=== PATIENT | male | born 1975 | race Caucasian/White ===

== ENCOUNTER 2017-02-14 19:35 | Inpatient (IN) | payer BC, MEDICAID, OTHER ==
[~2017-02-14] VITALS: Ht 188 cm; Wt 130.2 kg
[2017-02-14 19:50] VITALS: BP 110/67; PULSE 57; RESP 18; O2SAT 99
--- NOTE | 2017-02-14 19:53 | PD ---
HPI Chief Complaint: psychiatric evaluation Time Seen by Provider: 19:42 Travel History International Travel<30 days: No Contact w/Intl Traveler<30days: No History of Present Illness HPI 41-year-old male presents to the emergency department under Melendrez act for psychiatric evaluation. Patient is a resident at a local nursing facility. According to the Melendrez act, the patient has mental disabilities and has been getting rough with staff and other residences. According to the Melendrez act, ever since he has been admitted to the facility he has had some started disturbance. The windows vm[employer] administrator wanted him Melendrez acted for psychiatric evaluation. The patient has a history of schizoaffective disorder, anxiety, AMS. He is on multiple psychiatric medications. On my exam, he is alert and cooperative. He denies being aggressive with staff. He has no medical complaints at this time. Moderate severity. [facility] Social History Alcohol Use: No Tobacco Use: No Substance Use: No Allergies-Medications (Allergen,Severity, Reaction): Coded Allergies: No Known Allergies (Verified Allergy, Unknown, 02/14/17) Reported Meds & Prescriptions Reported Meds & Active Scripts Active Reported Ativan (Lorazepam) 1 Mg Tab 1 Mg PO Q6H PRN Seroquel (Quetiapine Fumarate) 25 Mg Tab 75 Mg PO TID Klonopin (Clonazepam) 1 Mg Tab 1 Mg PO TID Trazodone (Trazodone HCl) 100 Mg Tablet 100 Mg PO TID Olanzapine 20 Mg Tab 20 Mg PO HS Escitalopram (Escitalopram Oxalate) 20 Mg Tab 20 Mg PO DAILY Depakote ER (Divalproex Sodium) 500 Mg Ernst 500 Mg PO BID Review of Systems Except as stated in HPI: all other systems reviewed are Neg Physical Exam Narrative GENERAL: Well-nourished, well-developed male patient, afebrile. SKIN: Focused skin assessment warm/dry. HEAD: Normocephalic. Atraumatic. EYES: No scleral icterus. No injection or drainage. NECK: Supple, trachea midline. No JVD or lymphadenopathy. CARDIOVASCULAR: Regular rate and rhythm without murmurs, gallops, or rubs. RESPIRATORY: Breath sounds equal bilaterally. No accessory muscle use. Lungs sounds are clear to auscultation. GASTROINTESTINAL: Abdomen soft, non-tender, nondistended. MUSCULOSKELETAL: No cyanosis, or edema. PSYCHIATRIC: No delusional thought processes. No hallucinations. Data Data Last Documented VS Vital Signs Date Time Temp Pulse Resp B/P (MAP) Pulse Ox O2 Delivery O2 Flow Rate FiO2 02/14/17 19:50 57 18 110/67 (81) 99 Room Air Orders Orders Complete Blood Count With Diff (02/14/17 19:52) Comprehensive Metabolic Panel (02/14/17 19:52) Valproic Acid (Depakene) (02/14/17 19:52) Psych Screen (02/14/17 19:52) Drug Screen, Random Urine (02/14/17 19:52) Alcohol (Ethanol) (02/14/17 19:52) Olanzapine Inj (Zyprexa Inj) (02/14/17 20:45) Labs Laboratory Tests Test 02/14/17 20:13 White Blood Count 7.2 TH/MM3 Red Blood Count 4.68 MIL/MM3 Hemoglobin 14.8 GM/DL Hematocrit 42.4 % Mean Corpuscular Volume 90.7 FL Mean Corpuscular Hemoglobin 31.7 PG Mean Corpuscular Hemoglobin Concent 34.9 % Red Cell Distribution Width 12.4 % Platelet Count 257 TH/MM3 Mean Platelet Volume 6.9 FL Neutrophils (%) (Auto) 52.5 % Lymphocytes (%) (Auto) 38.7 % Monocytes (%) (Auto) 7.1 % Eosinophils (%) (Auto) 0.9 % Basophils (%) (Auto) 0.8 % Neutrophils # (Auto) 3.8 TH/MM3 Lymphocytes # (Auto) 2.8 TH/MM3 Monocytes # (Auto) 0.5 TH/MM3 Eosinophils # (Auto) 0.1 TH/MM3 Basophils # (Auto) 0.1 TH/MM3 CBC Comment DIFF FINAL Differential Comment Blood Urea Nitrogen 10 MG/DL Creatinine 0.90 MG/DL Random Glucose 89 MG/DL Total Protein 7.1 GM/DL Albumin 3.7 GM/DL Calcium Level 8.8 MG/DL Alkaline Phosphatase 76 U/L Aspartate Amino Transf (AST/SGOT) 10 U/L Alanine Aminotransferase (ALT/SGPT) 17 U/L Total Bilirubin 0.3 MG/DL Sodium Level 139 MEQ/L Potassium Level 3.9 MEQ/L Chloride Level 105 MEQ/L Carbon Dioxide Level 26.7 MEQ/L Anion Gap 7 MEQ/L Estimat Glomerular Filtration Rate 93 ML/MIN Valproic Acid (Depakene) Level 61 MCG/ML Ethyl Alcohol Level LESS THAN 3 MG/DL [facility] Medical Decision Making Medical Screen Exam Complete: Yes Emergency Medical Condition: Yes Medical Record Reviewed: Yes Differential Diagnosis Schizoaffective disorder versus depression versus anxiety Narrative Course 41-year-old male presents to the emergency department under Melendrez act from nursing facility. CBC, CMP, Depakote level, UDS, alcohol level are ordered and pending. Patient was noted to the psychiatric unit. Upon arrival, he began agitated and started banging his head. Patient is given Zyprexa 10 mg IM. CBC shows no acute abnormality. CMP shows no acute abnormality. Depakote level is 61. UDS is pending. Alcohol level is less than 3. Patient is medically cleared for psychiatric screening and disposition. Mental health screening discussed with the patient. Psychiatric screen ordered. Diagnosis Primary Impression: Schizoaffective disorder Qualified Codes: F25.9 - Schizoaffective disorder, unspecified Condition: Stable Sam,Lennie EDWARDS Feb 14, 2017 19:53
[2017-02-14 20:35] LABS: AUTOMATED NEUTROPHIL # 3.8 TH/MM3 (1.8-7.7); BASOPHIL # 0.1 TH/MM3 (0-0.2); BASOPHIL % 0.8 % (0.0-2.0); EOSINOPHIL # 0.1 TH/MM3 (0-0.4); EOSINOPHIL % 0.9 % (0.0-4.0); HEMATOCRIT 42.4 % (39.0-51.0); HEMO FLAGS DIFF FINAL; LYMPH % 38.7 % (9.0-44.0); LYMPHOCYTE # 2.8 TH/MM3 (1.0-4.8); MEAN CELL VOLUME 90.7 FL (80.0-100.0); MEAN CORPUSCULAR HEMOGLOBIN 31.7 PG (27.0-34.0); MEAN CORPUSCULAR HGB CONC 34.9 % (32.0-36.0); MONO % 7.1 % (0.0-8.0); NEUT % 52.5 % (16.0-70.0); PLATELET COUNT 257 TH/MM3 (150-450); RED BLOOD COUNT 4.68 MIL/MM3 (4.50-5.90); RED CELL DISTRIBUTION WIDTH 12.4 % (11.6-17.2); WHITE BLOOD COUNT 7.2 TH/MM3 (4.0-11.0)
[2017-02-14] MEDS ORDERED: DIVA250ER PO (20:43)
[2017-02-14] MEDS ORDERED: DEPA500T3 PO (20:43)
[2017-02-14] MEDS ORDERED: OLANZapine IM 10 MG VIAL IM ONE (20:45)
[2017-02-14] MEDS ORDERED: TRAZ100T10 PO (20:46)
[2017-02-14] MEDS ORDERED: LORA-474 PO (20:46)
[2017-02-14] MEDS ORDERED: CLON1 PO (20:46)
[2017-02-14] MEDS ORDERED: SERO25TA PO (20:46)
[2017-02-14] MEDS ORDERED: ESCI20TA PO (20:46)
[2017-02-14] MEDS ORDERED: OLAN20TA PO (20:46)
[2017-02-14 20:51] LABS: ALT (GPT) 17 U/L (12-78); ANION GAP 7 MEQ/L (5-15); AST (GOT) 10 U/L (15-37); BICARBONATE 26.7 MEQ/L (21.0-32.0); BLOOD UREA NITROGEN 10 MG/DL (7-18); CHLORIDE 105 MEQ/L (98-107); GLOMERULAR FILTRATION RATE 93 ML/MIN (>89); POTASSIUM 3.9 MEQ/L (3.5-5.1); SODIUM (NA) 139 MEQ/L (136-145)
[2017-02-14 20:54] LABS: ALKALINE PHOSPHATASE 76 U/L (45-117); TOTAL BILIRUBIN ADULT 0.3 MG/DL (0.2-1.0)
[2017-02-14 20:59] LABS: ALCOHOL LESS THAN 3 MG/DL (0-5)
[2017-02-14 21:10] VITALS: TEMP 96.5
[2017-02-14] MEDS ORDERED: traZODone HCL 100 MG TAB PO SCH (21:53)
[2017-02-14] MEDS ORDERED: LORazepam 2 MG/ML VIAL IM PRN (22:00)
[2017-02-14] MEDS ORDERED: diphenhydrAMINE HCL 50 MG/ML VIAL IM PRN (22:00)
[2017-02-14] MEDS ORDERED: ALUMINUM/MAGNESIUM/SIMETH 30 ML CUP PO PRN (22:00)
[2017-02-14] MEDS ORDERED: ACETAMINOPHEN 325 MG TAB PO PRN (22:00)
[2017-02-14] MEDS ORDERED: MAGNESIUM HYDROXIDE SUSP 30 ML CUP PO PRN (22:00)
[2017-02-14] MEDS ORDERED: LORazepam 1 MG TAB PO PRN (22:00)
[2017-02-14] MEDS ORDERED: diphenhydrAMINE HCL 50 MG CAP PO PRN (22:00)
[2017-02-14 22:20] VITALS: BP 130/81; PULSE 79; RESP 17; O2SAT 100
[2017-02-14] MEDS: OLANZapine 10 MG TAB PO SCH (22:44)
[2017-02-14] MEDS: clonazePAM 1 MG TAB PO SCH (22:44)
[2017-02-15 06:47] VITALS: BP 121/83; PULSE 89; RESP 18; TEMP 97.6; O2SAT 99
[2017-02-15] MEDS: clonazePAM 1 MG TAB PO SCH ×2 (08:29→20:53)
[2017-02-15 08:35] LABS: ANION GAP 10 MEQ/L (5-15); BICARBONATE 24.2 MEQ/L (21.0-32.0); BLOOD UREA NITROGEN 10 MG/DL (7-18); CHLORIDE 104 MEQ/L (98-107); GLOMERULAR FILTRATION RATE 86 ML/MIN (>89); POTASSIUM 3.5 MEQ/L (3.5-5.1); SODIUM (NA) 138 MEQ/L (136-145)
[2017-02-15 08:39] LABS: HDL CHOLESTEROL 28.9 MG/DL (40.0-60.0); LDL CHOLESTEROL 141 MG/DL (0-99)
[2017-02-15 09:24] LABS: HEMOGLOBIN A1a 1.2 %; HEMOGLOBIN A1b 1.2 %; HEMOGLOBIN F 0.9 %; HEMOGLOBIN LA1C 1.8 %; HEMOGLOBIN P3 3.2 %
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
[2017-02-15] MEDS ORDERED: FLUMAZENIL 0.5 MG/5 ML VIAL IV PUSH PRN (14:15)
[2017-02-15] MEDS ORDERED: LORazepam 2 MG TAB PO PRN (14:15)
[2017-02-15] MEDS ORDERED: OLANZapine IM 10 MG VIAL IM PRN (14:15)
[2017-02-15] MEDS ORDERED: LORazepam 2 MG/ML VIAL IV PUSH PRN ×4 (14:15)
[2017-02-15] MEDS ORDERED: LORazepam 1 MG TAB PO PRN (14:15)
[2017-02-15 17:32] VITALS: BP 106/67; PULSE 64; RESP 20; TEMP 97.8; O2SAT 96
[2017-02-15] MEDS: traZODone HCL 100 MG TAB PO SCH (18:00)
[2017-02-15] MEDS: OLANZapine 10 MG TAB PO SCH (20:53)
[2017-02-15] MEDS: DIVALPROEX SODIUM E.R. 250 MG TAB PO SCH (20:53)
[2017-02-16 05:36] VITALS: BP 105/69; PULSE 79; RESP 18; TEMP 98.5; O2SAT 95
[2017-02-16] MEDS: traZODone HCL 100 MG TAB PO SCH ×3 (09:00→17:32)
[2017-02-16] MEDS: clonazePAM 1 MG TAB PO SCH ×2 (09:00→20:54)
[2017-02-16] MEDS: ESCITALOPRAM OXALATE 20 MG TAB PO SCH (09:00)
[2017-02-16] MEDS: DIVALPROEX SODIUM E.R. 250 MG TAB PO SCH ×2 (09:00→20:54)
[2017-02-16] MEDS: OLANZapine 10 MG TAB PO SCH ×2 (09:00→20:54)
--- NOTE | 2017-02-16 11:25 | HHI.PYPN ---
Subjective Chief Complaint: Behavioral disturbance Remarks Patient seen and examined with nurse and counselor. Chart reviewed. CIWA max overnight was 13, but I suspect this was picking up on non-withdrawal symptomatology. Case discussed in treatment team. Per nursing staff, patient has not been aggressive or assaultive overnight. He has been noted to wander the unit and enter other patient's rooms to take small items like blankets. On my exam today, patient is calm and childlike. He is a little more communicative today. He denies SI or HI. No evident side effects from medications. No physical distress noted. Review of Systems ROS Limitations: Poor Historian Other Limited ROS as noted before. Mental Status Examination Appearance: Disheveled Consciousness: Alert Orientation: Person (seems to recognize name) Motor Activity: Other (no signs of withdrawal noted. No other motor abnormalities noted.) Speech: Other (able to say yes/no) Language: Other (Inadequate) Fund of Knowledge: Inadequate Attention and Concentration: Inadequate Memory: Impaired (Continue to suspect some degree of impairment) Mood: Other (Calm) Affect: Blunt, Other (remains childlike) Thought Process & Associations: Other (slowed) Thought Content: Other (limited sample) Hallucination Type: Other (No AVH reported. Patient does not appear internally stimulated.) Delusion Type: Other (no elham delusional material elicited) Suicidal Ideation: No Homicidal Ideation: No Insight: Poor Judgment: Poor Results Labs Test 02/15/17 15:40 Ammonia 45 MCMOL/L Labs reviewed. Mild hyperammonemia noted. 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 Behaviors that have been noted, such as wandering, are likely chronic and are unlikely to benefit from psychiatric hospitalization. Add Carnitor for hyperammonemia with plans to recheck ammonia level on outpatient basis. I will continue other psychotropics as ordered. N.B. Correcting yesterday's notes, patient is receiving Klonopin 2mg BID, which represents a slight dose decrease relative to patient's outpatient Ativan/Klonopin regimen. Further tapering of benzos could be considered on outpatient basis. Continue to monitor on an inpatient unit. Continue other medications and care as ordered. Justification for Cont. Inpt. Monitoring for impairments in safety, none noted. Discharge Planning Anticipate return to facility tomorrow, Wednesday with outpatient psychiatric follow-up. Case discussed with counselor. Josue Ibrahim MD Feb 16, 2017 11:25
--- NOTE | 2017-02-16 14:26 | EKG ---
Date Performed: 02/15/2017 Time Performed: 17:08:28 PTAGE: 41 years EKG: Sinus rhythm NONSPECIFIC T-WAVE ABNORMALITY BORDERLINE ECG NO PREVIOUS TRACING DOCTOR: Carmen Waller Interpretating Date/Time 02/16/2017 14:24:07
--- NOTE | 2017-02-16 15:16 | PD.TTN ---
Patient Problems 1. Discharge planning 2. Medication compliance 3. Knowledge deficit 4. Lack of coping skills Progress Toward Goals Provider Present: Dr. Alfonso Ibrahim Provider Input: 02-16-17 Dr. Ibrahim reports the patient has a history of TBI and has been moving between placements. Dr. Ibrahim reports he would like the patient discharged back to [facility] when stable and linked with appropriate psychiatric follow-up care. Psychiatric Counselors Present: LION Garvin Group Spec/RT/OT/US Present: JENNY Mc Group Spec/RT/OT/US Input: Patient is visible in the [place], but does not participate in the group activities. Documentation Scribe: LION Garvin Date Resolved: Feb 16, 2017 Deepti Umanzor Feb 16, 2017 15:16
[2017-02-16] MEDS: levOCARNitine 10% ORAL SOLN 118 ML BTL PO SCH (17:32)
[2017-02-16 17:44] VITALS: BP 131/75; PULSE 89; RESP 18; TEMP 97.5; O2SAT 98
[2017-02-17 05:57] VITALS: BP 169/84; PULSE 74; RESP 17; TEMP 98.5
[2017-02-17] MEDS ORDERED: CLON1 PO (10:52)
[2017-02-17] MEDS: clonazePAM 1 MG TAB PO SCH (11:00)
[2017-02-17] MEDS: DIVALPROEX SODIUM E.R. 250 MG TAB PO SCH (11:00)
[2017-02-17] MEDS: ESCITALOPRAM OXALATE 20 MG TAB PO SCH (11:00)
[2017-02-17] MEDS: traZODone HCL 100 MG TAB PO SCH ×2 (11:00→13:25)
[2017-02-17] MEDS: levOCARNitine 10% ORAL SOLN 118 ML BTL PO SCH ×2 (11:00→13:25)
[2017-02-17] MEDS: OLANZapine 10 MG TAB PO SCH (11:00)
[2017-02-17] MEDS ORDERED: LEVO10%S PO (11:13)
[2017-02-17] MEDS ORDERED: OLAN10TA PO ×2 (11:13)
[2017-02-17] MEDS ORDERED: DIVA250ER PO (11:13)
--- NOTE | 2017-02-17 11:13 | HHI.DS ---
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 Harmon is a 41-year-old male with a history of TBI and subsequent psychiatric symptomatology who presents under Melendrez Act from facility. [place] Act reviewed, and this alleges that patient has been "getting rough" with staff and other residents at facility. Reviewing the electronic medical record, I note this is patient's first visit to [facility]. Documentation , including MAR, accompanies patient from facility, and I have reviewed this. Patient seen and examined with nurse. Chart reviewed. Case discussed with RN who reports that patient is childlike and intrusive. When I try to examine the patient he is largely non-verbal, although he does grunt at times. He is indeed intrusive, and he walks up very close to this physician and tries to grab my arm. This action does not seem aggressive in context. He is able to follow simple commands. He is not able, however, to reliably answer questions in the psychiatric ROS, even when utilizing alternative means of communication. For example, patient was able to show 2 fingers on command, but he is unable to answer questions when it is established that 1 finger indicates 'yes' and 2 fingers 'no.' He is presently calm. Psychiatric interview is quite limited presently because of inability to communicate mental status. I am unable to obtain any past psychiatric, family, chemical dependency or social history from this patient for the same reason. He does not appear to be in any acute physical distress and verbalizes no physical complaints at this time. Tobacco Use In Past 30 Days: No Tobacco Past 30 Days Alcohol Use: Never Hospital Course Patient was admitted to a locked, inpatient psychiatric unit. Appropriate precautions were in place throughout patient's hospital stay. Patient was seen and examined on the unit by psychiatry and also visited by counselor. Psychotropic medications were adjusted, and his psychotropic medication generally was simplified and polypharmacy reduced. Patient tolerated medication changes well without side effects. There was no evidence of any suicidality or homicidality on the inpatient unit. The patient exhibited some behaviors as a consequence of his psychiatric condition including wandering, utilization behavior, and fecal smearing, but there was no evidence of agitation or aggression. These behaviors that patient did exhibit are felt to be chronic and unlikely to improve with further inpatient psychiatric hospitalization. Counselor has arranged for patient's return to his facility today. On the day of discharge: Patient seen and examined with nurse. Chart reviewed. Case discussed with nursing staff. Per nurse, patient was no behavioral problem overnight besides an episode of fecal smearing. In particular nurse reports that there was no aggression or agitation. Nursing note from 02/16 at 21:51 was felt to be entered in error. There is no evidence that patient received Zyprexa IM, nor did day nurse receive any of this in report. On my examination today, patient is calm and cooperative with interview. He seems more lucid and interactive today with the benefit of medication adjustments. He denies any suicidal or homicidal ideation, intent or plan. He denies any AVH. No mood or psychotic symptoms noted. He reports that he feels ready to return to his facility and is agreeable to doing so. No side effects from medications. No physical complaints. Suicide and violence risk assessment both suggest lower imminent risk on day of discharge. There is likely a component of chronic risk related to impulsivity associated with his psychiatric condition, but this risk would not be ameliorated by a longer inpatient psychiatric hospital stay. His level of function appears to be adequate for planned level of outpatient care. He does not meet criteria for involuntary psychiatric hospitalization at this time, and his Melendrez act will this evening. Patient will be discharged back to facility today with psychiatric followup as arranged by counselor. Patient is also to follow-up with primary care. Patient to return to psychiatric emergency room for any concerning psychiatric symptoms. Results Blood Pressure 169 / 84 Vital Signs Date Time Temp Pulse Resp B/P (MAP) Pulse Ox O2 Delivery O2 Flow Rate FiO2 02/17/17 05:57 98.5 74 17 169/84 (112) 02/16/17 17:44 98 02/14/17 19:50 Room Air Laboratory Tests Test 02/14/17 20:13 02/15/17 07:41 02/15/17 15:40 Mean Platelet Volume 6.9 FL (7.0-11.0) Aspartate Amino Transf (AST/SGOT) 10 U/L (15-37) Random Glucose 130 MG/DL (74-106) Estimat Glomerular Filtration Rate 86 ML/MIN (>89) Hemoglobin A1c 6.2 % (4.3-6.0) Triglycerides Level 277 MG/DL (42-150) Cholesterol Level 225 MG/DL (120-200) LDL Cholesterol 141 MG/DL (0-99) HDL Cholesterol 28.9 MG/DL (40.0-60.0) Ammonia 45 MCMOL/L (11-32) Laboratory Results Test 02/14/17 20:13 02/15/17 07:41 Valproic Acid (Depakene) Level 61 MCG/ML (50-100) Cholesterol Level 225 MG/DL (120-200) HDL Cholesterol 28.9 MG/DL (40.0-60.0) Hemoglobin A1c 6.2 % (4.3-6.0) LDL Cholesterol 141 MG/DL (0-99) Triglycerides Level 277 MG/DL (42-150) Summary of Procedures None done Imaging None done Pending results at discharge: No Medications # of Antipsychotic meds at D/C: 1 Approp Antipsych med options 1 - Minimum of three failed multiple trials of monotherapy. 2 - Documented plan to taper to monotherapy due to previous use of multiple meds OR cross-taper in progress at D/C. 3 - Documentation of augmentation of Clozapine. 4 - Justification other than those listed in allowable values 1-3, document here : Discharge Discharge Date: Feb 17, 2017 Discharge Diagnosis: (1) Dementia following traumatic brain injury Diagnosis: Principal ICD Code: F03.90 - Unspecified dementia without behavioral disturbance Pt Condition on Discharge: Stable Discharge Disposition: ACLF/TEVIN Discharge Instructions Diet Instructions: As Tolerated, No Restrictions Activities you can perform: Weight Bearing as Oma Scheduled Appointment: as per counselor's notes New Orders: AMMONIA - 3-5 Days BASIC METABOLIC PROF - 3-5 Days DEPAKENE - 3-5 Days New Medications: Clonazepam (Klonopin) 1 Mg Tab 2 MG PO Q12HR for Mental Health for 15 Days, TAB 1 Refill Divalproex ER (Depakote ER) 250 Mg Ernst 750 MG PO BID for Mental Health for 15 Days, #90 TAB 1 Refill Levocarnitine Liq (Carnitor Liq) 1 Gm/10 Ml Soln 2 ML PO TID for Hyperammonemia for 15 Days, ML 1 Refill Olanzapine (Olanzapine) 10 Mg Tab 5 MG PO DAILY for Mental Health for 15 Days, #8 TAB 1 Refill Olanzapine (Olanzapine) 10 Mg Tab 20 MG PO HS for Mental Health for 15 Days, TAB 1 Refill Continued Medications: Escitalopram (Escitalopram) 20 Mg Tab 20 MG PO DAILY, #30 TAB 0 Refills Trazodone (Trazodone) 100 Mg Tablet 100 MG PO TID for Control Depression, #90 TAB 0 Refills Discontinued Medications: Clonazepam (Klonopin) 1 Mg Tab 1 MG PO TID, #90 TAB 0 Refills Divalproex ER (Depakote ER) 500 Mg Ernst 500 MG PO BID for Control Seizures, #30 TAB 0 Refills Lorazepam (Ativan) 1 Mg Tab 1 MG PO Q6H PRN for ANXIETY AND/OR AGITATION, TAB 0 Refills Olanzapine (Olanzapine) 20 Mg Tab 20 MG PO HS, #30 TAB 0 Refills Quetiapine (Seroquel) 25 Mg Tab 75 MG PO TID, #30 TAB 0 Refills Discharge Time <= 30 minutes Mental Status Examination Appearance: Disheveled Consciousness: Alert Orientation: Person Motor Activity: Other (again no signs of withdrawal noted. No motoric abnormalities noted otherwise.) Speech: Other (able to say yes/no) Language: Other (Inadequate) Fund of Knowledge: Inadequate Attention and Concentration: Inadequate Memory: Impaired (continue to suspect impaired) Mood: Other (Calm) Affect: Blunt, Other (childlike) Thought Process & Associations: Other (slowed) Thought Content: Other (paucity of thought) Hallucination Type: None Delusion Type: None Suicidal Ideation: No Suicidal Plan: No Suicidal Intention: No Homicidal Ideation: No Homicidal Plan: No Homicidal Intention: No Insight: Poor (chronic condition) Judgment: Poor (chronic condition) Discharge/Advance Care Plan Health Problems: (1) 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 Josue Ibrahim at Smoking is Dangerous to Your Health. Avoid second hand smoking Josue Ibrahim MD Feb 17, 2017 11:13
== END 2017-02-17 16:06 | DRG 92 ==
LOC: NEPJ 19:35 → NEDA 21:32 → H270 22:20
PROVIDERS: ADMIT Psychiatry & Neurology Psychiatry; ATTEND Psychiatry & Neurology Psychiatry
DX: S06.9X0S Unspecified intracranial injury without loss of consciousness, sequela (principal); F02.81 Dementia in other diseases classified elsewhere, unspecified severity, with behavioral disturbance; E72.20 Disorder of urea cycle metabolism, unspecified; Z91.83 Wandering in diseases classified elsewhere
CPT/HCPCS: 80048; 80053; 80061; 80164; 80307; 82140; 83036; 85025; 86592; 93005; 96372; J2060

== ENCOUNTER 2017-02-19 09:09 | Inpatient (IN) | payer BC, MEDICAID, OTHER ==
[~2017-02-19] VITALS: Ht 193 cm; Wt 133.0 kg
[~2017-02-19 09:09] MED LIST: CLON1 PO; DIVA250ER PO; ESCI20TA PO; LEVO10%S PO; OLAN10TA PO; TRAZ100T10 PO
[2017-02-19 10:23] VITALS: BP 120/77; PULSE 88; RESP 18; O2SAT 95
--- NOTE | 2017-02-19 11:18 | PD ---
HPI Chief Complaint: Psychiatric Symptoms Time Seen by Provider: 09:57 Travel History International Travel<30 days: No Contact w/Intl Traveler<30days: No Traveled to known affect area: No History of Present Illness HPI 21-year-old male presents under Melendrez act. According to law enforcement report states "he is delusional and destroying property. He has urinated in a planter. He is eating plan bulbs and crispness decorations. He is bizarre and unpredictable. Recently in [facility]." History of present illness is limited. The patient has only answering questions with a mumbled "no." He is alert and active. He is walking around and appears to be delusional. History of schizophrenia. I reviewed his last visit here on February 14, 2017 and according to the note the patient was alert and cooperative. According to his medical records patient takes Depakote. No known relieving or aggravating factors. No known allergies. No other modifying factors or associated signs and symptoms. PFSH Past Medical History Anxiety: Yes Depression: Yes Diminished Hearing: No (UTO) Psychiatric: Yes (Hx of diagnosis of Bipolar Disorder) Immunizations Current: Yes Social History Alcohol Use: No Tobacco Use: No Substance Use: No Allergies-Medications (Allergen,Severity, Reaction): Coded Allergies: No Known Allergies (Verified Allergy, Unknown, 02/14/17) Reported Meds & Prescriptions Reported Meds & Active Scripts Active Carnitor Liq (Levocarnitine) 1 Gm/10 Ml Soln 2 Ml PO TID 15 Days Olanzapine 10 Mg Tab 20 Mg PO HS 15 Days Olanzapine 10 Mg Tab 5 Mg PO DAILY 15 Days Depakote ER (Divalproex Sodium) 250 Mg Ernst 750 Mg PO BID 15 Days Klonopin (Clonazepam) 1 Mg Tab 2 Mg PO Q12HR 15 Days Reported Trazodone (Trazodone HCl) 100 Mg Tablet 100 Mg PO TID Escitalopram (Escitalopram Oxalate) 20 Mg Tab 20 Mg PO DAILY Review of Systems Except as stated in HPI: all other systems reviewed are Neg Physical Exam Narrative GENERAL: Well-nourished, well-developed male patient, in no acute distress SKIN: Warm and dry. HEAD: Atraumatic. Normocephalic. EYES: Pupils equal and round. ENT: Mucosa pink and moist. NECK: Supple. Trachea midline. CARDIOVASCULAR: Regular rate and rhythm. No murmur appreciated. RESPIRATORY: No accessory muscle use. Clear to auscultation. Breath sounds equal bilaterally. GASTROINTESTINAL: Abdomen soft, non-tender, nondistended. Hepatic and splenic margins not palpable. Bowel sounds are active 4 quadrants. MUSCULOSKELETAL: No obvious deformities. No clubbing. No cyanosis. No edema. NEUROLOGICAL: Awake and alert. No obvious cranial nerve deficits. Motor grossly within normal limits. Limited speech. Moves all extremities. 5/5 strength to all extremities. PSYCHIATRIC: Delusional.. Appears to be hallucinating. Data Data Last Documented VS Vital Signs Date Time Temp Pulse Resp B/P (MAP) Pulse Ox O2 Delivery O2 Flow Rate FiO2 02/19/17 10:23 88 18 120/77 (91) 95 Orders Orders Complete Blood Count With Diff (02/19/17 09:57) Comprehensive Metabolic Panel (02/19/17 09:57) Psych Screen (02/19/17 09:57) Drug Screen, Random Urine (02/19/17 09:57) Alcohol (Ethanol) (02/19/17 09:57) Salicylates (Aspirin) (02/19/17 09:57) Tylenol (Acetaminophen) (02/19/17 09:57) Diet Regular Basic (02/19/17 Lunch) Ziprasidone Inj (Geodon Inj) (02/19/17 11:45) Diphenhydramine Inj (Benadryl Inj) (02/19/17 12:00) Urinalysis - C+S If Indicated (02/19/17 10:58) Ct Brain W/O Iv Contrast(Rout) (02/19/17 ) Valproic Acid (Depakene) (02/19/17 11:06) Admit Order (Ed Use Only) (02/19/17 11:46) Labs Laboratory Tests Test 02/19/17 11:33 02/19/17 11:35 Urine Color YELLOW Urine Turbidity CLEAR Urine pH 6.5 Urine Specific Satin 1.016 Urine Protein NEG mg/dL Urine Glucose (UA) NEG mg/dL Urine Ketones 10 mg/dL Urine Occult Blood NEG Urine Nitrite NEG Urine Bilirubin NEG Urine Urobilinogen LESS THAN 2.0 MG/DL Urine Leukocyte Esterase NEG Urine RBC LESS THAN 1 /hpf Urine WBC 1 /hpf Urine Mucus FEW /lpf Microscopic Urinalysis Comment CULT NOT INDICATED Urine Opiates Screen NEG Urine Barbiturates Screen NEG Urine Amphetamines Screen NEG Urine Benzodiazepines Screen NEG Urine Cocaine Screen NEG Urine Cannabinoids Screen NEG White Blood Count 11.2 TH/MM3 Red Blood Count 4.80 MIL/MM3 Hemoglobin 15.4 GM/DL Hematocrit 44.5 % Mean Corpuscular Volume 92.6 FL Mean Corpuscular Hemoglobin 32.1 PG Mean Corpuscular Hemoglobin Concent 34.7 % Red Cell Distribution Width 12.4 % Platelet Count 236 TH/MM3 Mean Platelet Volume 7.5 FL Neutrophils (%) (Auto) 76.4 % Lymphocytes (%) (Auto) 16.9 % Monocytes (%) (Auto) 5.7 % Eosinophils (%) (Auto) 0.4 % Basophils (%) (Auto) 0.6 % Neutrophils # (Auto) 8.5 TH/MM3 Lymphocytes # (Auto) 1.9 TH/MM3 Monocytes # (Auto) 0.6 TH/MM3 Eosinophils # (Auto) 0.0 TH/MM3 Basophils # (Auto) 0.1 TH/MM3 CBC Comment DIFF FINAL Differential Comment Blood Urea Nitrogen 10 MG/DL Creatinine 0.96 MG/DL Random Glucose 99 MG/DL Total Protein 7.4 GM/DL Albumin 4.0 GM/DL Calcium Level 8.8 MG/DL Alkaline Phosphatase 82 U/L Aspartate Amino Transf (AST/SGOT) 9 U/L Alanine Aminotransferase (ALT/SGPT) 23 U/L Total Bilirubin 0.3 MG/DL Sodium Level 142 MEQ/L Potassium Level 4.0 MEQ/L Chloride Level 106 MEQ/L Carbon Dioxide Level 27.3 MEQ/L Anion Gap 9 MEQ/L Estimat Glomerular Filtration Rate 86 ML/MIN Salicylates Level LESS THAN 1.7 MG/DL Acetaminophen Level LESS THAN 2.0 MCG/ML Valproic Acid (Depakene) Level 100 MCG/ML Ethyl Alcohol Level LESS THAN 3 MG/DL [facility] Medical Decision Making Medical Screen Exam Complete: Yes Emergency Medical Condition: Yes Medical Record Reviewed: Yes Differential Diagnosis Schizophrenia, delusional, medical clearance for psychiatric evaluation Narrative Course 41-year-old male present under Melendrez act. He was seen here on February 14 and according to the note the patient was alert and cooperative. The patient is alert at this time. He is only answering questions "no." He appears to be delusional and hallucinating. Patient has history of schizophrenia, AMS, anxiety per the last no. He takes Depakote. CBC, CMP, drug screen, EtOH, Tylenol, salicylate, Depakote level, CT head, urinalysis ordered. Diagnosis Primary Impression: Medical clearance for psychiatric admission Condition: Stable Henna Castellanos Feb 19, 2017 11:18
[2017-02-19] MEDS ORDERED: ZIPRASIDONE MESYLATE 20 MG VIAL IM ONE (11:45)
[2017-02-19 11:53] LABS: AUTOMATED NEUTROPHIL # 8.5 TH/MM3 (1.8-7.7); BASOPHIL # 0.1 TH/MM3 (0-0.2); BASOPHIL % 0.6 % (0.0-2.0); EOSINOPHIL % 0.4 % (0.0-4.0); HEMATOCRIT 44.5 % (39.0-51.0); HEMOGLOBIN 15.4 GM/DL (13.0-17.0); LYMPH % 16.9 % (9.0-44.0); LYMPHOCYTE # 1.9 TH/MM3 (1.0-4.8); MEAN CELL VOLUME 92.6 FL (80.0-100.0); MEAN CORPUSCULAR HEMOGLOBIN 32.1 PG (27.0-34.0); MEAN CORPUSCULAR HGB CONC 34.7 % (32.0-36.0); MEAN PLATELET VOLUME 7.5 FL (7.0-11.0); MONO % 5.7 % (0.0-8.0); MONOCYTE # 0.6 TH/MM3 (0-0.9); NEUT % 76.4 % (16.0-70.0); PLATELET COUNT 236 TH/MM3 (150-450); RED CELL DISTRIBUTION WIDTH 12.4 % (11.6-17.2); WHITE BLOOD COUNT 11.2 TH/MM3 (4.0-11.0)
[2017-02-19 11:58] LABS: BILIRUBIN, URINE NEG (NEG); BLOOD, URINE NEG (NEG); GLUCOSE,URINE NEG (NEG); KETONE, URINE 10 mg/dL (NEG); MUCUS URINE FEW /lpf (OCC); NITRITE,URINE NEG (NEG); PH, URINE 6.5 (5.0-8.5); URINE COLOR YELLOW (YELLW/STRAW); URINE LEUKOCYTE ESTERASE NEG (NEG)
[2017-02-19] MEDS ORDERED: MAGNESIUM HYDROXIDE SUSP 30 ML CUP PO PRN (12:00)
[2017-02-19] MEDS ORDERED: hydrOXYzine HCL 50 MG TAB PO PRN (12:00)
[2017-02-19] MEDS ORDERED: diphenhydrAMINE HCL 50 MG/ML VIAL IM PRN (12:00)
[2017-02-19] MEDS ORDERED: diphenhydrAMINE HCL 50 MG/ML VIAL IM ONE (12:00)
[2017-02-19] MEDS ORDERED: ALUMINUM/MAGNESIUM/SIMETH 30 ML CUP PO PRN (12:00)
[2017-02-19] MEDS ORDERED: LORazepam 2 MG/ML VIAL IM PRN (12:00)
[2017-02-19 12:26] LABS: ALT (GPT) 23 U/L (12-78); AST (GOT) 9 U/L (15-37); BICARBONATE 27.3 MEQ/L (21.0-32.0); BLOOD UREA NITROGEN 10 MG/DL (7-18); CALCIUM 8.8 MG/DL (8.5-10.1); CHLORIDE 106 MEQ/L (98-107); CREATININE 0.96 MG/DL (0.60-1.30); GLOMERULAR FILTRATION RATE 86 ML/MIN (>89); GLUCOSE,RANDOM 99 MG/DL (74-106); SODIUM (NA) 142 MEQ/L (136-145)
[2017-02-19 12:28] LABS: ALKALINE PHOSPHATASE 82 U/L (45-117); TOTAL BILIRUBIN ADULT 0.3 MG/DL (0.2-1.0); TOTAL PROTEIN 7.4 GM/DL (6.4-8.2)
[2017-02-19 12:44] LABS: ACETAMINOPHEN LESS THAN 2.0 MCG/ML (10.0-30.0)
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
[2017-02-19] MEDS ORDERED: OLANZapine IM 10 MG VIAL IM ONE (15:39)
--- NOTE | 2017-02-19 16:11 | RADRPT ---
EXAM DATE/TIME: 02/19/2017 15:54 [place] COMPARISON: No previous studies available for comparison. INDICATIONS : Altered mental status. RADIATION DOSE: 39.11 CTDIvol (mGy) MEDICAL HISTORY : traumatic brain injury SURGICAL HISTORY : None. ENCOUNTER: Initial ACUITY: 1 day PAIN SCALE: 0/10 LOCATION: cranial TECHNIQUE: Multiple contiguous axial images were obtained of the head. Using automated exposure control and adj ustment of the mA and/or kV according to patient size, radiation dose was kept as low as reasonably a chievable to obtain optimal diagnostic quality images. DICOM format image data is available electro nically for review and comparison. FINDINGS: CEREBRUM: There is generalized atrophy, most pronounced in the frontal lobes bilaterally. This is greater than typically seen in a patient of this age. Given the atrophy, ventricles are normal. There is coarse os sification of the anterior falx cerebri. No evidence of midline shift, mass lesion, hemorrhage or ac luis felipe infarction. No extra-axial fluid collections are seen. POSTERIOR FOSSA: The cerebellum and brainstem demonstrate no acute finding. The 4th ventricle is midline. The cerebe llopontine angle is unremarkable. EXTRACRANIAL: The visualized sinuses are clear. SKULL: The calvaria is intact. No evidence of skull fracture. CONCLUSION: 1. No acute intracranial abnormality is identified. 2. There is generalized atrophy, most prominent in the frontal lobes. This is greater than typically seen in a patient of this age. Brayden Bates MD on February 19, 2017 at 16:02 Board Certified Radiologist. This report was verified electronically.
[2017-02-19 16:22] VITALS: BP 136/64; PULSE 107; RESP 18; O2SAT 100
[2017-02-19] MEDS: levOCARNitine 10% ORAL SOLN 118 ML BTL PO SCH (17:29)
[2017-02-19] MEDS: traZODone HCL 100 MG TAB PO SCH (17:31)
[2017-02-19] MEDS: DIVALPROEX SODIUM E.R. 250 MG TAB PO SCH (20:06)
[2017-02-19] MEDS: clonazePAM 1 MG TAB PO SCH (20:07)
[2017-02-19] MEDS: OLANZapine 10 MG TAB PO SCH (20:07)
[2017-02-20] MEDS: levOCARNitine 10% ORAL SOLN 118 ML BTL PO SCH ×3 (09:01→16:32)
[2017-02-20] MEDS: DIVALPROEX SODIUM E.R. 250 MG TAB PO SCH ×2 (09:01→20:09)
[2017-02-20] MEDS: traZODone HCL 100 MG TAB PO SCH ×3 (09:01→16:33)
[2017-02-20] MEDS: clonazePAM 1 MG TAB PO SCH ×2 (09:02→20:09)
[2017-02-20] MEDS: OLANZapine 10 MG TAB PO SCH ×2 (09:02→20:09)
[2017-02-20] MEDS: ESCITALOPRAM OXALATE 20 MG TAB PO SCH (09:02)
[2017-02-20 10:03] LABS: AUTOMATED NEUTROPHIL # 3.7 TH/MM3 (1.8-7.7); BASOPHIL # 0.1 TH/MM3 (0-0.2); BASOPHIL % 1.1 % (0.0-2.0); EOSINOPHIL # 0.1 TH/MM3 (0-0.4); HEMATOCRIT 44.8 % (39.0-51.0); HEMOGLOBIN 15.6 GM/DL (13.0-17.0); LYMPH % 35.4 % (9.0-44.0); LYMPHOCYTE # 2.3 TH/MM3 (1.0-4.8); MEAN CELL VOLUME 92.5 FL (80.0-100.0); MEAN CORPUSCULAR HEMOGLOBIN 32.1 PG (27.0-34.0); MEAN CORPUSCULAR HGB CONC 34.8 % (32.0-36.0); MEAN PLATELET VOLUME 7.4 FL (7.0-11.0); MONO % 6.6 % (0.0-8.0); MONOCYTE # 0.4 TH/MM3 (0-0.9); NEUT % 55.9 % (16.0-70.0); PLATELET COUNT 239 TH/MM3 (150-450); RED BLOOD COUNT 4.84 MIL/MM3 (4.50-5.90); RED CELL DISTRIBUTION WIDTH 12.9 % (11.6-17.2); WHITE BLOOD COUNT 6.6 TH/MM3 (4.0-11.0)
[2017-02-20 10:53] LABS: ALBUMIN 3.8 GM/DL (3.4-5.0); ALT (GPT) 19 U/L (12-78); AST (GOT) 14 U/L (15-37); BICARBONATE 29.4 MEQ/L (21.0-32.0); BLOOD UREA NITROGEN 8 MG/DL (7-18); CALCIUM 8.8 MG/DL (8.5-10.1); CHLORIDE 105 MEQ/L (98-107); CHOLESTEROL 198 MG/DL (120-200); CREATININE 1.01 MG/DL (0.60-1.30); GLOMERULAR FILTRATION RATE 81 ML/MIN (>89); GLUCOSE,RANDOM 132 MG/DL (74-106); SODIUM (NA) 142 MEQ/L (136-145)
[2017-02-20 11:19] LABS: ALKALINE PHOSPHATASE 78 U/L (45-117); HDL CHOLESTEROL 31.9 MG/DL (40.0-60.0); LDL CHOLESTEROL 111 MG/DL (0-99); TOTAL BILIRUBIN ADULT 0.3 MG/DL (0.2-1.0); TOTAL PROTEIN 7.2 GM/DL (6.4-8.2); TRIGLYCERIDES 278 MG/DL (42-150)
[2017-02-20 13:03] LABS: HEMOGLOBIN A1C 6.3 % (4.3-6.0)
--- NOTE | 2017-02-20 16:07 | HHI.PYPN ---
Subjective Remarks Patient was seen and case discussed with nursing. Patient has had no behavioral outbursts today. Cognitive deficits due to TBI self-evident. Per nursing he is putting everything in his mouth. Has not needed any ETO's. Tolerating medications well Mental Status Examination Appearance: Disheveled Consciousness: Alert Orientation: Person Motor Activity: Abnormal gait Speech: Unremarkable Language: Adequate Fund of Knowledge: Adequate Attention and Concentration: Easily Distracted Memory: Impaired Mood: Other Affect: Blunt Thought Process & Associations: Disorganized Thought Content: Thought blocking, Other (internally preoccupied) Hallucination Type: None Delusion Type: None Suicidal Ideation: No Suicidal Plan: No Suicidal Intention: No Homicidal Ideation: No Homicidal Plan: No Homicidal Intention: No Insight: Poor Judgment: Poor Results Labs Test 02/20/17 09:25 White Blood Count 6.6 TH/MM3 Red Blood Count 4.84 MIL/MM3 Hemoglobin 15.6 GM/DL Hematocrit 44.8 % Mean Corpuscular Volume 92.5 FL Mean Corpuscular Hemoglobin 32.1 PG Mean Corpuscular Hemoglobin Concent 34.8 % Red Cell Distribution Width 12.9 % Platelet Count 239 TH/MM3 Mean Platelet Volume 7.4 FL Neutrophils (%) (Auto) 55.9 % Lymphocytes (%) (Auto) 35.4 % Monocytes (%) (Auto) 6.6 % Eosinophils (%) (Auto) 1.0 % Basophils (%) (Auto) 1.1 % Neutrophils # (Auto) 3.7 TH/MM3 Lymphocytes # (Auto) 2.3 TH/MM3 Monocytes # (Auto) 0.4 TH/MM3 Eosinophils # (Auto) 0.1 TH/MM3 Basophils # (Auto) 0.1 TH/MM3 CBC Comment DIFF FINAL Differential Comment Blood Urea Nitrogen 8 MG/DL Creatinine 1.01 MG/DL Random Glucose 132 MG/DL Total Protein 7.2 GM/DL Albumin 3.8 GM/DL Calcium Level 8.8 MG/DL Alkaline Phosphatase 78 U/L Aspartate Amino Transf (AST/SGOT) 14 U/L Alanine Aminotransferase (ALT/SGPT) 19 U/L Total Bilirubin 0.3 MG/DL Sodium Level 142 MEQ/L Potassium Level 3.7 MEQ/L Chloride Level 105 MEQ/L Carbon Dioxide Level 29.4 MEQ/L Anion Gap 8 MEQ/L Estimat Glomerular Filtration Rate 81 ML/MIN Hemoglobin A1c 6.3 % Triglycerides Level 278 MG/DL Cholesterol Level 198 MG/DL LDL Cholesterol 111 MG/DL HDL Cholesterol 31.9 MG/DL Cholesterol/HDL Ratio 6.20 RATIO Vitamin B12 Level 634 PG/ML 25-Hydroxy Vitamin D Total 15.8 ng/ML Thyroid Stimulating Hormone 3rd Gen 0.796 uIU/ML Vitals/IOs Vital Signs Date Time Temp Pulse Resp B/P (MAP) Pulse Ox O2 Delivery O2 Flow Rate FiO2 02/19/17 16:22 107 18 136/64 (88) 100 Assessment & Plan Problem List: (1) 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 Inpt. Patient would decompensate in a less restrictive setting Logan Yanez DO Feb 20, 2017 16:07
[2017-02-20 18:18] VITALS: BP 135/83; PULSE 96; RESP 24; TEMP 98.1; O2SAT 98
[2017-02-20] MEDS: diphenhydrAMINE HCL 50 MG CAP PO PRN (20:09)
[2017-02-20] MEDS: LORazepam 1 MG TAB PO PRN (22:00)
[2017-02-21 06:14] VITALS: BP 132/72; PULSE 100; RESP 16; TEMP 97.8; O2SAT 97
[2017-02-21] MEDS: clonazePAM 1 MG TAB PO SCH ×2 (08:44→20:05)
[2017-02-21] MEDS: traZODone HCL 100 MG TAB PO SCH ×3 (08:44→17:25)
[2017-02-21] MEDS: levOCARNitine 10% ORAL SOLN 118 ML BTL PO SCH ×3 (08:45→17:25)
[2017-02-21] MEDS: OLANZapine 10 MG TAB PO SCH ×2 (08:45→20:05)
[2017-02-21] MEDS: ESCITALOPRAM OXALATE 20 MG TAB PO SCH (08:45)
[2017-02-21] MEDS: DIVALPROEX SODIUM E.R. 250 MG TAB PO SCH ×2 (08:45→20:04)
--- NOTE | 2017-02-21 12:43 | EKG ---
Date Performed: 02/20/2017 Time Performed: 12:47:29 PTAGE: 41 years EKG: Sinus rhythm NONSPECIFIC T-WAVE ABNORMALITY BORDERLINE ECG PREVIOUS TRACING : 02/15/2017 17.08 Compared to prior tracing no significant change DOCTOR: Orville Samuels Interpretating Date/Time 02/21/2017 12:43:32
--- NOTE | 2017-02-21 16:42 | HHI.PYPN ---
Subjective Remarks Patient was seen and case discussed with nursing. Patient continues to want to eat. Is objects around him. Be spending the day in the short-haul given his intrusive behavior. Secondary to cognitive deficits, he has poor boundaries and poor limits but he has had no aggressive behavior. Mental Status Examination Appearance: Disheveled Consciousness: Alert Orientation: Person Motor Activity: Abnormal gait Speech: Unremarkable Language: Adequate Fund of Knowledge: Adequate Attention and Concentration: Easily Distracted Memory: Impaired Mood: Oppositional, Other Affect: Blunt Thought Process & Associations: Word salad Thought Content: Thought blocking, Other (internally preoccupied) Hallucination Type: None Delusion Type: None Suicidal Ideation: No Suicidal Plan: No Suicidal Intention: No Homicidal Ideation: No Homicidal Plan: No Homicidal Intention: No Insight: Poor Judgment: Poor Results Vitals/IOs Vital Signs Date Time Temp Pulse Resp B/P (MAP) Pulse Ox O2 Delivery O2 Flow Rate FiO2 02/21/17 06:14 97.8 100 16 132/72 (92) 97 Assessment & Plan Problem List: (1) 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 Inpt. Patient would decompensate in a less restrictive setting Logan Yanez DO Feb 21, 2017 16:42
[2017-02-21] MEDS: diphenhydrAMINE HCL 50 MG CAP PO PRN (20:05)
[2017-02-21] MEDS: LORazepam 2 MG/ML VIAL IM PRN (21:23)
[2017-02-21] MEDS: OLANZapine IM 10 MG VIAL IM PRN (21:23)
[2017-02-22 05:40] VITALS: BP 141/77; PULSE 109; RESP 18; TEMP 98.1; O2SAT 98
--- NOTE | 2017-02-22 08:39 | HHI.PYPN ---
Subjective Remarks Patient seen and examined with nurse. Chart reviewed. Case discussed with nursing staff. Patient reportedly remains behaviorally disturbed, smearing feces and exhibiting utilization behavior. On my exam, patient is sleeping and awakens only briefly, grunts, and lapses back into sleep. A call to the nursing station in the afternoon reveals patient has awakened and is intrusive with poor boundaries on the unit. He is trying to eat anything he can get his hands on and is grabbing at other patients, although the purpose of this behavior is unclear. He has been placed in the short macias for closer monitoring. No evidence side effects from medications, besides possibly some morning sedation. No physical complaints. Review of Systems ROS Limitations: Poor Historian Other Limited ROS as patient is poor historian at this point. Mental Status Examination Appearance: Disheveled Consciousness: Asleep (arouses briefly) Orientation: Person Motor Activity: Other (no abnormal motor movements noted) Speech: Other (unable to assess) Mood: Other (unable to assess as patient is unable to communicate mental status ) Affect: Flat Thought Process & Associations: Other (unable to assess as patient is unable to communicate mental status) Thought Content: Other (unable to assess as patient is unable to communicate mental status) Hallucination Type: Other (unable to assess as patient is unable to communicate mental status) Delusion Type: Other (unable to assess as patient is unable to communicate mental status) Suicidal Ideation: No (unable to assess as patient is unable to communicate mental status) Homicidal Ideation: No (unable to assess as patient is unable to communicate mental status) Insight: Poor Judgment: Poor Results Labs Admission labs reviewed. Depakote level within the therapeutic range. Vitamin D level low. 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 Continue Depakote as ordered. Check ammonia level. Taper Klonopin to 1.5mg BID out of concern that this is disinhibiting patient. Continue Lexapro for now, although it is unclear whether this has much role to play in patient's psychiatric issues. Initiate one-to-one for behavioral redirection. I have also placed an order for patient to be retained in the short macias and take his meals there and to be kept away from other patients because of his intrusiveness and tendency to grab other patients. Continue to monitor on the high acuity unit. Continue other medications and care as ordered. Justification for Cont. Inpt. Med changes. High risk for decompensation in less restrictive environment. Discharge Planning Likely requires new placement. Case discussed with counselor. Request HC Surrog/Guard Advoc?: Yes Josue Ibrahim MD Feb 22, 2017 08:39
[2017-02-22] MEDS: levOCARNitine 10% ORAL SOLN 118 ML BTL PO SCH ×3 (09:00→17:26)
[2017-02-22] MEDS: clonazePAM 1 MG TAB PO SCH ×2 (09:31→20:01)
[2017-02-22] MEDS: DIVALPROEX SODIUM E.R. 250 MG TAB PO SCH ×2 (09:32→20:00)
[2017-02-22] MEDS: OLANZapine 10 MG TAB PO SCH ×2 (09:32→20:00)
[2017-02-22] MEDS: ESCITALOPRAM OXALATE 20 MG TAB PO SCH (09:33)
[2017-02-22] MEDS: traZODone HCL 100 MG TAB PO SCH ×3 (09:33→17:26)
[2017-02-22] MEDS ORDERED: OLANZapine ODT 5 MG TAB PO ONE (14:30)
[2017-02-22] MEDS ORDERED: PILL SPLITTER OTHER PRN (14:45)
[2017-02-22] MEDS: LORazepam 2 MG/ML VIAL IM PRN (20:59)
[2017-02-22] MEDS: OLANZapine IM 10 MG VIAL IM PRN (20:59)
[2017-02-23 05:47] VITALS: BP 136/91; PULSE 121; RESP 20; TEMP 97.9; O2SAT 98
[2017-02-23] MEDS: traZODone HCL 100 MG TAB PO SCH ×3 (09:00→17:11)
[2017-02-23] MEDS: DIVALPROEX SODIUM E.R. 250 MG TAB PO SCH ×2 (09:00→20:25)
[2017-02-23] MEDS: ESCITALOPRAM OXALATE 20 MG TAB PO SCH (09:00)
[2017-02-23] MEDS: CHOLECALCIFEROL (VIT D3) 1000 UNIT TAB PO SCH (09:00)
[2017-02-23] MEDS: clonazePAM 1 MG TAB PO SCH ×2 (09:00→20:26)
[2017-02-23] MEDS: levOCARNitine 10% ORAL SOLN 118 ML BTL PO SCH ×3 (09:00→17:11)
[2017-02-23] MEDS: OLANZapine 10 MG TAB PO SCH ×2 (09:00→20:26)
--- NOTE | 2017-02-23 09:37 | HHI.PYPN ---
Subjective Remarks Patient seen and examined with nurse. Chart reviewed. Case discussed in treatment team and with nursing staff. Patient remains on one-to-one for behavioral redirection. On my examination today, the patient is somewhat more alert and conversant. He is oriented to person and gives the year as 2011 and is unsure of the location. He is presently calm. He is able to answer several questions with yes or no. No side effects from medications. No physical complaints. Review of Systems ROS Limitations: Poor Historian Except as stated in HPI: all other systems reviewed are Neg Mental Status Examination Appearance: Disheveled Consciousness: Other (sleeping but easily arousable) Orientation: Person Motor Activity: Other (no abnormal motor movements noted; no signs of withdrawal noted) Speech: Slow Language: Other (gives yes/no answers only) Fund of Knowledge: Inadequate Attention and Concentration: Inadequate Memory: Impaired (suspect impaired) Mood: Other (calm) Affect: Blunt Thought Process & Associations: Other (slowed) Thought Content: Other (paucity of thought) Hallucination Type: None Delusion Type: None (limited sample but none elicited) Suicidal Ideation: No Homicidal Ideation: No Insight: Poor Judgment: Poor Results Labs Test 02/22/17 15:15 Ammonia 62 MCMOL/L Labs reviewed. Hyperammonemia noted. 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 Continue Depakote as ordered. Titrate Carnitor to manage hyperammonemia. Continue Zyprexa and Lexapro as ordered. Continue to monitor on high acuity unit with one-to-one for behavioral redirection. Continue other medications and care as ordered. Justification for Cont. Inpt. Med changes. Risk for decompensation in less restrictive environment. Discharge Planning New placement versus possible state psychiatric hospital referral. Case discussed with counselor. Request HC Surrog/Guard Advoc?: Yes Josue Ibrahim MD Feb 23, 2017 09:37
--- NOTE | 2017-02-23 14:04 | PD.TTN ---
Patient Problems 1. Discharge planning 2. Medication compliance 3. Knowledge deficit 4. Lack of coping skills Progress Toward Goals Provider Present: Dr. Alfonso Ibrahim Provider Input: Pt medication regiment has been adjusted including titration of Zyprexa and decrease of Klonopin. Pt will be referred for placement as well. Nurse(s) Present: Raymundo Lombardi, RN Nurse(s) Input: Pt had an ETO last night due to behavioral outburst with poor boundaries, has been smearing his feces and has been medication compliant. Psychiatric Counselors Present: SARAH Lopes Psych Therapist Input: Pt continues to appear with poor boundaries, childlike, impulsive, cooperative and compliant with medication. Pt has no insight into condition and need for care. He has shown limited coping and emotional regulation skills as evidenced by outbursts. He will be referred for a new TEVIN as it is not likely he can return to previous facility. Group Spec/RT/OT/US Present: JENNY Mc Group Spec/RT/OT/US Input: Pt has not been attending groups. Discharge Plan SMA Pt will be referred to a new TEVIN as it is believed he can no longer return to his facility. Kingsley Marquez [facility] Feb 23, 2017 14:04
[2017-02-23 17:20] VITALS: BP 122/74; PULSE 71; RESP 18; TEMP 98.4; O2SAT 97
[2017-02-24 05:53] VITALS: BP 130/76; PULSE 81; RESP 18; TEMP 97.9; O2SAT 96
[2017-02-24] MEDS: levOCARNitine 10% ORAL SOLN 118 ML BTL PO SCH ×3 (07:40→16:57)
[2017-02-24] MEDS: traZODone HCL 100 MG TAB PO SCH ×3 (07:41→16:58)
[2017-02-24] MEDS: DIVALPROEX SODIUM E.R. 250 MG TAB PO SCH ×2 (07:41→20:06)
[2017-02-24] MEDS: OLANZapine 10 MG TAB PO SCH ×2 (07:42→20:06)
[2017-02-24] MEDS: clonazePAM 1 MG TAB PO SCH (07:42)
[2017-02-24] MEDS: CHOLECALCIFEROL (VIT D3) 1000 UNIT TAB PO SCH (07:42)
[2017-02-24] MEDS: ESCITALOPRAM OXALATE 20 MG TAB PO SCH (07:42)
--- NOTE | 2017-02-24 11:02 | HHI.PYPN ---
Subjective Remarks Patient seen and examined with nurse. Chart reviewed. Case discussed with nursing staff and with counselor. Patient remains on one-to-one. Nurse reports no behavioral disturbance overnight. On my examination today, the patient is sleeping in his room. He does awaken at nurse's request to take some of his breakfast. He seems fairly intently focused on the food and does not answer my questions today. No evident physical distress. No evident side effects from medications. Review of Systems ROS Limitations: Poor Historian Other Limited ROS today Mental Status Examination Appearance: Disheveled Consciousness: Other (sleeping but easily arousable) Orientation: Person (arouses to name being called) Motor Activity: Other (no motor abnormalities noted. No withdrawal noted.) Speech: Other (mute today) Mood: Other (unable to assess today as patient does not verbalize) Affect: Flat Thought Process & Associations: Other (unable to assess today) Thought Content: Other (unable to assess today) Hallucination Type: Other (unable to assess today) Delusion Type: Other (unable to assess today) Suicidal Ideation: No Homicidal Ideation: No Insight: Poor Judgment: Poor Results Labs Labs reviewed. No new labs. 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 Continue Klonopin taper and monitor for any withdrawal. Continue one to one for behavioral redirection, although we might consider discontinuing this after several days of no behavioral problem. Continue other medications and care as ordered. Justification for Cont. Inpt. Medication changes. Risk for decompensation in less restrictive environment. Discharge Planning New placement. Case discussed with counselor. Request HC Surrog/Guard Advoc?: Yes Josue Ibrahim MD Feb 24, 2017 11:02
--- NOTE | 2017-02-24 15:32 | EKG ---
Date Performed: 02/23/2017 Time Performed: 21:00:15 PTAGE: 41 years EKG: Sinus rhythm NORMAL ECG PREVIOUS TRACING : 02/20/2017 12.47 DOCTOR: Demarco Cohen Interpretating Date/Time 02/24/2017 15:31:20
[2017-02-24 17:04] VITALS: BP 120/77; PULSE 98; RESP 18; TEMP 98; O2SAT 98
[2017-02-24] MEDS: clonazePAM 0.5 MG TAB PO SCH (20:06)
[2017-02-24] MEDS: LORazepam 2 MG/ML VIAL IM PRN (22:00)
[2017-02-25] MEDS: OLANZapine IM 10 MG VIAL IM PRN ×2 (00:59→21:51)
[2017-02-25] MEDS: levOCARNitine 10% ORAL SOLN 118 ML BTL PO SCH ×3 (08:42→18:00)
[2017-02-25] MEDS: CHOLECALCIFEROL (VIT D3) 1000 UNIT TAB PO SCH (08:43)
[2017-02-25] MEDS: ESCITALOPRAM OXALATE 20 MG TAB PO SCH (08:43)
[2017-02-25] MEDS: DIVALPROEX SODIUM E.R. 250 MG TAB PO SCH ×2 (08:43→20:20)
[2017-02-25] MEDS: traZODone HCL 100 MG TAB PO SCH ×3 (08:43→18:03)
[2017-02-25] MEDS: OLANZapine 10 MG TAB PO SCH ×2 (08:43→21:00)
[2017-02-25] MEDS: clonazePAM 0.5 MG TAB PO SCH ×2 (08:43→20:20)
--- NOTE | 2017-02-25 12:17 | HHI.PYPN ---
Subjective Remarks Patient seen and examined. Chart reviewed. Case discussed with nursing staff. Patient apparently had an episode yesterday evening where he was pushing staff trying to get out into the day area. He did not respond to redirection and was medicated with Zyprexa IM. Consequently this morning, patient is sedated and not really able to participate in interview. He is breathing easily and is in no acute physical distress. He remains on 1:1 for behavioral redirection. Received a message from a Dr. Guerrero requesting a call back about patient's case. Not knowing who Dr. Guerrero is, I placed a call to patient's mother and [facility], Dor[place], to find out. This leads to a telephone consultation with mother on patient's progress on the unit and discharge planning. She notes that Dr. Guerrero is a former physician of [facility] who has some personal knowledge of his case that might be of benefit, and mother had asked Dr. Guerrero to give me a call. I did ask counselor Mr. Marquez to call mother to discuss progress in placements for patient. She thanks me for the call. Placed call to Dr. Guerrero at [phone]. Left generic and will try to call back tomorrow morning. Review of Systems ROS Limitations: Poor Historian, Other (Sedated) Other Unable to obtain ROS. Mental Status Examination Appearance: Disheveled Consciousness: Asleep Motor Activity: Other (no abnormal motor movements noted. No stiffness or cogwheeling in arm.) Affect: Flat Mental Status Exam Remarks MSE limited as patient is sedated. Results Labs Labs reviewed. No new labs. 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 I will continue current psychotropics as ordered and monitor. Continue one to one for behavioral redirection. Follow-up ammonia level ordered for tomorrow morning. Continue other medications and care as ordered. Patient's case was presented to the [place] [facility] and placed in continuance for 4 weeks with mother to serve as healthcare surrogate. Justification for Cont. Inpt. Risk for decompensation in less restrictive environment. Discharge Planning New placement. Case discussed with counselor. Request HC Surrog/Guard Advoc?: Yes Josue Ibrahim MD Feb 25, 2017 12:17
[2017-02-25 18:21] VITALS: BP 103/73; PULSE 108; RESP 20; TEMP 97.9; O2SAT 95
[2017-02-25] MEDS: LORazepam 2 MG/ML VIAL IM PRN (22:51)
[2017-02-26 06:07] VITALS: BP 93/57; PULSE 64; RESP 16; TEMP 97.5; O2SAT 97
[2017-02-26] MEDS: levOCARNitine 10% ORAL SOLN 118 ML BTL PO SCH ×3 (09:00→17:48)
[2017-02-26] MEDS: DIVALPROEX SODIUM E.R. 250 MG TAB PO SCH ×2 (09:00→21:00)
--- NOTE | 2017-02-26 10:42 | HHI.PYPN ---
Subjective Chief Complaint: TBI/behavioral disturbance Remarks Patient seen and examined with counselor and nurse. Chart reviewed. Case discussed in treatment team. Patient continues to struggle with behavioral disturbance most prominent at night. He remains on a one-to-one for behavioral redirection. On my examination this morning, the patient is calm. He is able to give simple but appropriate one-word answers to questions. No evident side effects from medications. No physical complaints. I did try to reach out to Dr. Guerrero this morning and left a generic voicemail requesting a call back. Review of Systems ROS Limitations: Poor Historian Except as stated in HPI: all other systems reviewed are Neg Mental Status Examination Appearance: Disheveled Consciousness: Alert Orientation: Person (recognizes name) Motor Activity: Other (no motoric abnormalities noted) Speech: Other (1 word answers) Language: Other (limited) Fund of Knowledge: Inadequate Attention and Concentration: Inadequate Memory: Impaired Mood: Other (calm) Affect: Blunt Thought Process & Associations: Other (slowed) Thought Content: Other (poverty of thought) Hallucination Type: None Delusion Type: None Suicidal Ideation: No (no SI voiced) Homicidal Ideation: No (no HI voiced) Insight: Poor Judgment: Poor Results Labs Item Value Date Time Ammonia 55 MCMOL/L H 02/26/17 1130 Labs reviewed. Ammonia level decreased but remains elevated. 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 Zyprexa 30mg qHS and Klonopin 1mg qHS. Continue Depakote as ordered, and I will titrate Carnitor to 6mL TID to manage hyperammonemia with plans to recheck an ammonia level after the weekend. Continue Lexapro and trazodone as ordered, although I think these agents represent a logical next step for adjustment to optimize patient's medication regimen. In particular, I think the TID trazodone could be tapered, consolidated at HS, or discontinued entirely. Continue to monitor on the high acuity unit with one-to-one for behavioral redirection. Continue other medications and care as ordered. Justification for Cont. Inpt. Impairment in self-care. Med changes. High risk for decompensation in less restrictive environment. Discharge Planning New placement. Case discussed with counselor. Request HC Surrog/Guard Advoc?: Yes Josue Ibrahim MD Feb 26, 2017 10:42
[2017-02-26] MEDS: CHOLECALCIFEROL (VIT D3) 1000 UNIT TAB PO SCH (10:45)
[2017-02-26] MEDS: traZODone HCL 100 MG TAB PO SCH ×3 (10:45→17:48)
[2017-02-26] MEDS: ESCITALOPRAM OXALATE 20 MG TAB PO SCH (10:45)
--- NOTE | 2017-02-26 12:48 | PD.TTN ---
Patient Problems 1. Discharge planning 2. Medication compliance 3. Knowledge deficit 4. Lack of coping skills Progress Toward Goals Provider Present: Dr. Alfonso Ibrahim Provider Input: Pt medication regiment has been adjusted including titration of Zyprexa and decrease of Klonopin. Pt will be referred for placement as well. 02/26- Pt remains on a 1:1 due to behavior and has been referred for placement. Medication regiment will continue to be evaluated and Klonopin will be added to bedtime. Nurse(s) Present: Raymundo Lombardi RN Nurse(s) Input: Pt had an ETO last night due to behavioral outburst with poor boundaries, has been smearing his feces and has been medication compliant. 02/26- Nevaeh Bertrand RN Pt appears intrusive, childlike and requiring frequent redirection/attention. He struggled last night and with his sleep on the unit. Psychiatric Counselors Present: SARAH Lopes Psych Therapist Input: Pt continues to appear with poor boundaries, childlike, impulsive, cooperative and compliant with medication. Pt has no insight into condition and need for care. He has shown limited coping and emotional regulation skills as evidenced by outbursts. He will be referred for a new TEVIN as it is not likely he can return to previous facility. 02/26- Pt presents as intrusive, childlike, nonverbal, requiring assistance and lacking orientation. Pt struggles with boundaries and appears intrusive. He requires redirection and constant supervision as well as assistance with care. He has limited insight into condition and need for care. He appears to be utilizing some form of coping and emotional regulation skills as outbursts on unit have been minimal. Placement options with an JAIL are being evaluated. Group Spec/RT/OT/US Present: JENNY Mc, ABEBA Acharya Group Spec/RT/OT/US Input: Pt has not been attending groups. 02/26- ABEBA Acharya Pt unable to tolerate groups at this time. Discharge Plan SMA Pt will be referred to a new TEVIN as it is believed he can no longer return to his facility. Documentation Scribe: SARAH Lopes Jonathan LMHC Feb 26, 2017 12:48
[2017-02-26 18:02] VITALS: BP 142/86; PULSE 102; RESP 18; TEMP 97; O2SAT 97
[2017-02-26] MEDS: clonazePAM 1 MG TAB PO SCH (20:59)
[2017-02-26] MEDS: diphenhydrAMINE HCL 50 MG CAP PO PRN (20:59)
[2017-02-26] MEDS: LORazepam 1 MG TAB PO PRN (20:59)
[2017-02-27 06:59] VITALS: BP 126/83; PULSE 86; RESP 16; TEMP 97.1; O2SAT 100
[2017-02-27] MEDS: traZODone HCL 100 MG TAB PO SCH ×3 (08:17→17:38)
[2017-02-27] MEDS: CHOLECALCIFEROL (VIT D3) 1000 UNIT TAB PO SCH (08:17)
[2017-02-27] MEDS: ESCITALOPRAM OXALATE 20 MG TAB PO SCH (08:17)
[2017-02-27] MEDS: DIVALPROEX SODIUM E.R. 250 MG TAB PO SCH ×2 (08:18→20:18)
[2017-02-27] MEDS: levOCARNitine 10% ORAL SOLN 118 ML BTL PO SCH ×3 (08:18→17:31)
[2017-02-27] MEDS: ACETAMINOPHEN 325 MG TAB PO PRN (15:38)
[2017-02-27] MEDS: LORazepam 1 MG TAB PO PRN (15:38)
[2017-02-27 17:15] VITALS: BP 122/79; PULSE 100; RESP 18; TEMP 98.9
--- NOTE | 2017-02-27 17:26 | HHI.PYPN ---
Subjective Chief Complaint: TBI/behavioral disturbance Remarks Patient was seen and case discussed with nursing. Patient remains with cognitive deficits subsequent behaviors. No outbursts, no ETO's needed. Able to have a limited conversation. Tolerating medications well Mental Status Examination Appearance: Disheveled Consciousness: Alert Orientation: Person (recognizes name) Motor Activity: Other (no motoric abnormalities noted) Speech: Other (1 word answers) Language: Other (limited) Fund of Knowledge: Inadequate Attention and Concentration: Inadequate Memory: Impaired Mood: Other (calm) Affect: Blunt Thought Process & Associations: Other (slowed) Thought Content: Other (poverty of thought) Hallucination Type: None Delusion Type: None Suicidal Ideation: No (no SI voiced) Homicidal Ideation: No (no HI voiced) Insight: Poor Judgment: Poor Results Vitals/IOs Vital Signs Date Time Temp Pulse Resp B/P (MAP) Pulse Ox O2 Delivery O2 Flow Rate FiO2 02/27/17 17:15 98.9 100 18 122/79 (93) 02/27/17 06:59 100 Assessment & Plan Problem List: (1) 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 Inpt. Patient would decompensate in a less restrictive setting Request HC Surrog/Guard Advoc?: Yes Logan Yanez DO Feb 27, 2017 17:26
[2017-02-27] MEDS: diphenhydrAMINE HCL 50 MG CAP PO PRN (17:38)
[2017-02-27] MEDS: clonazePAM 1 MG TAB PO SCH (20:18)
[2017-02-27] MEDS: LORazepam 2 MG/ML VIAL IM PRN (21:23)
[2017-02-28 05:48] VITALS: BP 128/85; PULSE 99; RESP 16; TEMP 98; O2SAT 96
[2017-02-28] MEDS: ESCITALOPRAM OXALATE 20 MG TAB PO SCH (09:25)
[2017-02-28] MEDS: CHOLECALCIFEROL (VIT D3) 1000 UNIT TAB PO SCH (09:26)
[2017-02-28] MEDS: traZODone HCL 100 MG TAB PO SCH ×3 (09:26→18:21)
[2017-02-28] MEDS: levOCARNitine 10% ORAL SOLN 118 ML BTL PO SCH ×3 (09:26→18:21)
[2017-02-28] MEDS: DIVALPROEX SODIUM E.R. 250 MG TAB PO SCH ×2 (09:26→21:11)
--- NOTE | 2017-02-28 12:33 | HHI.PYPN ---
Subjective Chief Complaint: TBI/behavioral disturbance Remarks Patient was seen and case discussed with nursing. Patient remains at his baseline. He has not needed an ETO's. Nursing was concerned about diarrhea and came back with a negative C. difficile. Behaving well today, no ETO's Mental Status Examination Appearance: Disheveled Consciousness: Alert Orientation: Person (recognizes name) Motor Activity: Other (no motoric abnormalities noted) Speech: Other (1 word answers) Language: Other (limited) Fund of Knowledge: Inadequate Attention and Concentration: Inadequate Memory: Impaired Mood: Other (calm) Affect: Blunt Thought Process & Associations: Other (slowed) Thought Content: Other (poverty of thought) Hallucination Type: None Delusion Type: None Suicidal Ideation: No (no SI voiced) Homicidal Ideation: No (no HI voiced) Insight: Poor Judgment: Poor Results Labs Test 02/28/17 09:57 Stool C. difficile Toxin (PCR) NEGATIVE Stl C. 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 Inpt. Patient will decompensate in a less restrictive setting Request HC Surrog/Guard Advoc?: Yes Logan Yanez DO Feb 28, 2017 12:33
[2017-02-28] MEDS: DIPHENOXYLATE/ATROPINE 2.5 MG/0.025 MG TAB PO SCH ×2 (15:27→18:21)
[2017-02-28 20:55] VITALS: BP 105/61; PULSE 78; RESP 16; TEMP 98; O2SAT 97
[2017-02-28] MEDS: clonazePAM 1 MG TAB PO SCH (21:11)
[2017-03-01] MEDS: DIPHENOXYLATE/ATROPINE 2.5 MG/0.025 MG TAB PO SCH ×5 (01:47→23:26)
[2017-03-01 06:04] VITALS: BP 90/54; PULSE 73; RESP 19; TEMP 97.4; O2SAT 100
[2017-03-01] MEDS: traZODone HCL 100 MG TAB PO SCH ×3 (08:56→17:22)
[2017-03-01] MEDS: CHOLECALCIFEROL (VIT D3) 1000 UNIT TAB PO SCH (08:56)
[2017-03-01] MEDS: ESCITALOPRAM OXALATE 20 MG TAB PO SCH (08:56)
[2017-03-01] MEDS: DIVALPROEX SODIUM E.R. 250 MG TAB PO SCH ×2 (08:56→20:16)
[2017-03-01] MEDS: levOCARNitine 10% ORAL SOLN 118 ML BTL PO SCH ×3 (08:57→17:21)
--- NOTE | 2017-03-01 10:53 | HHI.PYPN ---
Subjective Chief Complaint: TBI/behavioral disturbance Remarks Patient seen and examined with tech. Chart reviewed. Patient remains on 1:1 for behavioral redirection. Case discussed with nursing staff. Ongoing issues with nocturnal wandering and hyperphagia. Nurse tells me patient awakens and begins wandering ~4pm. On my exam, patient is sleeping. He is in no acute distress and is breathing easily but cannot be awakened for interview. No evidence side effects from medications. No physical complaints. Review of Systems ROS Limitations: Poor Historian Other Unable to perform ROS today. Mental Status Examination Appearance: Disheveled Consciousness: Asleep Motor Activity: Other (No abnormal motor movements noted.) Affect: Flat Thought Content: Other Insight: Poor Judgment: Poor Mental Status Exam Remarks MSE limited today as patient is asleep. Results Labs Labs reviewed. Hyperammonemia continues to improve. CDiff negative. 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 Zyprexa 5mg q4pm. This will bring total dose of Zyprexa to 35mg, but given the patient's habitus and lack of side effects from this agent so far I think it is reasonable to titrate this agent rather than introducing further polypharmacy into patient's regimen. Continue one-to-one for behavioral redirection. Continue other medications and care as ordered. Justification for Cont. Inpt. Med changes. Impairment in self-care. High-Risk for decompensation in less restrictive environment. Discharge Planning Placement. Case discussed with counselor. Request HC Surrog/Guard Advoc?: Yes Josue Ibrahim MD Mar 01, 2017 10:53
[2017-03-01] MEDS: OLANZapine 5 MG TAB PO SCH (16:00)
[2017-03-01 18:00] VITALS: BP 128/83; PULSE 91; RESP 19; TEMP 98.4; O2SAT 100
[2017-03-01] MEDS: clonazePAM 1 MG TAB PO SCH (20:16)
[2017-03-02] MEDS: DIPHENOXYLATE/ATROPINE 2.5 MG/0.025 MG TAB PO SCH ×3 (05:31→18:00)
[2017-03-02 05:56] VITALS: BP 134/87; PULSE 85; RESP 17; TEMP 97.5; O2SAT 95
[2017-03-02] MEDS: DIVALPROEX SODIUM E.R. 250 MG TAB PO SCH ×2 (09:00→20:19)
[2017-03-02] MEDS: traZODone HCL 100 MG TAB PO SCH ×3 (09:00→18:00)
[2017-03-02] MEDS: CHOLECALCIFEROL (VIT D3) 1000 UNIT TAB PO SCH (09:00)
[2017-03-02] MEDS: ESCITALOPRAM OXALATE 20 MG TAB PO SCH (09:00)
[2017-03-02] MEDS: levOCARNitine 10% ORAL SOLN 118 ML BTL PO SCH ×3 (09:00→18:00)
--- NOTE | 2017-03-02 10:31 | HHI.PYPN ---
Subjective Chief Complaint: TBI/behavioral disturbance Remarks Patient seen and examined with nurse. Chart reviewed. Case discussed in treatment team. Patient remains on a one-to-one for behavioral redirection. Per nursing staff, patient continues with poor boundaries and tries to touch people. He does hug the nurse following our interview and the sitter has to help extricate the nurse. Addition of Zyprexa in the afternoon seems to be helpful as the patient did not have any severe behavioral disturbance yesterday evening or overnight per nursing report. Patient awake and alert at the time of my evaluation. He remains cognitively impaired. He is able to answer simple yes/no questions. He denies SI or HI but is unreliable contract for safety. He denies AVH. Denies complaints of pain. No side effects from medications. No physical complaints. Review of Systems ROS Limitations: Poor Historian Except as stated in HPI: all other systems reviewed are Neg Mental Status Examination Appearance: Disheveled Consciousness: Asleep Orientation: Person Motor Activity: Other (no motoric abnormalities noted) Speech: Other (yes/no answers) Language: Other (inadequate) Fund of Knowledge: Inadequate Attention and Concentration: Inadequate Memory: Impaired Mood: Other (calm) Affect: Blunt Thought Process & Associations: Other (limited sample) Thought Content: Other (limited sample) Hallucination Type: None Delusion Type: None Suicidal Ideation: No (unreliable to contract for safety) Homicidal Ideation: No (unreliable to contract for safety) Insight: Poor Judgment: Poor Results Labs Labs reviewed. Ammonia level continues to trend downward. Test 03/01/17 13:31 Ammonia 49 MCMOL/L Charting indicates patient refused EKG. 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 Continue other medications as ordered. Continue one to one for behavioral redirection. Continue other care as ordered. Justification for Cont. Inpt. Impairment in self-care. Impairment in social function. High risk for decompensation in less restrictive environment. Discharge Planning Placement. Case discussed with counselor. Request HC Surrog/Guard Advoc?: Yes Josue Ibrahim MD Mar 02, 2017 10:31
--- NOTE | 2017-03-02 11:48 | PD.TTN ---
Patient Problems 1. Discharge planning 2. Medication compliance 3. Knowledge deficit 4. Lack of coping skills Progress Toward Goals Provider Present: Dr. Alfonso Ibrahim Provider Input: Pt medication regiment has been adjusted including titration of Zyprexa and decrease of Klonopin. Pt will be referred for placement as well. 02/26- Pt remains on a 1:1 due to behavior and has been referred for placement. Medication regiment will continue to be evaluated and Klonopin will be added to bedtime. 03/02- Pt remains a placement issue but medication regiment is being evaluated including addition of Zyprexa. Nurse(s) Present: Raymundo Lombardi RN Nurse(s) Input: Pt had an ETO last night due to behavioral outburst with poor boundaries, has been smearing his feces and has been medication compliant. 02/26- Nevaeh Bertrand RN Pt appears intrusive, childlike and requiring frequent redirection/attention. He struggled last night and with his sleep on the unit. 03/02- Jose Oconnor RN Pt is medication compliant, intrusive, confused, disoriented and trying to touch other patients. Psychiatric Counselors Present: Kingsley Marquez [facility] Psych Therapist Input: Pt continues to appear with poor boundaries, childlike, impulsive, cooperative and compliant with medication. Pt has no insight into condition and need for care. He has shown limited coping and emotional regulation skills as evidenced by outbursts. He will be referred for a new [facility] as it is not likely he can return to previous facility. 02/26- Pt presents as intrusive, childlike, nonverbal, requiring assistance and lacking orientation. Pt struggles with boundaries and appears intrusive. He requires redirection and constant supervision as well as assistance with care. He has limited insight into condition and need for care. He appears to be utilizing some form of coping and emotional regulation skills as outbursts on unit have been minimal. Placement options with an [facility] are being evaluated. 03/02- Pt remains largely nonverbal, disoriented, paces the unit, intrusive and childlike. Pt presents with no insight into condition and need for care. He appears to be utilizing some level of coping skills as he has had no outbursts recently on unit. Pt is compliant with medication regiment. Group Spec/RT/OT/US Present: Laila Contreras, [employer], ABEBA Acharya Group Spec/RT/OT/US Input: Pt has not been attending groups. 02/26- ABEBA Acharya Pt unable to tolerate groups at this time. 03/02- ABEBA Acharya Pt is unable to tolerate groups at this time and is intrusive Discharge Plan SMA Pt will be referred to a new [facility] as it is believed he can no longer return to his facility. Documentation Scribe: Kingsley Marquez, [facility] Mar 02, 2017 11:47
[2017-03-02] MEDS: OLANZapine 5 MG TAB PO SCH (16:00)
[2017-03-02 18:40] VITALS: BP 136/82; PULSE 92; RESP 18; TEMP 97.7; O2SAT 97
[2017-03-02] MEDS: clonazePAM 1 MG TAB PO SCH (20:19)
[2017-03-03] MEDS: DIPHENOXYLATE/ATROPINE 2.5 MG/0.025 MG TAB PO SCH ×2 (05:44)
--- NOTE | 2017-03-03 08:22 | HHI.PYPN ---
Subjective Chief Complaint: TBI/behavioral disturbance Remarks Patient seen and examined with nurse. Chart reviewed. Case discussed with nursing staff reports patient was no behavioral problem overnight. Case discussed with counselor; placement remains difficult. On my exam today, patient is sleeping soundly. He resists my efforts to awaken him for interview. He appears to be in no physical distress. I do see some tiny shards of mattress foam on the floor and note that the mattress has been torn in the upper left corner slightly. 1:1 has not observed patient to eat any mattress foam. No evident side effects from medications. Review of Systems ROS Limitations: Poor Historian Except as stated in HPI: all other systems reviewed are Neg Mental Status Examination Appearance: Disheveled Consciousness: Asleep Motor Activity: Other (no abnormal motor movements noted) Speech: Other (sleeping and does not speak today) Affect: Flat Insight: Poor Judgment: Poor Mental Status Exam Remarks Limited MSE as patient is asleep. Results Labs Labs reviewed. No new labs. 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 D/c Lomotil to avoid excessively constipating patient. Continue 1:1 for behavioral redirection. Check ammonia level after the weekend. Continue other medications and care as ordered. Justification for Cont. Inpt. Risk for decompensation in less restrictive environment. Impairment in self- care. Discharge Planning Placement. Request HC Surrog/Guard Advoc?: Yes Josue Ibrahim MD Mar 03, 2017 08:22
[2017-03-03] MEDS: CHOLECALCIFEROL (VIT D3) 1000 UNIT TAB PO SCH (09:00)
[2017-03-03] MEDS: levOCARNitine 10% ORAL SOLN 118 ML BTL PO SCH ×3 (09:00→18:00)
[2017-03-03] MEDS: OLANZapine 5 MG TAB PO SCH ×2 (09:00→16:00)
[2017-03-03] MEDS: traZODone HCL 100 MG TAB PO SCH ×3 (09:00→18:00)
[2017-03-03] MEDS: ESCITALOPRAM OXALATE 20 MG TAB PO SCH (09:00)
[2017-03-03] MEDS: DIVALPROEX SODIUM E.R. 250 MG TAB PO SCH ×2 (09:00→21:00)
[2017-03-03 16:05] VITALS: BP 142/69; PULSE 113; RESP 18; TEMP 97.9; O2SAT 96
[2017-03-03] MEDS: clonazePAM 1 MG TAB PO SCH (21:00)
[2017-03-04] MEDS: DIVALPROEX SODIUM E.R. 250 MG TAB PO SCH ×2 (07:33→20:32)
[2017-03-04] MEDS: levOCARNitine 10% ORAL SOLN 118 ML BTL PO SCH ×4 (07:33→20:32)
[2017-03-04] MEDS: traZODone HCL 100 MG TAB PO SCH ×2 (07:34→20:31)
[2017-03-04] MEDS: OLANZapine 5 MG TAB PO SCH ×2 (07:34→16:04)
[2017-03-04] MEDS: ESCITALOPRAM OXALATE 20 MG TAB PO SCH (07:34)
[2017-03-04] MEDS: CHOLECALCIFEROL (VIT D3) 1000 UNIT TAB PO SCH (07:34)
--- NOTE | 2017-03-04 11:33 | HHI.PYPN ---
Subjective Chief Complaint: TBI/behavioral disturbance Remarks Patient seen and examined with nurse. Chart reviewed. Case discussed with nursing staff. No significant behaviors overnight. On my exam, patient is more conversant. He is calm. He is disheveled and malodorous. He says that he would like something to eat. He reports that he is doing well with medications. He denies any SI/HI/AVH. No side effects from medications. No physical complaints. Review of Systems ROS Limitations: Poor Historian Except as stated in HPI: all other systems reviewed are Neg Mental Status Examination Appearance: Disheveled Consciousness: Alert Orientation: Person Motor Activity: Other (No motoric abnormalities appreciated.) Speech: Other (More conversant) Language: Other (Inadequate) Fund of Knowledge: Inadequate Attention and Concentration: Inadequate Memory: Impaired Mood: Other (calm) Affect: Blunt Thought Process & Associations: Disorganized Thought Content: Other (poverty of thought) Hallucination Type: None Delusion Type: None Suicidal Ideation: No Homicidal Ideation: No Insight: Poor Judgment: Poor Results Labs Labs reviewed; no new labs. 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 I will take this opportunity to taper trazodone to 100mg BID as I do not suspect this is adding much except sedating effect to patient's regimen. We could consider further tapering of this agent. Continue other medications and care as ordered. Justification for Cont. Inpt. Impairment in self-care. Risk for decompensation in less restrictive environment. Medication changes. Discharge Planning New placement Request HC Surrog/Guard Advoc?: Yes Josue Ibrahim MD Mar 04, 2017 11:33
[2017-03-04 17:15] VITALS: BP 128/71; PULSE 97; RESP 18; TEMP 97.9; O2SAT 98
[2017-03-04] MEDS: clonazePAM 1 MG TAB PO SCH (20:32)
[2017-03-05] MEDS: CHOLECALCIFEROL (VIT D3) 1000 UNIT TAB PO SCH (07:46)
[2017-03-05] MEDS: ESCITALOPRAM OXALATE 20 MG TAB PO SCH (07:46)
[2017-03-05] MEDS: traZODone HCL 100 MG TAB PO SCH ×2 (07:46→20:04)
[2017-03-05] MEDS: DIVALPROEX SODIUM E.R. 250 MG TAB PO SCH ×2 (07:46→20:04)
[2017-03-05] MEDS: OLANZapine 5 MG TAB PO SCH ×2 (07:47→15:32)
[2017-03-05] MEDS: levOCARNitine 10% ORAL SOLN 118 ML BTL PO SCH ×2 (07:47→15:32)
--- NOTE | 2017-03-05 12:21 | HHI.PYPN ---
Subjective Chief Complaint: TBI/behavioral disturbance Remarks Patient seen and examined with nurse. Chart reviewed. Case discussed with nursing staff and in treatment team. On my exam, patient is alert. He remains on 1:1. He answers simple yes/no questions. He remains childlike with poor boundaries and tries to hug me and other staff. He is easily redirected. No evident side effects from medications. No physical complaints. Review of Systems ROS Limitations: Poor Historian Except as stated in HPI: all other systems reviewed are Neg Mental Status Examination Appearance: Disheveled Consciousness: Alert Orientation: Person Motor Activity: Other (no abnormal motor movements noted) Speech: Other (again somewhat more conversant versus previous days) Language: Other (Inadequate) Fund of Knowledge: Inadequate Attention and Concentration: Inadequate Memory: Impaired Mood: Other (calm) Affect: Blunt (childlike) Thought Process & Associations: Disorganized Thought Content: Other (poverty of thought) Hallucination Type: None Delusion Type: None Suicidal Ideation: No Homicidal Ideation: No Insight: Poor Judgment: Poor Results Labs Labs reviewed. No new labs. 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 Continue to monitor on the inpatient unit. Continue one-to-one for behavioral redirection. Ammonia level ordered for after the weekend. Continue other medications and care as ordered. Justification for Cont. Inpt. Risk for decompensation in less restrictive environment. Discharge Planning Placement. Case discussed with counselor. Request HC Surrog/Guard Advoc?: Yes Josue Ibrahim MD Mar 05, 2017 12:21
[2017-03-05] MEDS: ACETAMINOPHEN 325 MG TAB PO PRN (14:18)
--- NOTE | 2017-03-05 14:40 | PD.TTN ---
Patient Problems 1. Discharge planning 2. Medication compliance 3. Knowledge deficit 4. Lack of coping skills Progress Toward Goals Provider Present: Dr. Alfonso Ibrahim Provider Input: Pt medication regiment has been adjusted including titration of Zyprexa and decrease of Klonopin. Pt will be referred for placement as well. 02/26- Pt remains on a 1:1 due to behavior and has been referred for placement. Medication regiment will continue to be evaluated and Klonopin will be added to bedtime. 03/02- Pt remains a placement issue but medication regiment is being evaluated including addition of Zyprexa. 03/05- Pt remains a placement issue at this time and medication regiment will be evaluated. Nurse(s) Present: Raymundo Lombardi RN Nurse(s) Input: Pt had an ETO last night due to behavioral outburst with poor boundaries, has been smearing his feces and has been medication compliant. 02/26- Nevaeh Bertrand RN Pt appears intrusive, childlike and requiring frequent redirection/attention. He struggled last night and with his sleep on the unit. 03/02- Jose Oconnor RN Pt is medication compliant, intrusive, confused, disoriented and trying to touch other patients. 03/05- Sydnie Villasenor RN Pt is improving and has been more involved in his self care activities. He appears more sedated and less active on unit. Psychiatric Counselors Present: Kingsley Marquez [facility] Psych Therapist Input: Pt continues to appear with poor boundaries, childlike, impulsive, cooperative and compliant with medication. Pt has no insight into condition and need for care. He has shown limited coping and emotional regulation skills as evidenced by outbursts. He will be referred for a new [facility] as it is not likely he can return to previous facility. 02/26- Pt presents as intrusive, childlike, nonverbal, requiring assistance and lacking orientation. Pt struggles with boundaries and appears intrusive. He requires redirection and constant supervision as well as assistance with care. He has limited insight into condition and need for care. He appears to be utilizing some form of coping and emotional regulation skills as outbursts on unit have been minimal. Placement options with an [facility] are being evaluated. 03/02- Pt remains largely nonverbal, disoriented, paces the unit, intrusive and childlike. Pt presents with no insight into condition and need for care. He appears to be utilizing some level of coping skills as he has had no outbursts recently on unit. Pt is compliant with medication regiment. 03/05- Pt continues to appear mainly nonverbal and low functioning. He requires assistance with self care and observation. Pt shows no agitation or aggression suggesting some level of coping and emotional regulation skills. Insight into condition and need for care remains poor. He is still being referred for placement at an SNF or SNF but has not been accepted by any referrals yet. Group Spec/RT/OT/US Present: Laila Contreras, JENNY, ABEBA Acharya Group Spec/RT/OT/US Input: Pt has not been attending groups. 02/26- ABEBA Acharya Pt unable to tolerate groups at this time. 03/02- ABEBA Acharya Pt is unable to tolerate groups at this time and is intrusive 03/05- ABEBA Acharya Pt is unable to attend groups at this time as he remains on a 1:1. Discharge Plan SMA Pt will be referred to a new SNF as it is believed he can no longer return to his facility. Documentation Scribe: SARAH Lopes Jonathan [facility] Mar 05, 2017 14:40
[2017-03-05 17:30] VITALS: BP 124/77; PULSE 98; RESP 20; TEMP 97.9; O2SAT 94
[2017-03-05] MEDS: clonazePAM 1 MG TAB PO SCH (20:05)
[2017-03-06] MEDS: levOCARNitine 10% ORAL SOLN 118 ML BTL PO SCH ×3 (07:43→16:37)
[2017-03-06] MEDS: traZODone HCL 100 MG TAB PO SCH ×2 (07:43→21:28)
[2017-03-06] MEDS: DIVALPROEX SODIUM E.R. 250 MG TAB PO SCH ×2 (07:43→21:29)
[2017-03-06] MEDS: ESCITALOPRAM OXALATE 20 MG TAB PO SCH (07:43)
[2017-03-06] MEDS: OLANZapine 5 MG TAB PO SCH ×2 (07:44→15:51)
[2017-03-06] MEDS: CHOLECALCIFEROL (VIT D3) 1000 UNIT TAB PO SCH (07:44)
--- NOTE | 2017-03-06 14:22 | HHI.PYPN ---
Subjective Chief Complaint: TBI/behavioral disturbance Remarks Patient was seen and case discussed with nursing. Patient remains on good behavior, he is at baseline, at times intrusive but has not had any outbursts and is tolerating his medications well Mental Status Examination Appearance: Disheveled Consciousness: Alert Orientation: Person Motor Activity: Other (no abnormal motor movements noted) Speech: Other (again somewhat more conversant versus previous days) Language: Other (Inadequate) Fund of Knowledge: Inadequate Attention and Concentration: Inadequate Memory: Impaired Mood: Other (calm) Affect: Blunt (childlike) Thought Process & Associations: Disorganized Thought Content: Other (poverty of thought) Hallucination Type: None Delusion Type: None Suicidal Ideation: No Homicidal Ideation: No Insight: Poor Judgment: Poor Results Vitals/IOs Vital Signs Date Time Temp Pulse Resp B/P (MAP) Pulse Ox O2 Delivery O2 Flow Rate FiO2 03/05/17 17:30 97.9 98 20 124/77 (93) 94 Assessment & Plan Problem List: (1) 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 Inpt. Patient would decompensate in a less restrictive setting Request HC Surrog/Guard Advoc?: Yes Logan Yanez DO Mar 06, 2017 14:22
[2017-03-06] MEDS: clonazePAM 1 MG TAB PO SCH (21:29)
[2017-03-07 06:27] VITALS: BP 124/83; PULSE 82; RESP 16; TEMP 98; O2SAT 95
[2017-03-07] MEDS: OLANZapine 5 MG TAB PO SCH ×2 (08:49→16:50)
[2017-03-07] MEDS: DIVALPROEX SODIUM E.R. 250 MG TAB PO SCH ×2 (08:49→21:28)
[2017-03-07] MEDS: levOCARNitine 10% ORAL SOLN 118 ML BTL PO SCH ×3 (08:49→16:50)
[2017-03-07] MEDS: ESCITALOPRAM OXALATE 20 MG TAB PO SCH (08:49)
[2017-03-07] MEDS: CHOLECALCIFEROL (VIT D3) 1000 UNIT TAB PO SCH (08:49)
[2017-03-07] MEDS: traZODone HCL 100 MG TAB PO SCH ×2 (08:49→21:28)
--- NOTE | 2017-03-07 12:35 | HHI.PYPN ---
Subjective Chief Complaint: TBI/behavioral disturbance Remarks Patient was seen and case discussed with nursing. Patient remains cognitively challenged. Behaving well on the unit. Per nursing is slightly more talkative. For my interview she is volitionally mute. No outbursts or ETO's needed Mental Status Examination Appearance: Disheveled Consciousness: Alert Orientation: Person Motor Activity: Other (no abnormal motor movements noted) Speech: Other (again somewhat more conversant versus previous days) Language: Other (Inadequate) Fund of Knowledge: Inadequate Attention and Concentration: Inadequate Memory: Impaired Mood: Other (calm) Affect: Blunt (childlike) Thought Process & Associations: Disorganized Thought Content: Other (poverty of thought) Hallucination Type: None Delusion Type: None Suicidal Ideation: No Homicidal Ideation: No Insight: Poor Judgment: Poor Results Vitals/IOs Vital Signs Date Time Temp Pulse Resp B/P (MAP) Pulse Ox O2 Delivery O2 Flow Rate FiO2 03/07/17 06:27 98.0 82 16 124/83 (97) 95 Assessment & Plan Problem List: (1) 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 Inpt. Patient would decompensate in a less restrictive setting Request HC Surrog/Guard Advoc?: Yes Logan Yanez DO Mar 07, 2017 12:35
[2017-03-07 18:00] VITALS: BP 104/55; PULSE 86; RESP 18; TEMP 98.6; O2SAT 97
[2017-03-07] MEDS: clonazePAM 1 MG TAB PO SCH (21:28)
[2017-03-08 06:30] VITALS: BP 129/87; PULSE 78; RESP 18; TEMP 97.3; O2SAT 98
[2017-03-08] MEDS: DIVALPROEX SODIUM E.R. 250 MG TAB PO SCH ×2 (07:53→21:00)
[2017-03-08] MEDS: ESCITALOPRAM OXALATE 20 MG TAB PO SCH (07:53)
[2017-03-08] MEDS: traZODone HCL 100 MG TAB PO SCH ×2 (07:53→21:00)
[2017-03-08] MEDS: OLANZapine 5 MG TAB PO SCH ×2 (07:54→15:57)
[2017-03-08] MEDS: CHOLECALCIFEROL (VIT D3) 1000 UNIT TAB PO SCH (07:54)
[2017-03-08] MEDS: levOCARNitine 10% ORAL SOLN 118 ML BTL PO SCH ×3 (09:00→17:18)
--- NOTE | 2017-03-08 09:09 | HHI.PYPN ---
Subjective Chief Complaint: TBI/behavioral disturbance Remarks Patient seen and examined with nurse. Chart reviewed. Case discussed with nursing staff who reports the patient continues to verbalize more at intervals. A one-to-one remains ordered for behavioral redirection, although no one-to- one is available this morning per nursing staff. I have made the charge nurse aware of this deficiency with the expectation that it will be corrected. On my examination today, the patient is calm. He is volitionally mute today. He does deny pain or physical discomfort by shaking his head 'no'. No evidence side effects from medications. No physical complaints. Review of Systems ROS Limitations: Poor Historian Other Limited ROS today as patient is volitionally mute. Mental Status Examination Appearance: Disheveled Consciousness: Alert Orientation: Person (seems to recognize name) Motor Activity: Other (no motor abnormalities) Speech: Other (volitionally mute today) Language: Other (Inadequate) Attention and Concentration: Other (does seem to attend to my conversation with him, although he does not respond) Mood: Other (remains calm) Affect: Blunt (remains blunted and childlike) Thought Process & Associations: Other (volitionally mute, unable to assess) Thought Content: Other (volitionally mute, unable to assess but suspect ongoing poverty of thought) Hallucination Type: None (volitionally mute, unable to assess) Delusion Type: None (volitionally mute, unable to assess) Insight: Poor Judgment: Poor Mental Status Exam Remarks Unable to assess other aspects of the MSE today as patient is mute Results Labs Test 03/08/17 07:50 Ammonia 36 MCMOL/L Labs reviewed. Ammonia level is once again downtrending. 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 Continue to monitor on the high acuity unit. Continue other medications and care as ordered. Justification for Cont. Inpt. Risk for decompensation in less restrictive environment. Discharge Planning Placement Request HC Surrog/Guard Advoc?: Yes Josue Ibrahim MD Mar 08, 2017 09:09
[2017-03-08 18:09] VITALS: BP 119/74; PULSE 101; RESP 18; TEMP 98.3; O2SAT 98
[2017-03-08] MEDS: clonazePAM 1 MG TAB PO SCH (21:00)
[2017-03-09 06:10] VITALS: BP 124/85; PULSE 85; RESP 18; TEMP 97.4; O2SAT 95
[2017-03-09] MEDS: levOCARNitine 10% ORAL SOLN 118 ML BTL PO SCH ×3 (09:00→17:49)
[2017-03-09] MEDS: traZODone HCL 100 MG TAB PO SCH ×2 (09:05→21:00)
[2017-03-09] MEDS: CHOLECALCIFEROL (VIT D3) 1000 UNIT TAB PO SCH (09:05)
[2017-03-09] MEDS: OLANZapine 5 MG TAB PO SCH ×2 (09:05→16:00)
[2017-03-09] MEDS: ESCITALOPRAM OXALATE 20 MG TAB PO SCH (09:05)
[2017-03-09] MEDS: DIVALPROEX SODIUM E.R. 250 MG TAB PO SCH ×2 (09:05→21:00)
--- NOTE | 2017-03-09 09:43 | HHI.PYPN ---
Subjective Chief Complaint: TBI/behavioral disturbance Remarks Patient seen and examined. Chart reviewed. Case discussed in treatment team with counselor and occupational therapist. Case discussed with nursing staff who reports that the patient slept well overnight. The patient remains on a one -to-one for behavioral redirection. On my examination today, patient is lying calmly in his room. He verbalizes little but appears to be in no acute distress. No evidence of internal stimulation. No evident side effects from medications. No sedation. No physical complaints. Review of Systems ROS Limitations: Poor Historian Except as stated in HPI: all other systems reviewed are Neg Mental Status Examination Appearance: Disheveled Consciousness: Alert Orientation: Person Motor Activity: Other (no abnormal motor movements noted) Speech: Other (minimal verbalization today) Language: Other (Inadequate) Attention and Concentration: Other (able to follow simple commands) Mood: Other (calm) Affect: Blunt, Other (childlike) Thought Process & Associations: Other (limited sample) Thought Content: Other (limited sample) Hallucination Type: None (does not appear internally stimulated) Delusion Type: None (limited sample) Suicidal Ideation: No (no SI voiced) Homicidal Ideation: No (no HI voiced) Insight: Poor Judgment: Poor Results Labs Labs reviewed. No new labs. 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 Continue to monitor on inpatient unit and continue one-to-one for behavioral redirection. Continue other medications and care as ordered. Justification for Cont. Inpt. Risk for decompensation in less restrictive environment. Discharge Planning Case discussed with counselor. Placement has apparently proven quite difficult and it may be necessary to return the patient to his existing placement in the hopes that he will be more readily placed from an outpatient setting. Request HC Surrog/Guard Advoc?: Yes Josue Ibrahim MD Mar 09, 2017 09:43
[2017-03-09] MEDS: diphenhydrAMINE HCL 50 MG CAP PO PRN (10:56)
--- NOTE | 2017-03-09 11:21 | PD.TTN ---
Patient Problems 1. Discharge planning 2. Medication compliance 3. Knowledge deficit 4. Lack of coping skills Progress Toward Goals Provider Present: Dr. Alfonso Ibrahim Provider Input: Pt medication regiment has been adjusted including titration of Zyprexa and decrease of Klonopin. Pt will be referred for placement as well. 02/26- Pt remains on a 1:1 due to behavior and has been referred for placement. Medication regiment will continue to be evaluated and Klonopin will be added to bedtime. 03/02- Pt remains a placement issue but medication regiment is being evaluated including addition of Zyprexa. 03/05- Pt remains a placement issue at this time and medication regiment will be evaluated. 03/09- Pt remains a placement issue at this time but medication regiment will continue to be monitored. Nurse(s) Present: Raymundo Lombardi RN Nurse(s) Input: Pt had an ETO last night due to behavioral outburst with poor boundaries, has been smearing his feces and has been medication compliant. 02/26- Nevaeh Bertrand RN Pt appears intrusive, childlike and requiring frequent redirection/attention. He struggled last night and with his sleep on the unit. 03/02- Jose Oconnor RN Pt is medication compliant, intrusive, confused, disoriented and trying to touch other patients. 03/05- Sydnie Villasenor RN Pt is improving and has been more involved in his self care activities. He appears more sedated and less active on unit. 03/09- Katrin Coronado RN Pt presents with limited change in his presentation on unit the unit. Psychiatric Counselors Present: Kingsley Marquez [facility] Psych Therapist Input: Pt continues to appear with poor boundaries, childlike, impulsive, cooperative and compliant with medication. Pt has no insight into condition and need for care. He has shown limited coping and emotional regulation skills as evidenced by outbursts. He will be referred for a new LONG-TERM as it is not likely he can return to previous facility. 02/26- Pt presents as intrusive, childlike, nonverbal, requiring assistance and lacking orientation. Pt struggles with boundaries and appears intrusive. He requires redirection and constant supervision as well as assistance with care. He has limited insight into condition and need for care. He appears to be utilizing some form of coping and emotional regulation skills as outbursts on unit have been minimal. Placement options with an LONG-TERM are being evaluated. 03/02- Pt remains largely nonverbal, disoriented, paces the unit, intrusive and childlike. Pt presents with no insight into condition and need for care. He appears to be utilizing some level of coping skills as he has had no outbursts recently on unit. Pt is compliant with medication regiment. 03/05- Pt continues to appear mainly nonverbal and low functioning. He requires assistance with self care and observation. Pt shows no agitation or aggression suggesting some level of coping and emotional regulation skills. Insight into condition and need for care remains poor. He is still being referred for placement at an LONG-TERM or SNF but has not been accepted by any referrals yet. 03/09- Pt remains withdrawn, childlike, limited in his communication and requiring significant assistance. Pt is no behavioral issue on the unit and has been compliant with his medication regiment. He remains with limited coping and emotional regulation skills. Pt appears with limited coping and emotional regulation skills. He is being evaluated for placement at a facility. Group Spec/RT/OT/US Present: Laila Contreras, JENNY, ABEBA Acharya Group Spec/RT/OT/US Input: Pt has not been attending groups. 02/26- ABEBA Acharya Pt unable to tolerate groups at this time. 03/02- ABEAB Acharya Pt is unable to tolerate groups at this time and is intrusive 03/05- ABEBA Acharya Pt is unable to attend groups at this time as he remains on a 1:1. 03/09- ABEBA Bender Pt attends food groups with 1:1 and requires frequent verbal/physical redirection. Discharge Plan SMA Pt will be referred to a new [facility] as it is believed he can no longer return to his facility. Documentation Scribe: Kingsley Marquez Kingsley Palencia LM Mar 09, 2017 11:21
[2017-03-09] MEDS: clonazePAM 1 MG TAB PO SCH (21:00)
[2017-03-10 05:47] VITALS: BP 122/79; PULSE 83; RESP 18; TEMP 97.3; O2SAT 95
[2017-03-10] MEDS: levOCARNitine 10% ORAL SOLN 118 ML BTL PO SCH ×3 (08:57→16:18)
[2017-03-10] MEDS: ESCITALOPRAM OXALATE 20 MG TAB PO SCH (08:57)
[2017-03-10] MEDS: CHOLECALCIFEROL (VIT D3) 1000 UNIT TAB PO SCH (08:57)
[2017-03-10] MEDS: traZODone HCL 100 MG TAB PO SCH ×2 (08:57→20:28)
[2017-03-10] MEDS: OLANZapine 5 MG TAB PO SCH ×2 (08:58→16:00)
[2017-03-10] MEDS: DIVALPROEX SODIUM E.R. 250 MG TAB PO SCH ×2 (09:00→20:28)
--- NOTE | 2017-03-10 12:30 | HHI.PYPN ---
Subjective Chief Complaint: TBI/behavioral disturbance Remarks Patient seen and examined with nurse. Chart reviewed. Case discussed with nursing staff who reports that the patient was playing with feces yesterday but otherwise was no real behavioral problem. He has not exhibited any sort of behavioral disturbance of far today. The patient remains on a one-to-one for behavioral redirection. On my examination today, patient is calm and lying in bed. Communication is somewhat limited, as it has been throughout patient's hospital stay, although he is able to deny any SI, HI or AVH. He is able to follow simple commands. No evident side effects from medications. No physical complaints. Review of Systems ROS Limitations: Poor Historian Except as stated in HPI: all other systems reviewed are Neg Mental Status Examination Appearance: Disheveled Consciousness: Alert Orientation: Person (at least) Motor Activity: Other (no motor abnormalities noted) Speech: Other (limited speech) Language: Other (Inadequate) Fund of Knowledge: Inadequate Attention and Concentration: Other (able to follow simple commands) Memory: Impaired Mood: Other (calm) Affect: Flat Thought Process & Associations: Other (slowed) Thought Content: Other (poverty of thought) Hallucination Type: None Delusion Type: None Suicidal Ideation: No Homicidal Ideation: No Insight: Poor Judgment: Poor Results Labs Labs reviewed. No new labs. 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 Check a screening chest x- ray as requested by accepting facility. Continue one-to-one only for behavioral redirection. Continue other medications and care as ordered. Justification for Cont. Inpt. Risk for decompensation in less restrictive environment. Discharge Planning Per counselor, Kristina will be able to accept the patient on Wednesday Request HC Surrog/Guard Advoc?: Yes Josue Ibrahim MD Mar 10, 2017 12:30
[2017-03-10] MEDS: diphenhydrAMINE HCL 50 MG CAP PO PRN (13:04)
--- NOTE | 2017-03-10 15:39 | RADRPT ---
EXAM DATE/TIME: 03/10/2017 15:07 [place] COMPARISON: No previous studies available for comparison. INDICATIONS : [place]ute for respiratory disease. MEDICAL HISTORY : None. SURGICAL HISTORY : None. ENCOUNTER: Initial ACUITY: 1 day PAIN SCORE: Non-responsive. LOCATION: chest FINDINGS: A single view of the chest demonstrates the lungs to be hypoaerated without evidence of mass, infiltr ate or effusion. The cardiomediastinal contours are unremarkable. Osseous structures are intact. CONCLUSION: Hypoaerated lungs. No acute process. Angel Benoit MD on March 10, 2017 at 15:37 Board Certified Radiologist. This report was verified electronically.
[2017-03-10 16:35] VITALS: BP 114/69; PULSE 98; RESP 18; TEMP 97.4; O2SAT 98
[2017-03-10] MEDS: clonazePAM 1 MG TAB PO SCH (20:28)
[2017-03-11] MEDS: levOCARNitine 10% ORAL SOLN 118 ML BTL PO SCH ×3 (09:00→18:00)
--- NOTE | 2017-03-11 09:18 | HHI.PYPN ---
Subjective Chief Complaint: TBI/behavioral disturbance Remarks Patient seen and examined. Chart reviewed. Case discussed with nursing staff. No significant behavioral issues noted. Patient remains on one-to-one for behavioral redirection. On my exam the patient is calm. He does not appear internally stimulated. He verbalizes no physical complaints. No evident side effects from medications. Review of Systems ROS Limitations: Poor Historian Except as stated in HPI: all other systems reviewed are Neg Mental Status Examination Appearance: Disheveled Consciousness: Alert Orientation: Person Motor Activity: Other (no abnormal motor movements noted) Speech: Other (again limited speech) Language: Other (Inadequate) Fund of Knowledge: Inadequate Attention and Concentration: Inadequate Memory: Impaired Mood: Other (calm) Affect: Blunt Thought Process & Associations: Other (slowed) Thought Content: Other (poverty of thought) Hallucination Type: None Delusion Type: None Suicidal Ideation: No Homicidal Ideation: No Insight: Poor Judgment: Poor Results Labs Labs reviewed. No new labs. Last Impressions Chest X-Ray 03/10/17 0000 Signed Impressions: Service Date/Time: Friday, March 10, 2017 15:07 - CONCLUSION: Hypoaerated lungs. No acute process. Angel Benoit MD Head CT 02/19/17 0000 Signed Impressions: Service Date/Time: Sunday, February 19, 2017 15:54 - CONCLUSION: 1. No acute intracranial abnormality is identified. 2. There is generalized atrophy, most prominent in the frontal lobes. This is greater than typically seen in a patient of this age. 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 Chest x-ray negative. Continue other medications and care as ordered. Justification for Cont. Inpt. Final discharge planning Discharge Planning Discharge tomorrow to [facility] Request HC Surrog/Guard Advoc?: Yes Josue Ibrahim MD Mar 11, 2017 09:18
[2017-03-11] MEDS: traZODone HCL 100 MG TAB PO SCH ×2 (09:23→20:13)
[2017-03-11] MEDS: CHOLECALCIFEROL (VIT D3) 1000 UNIT TAB PO SCH (09:23)
[2017-03-11] MEDS: DIVALPROEX SODIUM E.R. 250 MG TAB PO SCH ×2 (09:24→20:12)
[2017-03-11] MEDS: ESCITALOPRAM OXALATE 20 MG TAB PO SCH (09:24)
[2017-03-11] MEDS: OLANZapine 5 MG TAB PO SCH ×2 (09:24→16:35)
[2017-03-11 17:22] VITALS: BP 135/77; PULSE 102; RESP 17; TEMP 98; O2SAT 97
[2017-03-11] MEDS: clonazePAM 1 MG TAB PO SCH (20:13)
[2017-03-12] MEDS: ESCITALOPRAM OXALATE 20 MG TAB PO SCH (08:12)
[2017-03-12] MEDS: OLANZapine 5 MG TAB PO SCH (08:13)
[2017-03-12] MEDS: traZODone HCL 100 MG TAB PO SCH (08:13)
[2017-03-12] MEDS: CHOLECALCIFEROL (VIT D3) 1000 UNIT TAB PO SCH (08:13)
[2017-03-12] MEDS: DIVALPROEX SODIUM E.R. 250 MG TAB PO SCH (08:13)
[2017-03-12] MEDS: levOCARNitine 10% ORAL SOLN 118 ML BTL PO SCH ×2 (08:13→12:31)
[2017-03-12] MEDS ORDERED: OLAN5TAB PO ×2 (11:13)
[2017-03-12] MEDS ORDERED: DIVA250ER PO (11:13)
[2017-03-12] MEDS ORDERED: CLON1 PO (11:13)
[2017-03-12] MEDS ORDERED: LEVO10%S PO (11:13)
[2017-03-12] MEDS ORDERED: CHOL1000 PO (11:13)
[2017-03-12] MEDS ORDERED: TRAZ50TA12 PO (11:13)
[2017-03-12] MEDS ORDERED: ESCI20TA PO (11:13)
[2017-03-12] MEDS ORDERED: OLAN15TA PO (11:13)
--- NOTE | 2017-03-12 11:13 | HHI.DS ---
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 He has been physically agitated, intimidating and even threatening towards staff and residents at the residence where he currently lives. He has a very poor historian secondary to a traumatic brain injury he experienced in the . He has also been treated here at [facility] on at least 2 previous occasions recently and the Department of psychiatry. However, he is a very large man and the medications he is currently taking do not appear to be working satisfactorily. In the emergency department, while he is mostly nonverbal, he is unable or unwilling to follow directions, requiring some form of physical and chemical restraint. He continues to wish to grab this physician and his intentions are unknown. Tobacco Use In Past 30 Days: No Tobacco Past 30 Days Alcohol Use: Never Hospital Course Patient was admitted to a locked, inpatient psychiatric unit. Appropriate precautions were in place throughout patient's hospital stay. Patient was seen and examined on the unit by psychiatry and also visited by counselor. Psychotropic medications were adjusted, and unnecessary polypharmacy was significantly reduced. As noted in my previous discharge summary, the patient has chronic behavioral issues related to his neurocognitive disorder associated with traumatic brain injury that are not amenable to medication treatment ( short of sedating the patient), nor are these behaviors expected to improve with further inpatient hospitalization. The patient did require a one-to-one more or less continuously for behavioral redirection. There was no evidence of any suicidality or homicidality on the inpatient unit. The counselor has arranged for placement in [facility], and he assures me that nutrition representative from facility has met with patient, and the facility is well aware of the behaviors that they will be expected to manage and feel up to the task. On the day of discharge: Patient seen and examined with nurse and counselor. Chart reviewed. Case discussed with nurse who reports no behavioral issues overnight. Case discussed with counselor and occupational therapist in treatment team. On my examination today, the patient is able to deny suicidal or homicidal ideation. He denies audiovisual hallucinations. There is no evidence of psychosis. He denies side effects from medications. He has no physical complaints. Suicide and violence risk assessment both suggest lower imminent risk, although there likely is a component of chronic risk related to impulsivity from his neurocognitive disorder. The patient has maximized benefit from this inpatient psychiatric hospital stay. He will be discharged to [facility] today with psychiatric follow-up as arranged by counselor. Patient is also to follow-up with primary care. Patient to return to psychiatric emergency room for any concerning psychiatric symptoms. Results Blood Pressure 135 / 77 Vital Signs Date Time Temp Pulse Resp B/P (MAP) Pulse Ox O2 Delivery O2 Flow Rate FiO2 03/11/17 17:22 98.0 102 17 135/77 (96) 97 Laboratory Results Test 02/19/17 11:35 02/20/17 09:25 Valproic Acid (Depakene) Level 100 MCG/ML (50-100) Cholesterol Level 198 MG/DL (120-200) HDL Cholesterol 31.9 MG/DL (40.0-60.0) Hemoglobin A1c 6.3 % (4.3-6.0) LDL Cholesterol 111 MG/DL (0-99) Triglycerides Level 278 MG/DL (42-150) Summary of Procedures None done Imaging Last Impressions Chest X-Ray 03/10/17 0000 Signed Impressions: Service Date/Time: Friday, March 10, 2017 15:07 - CONCLUSION: Hypoaerated lungs. No acute process. Angel Benoit MD Head CT 02/19/17 0000 Signed Impressions: Service Date/Time: Sunday, February 19, 2017 15:54 - CONCLUSION: 1. No acute intracranial abnormality is identified. 2. There is generalized atrophy, most prominent in the frontal lobes. This is greater than typically seen in a patient of this age. Brayden Bates MD Pending results at discharge: No Medications # of Antipsychotic meds at D/C: 1 Approp Antipsych med options 1 - Minimum of three failed multiple trials of monotherapy. 2 - Documented plan to taper to monotherapy due to previous use of multiple meds OR cross-taper in progress at D/C. 3 - Documentation of augmentation of Clozapine. 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 Diagnosis: Principal ICD Code: F03.91 - Unspecified dementia with behavioral disturbance; S06.9X0S - Unspecified intracranial injury without loss of consciousness, sequela Pt Condition on Discharge: Stable Discharge Disposition: ACLF/FCI Discharge Instructions Diet Instructions: As Tolerated, No Restrictions Activities you can perform: Weight Bearing as Oma Scheduled Appointment: Kristina Arevalo Appointment Date: Mar 16, 2017 Appointment Time: 10:00 am New Orders: AMMONIA - 1 Week BASIC METABOLIC PROF - 1 Week DEPAKENE - 1 Week VITAMIN D,25-HYDROXY - 2 Months New Medications: Cholecalciferol (Gnp Vitamin D3 Extra Stre) 1,000 Unit Tab 1000 UNITS PO DAILY for Low vitamin D for 15 Days, TAB 1 Refill Clonazepam (Klonopin) 1 Mg Tab 1 MG PO HS for Mental Health for 15 Days, TAB 1 Refill Levocarnitine Liq (Carnitor Liq) 1 Gm/10 Ml Soln 6 ML PO TID for Hyperammonemia for 15 Days, ML 1 Refill Olanzapine (Olanzapine) 5 Mg Tab 5 MG PO DAILY for Mental Health for 15 Days, #15 TAB 1 Refill Olanzapine (Olanzapine) 5 Mg Tab 5 MG PO DAILY@1600 for Mental Health for 15 Days, TAB 1 Refill Olanzapine (Olanzapine) 15 Mg Tab 30 MG PO HS for Mental Health for 15 Days, TAB 1 Refill Trazodone (Trazodone) 50 Mg Tab 100 MG PO BID for Mental Health for 15 Days, #60 TAB 1 Refill Continued Medications: Divalproex ER (Depakote ER) 250 Mg Ernst 750 MG PO BID for Mental Health for 15 Days, #90 TAB 1 Refill (This prescription has been renewed) Escitalopram (Escitalopram) 20 Mg Tab 20 MG PO DAILY for Mental Health for 15 Days, #15 TAB 1 Refill (This prescription has been renewed) Discontinued Medications: Clonazepam (Klonopin) 1 Mg Tab 2 MG PO Q12HR for Mental Health for 15 Days, TAB 1 Refill Levocarnitine Liq (Carnitor Liq) 1 Gm/10 Ml Soln 2 ML PO TID for Hyperammonemia for 15 Days, ML 1 Refill Olanzapine (Olanzapine) 10 Mg Tab 5 MG PO DAILY for Mental Health for 15 Days, #8 TAB 1 Refill Olanzapine (Olanzapine) 10 Mg Tab 20 MG PO HS for Mental Health for 15 Days, TAB 1 Refill Trazodone (Trazodone) 100 Mg Tablet 100 MG PO TID for Control Depression, #90 TAB 0 Refills Discharge Time <= 30 minutes Mental Status Examination Appearance: Disheveled Consciousness: Alert Orientation: Person (at least) Motor Activity: Other (no motor abnormalities noted) Speech: Other (yes/no answers) Language: Other (Inadequate) Fund of Knowledge: Inadequate Attention and Concentration: Inadequate Memory: Impaired Mood: Other (remains calm) Affect: Blunt (tending towards flat) Thought Process & Associations: Other (slowed) Thought Content: Other (ongoing poverty of thought) Hallucination Type: None Delusion Type: None Suicidal Ideation: No Suicidal Plan: No Suicidal Intention: No Homicidal Ideation: No Homicidal Plan: No Homicidal Intention: No Insight: Poor (chronic condition) Judgment: Poor (chronic condition) Discharge/Advance Care Plan Health Problems: (1) 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 Josue Ibrahim at Smoking is Dangerous to Your Health. Avoid second hand smoking Josue Ibrahim MD Mar 12, 2017 11:13
== END 2017-03-12 15:39 | disposition short-term general hospital (02) | DRG 92 ==
LOC: NEPJ 09:09 → NEDA 11:48 → H270 14:15
PROVIDERS: ADMIT Psychiatry & Neurology Psychiatry; ATTEND Psychiatry & Neurology Psychiatry
DX: S06.9X0S Unspecified intracranial injury without loss of consciousness, sequela (principal); E72.20 Disorder of urea cycle metabolism, unspecified; F02.81 Dementia in other diseases classified elsewhere, unspecified severity, with behavioral disturbance; R00.0 Tachycardia, unspecified; R41.89 Other symptoms and signs involving cognitive functions and awareness; R19.7 Diarrhea, unspecified; R63.2 Polyphagia; F94.0 Selective mutism; Z87.820 Personal history of traumatic brain injury; Z91.83 Wandering in diseases classified elsewhere
CPT/HCPCS: 70450; 71010; 80053; 80061; 80164; 80307; 81001; 82140; 82306; 82607; 83036; 84443; 85025; 87493; 93005; 96372; J1200; J2060; J3486; Q0163

== ENCOUNTER 2017-03-12 18:56 | Inpatient (IN) | payer BC, MEDICAID, OTHER ==
[~2017-03-12] VITALS: Ht 193 cm; Wt 130.0 kg
[~2017-03-12 18:56] MED LIST changes: +CHOL1000 PO; +OLAN15TA PO; +OLAN5TAB PO; +TRAZ50TA12 PO
[2017-03-12 19:13] VITALS: BP 142/91; PULSE 91; RESP 18; TEMP 98.7; O2SAT 99
--- NOTE | 2017-03-12 19:36 | PD ---
HPI Chief Complaint: Psychiatric Symptoms Time Seen by Provider: 19:17 Travel History International Travel<30 days: No Contact w/Intl Traveler<30days: No Traveled to known affect area: No History of Present Illness HPI This patient has history of traumatic brain injury and dementia with behavioral disturbance. He was admitted to the [facility] for the last 3 weeks and discharged earlier today. According to the report given, he was at the facility for all of 30 minutes when police were called and he was placed under Melendrez act and brought back here. Patient can provide no history or review of systems. He ignores questions. He does not voice any complaints. PFSH Past Medical History Anxiety: Yes Depression: Yes Dementia: Yes Diminished Hearing: No Neurologic: Yes (TBI A FEW YEARS AGO) Psychiatric: Yes (Bipolar ) Immunizations Current: Yes Migraines: No Past Surgical History Surgical History: Unable to Obtain Neurologic Surgery: Yes Social History Alcohol Use: No Tobacco Use: No Substance Use: No Allergies-Medications (Allergen,Severity, Reaction): Coded Allergies: No Known Allergies (Verified Allergy, Unknown, 02/14/17) Reported Meds & Prescriptions Reported Meds & Active Scripts Active Carnitor Liq (Levocarnitine) 1 Gm/10 Ml Soln 6 Ml PO TID 15 Days Gnp Vitamin D3 Extra Stre (Cholecalciferol) 1,000 Unit Tab 1,000 Units PO DAILY 15 Days Olanzapine 15 Mg Tab 30 Mg PO HS 15 Days Olanzapine 5 Mg Tab 5 Mg PO DAILY@1600 15 Days Olanzapine 5 Mg Tab 5 Mg PO DAILY 15 Days Trazodone (Trazodone HCl) 50 Mg Tab 100 Mg PO BID 15 Days Klonopin (Clonazepam) 1 Mg Tab 1 Mg PO HS 15 Days Depakote ER (Divalproex Sodium) 250 Mg Ernst 750 Mg PO BID 15 Days Escitalopram (Escitalopram Oxalate) 20 Mg Tab 20 Mg PO DAILY 15 Days Review of Systems ROS Limitations: Clinical Condition, Uncooperative, Poor Historian Physical Exam Narrative GENERAL: Disheveled well-developed patient in no apparent distress. SKIN: Focused skin assessment reveals no rash and nodules. Skin is Warm and dry. HEAD: Atraumatic. Normocephalic. EYES: Pupils equal and round. No scleral icterus. No injection or drainage. ENT: No nasal bleeding or discharge. Mucous membranes pink and moist. NECK: Trachea midline. No JVD. CARDIOVASCULAR: Regular rate and rhythm. No murmur appreciated. RESPIRATORY: No accessory muscle use. Clear to auscultation. Breath sounds equal bilaterally. GASTROINTESTINAL: Abdomen soft, non-tender, obese with large pannus roll, nondistended. Hepatic and splenic margins not palpable. MUSCULOSKELETAL: No obvious deformities. No clubbing. No cyanosis. No edema. NEUROLOGICAL: Awake and alert. No obvious cranial nerve deficits. Motor grossly within normal limits. Normal speech. PSYCHIATRIC: Appropriate for medical condition mood and affect; insight and judgment poor . Data Data Last Documented VS Vital Signs Date Time Temp Pulse Resp B/P (MAP) Pulse Ox O2 Delivery O2 Flow Rate FiO2 03/12/17 19:13 98.7 91 18 142/91 (108) 99 Orders Orders Psych Screen (03/12/17 19:23) [facility] Medical Decision Making Medical Screen Exam Complete: Yes Emergency Medical Condition: Yes Medical Record Reviewed: Yes Differential Diagnosis Dementia, behavioral disturbance, psychosis Narrative Course I have reviewed the patient's electronic medical record. Reviewed his admission history and physical from February 19, 2017 Is a patient of traumatic brain injury and dementia with behavioral disturbance. He is wandering around the emergency room. I think this is his baseline. He is under Melendrez act I've ordered psychiatric screening. He just left the hospital today and I don't feel he needs any medical clearance workup. He has good vital signs and looks comfortable with no complaints. He will be challenging placement indeed. I believe he is at baseline. Psychiatry has asked me to sedate him but I don't feel that is appropriate or indicated. It's not going to solve his problem. He is not agitated. 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 Med/Other Pt SpecificInfo: Other Disposition: 03 DISCHARGE TO SNF Condition: Stable Nima Flores MD Mar 12, 2017 19:36
[2017-03-12] MEDS ORDERED: clonazePAM 1 MG TAB PO ONE (20:45)
[2017-03-12] MEDS: DIVALPROEX SODIUM E.R. 250 MG TAB PO SCH (21:00)
[2017-03-12] MEDS: traZODone HCL 50 MG TAB PO SCH (21:00)
[2017-03-12 22:23] VITALS: BP 151/82; PULSE 104; RESP 18; TEMP 99.4
[2017-03-13 05:32] VITALS: BP 111/74; PULSE 77; RESP 18; TEMP 98.3; O2SAT 97
--- NOTE | 2017-03-13 08:49 | PD ---
Physical Exam Date Seen by Provider: Mar 13, 2017 Time Seen by Provider: 08:47 Narrative 41-year-old with history of TBI and dementia previously Parvin acted and medically cleared for psychiatric evaluation has been seen by psychiatric staff and felt psychiatrically stable for discharge. Patient remains medically stable for discharge at this time. Patient is to follow up as per psychiatric note. Data Data Last Documented VS Vital Signs Date Time Temp Pulse Resp B/P (MAP) Pulse Ox O2 Delivery O2 Flow Rate FiO2 03/13/17 05:32 98.3 77 18 111/74 (86) 97 Room Air Orders Orders Psych Screen (03/12/17 19:23) Restraints Violent (03/12/17 20:25) Divalproex Er (Depakote Er) (03/12/17 21:00) Olanzapine (Zyprexa) (03/12/17 21:00) Trazodone (Desyrel) (03/12/17 21:00) Clonazepam (Klonopin) (03/12/17 20:45) Diet Regular Basic (03/13/17 Breakfast) Case Management Consult (03/13/17 ) [facility] Medical Record Reviewed: Yes Supervised Visit with JOAO: Yes Narrative Course 41-year-old with history of TBI and dementia previously Melendrez acted and medically cleared for psychiatric evaluation has been seen by psychiatric staff and felt psychiatrically stable for discharge. Patient remains medically stable for discharge at this time. Patient is to follow up as per psychiatric note. 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 Disposition: 03 DISCHARGE TO SNF Condition: Stable Adrian Agrawal Mar 13, 2017 08:49
[2017-03-13] MEDS ORDERED: traZODone HCL 100 MG TAB PO ONE (09:15)
[2017-03-13] MEDS ORDERED: clonazePAM 1 MG TAB PO ONE (09:15)
[2017-03-13] MEDS ORDERED: DIVALPROEX SODIUM E.R. 250 MG TAB PO ONE (09:15)
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
[2017-03-13] MEDS: DIVALPROEX SODIUM E.R. 250 MG TAB PO SCH ×2 (11:20→21:00)
[2017-03-13] MEDS: traZODone HCL 50 MG TAB PO SCH (11:21)
[2017-03-13] MEDS ORDERED: HALOPERIDOL LACTATE 5 MG/ML AMP IM ONE (14:30)
[2017-03-13] MEDS: traZODone HCL 100 MG TAB PO SCH (21:00)
[2017-03-13 23:49] VITALS: BP 128/90; PULSE 101; RESP 17; TEMP 97.6; O2SAT 98
[2017-03-14 06:47] VITALS: RESP 16
[2017-03-14 09:34] VITALS: BP 123/71; PULSE 93; RESP 18; O2SAT 95
[2017-03-14] MEDS: DIVALPROEX SODIUM E.R. 250 MG TAB PO SCH ×2 (12:54→21:00)
[2017-03-14] MEDS: traZODone HCL 100 MG TAB PO SCH ×2 (12:54→21:00)
[2017-03-14 23:40] VITALS: BP 125/66; PULSE 94; RESP 17; TEMP 97.6; O2SAT 99
[2017-03-15 03:41] VITALS: BP 102/61; PULSE 75; RESP 17; TEMP 97.3; O2SAT 98
[2017-03-15] MEDS: traZODone HCL 100 MG TAB PO SCH ×2 (13:23→21:00)
[2017-03-15] MEDS: DIVALPROEX SODIUM E.R. 250 MG TAB PO SCH ×2 (13:23→21:00)
[2017-03-16 00:58] VITALS: BP 141/88; PULSE 92; RESP 16
[2017-03-16 06:47] VITALS: BP 110/57; PULSE 82; RESP 18
[2017-03-16 10:00] VITALS: BP 114/75; PULSE 94; RESP 18; O2SAT 99
--- NOTE | 2017-03-16 11:12 | HHI.HP ---
Provisional Diagnosis Admission Date Mar 16, 2017 at 11:05 Certification of Person's Competence To Provide Express and Informed Consent I have personally examined Mayito Harmon , a person being served at [facility] on, Mar 16, 2017 11:12. Express and informed consent means consent voluntarily given in writing, by a competent person, after sufficient explanation and disclosure of the subject matter involved to enable the person to make a knowing and willful decision without any element of force, fraud, deceit, duress, or other form of constraint or coercion. This person is 18 years of age or older, is not now known to be incompetent to consent to treatment with a guardian advocate, and does not have a health care surrogate or proxy currently making medical treatment decisions. I have found this person to be one of the following: [] Competent to provide express and informed consent, as defined above, for voluntary admission to this facility and is competent to provide express and informed consent for treatment. He/she has the consistent capacity to make well reasoned, willful, and knowing decisions concerning his or her medical or mental health treatment. The person fully and consistently understands the purpose of the admission for examination/placement and is fully capable of personally exercising all rights [place] [] Incompetent to provide express and informed consent to voluntary admission, and this is incompetent to provide express and informed consent to treatment. The person must be transferred to involuntary status and a petition for a guardian advocate filed with the Circuit Court. [] Refusing to provide express and informed consent to voluntary admission but is competent to provide express and informed consent for treatment. The person must be discharged or transferred to involuntary status. Form shall be completed within 24 hours of a person's arrival at the receiving facility and filed in the clinical record of each person: 1. Admitted on a voluntary basis 2. Permitted to provide express and informed consent to his/her own treatment 3. Allowed to transfer from involuntary to voluntary status 4. Prior to permitting a person to consent to his or her own treatment after having been previously found incompetent to consent to treatment. Past Family Social History Coded Allergies: No Known Allergies (Verified Allergy, Unknown, 02/14/17) Active Scripts Levocarnitine Liq (Carnitor Liq) 1 Gm/10 Ml Soln, 6 ML PO TID for Hyperammonemia for 15 Days, ML 1 Refill Prov:Josue Ibrahim MD 03/12/17 Cholecalciferol (Gnp Vitamin D3 Extra Stre) 1,000 Unit Tab, 1000 UNITS PO DAILY for Low vitamin D for 15 Days, TAB 1 Refill Prov:Josue Ibrahim MD 03/12/17 Olanzapine (Olanzapine) 5 Mg Tab, 5 MG PO DAILY@1600 for Mental Health for 15 Days, TAB 1 Refill Prov:Josue Ibrahim MD 03/12/17 Olanzapine (Olanzapine) 5 Mg Tab, 5 MG PO DAILY for Mental Health for 15 Days, # 15 TAB 1 Refill Prov:Josue Ibrahim MD 03/12/17 Clonazepam (Klonopin) 1 Mg Tab, 1 MG PO HS for Mental Health for 15 Days, TAB 1 Refill Prov:Josue Ibrahim MD 03/12/17 Escitalopram (Escitalopram) 20 Mg Tab, 20 MG PO DAILY for Mental Health for 15 Days, #15 TAB 1 Refill Prov:Josue Ibrahim MD 03/12/17 Discontinued Reported Medications Trazodone (Trazodone) 100 Mg Tablet, 100 MG PO TID for Control Depression, #90 TAB 0 Refills 02/14/17 Discontinued Scripts Olanzapine (Olanzapine) 15 Mg Tab, 30 MG PO HS for Mental Health for 15 Days, TAB 1 Refill Prov:Josue Ibrahim MD 03/12/17 Trazodone (Trazodone) 50 Mg Tab, 100 MG PO BID for Mental Health for 15 Days, # 60 TAB 1 Refill Prov:Josue Ibrahim MD 03/12/17 Divalproex ER (Depakote ER) 250 Mg Ernst, 750 MG PO BID for Mental Health for 15 Days, #90 TAB 1 Refill Prov:Josue Ibrahim MD 03/12/17 Levocarnitine Liq (Carnitor Liq) 1 Gm/10 Ml Soln, 2 ML PO TID for Hyperammonemia for 15 Days, ML 1 Refill Prov:Josue Ibrahim MD 02/17/17 Olanzapine (Olanzapine) 10 Mg Tab, 20 MG PO HS for Mental Health for 15 Days, TAB 1 Refill Prov:Josue Ibrahim MD 12/6/17 Olanzapine (Olanzapine) 10 Mg Tab, 5 MG PO DAILY for Mental Health for 15 Days, #8 TAB 1 Refill Prov:Josue Ibrahim MD 02/17/17 Clonazepam (Klonopin) 1 Mg Tab, 2 MG PO Q12HR for Mental Health for 15 Days, TAB 1 Refill Prov:Josue Ibrahim MD 02/17/17 Current Medications Medications (Trade) Dose Ordered Sig/Daniel Route Start Time Stop Time Status Last Admin (Depakote Er) 750 mg BID PO 03/12/17 21:00 03/15/17 21:00 (ZyPREXA) 30 mg HS PO 03/12/17 21:00 03/15/17 21:00 (Desyrel) 100 mg BID PO 03/13/17 21:00 03/15/17 21:00 (Ativan) 1 mg Q6H PRN PO 03/16/17 11:15 UNV (Ativan Inj) 1 mg Q6H PRN IM 03/16/17 11:15 UNV (Tylenol) 650 mg Q4H PRN PO 03/16/17 11:15 UNV (Milk Of Magnesia Liq) 30 ml DAILY PRN PO 03/16/17 11:15 UNV (Mag-Al Plus Susp Liq) 30 ml Q6H PRN PO 03/16/17 11:15 UNV (KlonoPIN) 1 mg HS PO 03/16/17 21:00 UNV (Lexapro) 20 mg DAILY PO 03/17/17 09:00 UNV (Carnitor 10% Liq) 6 ml TID PO 03/16/17 13:00 UNV Physical Exam Vital Signs Vital Signs Date Time Temp Pulse Resp B/P (MAP) Pulse Ox O2 Delivery O2 Flow Rate FiO2 03/16/17 10:00 94 18 114/75 (88) 99 Room Air 03/15/17 03:41 97.3 Assessment & Plan Assessment & Plan Estimated LOS: Orville Dick MD Mar 16, 2017 11:12
[2017-03-16] MEDS ORDERED: MAGNESIUM HYDROXIDE SUSP 30 ML CUP PO PRN (11:15)
[2017-03-16] MEDS ORDERED: ALUMINUM/MAGNESIUM/SIMETH 30 ML CUP PO PRN (11:15)
[2017-03-16] MEDS: DIVALPROEX SODIUM E.R. 250 MG TAB PO SCH ×2 (11:25→20:15)
[2017-03-16] MEDS: traZODone HCL 100 MG TAB PO SCH ×2 (11:26→20:14)
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
[2017-03-16] MEDS ORDERED: GLUCAGON 1 MG/ML VIAL OTHER PRN (12:15)
[2017-03-16] MEDS ORDERED: DEXTROSE 50% IN WATER 50 ML VIAL(D50) IV PUSH PRN (12:15)
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
[2017-03-16] MEDS: levOCARNitine 10% ORAL SOLN 118 ML BTL PO SCH ×2 (13:00→16:40)
[2017-03-16] MEDS: ARIPiprazole 5 MG TAB PO SCH ×2 (15:52→20:14)
[2017-03-16] MEDS: INSULIN ASPART SUPPLEMENTAL SCALE SQ SCH ×2 (17:00→20:56)
[2017-03-16] MEDS: clonazePAM 1 MG TAB PO SCH (20:14)
[2017-03-17] MEDS: LORazepam 1 MG TAB PO PRN (02:48)
[2017-03-17 05:42] VITALS: BP 129/66; PULSE 89; RESP 18; TEMP 97.6; O2SAT 96
[2017-03-17] MEDS: INSULIN ASPART SUPPLEMENTAL SCALE SQ SCH ×2 (08:00→12:00)
[2017-03-17 08:19] LABS: AUTOMATED NEUTROPHIL # 4.7 TH/MM3 (1.8-7.7); BASOPHIL % 0.5 % (0.0-2.0); EOSINOPHIL # 0.1 TH/MM3 (0-0.4); EOSINOPHIL % 0.9 % (0.0-4.0); HEMATOCRIT 44.8 % (39.0-51.0); HEMOGLOBIN 15.5 GM/DL (13.0-17.0); LYMPH % 31.4 % (9.0-44.0); LYMPHOCYTE # 2.5 TH/MM3 (1.0-4.8); MEAN CELL VOLUME 92.1 FL (80.0-100.0); MEAN CORPUSCULAR HEMOGLOBIN 31.8 PG (27.0-34.0); MEAN CORPUSCULAR HGB CONC 34.5 % (32.0-36.0); MEAN PLATELET VOLUME 6.8 FL (7.0-11.0); MONOCYTE # 0.6 TH/MM3 (0-0.9); NEUT % 59.2 % (16.0-70.0); PLATELET COUNT 221 TH/MM3 (150-450); RED BLOOD COUNT 4.86 MIL/MM3 (4.50-5.90); RED CELL DISTRIBUTION WIDTH 13.7 % (11.6-17.2); WHITE BLOOD COUNT 7.9 TH/MM3 (4.0-11.0)
[2017-03-17 08:43] LABS: ALBUMIN 3.5 GM/DL (3.4-5.0); ALT (GPT) 19 U/L (12-78); AST (GOT) 9 U/L (15-37); BICARBONATE 27.6 MEQ/L (21.0-32.0); BLOOD UREA NITROGEN 14 MG/DL (7-18); CALCIUM 8.6 MG/DL (8.5-10.1); CHLORIDE 105 MEQ/L (98-107); CHOLESTEROL 212 MG/DL (120-200); CREATININE 0.88 MG/DL (0.60-1.30); GLOMERULAR FILTRATION RATE 95 ML/MIN (>89); GLUCOSE,RANDOM 104 MG/DL (74-106); SODIUM (NA) 141 MEQ/L (136-145)
[2017-03-17] MEDS: ESCITALOPRAM OXALATE 20 MG TAB PO SCH (09:00)
[2017-03-17] MEDS: ARIPiprazole 5 MG TAB PO SCH ×2 (09:00→19:41)
[2017-03-17] MEDS: DIVALPROEX SODIUM E.R. 250 MG TAB PO SCH ×2 (09:00→19:41)
[2017-03-17] MEDS: traZODone HCL 100 MG TAB PO SCH ×2 (09:00→19:41)
[2017-03-17 09:08] LABS: ALKALINE PHOSPHATASE 71 U/L (45-117); CHOLESTEROL/ HDL RATIO 5.38 RATIO; HDL CHOLESTEROL 39.4 MG/DL (40.0-60.0); TOTAL BILIRUBIN ADULT 0.3 MG/DL (0.2-1.0); TOTAL PROTEIN 6.9 GM/DL (6.4-8.2); TRIGLYCERIDES 401 MG/DL (42-150)
--- NOTE | 2017-03-17 09:26 | EKG ---
Date Performed: 03/17/2017 Time Performed: 07:33:51 PTAGE: 41 years EKG: Sinus rhythm NORMAL ECG PREVIOUS TRACING : 02/23/2017 21.00 DOCTOR: Demarco Cohen Interpretating Date/Time 03/17/2017 09:24:41
--- NOTE | 2017-03-17 09:35 | HHI.PYPN ---
Subjective Remarks Patient continues to be intrusive, impulsive, inappropriate with staff and requiring significant redirection. We obtained consent from the patient's mother to start Abilify yesterday. Patient appears to be tolerating this medicine adequately. In between episodes of inappropriate behavior, the patient is calm and seclusive to himself. Laboratory results were reviewed from yesterday. Abilify will be titrated up again tomorrow. Review of Systems ROS Limitations: Clinical Condition Psychiatric: COMPLAINS OF: Anxiety, Confusion Except as stated in HPI: all other systems reviewed are Neg Mental Status Examination Appearance: Disheveled Consciousness: Alert Orientation: Person Motor Activity: Normal gait Speech: Hesitant, Other Language: Perseveration Fund of Knowledge: Inadequate Attention and Concentration: Inadequate Memory: Impaired Mood: Anxious Affect: Anxious Thought Process & Associations: Other Thought Content: Other Hallucination Type: None Delusion Type: None Suicidal Ideation: No Suicidal Plan: No Suicidal Intention: No Homicidal Ideation: No Homicidal Plan: No Homicidal Intention: No Insight: Poor Judgment: Poor Results Labs Test 03/17/17 07:06 White Blood Count 7.9 TH/MM3 Red Blood Count 4.86 MIL/MM3 Hemoglobin 15.5 GM/DL Hematocrit 44.8 % Mean Corpuscular Volume 92.1 FL Mean Corpuscular Hemoglobin 31.8 PG Mean Corpuscular Hemoglobin Concent 34.5 % Red Cell Distribution Width 13.7 % Platelet Count 221 TH/MM3 Mean Platelet Volume 6.8 FL Neutrophils (%) (Auto) 59.2 % Lymphocytes (%) (Auto) 31.4 % Monocytes (%) (Auto) 8.0 % Eosinophils (%) (Auto) 0.9 % Basophils (%) (Auto) 0.5 % Neutrophils # (Auto) 4.7 TH/MM3 Lymphocytes # (Auto) 2.5 TH/MM3 Monocytes # (Auto) 0.6 TH/MM3 Eosinophils # (Auto) 0.1 TH/MM3 Basophils # (Auto) 0.0 TH/MM3 CBC Comment DIFF FINAL Differential Comment Blood Urea Nitrogen 14 MG/DL Creatinine 0.88 MG/DL Random Glucose 104 MG/DL Total Protein 6.9 GM/DL Albumin 3.5 GM/DL Calcium Level 8.6 MG/DL Alkaline Phosphatase 71 U/L Aspartate Amino Transf (AST/SGOT) 9 U/L Alanine Aminotransferase (ALT/SGPT) 19 U/L Total Bilirubin 0.3 MG/DL Sodium Level 141 MEQ/L Potassium Level 3.6 MEQ/L Chloride Level 105 MEQ/L Carbon Dioxide Level 27.6 MEQ/L Anion Gap 8 MEQ/L Estimat Glomerular Filtration Rate 95 ML/MIN Triglycerides Level 401 MG/DL Cholesterol Level 212 MG/DL LDL Cholesterol MG/DL HDL Cholesterol 39.4 MG/DL Cholesterol/HDL Ratio 5.38 RATIO Vitamin B12 Level 407 PG/ML 25-Hydroxy Vitamin D Total 16.9 ng/ML Thyroid Stimulating Hormone 3rd Gen 2.910 uIU/ML Valproic Acid (Depakene) Level 54 MCG/ML Vitals/IOs Vital Signs Date Time Temp Pulse Resp B/P (MAP) Pulse Ox O2 Delivery O2 Flow Rate FiO2 03/17/17 05:42 97.6 89 18 129/66 (87) 96 03/16/17 10:00 Room Air Assessment & Plan Problem List: (1) 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 Will continue to make transition from Zyprexa to Abilify and possibly Abilify Maintena. Zyprexa did not work but exacerbated the patient 's appetite and weight problem. As a result, patient became frustrated when he could not eat. Hopefully, Abilify will work better for anxiety and mood stability and not give the patient a voracious appetite. We will continue to monitor for side effects, cardiac conduction problems, blood dyscrasias, etc. Justification for Cont. Inpt. Inability to care for self and dangerous behavior towards self and others. Orville Silva MD Mar 17, 2017 09:35
[2017-03-17] MEDS: levOCARNitine 10% ORAL SOLN 118 ML BTL PO SCH ×3 (11:19→18:00)
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
--- NOTE | 2017-03-17 14:11 | HHI.PR ---
Subjective Remarks in no acute distress. seems comfortable. d/w the RN and no acute issues over night. Objective Vitals Vital Signs Date Time Temp Pulse Resp B/P (MAP) Pulse Ox O2 Delivery O2 Flow Rate FiO2 03/17/17 05:42 97.6 89 18 129/66 (87) 96 03/16/17 16:00 I/O 03/16/17 03/16/17 03/16/17 03/17/17 03/17/17 03/17/17 07:00 15:00 23:00 07:00 15:00 23:00 Intake Total 1065 ml Balance 1065 ml Intake Oral 1065 ml Result Diagram: 03/17/1770503/17/17705 Objective Remarks GENERAL: This is a well-nourished, well-developed patient, in no apparent distress. CARDIOVASCULAR: Regular rate and regular rhythm without murmurs, gallops, or rubs. RESPIRATORY: Clear to auscultation. Breath sounds equal bilaterally. No wheezes , rales, or rhonchi. GASTROINTESTINAL: Abdomen soft, non-tender, nondistended. Normal, active bowel sounds MUSCULOSKELETAL: Extremities without clubbing, cyanosis, or edema. NEURO: Alert & Oriented x4 to person, place, time, situation. Moves all ext x4 Medications and IVs Inpatient Medications Acetaminophen (Tylenol) 650 mg Q4H PRN PO Pain 1-5 or Temp >101F; Start at 11:15 Al Hydrox/Mg Hydrox/Simethicone (Mag-Al Plus Susp Liq) 30 ml Q6H PRN PO DYSPEPSIA; Start 03/16/17 at 11:15 Aripiprazole (Abilify) 10 mg BID PO ; Start 03/17/17 at 21:00 Clonazepam (KlonoPIN) 1 mg HS PO Last administered on 03/16/17at 20:14; Start 03/16/17 at 21:00 Dextrose (D50w (Vial) Inj) 50 ml UNSCH PRN IV PUSH HYPOGLYCEMIA-SEE COMMENTS; Start 03/16/17 at 12:15 Divalproex Sodium (Depakote Er) 750 mg ONCE ONCE PO ; Start 03/13/17 at 09:15 ; Stop 03/13/17 at 09:16; Status DC Escitalopram Oxalate (Lexapro) 20 mg DAILY PO Last administered on 03/17/17at 09: 00; Start 03/17/17 at 09:00 Glucagon (Glucagon Inj) 1 mg UNSCH PRN OTHER HYPOGLYCEMIA-SEE COMMENTS; Start 03/16/17 at 12:15 Haloperidol Lactate (Haldol Inj) 5 mg ONCE ONCE IM Last administered on 14:30; Start 03/13/17 at 14:30; Stop 03/13/17 at 14:31; Status DC Insulin Aspart (NovoLOG SUPPLEMENTAL SCALE) 1 ACHS SLIDING SCALE SQ ; Start 03/16/17 at 17:00 Levocarnitine (Carnitor 10% Liq) 6 ml TID PO Last administered on 03/16/17at 13: 00; Start 03/16/17 at 13:00 Lorazepam (Ativan Inj) 1 mg Q6H PRN IM MODERATE TO SEVERE ANXIETY; Start at 11:15 Lorazepam (Ativan) 1 mg Q6H PRN PO MODERATE TO SEVERE ANXIETY Last administered on 03/17/17at 02:48; Start 03/16/17 at 11:15 Magnesium Hydroxide (Milk Of Magnesia Liq) 30 ml DAILY PRN PO CONSTIPATION; Start 03/16/17 at 11:15 Olanzapine (ZyPREXA) 30 mg ONCE ONCE PO Last administered on 03/13/17 11:23 ; Start 03/13/17 at 09:15; Stop 03/13/17 at 09:16; Status DC Trazodone HCl (Desyrel) 100 mg BID PO Last administered on 03/17/17at 09:00; Start 03/13/17 at 21:00 A/P Assessment and Plan History of traumatic brain injury with neurocognitive deficit Behavioral disturbance - Management per psychiatric team Prediabetes - Hemoglobin A1c 6.3 02/20/17 - Suspect secondary to Zyprexa use. Agree with discontinuation of Zyprexa. - will discontinue insulin sliding scale. Vitamin D deficiency - Vitamin D level 15.8 02/20/17 - Resume vitamin D supplementation - Patient will need to follow-up with PCP as outpatient in 3 months to recheck vitamin D level DVT prophylaxis - Patient is ambulatory [facility] will sign off and see him as needed. Lena Fonseca MD Mar 17, 2017 14:11
[2017-03-17 16:30] LABS: HEMOGLOBIN A1C 6.2 % (4.3-6.0)
[2017-03-17 18:00] VITALS: BP 104/74; PULSE 100; RESP 17; TEMP 97.4; O2SAT 95
[2017-03-17] MEDS: clonazePAM 1 MG TAB PO SCH (19:42)
[2017-03-18 06:57] VITALS: BP 139/87; PULSE 94; RESP 18; TEMP 98.2; O2SAT 97
[2017-03-18] MEDS: levOCARNitine 10% ORAL SOLN 118 ML BTL PO SCH ×3 (09:00→18:26)
[2017-03-18] MEDS: DIVALPROEX SODIUM E.R. 250 MG TAB PO SCH ×2 (10:10→20:21)
[2017-03-18] MEDS: ARIPiprazole 5 MG TAB PO SCH (10:11)
[2017-03-18] MEDS: traZODone HCL 100 MG TAB PO SCH ×2 (10:11→20:21)
[2017-03-18] MEDS: CHOLECALCIFEROL (VIT D3) 1000 UNIT TAB PO SCH (10:11)
[2017-03-18] MEDS: ESCITALOPRAM OXALATE 20 MG TAB PO SCH (10:11)
--- NOTE | 2017-03-18 15:42 | HHI.PYPN ---
Subjective Remarks Patient continues to be intrusive and inappropriate. Requires significant redirection. This physician will increase dose of Abilify. Depakote level to be obtained as well. Review of Systems ROS Limitations: Clinical Condition Psychiatric: COMPLAINS OF: Anxiety Except as stated in HPI: all other systems reviewed are Neg Mental Status Examination Appearance: Disheveled Consciousness: Alert Orientation: Person Motor Activity: Normal gait Speech: Hesitant, Other Language: Perseveration Fund of Knowledge: Inadequate Attention and Concentration: Inadequate Memory: Impaired Mood: Anxious Affect: Anxious Thought Process & Associations: Other Thought Content: Other Hallucination Type: None Delusion Type: None Suicidal Ideation: No Suicidal Plan: No Suicidal Intention: No Homicidal Ideation: No Homicidal Plan: No Homicidal Intention: No Insight: Poor Judgment: Poor Results Vitals/IOs Vital Signs Date Time Temp Pulse Resp B/P (MAP) Pulse Ox O2 Delivery O2 Flow Rate FiO2 03/18/17 06:57 98.2 94 18 139/87 (104) 97 03/16/17 10:00 Room Air Intake and Output 03/18/17 03/18/17 03/19/17 08:00 16:00 00:00 Intake Total 0 ml 240 ml Balance 0 ml 240 ml Assessment & Plan Problem List: (1) 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 Patient is a large man and likely requires higher doses. Monitor Depakote level-lab ordered. Justification for Cont. Inpt. Unable to care for self and "to physical" with others. Orville Silva MD Mar 18, 2017 15:42
[2017-03-18 18:00] VITALS: BP 127/80; PULSE 100; RESP 17; TEMP 97.4; O2SAT 98
[2017-03-18] MEDS: clonazePAM 1 MG TAB PO SCH (20:21)
[2017-03-18] MEDS: ARIPiprazole 15 MG TAB PO SCH (20:49)
[2017-03-19 06:18] VITALS: BP 138/72; PULSE 82; RESP 24; TEMP 97.3; O2SAT 95
[2017-03-19] MEDS: ARIPiprazole 15 MG TAB PO SCH ×2 (09:00→21:36)
[2017-03-19] MEDS: ESCITALOPRAM OXALATE 20 MG TAB PO SCH (12:33)
[2017-03-19] MEDS: traZODone HCL 100 MG TAB PO SCH ×2 (12:34→21:36)
[2017-03-19] MEDS: CHOLECALCIFEROL (VIT D3) 1000 UNIT TAB PO SCH (12:34)
[2017-03-19] MEDS: levOCARNitine 10% ORAL SOLN 118 ML BTL PO SCH ×3 (12:35→17:11)
[2017-03-19] MEDS: DIVALPROEX SODIUM E.R. 250 MG TAB PO SCH ×2 (12:35→21:36)
[2017-03-19 18:27] VITALS: BP 109/70; PULSE 90; RESP 18; TEMP 98; O2SAT 96
[2017-03-19] MEDS: clonazePAM 1 MG TAB PO SCH (21:36)
[2017-03-20] MEDS: levOCARNitine 10% ORAL SOLN 118 ML BTL PO SCH ×3 (09:00→17:14)
[2017-03-20] MEDS: CHOLECALCIFEROL (VIT D3) 1000 UNIT TAB PO SCH (09:00)
[2017-03-20] MEDS: DIVALPROEX SODIUM E.R. 250 MG TAB PO SCH ×2 (09:00→20:34)
[2017-03-20] MEDS: ESCITALOPRAM OXALATE 20 MG TAB PO SCH (09:00)
[2017-03-20] MEDS: traZODone HCL 100 MG TAB PO SCH ×2 (09:00→20:34)
[2017-03-20] MEDS: ARIPiprazole 15 MG TAB PO SCH ×2 (09:00→20:34)
--- NOTE | 2017-03-20 16:06 | HHI.PYPN ---
Subjective Remarks Patient was seen and case discussed with nursing. Patient remains internally preoccupied and intrusive throughout the day. Otherwise no behavioral outbursts. No pica Mental Status Examination Appearance: Disheveled Consciousness: Alert Orientation: Person Motor Activity: Normal gait Speech: Hesitant, Other Language: Perseveration Fund of Knowledge: Inadequate Attention and Concentration: Inadequate Memory: Impaired Mood: Anxious Affect: Anxious Thought Process & Associations: Other Thought Content: Other Hallucination Type: None Delusion Type: None Suicidal Ideation: No Suicidal Plan: No Suicidal Intention: No Homicidal Ideation: No Homicidal Plan: No Homicidal Intention: No Insight: Poor Judgment: Poor Results Vitals/IOs Vital Signs Date Time Temp Pulse Resp B/P (MAP) Pulse Ox O2 Delivery O2 Flow Rate FiO2 03/19/17 18:27 98.0 90 18 109/70 (83) 96 03/16/17 10:00 Room Air Assessment & Plan Problem List: (1) 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 Inpt. Patient will decompensate in a less restrictive setting Logan Yanez DO Mar 20, 2017 16:06
[2017-03-20 18:09] VITALS: BP 115/57; PULSE 105; RESP 18; TEMP 97.8; O2SAT 96
[2017-03-20] MEDS: clonazePAM 1 MG TAB PO SCH (20:34)
[2017-03-21 06:06] VITALS: BP 158/85; PULSE 73; RESP 17; TEMP 97.5; O2SAT 97
[2017-03-21] MEDS: levOCARNitine 10% ORAL SOLN 118 ML BTL PO SCH ×3 (08:06→17:12)
[2017-03-21] MEDS: ESCITALOPRAM OXALATE 20 MG TAB PO SCH (08:06)
[2017-03-21] MEDS: CHOLECALCIFEROL (VIT D3) 1000 UNIT TAB PO SCH (08:06)
[2017-03-21] MEDS: traZODone HCL 100 MG TAB PO SCH ×2 (08:06→20:34)
[2017-03-21] MEDS: DIVALPROEX SODIUM E.R. 250 MG TAB PO SCH ×2 (08:06→20:34)
[2017-03-21] MEDS: ARIPiprazole 15 MG TAB PO SCH ×2 (08:06→20:34)
[2017-03-21 11:24] VITALS: BP 132/65; PULSE 104
--- NOTE | 2017-03-21 16:36 | HHI.PYPN ---
Subjective Remarks Patient was seen and case discussed with nursing. Patient remains and cognitive deficits. Remains with intrusive behavior. No outbursts. Tolerating medications well Mental Status Examination Appearance: Disheveled Consciousness: Alert Orientation: Person Motor Activity: Normal gait Speech: Hesitant, Other Language: Perseveration Fund of Knowledge: Inadequate Attention and Concentration: Inadequate Memory: Impaired Mood: Anxious Affect: Anxious Thought Process & Associations: Other Thought Content: Other Hallucination Type: None Delusion Type: None Suicidal Ideation: No Suicidal Plan: No Suicidal Intention: No Homicidal Ideation: No Homicidal Plan: No Homicidal Intention: No Insight: Poor Judgment: Poor Results Vitals/IOs Vital Signs Date Time Temp Pulse Resp B/P (MAP) Pulse Ox O2 Delivery O2 Flow Rate FiO2 03/21/17 11:24 104 132/65 (87) 03/21/17 06:06 97.5 17 97 Intake and Output 03/21/17 03/21/17 03/22/17 08:00 16:00 00:00 Intake Total 0 ml 360 ml Balance 0 ml 360 ml Assessment & Plan Problem List: (1) 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 Inpt. Patient will decompensate in a less restrictive setting. Logan Yanez DO Mar 21, 2017 16:36
[2017-03-21 17:59] VITALS: BP 108/59; PULSE 86; RESP 17; TEMP 97.8; O2SAT 97
[2017-03-21] MEDS: clonazePAM 1 MG TAB PO SCH (20:34)
[2017-03-22 06:47] VITALS: BP 117/61; PULSE 89; RESP 16; TEMP 98; O2SAT 99
[2017-03-22] MEDS: CHOLECALCIFEROL (VIT D3) 1000 UNIT TAB PO SCH (09:00)
[2017-03-22] MEDS: levOCARNitine 10% ORAL SOLN 118 ML BTL PO SCH ×3 (09:00→18:00)
[2017-03-22] MEDS: traZODone HCL 100 MG TAB PO SCH ×2 (09:39→20:45)
[2017-03-22] MEDS: DIVALPROEX SODIUM E.R. 250 MG TAB PO SCH ×2 (09:39→20:46)
[2017-03-22] MEDS: ESCITALOPRAM OXALATE 20 MG TAB PO SCH (09:39)
[2017-03-22] MEDS: ARIPiprazole 15 MG TAB PO SCH ×2 (09:39→20:46)
[2017-03-22] MEDS: LORazepam 1 MG TAB PO PRN (13:38)
--- NOTE | 2017-03-22 14:20 | HHI.PYPN ---
Subjective Remarks Patient interviewed at bedside. Electronic medical record reviewed. Case discussed with nurse and with tech. Patient still intrusive and impulsive. We will increase the dose of Depakote as last level was 70. Review of Systems ROS Limitations: Clinical Condition Except as stated in HPI: all other systems reviewed are Neg Mental Status Examination Appearance: Disheveled Consciousness: Alert Orientation: Person Motor Activity: Normal gait Speech: Hesitant, Other Language: Perseveration Fund of Knowledge: Inadequate Attention and Concentration: Inadequate Memory: Impaired Mood: Anxious Affect: Anxious Thought Process & Associations: Other Thought Content: Other Hallucination Type: None Delusion Type: None Suicidal Ideation: No Suicidal Plan: No Suicidal Intention: No Homicidal Ideation: No Homicidal Plan: No Homicidal Intention: No Insight: Poor Judgment: Poor Results Vitals/IOs Vital Signs Date Time Temp Pulse Resp B/P (MAP) Pulse Ox O2 Delivery O2 Flow Rate FiO2 03/22/17 06:47 98.0 89 16 117/61 (79) 99 Intake and Output 03/22/17 03/22/17 03/23/17 08:00 16:00 00:00 Intake Total 360 ml Balance 360 ml Assessment & Plan Problem List: (1) 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 Continue Abilify. Zyprexa discontinued. Depakote being increased. We'll obtain blood level and liver enzymes later this week. Justification for Cont. Inpt. Likely to decompensate at lower level of care. Orville Silva MD Mar 22, 2017 14:20
[2017-03-22] MEDS: ACETAMINOPHEN 325 MG TAB PO PRN (15:42)
[2017-03-22 17:00] VITALS: BP 135/73; PULSE 90; RESP 16; TEMP 97.7; O2SAT 95
[2017-03-22] MEDS: clonazePAM 1 MG TAB PO SCH (20:46)
[2017-03-23 05:56] VITALS: BP 135/69; PULSE 99; RESP 19; TEMP 98.2; O2SAT 99
[2017-03-23] MEDS: DIVALPROEX SODIUM E.R. 500 MG TAB PO SCH ×2 (08:16→20:17)
[2017-03-23] MEDS: traZODone HCL 100 MG TAB PO SCH ×2 (08:16→20:17)
[2017-03-23] MEDS: ESCITALOPRAM OXALATE 20 MG TAB PO SCH (08:17)
[2017-03-23] MEDS: ARIPiprazole 15 MG TAB PO SCH ×2 (08:17→20:17)
[2017-03-23] MEDS: levOCARNitine 10% ORAL SOLN 118 ML BTL PO SCH ×3 (08:17→20:16)
[2017-03-23] MEDS: CHOLECALCIFEROL (VIT D3) 1000 UNIT TAB PO SCH (10:03)
[2017-03-23] MEDS: LORazepam 1 MG TAB PO PRN (10:32)
[2017-03-23] MEDS: clonazePAM 1 MG TAB PO SCH (20:17)
[2017-03-24 05:59] VITALS: BP 117/62; PULSE 97; RESP 17; TEMP 98.3; O2SAT 94
[2017-03-24] MEDS: ESCITALOPRAM OXALATE 20 MG TAB PO SCH (08:58)
[2017-03-24] MEDS: traZODone HCL 100 MG TAB PO SCH ×2 (08:59→21:37)
[2017-03-24] MEDS: ARIPiprazole 15 MG TAB PO SCH ×2 (08:59→21:37)
[2017-03-24] MEDS: DIVALPROEX SODIUM E.R. 500 MG TAB PO SCH ×2 (08:59→21:37)
[2017-03-24] MEDS: CHOLECALCIFEROL (VIT D3) 1000 UNIT TAB PO SCH (08:59)
[2017-03-24] MEDS: levOCARNitine 10% ORAL SOLN 118 ML BTL PO SCH ×3 (09:00→17:31)
--- NOTE | 2017-03-24 12:57 | HHI.PYPN ---
Subjective Remarks Progress note for March 23, 2017. Increase Depakote to 1000 mg twice a day. Will order blood level tomorrow. Did hear review. Patient's behavior basically unchanged. Review of Systems ROS Limitations: Clinical Condition Except as stated in HPI: all other systems reviewed are Neg Mental Status Examination Appearance: Disheveled Consciousness: Alert Orientation: Person Motor Activity: Normal gait Speech: Hesitant, Other Language: Perseveration Fund of Knowledge: Inadequate Attention and Concentration: Inadequate Memory: Impaired Mood: Anxious Affect: Anxious Thought Process & Associations: Other Thought Content: Other Hallucination Type: None Delusion Type: None Suicidal Ideation: No Suicidal Plan: No Suicidal Intention: No Homicidal Ideation: No Homicidal Plan: No Homicidal Intention: No Insight: Poor Judgment: Poor Results Vitals/IOs Vital Signs Date Time Temp Pulse Resp B/P (MAP) Pulse Ox O2 Delivery O2 Flow Rate FiO2 03/24/17 05:59 98.3 97 17 117/62 (80) 94 Assessment & Plan Problem List: (1) 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 Continue to titrate medications for efficacy and tolerability. Justification for Cont. Inpt. Likely to decompensate at lower level of care. Orville Silva MD Mar 24, 2017 12:57
--- NOTE | 2017-03-24 12:58 | HHI.PYPN ---
Subjective Remarks Spending more time in his room. Socially reclusive. Still impulsive. Tolerating increased medication doses adequately well. Review of Systems ROS Limitations: Clinical Condition Except as stated in HPI: all other systems reviewed are Neg Mental Status Examination Appearance: Disheveled Consciousness: Alert Orientation: Person Motor Activity: Normal gait Speech: Hesitant, Other Language: Perseveration Fund of Knowledge: Inadequate Attention and Concentration: Inadequate Memory: Impaired Mood: Anxious Affect: Anxious Thought Process & Associations: Other Thought Content: Other Hallucination Type: None Delusion Type: None Suicidal Ideation: No Suicidal Plan: No Suicidal Intention: No Homicidal Ideation: No Homicidal Plan: No Homicidal Intention: No Insight: Poor Judgment: Poor Results Vitals/IOs Vital Signs Date Time Temp Pulse Resp B/P (MAP) Pulse Ox O2 Delivery O2 Flow Rate FiO2 03/24/17 05:59 98.3 97 17 117/62 (80) 94 Assessment & Plan Problem List: (1) 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 Ordered Depakote level for tomorrow morning. Justification for Cont. Inpt. Likely to decompensate at lower level of care. Orville Silva MD Mar 24, 2017 12:58
[2017-03-24] MEDS: LORazepam 1 MG TAB PO PRN (15:09)
[2017-03-24 18:00] VITALS: BP 122/70; PULSE 81; RESP 16; TEMP 98; O2SAT 98
[2017-03-24] MEDS: clonazePAM 1 MG TAB PO SCH (21:37)
[2017-03-25 05:44] VITALS: BP 105/56; PULSE 100; RESP 19; TEMP 97.9; O2SAT 99
[2017-03-25] MEDS: levOCARNitine 10% ORAL SOLN 118 ML BTL PO SCH ×3 (09:00→17:05)
[2017-03-25] MEDS: DIVALPROEX SODIUM E.R. 500 MG TAB PO SCH ×2 (09:06→20:04)
[2017-03-25] MEDS: traZODone HCL 100 MG TAB PO SCH ×2 (09:06→20:04)
[2017-03-25] MEDS: CHOLECALCIFEROL (VIT D3) 1000 UNIT TAB PO SCH (09:06)
[2017-03-25] MEDS: ESCITALOPRAM OXALATE 20 MG TAB PO SCH (09:06)
[2017-03-25] MEDS: ARIPiprazole 15 MG TAB PO SCH ×2 (09:06→20:04)
[2017-03-25] MEDS: LORazepam 1 MG TAB PO PRN ×3 (09:06→22:02)
[2017-03-25 10:42] VITALS: BP 124/71; PULSE 82
--- NOTE | 2017-03-25 15:00 | HHI.PYPN ---
Subjective Remarks Patient evaluated at [place] act hearing. Calm and appropriate with a paucity of verbal output. Review of Systems Except as stated in HPI: all other systems reviewed are Neg Mental Status Examination Appearance: Disheveled Consciousness: Alert Orientation: Person Motor Activity: Normal gait Speech: Hesitant, Other Language: Perseveration Fund of Knowledge: Inadequate Attention and Concentration: Inadequate Memory: Impaired Mood: Anxious Affect: Anxious Thought Process & Associations: Other Thought Content: Other Hallucination Type: None Delusion Type: None Suicidal Ideation: No Suicidal Plan: No Suicidal Intention: No Homicidal Ideation: No Homicidal Plan: No Homicidal Intention: No Insight: Poor Judgment: Poor Results Labs Test 03/24/17 16:28 Valproic Acid (Depakene) Level 72 MCG/ML Vitals/IOs Vital Signs Date Time Temp Pulse Resp B/P (MAP) Pulse Ox O2 Delivery O2 Flow Rate FiO2 03/25/17 10:42 82 124/71 (88) 03/25/17 05:44 97.9 19 99 Intake and Output 03/25/17 03/25/17 03/26/17 08:00 16:00 00:00 Intake Total 720 ml Balance 720 ml Assessment & Plan Problem List: (1) Intermittent explosive disorder ICD Codes: F63.81 - Intermittent explosive disorder Assessment & Plan Estimated LOS: days. Patient calm and appropriate today. Justification for Cont. Inpt. Titrating medications to therapeutic blood levels. Orville Silva MD Mar 25, 2017 15:00
[2017-03-25 16:46] VITALS: BP 135/76; PULSE 88; RESP 19; TEMP 97.9; O2SAT 96
[2017-03-25] MEDS: clonazePAM 1 MG TAB PO SCH (20:04)
[2017-03-26 06:19] VITALS: BP 108/66; PULSE 73; RESP 18; TEMP 97.3; O2SAT 96
[2017-03-26] MEDS: ACETAMINOPHEN 325 MG TAB PO PRN ×3 (07:48→20:37)
[2017-03-26] MEDS: traZODone HCL 100 MG TAB PO SCH ×2 (08:26→20:36)
[2017-03-26] MEDS: CHOLECALCIFEROL (VIT D3) 1000 UNIT TAB PO SCH (08:26)
[2017-03-26] MEDS: ESCITALOPRAM OXALATE 20 MG TAB PO SCH (08:26)
[2017-03-26] MEDS: DIVALPROEX SODIUM E.R. 500 MG TAB PO SCH ×2 (08:26→20:36)
[2017-03-26] MEDS: ARIPiprazole 15 MG TAB PO SCH ×2 (08:26→20:35)
[2017-03-26] MEDS: levOCARNitine 10% ORAL SOLN 118 ML BTL PO SCH ×3 (08:27→17:00)
--- NOTE | 2017-03-26 14:58 | HHI.PYPN ---
Subjective Remarks No clinical changes. Still intermittently agitated. Review of Systems ROS Limitations: Clinical Condition Except as stated in HPI: all other systems reviewed are Neg Mental Status Examination Appearance: Disheveled Consciousness: Alert Orientation: Person Motor Activity: Normal gait Speech: Hesitant, Other Language: Perseveration Fund of Knowledge: Inadequate Attention and Concentration: Inadequate Memory: Impaired Mood: Anxious Affect: Anxious Thought Process & Associations: Other Thought Content: Other Hallucination Type: None Delusion Type: None Suicidal Ideation: No Suicidal Plan: No Suicidal Intention: No Homicidal Ideation: No Homicidal Plan: No Homicidal Intention: No Insight: Poor Judgment: Poor Results Vitals/IOs Vital Signs Date Time Temp Pulse Resp B/P (MAP) Pulse Ox O2 Delivery O2 Flow Rate FiO2 03/26/17 06:19 97.3 73 18 108/66 (80) 96 Intake and Output 03/26/17 03/26/17 03/27/17 08:00 16:00 00:00 Intake Total 360 ml 460 ml Balance 360 ml 460 ml Assessment & Plan Problem List: (1) Intermittent explosive disorder ICD Codes: F63.81 - Intermittent explosive disorder Assessment & Plan Estimated LOS: days still intermittently agitated and physical with others. Justification for Cont. Inpt. Unable to care for self. Orville Silva MD Mar 26, 2017 14:58
[2017-03-26] MEDS: LORazepam 1 MG TAB PO PRN (20:36)
[2017-03-26] MEDS: clonazePAM 1 MG TAB PO SCH (20:36)
[2017-03-27 06:45] VITALS: BP 152/94; PULSE 78; RESP 16; TEMP 98.5; O2SAT 94
[2017-03-27] MEDS: ARIPiprazole 15 MG TAB PO SCH ×2 (09:26→20:46)
[2017-03-27] MEDS: CHOLECALCIFEROL (VIT D3) 1000 UNIT TAB PO SCH (09:26)
[2017-03-27] MEDS: ESCITALOPRAM OXALATE 20 MG TAB PO SCH (09:27)
[2017-03-27] MEDS: DIVALPROEX SODIUM E.R. 500 MG TAB PO SCH ×2 (09:27→20:46)
[2017-03-27] MEDS: traZODone HCL 100 MG TAB PO SCH ×2 (09:27→20:46)
[2017-03-27] MEDS: levOCARNitine 10% ORAL SOLN 118 ML BTL PO SCH ×3 (09:28→17:14)
--- NOTE | 2017-03-27 11:08 | HHI.PYPN ---
Subjective Remarks Pt seen and discussed with staff. He is on 1:1 due to attempting to eat non- food substances. He has been compliant with medication and care. No aggression today. No SI/HI. Mental Status Examination Appearance: Disheveled Consciousness: Alert Orientation: Person Motor Activity: Normal gait Speech: Hesitant, Other Language: Perseveration Fund of Knowledge: Inadequate Attention and Concentration: Inadequate Memory: Impaired Mood: Anxious Affect: Anxious Thought Process & Associations: Other Thought Content: Other Hallucination Type: None Delusion Type: None Suicidal Ideation: No Suicidal Plan: No Suicidal Intention: No Homicidal Ideation: No Homicidal Plan: No Homicidal Intention: No Insight: Poor Judgment: Poor Results Vitals/IOs Vital Signs Date Time Temp Pulse Resp B/P (MAP) Pulse Ox O2 Delivery O2 Flow Rate FiO2 03/27/17 06:45 98.5 78 16 152/94 (113) 94 Intake and Output 03/27/17 03/27/17 03/28/17 08:00 16:00 00:00 Intake Total 840 ml Balance 840 ml Assessment & Plan Problem List: (1) Intermittent explosive disorder ICD Codes: F63.81 - Intermittent explosive disorder Assessment & Plan Continue current tx plan. Estimated LOS: days Justification for Cont. Inpt. i, risk of decompensation Yeny Rendon MD Mar 27, 2017 11:08
[2017-03-27] MEDS: LORazepam 1 MG TAB PO PRN ×2 (13:18→20:45)
[2017-03-27 18:00] VITALS: BP 126/68; PULSE 95; RESP 18; O2SAT 99
[2017-03-27] MEDS: clonazePAM 1 MG TAB PO SCH (20:46)
[2017-03-28 07:41] VITALS: BP 130/96; PULSE 92; RESP 18; TEMP 98.1; O2SAT 99
[2017-03-28] MEDS: levOCARNitine 10% ORAL SOLN 118 ML BTL PO SCH ×3 (08:19→17:22)
[2017-03-28] MEDS: CHOLECALCIFEROL (VIT D3) 1000 UNIT TAB PO SCH (08:20)
[2017-03-28] MEDS: ARIPiprazole 15 MG TAB PO SCH ×2 (08:20→21:18)
[2017-03-28] MEDS: traZODone HCL 100 MG TAB PO SCH ×2 (08:21→21:18)
[2017-03-28] MEDS: DIVALPROEX SODIUM E.R. 500 MG TAB PO SCH ×2 (08:21→21:18)
[2017-03-28] MEDS: ESCITALOPRAM OXALATE 20 MG TAB PO SCH (08:21)
[2017-03-28] MEDS: LORazepam 1 MG TAB PO PRN (14:16)
--- NOTE | 2017-03-28 16:37 | HHI.PYPN ---
Subjective Remarks Pt seen and discussed with staff. He remains intrusive and has been trying to take others food. He remains on 1:1 due to compulsive pica. He was agitated earlier and received ativan x1 which calmed him. Compliant with medications and care. During rounds, staff point out area of chaffing on inner thighs which may be causing discomfort. Pt denies pain or discomfort but is a poor historian. Mental Status Examination Appearance: Disheveled Consciousness: Alert Orientation: Person Motor Activity: Normal gait Speech: Hesitant, Other Language: Perseveration Fund of Knowledge: Inadequate Attention and Concentration: Inadequate Memory: Impaired Mood: Other (calm) Affect: Flat Thought Process & Associations: Other (concrete) Thought Content: Other (paucity) Hallucination Type: None Delusion Type: None Suicidal Ideation: No Suicidal Plan: No Suicidal Intention: No Homicidal Ideation: No Homicidal Plan: No Homicidal Intention: No Insight: Poor Judgment: Poor Results Vitals/IOs Vital Signs Date Time Temp Pulse Resp B/P (MAP) Pulse Ox O2 Delivery O2 Flow Rate FiO2 03/28/17 07:41 98.1 92 18 130/96 (107) 99 Intake and Output 03/28/17 03/28/17 03/29/17 08:00 16:00 00:00 Intake Total 0 ml 360 ml Balance 0 ml 360 ml Assessment & Plan Problem List: (1) Intermittent explosive disorder ICD Codes: F63.81 - Intermittent explosive disorder Assessment & Plan Continue current tx plan. Will utilize aquaphor or other available emollient cream for skin as discomfort from chaffing could be exacerbating agitation. .Estimated LOS: days Justification for Cont. Inpt. risk of decompensation Yeny Rendon MD Mar 28, 2017 16:37
[2017-03-28 17:00] VITALS: BP 126/68; PULSE 95; RESP 18; O2SAT 99
[2017-03-28] MEDS: AQUAPHOR OINT 50 GM TUBE TOPICAL SCH (21:00)
[2017-03-28] MEDS: clonazePAM 1 MG TAB PO SCH (21:17)
[2017-03-29] MEDS: LORazepam 1 MG TAB PO PRN ×3 (04:17→20:30)
[2017-03-29] MEDS: levOCARNitine 10% ORAL SOLN 118 ML BTL PO SCH ×3 (09:00→17:12)
[2017-03-29] MEDS: traZODone HCL 100 MG TAB PO SCH ×2 (11:08→20:30)
[2017-03-29] MEDS: ESCITALOPRAM OXALATE 20 MG TAB PO SCH (11:08)
[2017-03-29] MEDS: CHOLECALCIFEROL (VIT D3) 1000 UNIT TAB PO SCH (11:08)
[2017-03-29] MEDS: ARIPiprazole 15 MG TAB PO SCH ×2 (11:08→20:30)
[2017-03-29] MEDS: DIVALPROEX SODIUM E.R. 500 MG TAB PO SCH ×2 (11:08→20:30)
[2017-03-29] MEDS: AQUAPHOR OINT 50 GM TUBE TOPICAL SCH ×2 (11:09→21:00)
[2017-03-29] MEDS: clonazePAM 1 MG TAB PO SCH (20:29)
[2017-03-30] MEDS: LORazepam 1 MG TAB PO PRN ×2 (05:31→20:19)
[2017-03-30 06:00] VITALS: BP 104/50; PULSE 94; RESP 18; TEMP 97.2; O2SAT 98
[2017-03-30] MEDS: traZODone HCL 100 MG TAB PO SCH ×2 (08:33→20:18)
[2017-03-30] MEDS: ESCITALOPRAM OXALATE 20 MG TAB PO SCH (08:33)
[2017-03-30] MEDS: DIVALPROEX SODIUM E.R. 500 MG TAB PO SCH ×2 (08:34→20:19)
[2017-03-30] MEDS: CHOLECALCIFEROL (VIT D3) 1000 UNIT TAB PO SCH (08:34)
[2017-03-30] MEDS: ARIPiprazole 15 MG TAB PO SCH ×2 (08:34→20:19)
[2017-03-30] MEDS: levOCARNitine 10% ORAL SOLN 118 ML BTL PO SCH ×3 (08:35→18:00)
[2017-03-30] MEDS: AQUAPHOR OINT 50 GM TUBE TOPICAL SCH ×2 (08:38→21:00)
--- NOTE | 2017-03-30 11:20 | HHI.PYPN ---
Subjective Remarks Progress note for March 29, 2017. Patient less intrusive and less pushy. Still disorganized in thinking. Review of Systems ROS Limitations: Clinical Condition Except as stated in HPI: all other systems reviewed are Neg Mental Status Examination Appearance: Disheveled Consciousness: Alert Orientation: Person Motor Activity: Normal gait Speech: Hesitant, Other Language: Perseveration Fund of Knowledge: Inadequate Attention and Concentration: Inadequate Memory: Impaired Mood: Other (calm) Affect: Flat Thought Process & Associations: Other (concrete) Thought Content: Other (paucity) Hallucination Type: None Delusion Type: None Suicidal Ideation: No Suicidal Plan: No Suicidal Intention: No Homicidal Ideation: No Homicidal Plan: No Homicidal Intention: No Insight: Poor Judgment: Poor Results Vitals/IOs Vital Signs Date Time Temp Pulse Resp B/P (MAP) Pulse Ox O2 Delivery O2 Flow Rate FiO2 03/30/17 06:00 97.2 94 18 104/50 (68) 98 Assessment & Plan Problem List: (1) Intermittent explosive disorder ICD Codes: F63.81 - Intermittent explosive disorder Assessment & Plan Estimated LOS: days continue current treatment plan. Justification for Cont. Inpt. Likely to decompensate at lower level of care. Orville Silva MD Mar 30, 2017 11:20
[2017-03-30 18:30] VITALS: BP 111/67; PULSE 93; RESP 18; TEMP 97.3; O2SAT 98
[2017-03-30] MEDS: clonazePAM 1 MG TAB PO SCH (20:19)
[2017-03-31] MEDS: ARIPiprazole 15 MG TAB PO SCH ×2 (07:57→20:21)
[2017-03-31] MEDS: traZODone HCL 100 MG TAB PO SCH ×2 (07:58→20:18)
[2017-03-31] MEDS: AQUAPHOR OINT 50 GM TUBE TOPICAL SCH ×2 (07:58→20:19)
[2017-03-31] MEDS: CHOLECALCIFEROL (VIT D3) 1000 UNIT TAB PO SCH (07:58)
[2017-03-31] MEDS: levOCARNitine 10% ORAL SOLN 118 ML BTL PO SCH ×3 (07:58→16:48)
[2017-03-31] MEDS: DIVALPROEX SODIUM E.R. 500 MG TAB PO SCH ×2 (07:58→20:18)
[2017-03-31] MEDS: ESCITALOPRAM OXALATE 20 MG TAB PO SCH (07:58)
[2017-03-31] MEDS: LORazepam 1 MG TAB PO PRN ×2 (14:01→18:07)
[2017-03-31 18:00] VITALS: BP 132/79; PULSE 98; RESP 18; TEMP 98; O2SAT 97
[2017-03-31] MEDS: clonazePAM 1 MG TAB PO SCH (20:19)
[2017-04-01] MEDS: AQUAPHOR OINT 50 GM TUBE TOPICAL SCH ×2 (09:00→20:15)
[2017-04-01] MEDS: DIVALPROEX SODIUM E.R. 500 MG TAB PO SCH ×2 (09:19→20:14)
[2017-04-01] MEDS: traZODone HCL 100 MG TAB PO SCH ×2 (09:19→20:14)
[2017-04-01] MEDS: CHOLECALCIFEROL (VIT D3) 1000 UNIT TAB PO SCH (09:19)
[2017-04-01] MEDS: ESCITALOPRAM OXALATE 20 MG TAB PO SCH (09:19)
[2017-04-01] MEDS: levOCARNitine 10% ORAL SOLN 118 ML BTL PO SCH ×3 (09:20→16:58)
[2017-04-01] MEDS: ARIPiprazole 15 MG TAB PO SCH ×2 (09:23→20:14)
[2017-04-01 17:52] VITALS: BP 102/72; PULSE 84; RESP 18; TEMP 97.8; O2SAT 96
[2017-04-01] MEDS: clonazePAM 1 MG TAB PO SCH (20:14)
[2017-04-02 05:29] VITALS: BP 166/65; PULSE 85; RESP 18; TEMP 98.1; O2SAT 97
[2017-04-02] MEDS: LORazepam 1 MG TAB PO PRN ×3 (06:32→23:53)
[2017-04-02] MEDS: levOCARNitine 10% ORAL SOLN 118 ML BTL PO SCH ×4 (09:00→17:43)
[2017-04-02] MEDS: ARIPiprazole 15 MG TAB PO SCH ×2 (11:57→20:33)
[2017-04-02] MEDS: AQUAPHOR OINT 50 GM TUBE TOPICAL SCH ×2 (11:57→20:33)
[2017-04-02] MEDS: traZODone HCL 100 MG TAB PO SCH ×2 (11:58→20:32)
[2017-04-02] MEDS: DIVALPROEX SODIUM E.R. 500 MG TAB PO SCH ×2 (11:58→20:33)
[2017-04-02] MEDS: CHOLECALCIFEROL (VIT D3) 1000 UNIT TAB PO SCH (11:58)
[2017-04-02] MEDS: ESCITALOPRAM OXALATE 20 MG TAB PO SCH (11:58)
[2017-04-02] MEDS: ACETAMINOPHEN 325 MG TAB PO PRN (13:52)
[2017-04-02 17:30] VITALS: BP 150/76; PULSE 97; RESP 18; TEMP 97.8; O2SAT 98
[2017-04-02] MEDS: clonazePAM 1 MG TAB PO SCH (20:32)
[2017-04-03 06:00] VITALS: BP 121/71; PULSE 84; RESP 16; TEMP 97.4; O2SAT 97
[2017-04-03] MEDS: ESCITALOPRAM OXALATE 20 MG TAB PO SCH (08:31)
[2017-04-03] MEDS: traZODone HCL 100 MG TAB PO SCH ×2 (08:31→21:20)
[2017-04-03] MEDS: DIVALPROEX SODIUM E.R. 500 MG TAB PO SCH ×2 (08:32→21:20)
[2017-04-03] MEDS: AQUAPHOR OINT 50 GM TUBE TOPICAL SCH ×2 (08:32→21:00)
[2017-04-03] MEDS: levOCARNitine 10% ORAL SOLN 118 ML BTL PO SCH ×3 (08:32→16:28)
[2017-04-03] MEDS: CHOLECALCIFEROL (VIT D3) 1000 UNIT TAB PO SCH (08:32)
[2017-04-03] MEDS: ARIPiprazole 15 MG TAB PO SCH ×2 (08:32→21:20)
[2017-04-03] MEDS ORDERED: INFLUENZA VIRUS VACCINE (QUADRIVALENT) 0.5 ML SYR IM ONE (10:00)
[2017-04-03] MEDS ORDERED: PNEUMOCOCCAL POLYVALENT INJ 25 MCG/0.5 ML SYR IM ONE (10:00)
[2017-04-03] MEDS: LORazepam 2 MG/ML VIAL IM PRN (10:45)
--- NOTE | 2017-04-03 15:54 | HHI.PYPN ---
Subjective Remarks Patient was seen and case discussed with nursing. Per nursing, patient is more internally activated today. He is more intrusive and restless. He received Ativan this morning. Mental Status Examination Appearance: Disheveled Consciousness: Alert Orientation: Person Motor Activity: Normal gait Speech: Hesitant, Other Language: Perseveration Fund of Knowledge: Inadequate Attention and Concentration: Inadequate Memory: Impaired Mood: Other (calm) Affect: Flat Thought Process & Associations: Other (concrete) Thought Content: Other (paucity) Hallucination Type: None Delusion Type: None Suicidal Ideation: No Suicidal Plan: No Suicidal Intention: No Homicidal Ideation: No Homicidal Plan: No Homicidal Intention: No Insight: Poor Judgment: Poor Results Vitals/IOs Vital Signs Date Time Temp Pulse Resp B/P (MAP) Pulse Ox O2 Delivery O2 Flow Rate FiO2 04/03/17 06:00 97.4 84 16 121/71 (88) 97 Intake and Output 04/03/17 04/03/17 04/04/17 08:00 16:00 00:00 Intake Total 600 ml Balance 600 ml Assessment & Plan Problem List: (1) Intermittent explosive disorder ICD Codes: F63.81 - Intermittent explosive disorder Assessment & Plan Continue current treatment plan Justification for Cont. Inpt. Patient would decompensate in a less restrictive setting Logan Yanez DO Apr 03, 2017 15:54
[2017-04-03] MEDS ORDERED: HALOPERIDOL LACTATE 5 MG/ML AMP ONE (16:21)
[2017-04-03] MEDS ORDERED: HALOPERIDOL DECANOATE 50 MG/ML VIAL IM SCH (16:30)
[2017-04-03] MEDS: LORazepam 2 MG/ML VIAL IM SCH ×3 (17:08→17:12)
[2017-04-03] MEDS ORDERED: HALOPERIDOL LACTATE 5 MG/ML AMP IM SCH (17:15)
[2017-04-03] MEDS: clonazePAM 1 MG TAB PO SCH (21:20)
[2017-04-04] MEDS: LORazepam 2 MG/ML VIAL IM PRN (00:40)
[2017-04-04 06:11] VITALS: BP 136/92; PULSE 79; RESP 17; TEMP 97.5; O2SAT 98
[2017-04-04] MEDS: ARIPiprazole 15 MG TAB PO SCH ×2 (08:21→20:34)
[2017-04-04] MEDS: traZODone HCL 100 MG TAB PO SCH ×2 (08:21→20:34)
[2017-04-04] MEDS: DIVALPROEX SODIUM E.R. 500 MG TAB PO SCH ×2 (08:21→20:34)
[2017-04-04] MEDS: ESCITALOPRAM OXALATE 20 MG TAB PO SCH (08:22)
[2017-04-04] MEDS: levOCARNitine 10% ORAL SOLN 118 ML BTL PO SCH ×3 (08:22→18:00)
[2017-04-04] MEDS: CHOLECALCIFEROL (VIT D3) 1000 UNIT TAB PO SCH (08:22)
[2017-04-04] MEDS: AQUAPHOR OINT 50 GM TUBE TOPICAL SCH ×2 (08:22→21:00)
[2017-04-04] MEDS: LORazepam 1 MG TAB PO PRN ×3 (09:00→17:16)
--- NOTE | 2017-04-04 16:27 | HHI.PYPN ---
Subjective Remarks Patient was seen and case discussed with nursing. Patient is pleasant and cooperative with exam. Compliant with medications. Behavior has improved today. He only required Ativan at 2 AM and then again at 10 AM. Mental Status Examination Appearance: Disheveled Consciousness: Alert Orientation: Person Motor Activity: Normal gait Speech: Hesitant, Other Language: Perseveration Fund of Knowledge: Inadequate Attention and Concentration: Inadequate Memory: Impaired Mood: Other (calm) Affect: Flat Thought Process & Associations: Other (concrete) Thought Content: Other (paucity) Hallucination Type: None Delusion Type: None Suicidal Ideation: No Suicidal Plan: No Suicidal Intention: No Homicidal Ideation: No Homicidal Plan: No Homicidal Intention: No Insight: Poor Judgment: Poor Results Vitals/IOs Vital Signs Date Time Temp Pulse Resp B/P (MAP) Pulse Ox O2 Delivery O2 Flow Rate FiO2 04/04/17 06:11 97.5 79 17 136/92 (107) 98 Intake and Output 04/04/17 04/04/17 04/05/17 08:00 16:00 00:00 Intake Total 480 ml Balance 480 ml Assessment & Plan Problem List: (1) Intermittent explosive disorder ICD Codes: F63.81 - Intermittent explosive disorder Assessment & Plan Continue current treatment plan Justification for Cont. Inpt. Patient would decompensate in a less restrictive setting Logan Yanez DO Apr 04, 2017 16:27
[2017-04-04 18:52] VITALS: BP 116/73; PULSE 95; RESP 17; TEMP 97.9; O2SAT 94
[2017-04-04] MEDS: clonazePAM 1 MG TAB PO SCH (20:34)
[2017-04-05 05:50] VITALS: BP 116/71; PULSE 95; RESP 18; TEMP 98.4; O2SAT 99
[2017-04-05] MEDS: ESCITALOPRAM OXALATE 20 MG TAB PO SCH (09:00)
[2017-04-05] MEDS: ARIPiprazole 15 MG TAB PO SCH (09:00)
[2017-04-05] MEDS: levOCARNitine 10% ORAL SOLN 118 ML BTL PO SCH ×3 (09:00→17:08)
[2017-04-05] MEDS: CHOLECALCIFEROL (VIT D3) 1000 UNIT TAB PO SCH (09:00)
[2017-04-05] MEDS: traZODone HCL 100 MG TAB PO SCH ×2 (09:00→20:23)
[2017-04-05] MEDS: AQUAPHOR OINT 50 GM TUBE TOPICAL SCH ×2 (09:00→20:24)
[2017-04-05] MEDS: DIVALPROEX SODIUM E.R. 500 MG TAB PO SCH ×2 (09:00→20:23)
--- NOTE | 2017-04-05 14:05 | HHI.PYPN ---
Subjective Remarks Continues to be intrusive, impatient, impulsive and without boundaries. Needs constant supervision and direction. We will increase mood stabilizing antipsychotic medicines. Review of Systems ROS Limitations: Clinical Condition Except as stated in HPI: all other systems reviewed are Neg Mental Status Examination Appearance: Disheveled Consciousness: Alert Orientation: Person Motor Activity: Normal gait Speech: Hesitant, Other Language: Perseveration Fund of Knowledge: Inadequate Attention and Concentration: Inadequate Memory: Impaired Mood: Other (calm) Affect: Flat Thought Process & Associations: Other (concrete) Thought Content: Other (paucity) Hallucination Type: None Delusion Type: None Suicidal Ideation: No Suicidal Plan: No Suicidal Intention: No Homicidal Ideation: No Homicidal Plan: No Homicidal Intention: No Insight: Poor Judgment: Poor Results Vitals/IOs Vital Signs Date Time Temp Pulse Resp B/P (MAP) Pulse Ox O2 Delivery O2 Flow Rate FiO2 04/05/17 05:50 98.4 95 18 116/71 (86) 99 Intake and Output 04/05/17 04/05/17 04/06/17 08:00 16:00 00:00 Intake Total 0 ml Balance 0 ml Assessment & Plan Problem List: (1) Intermittent explosive disorder ICD Codes: F63.81 - Intermittent explosive disorder Assessment & Plan Estimated LOS: days increase antipsychotic and mood stabilizing medications. Justification for Cont. Inpt. Will decompensate at lower level of care. Orville Silva MD Apr 05, 2017 14:05
[2017-04-05] MEDS: ACETAMINOPHEN 325 MG TAB PO PRN (17:16)
[2017-04-05 17:26] VITALS: BP 135/80; PULSE 87; RESP 18; TEMP 98.1; O2SAT 98
[2017-04-05] MEDS: DIVALPROEX SODIUM E.R. 250 MG TAB PO SCH (20:22)
[2017-04-05] MEDS: clonazePAM 1 MG TAB PO SCH (20:22)
[2017-04-06] MEDS: DIVALPROEX SODIUM E.R. 500 MG TAB PO SCH ×2 (09:12→20:25)
[2017-04-06] MEDS: DIVALPROEX SODIUM E.R. 250 MG TAB PO SCH ×2 (09:12→20:25)
[2017-04-06] MEDS: ESCITALOPRAM OXALATE 20 MG TAB PO SCH (09:13)
[2017-04-06] MEDS: CHOLECALCIFEROL (VIT D3) 1000 UNIT TAB PO SCH (09:13)
[2017-04-06] MEDS: AQUAPHOR OINT 50 GM TUBE TOPICAL SCH ×2 (09:14→20:27)
[2017-04-06] MEDS: traZODone HCL 100 MG TAB PO SCH ×2 (09:17→20:25)
[2017-04-06] MEDS: levOCARNitine 10% ORAL SOLN 118 ML BTL PO SCH ×3 (09:21→17:44)
[2017-04-06] MEDS ORDERED: diphenhydrAMINE HCL 50 MG/ML VIAL ONE (09:58)
[2017-04-06] MEDS ORDERED: ZIPRASIDONE MESYLATE 20 MG VIAL IM ONE ×2 (09:58→10:45)
[2017-04-06] MEDS ORDERED: diphenhydrAMINE HCL 50 MG/ML VIAL IM ONE (10:45)
[2017-04-06] MEDS: LORazepam 2 MG/ML VIAL IM PRN (16:19)
[2017-04-06 18:13] VITALS: BP 127/50; PULSE 98; RESP 20; TEMP 97.3; O2SAT 94
[2017-04-06] MEDS: clonazePAM 1 MG TAB PO SCH (20:25)
[2017-04-07] MEDS: LORazepam 1 MG TAB PO PRN ×2 (04:54→20:01)
[2017-04-07 05:45] VITALS: BP 111/71; PULSE 86; RESP 18; TEMP 97.5; O2SAT 97
[2017-04-07] MEDS: CHOLECALCIFEROL (VIT D3) 1000 UNIT TAB PO SCH (08:27)
[2017-04-07] MEDS: DIVALPROEX SODIUM E.R. 500 MG TAB PO SCH ×2 (08:27→20:01)
[2017-04-07] MEDS: ESCITALOPRAM OXALATE 20 MG TAB PO SCH (08:27)
[2017-04-07] MEDS: traZODone HCL 100 MG TAB PO SCH ×2 (08:27→20:01)
[2017-04-07] MEDS: AQUAPHOR OINT 50 GM TUBE TOPICAL SCH ×2 (08:28→20:00)
[2017-04-07] MEDS: levOCARNitine 10% ORAL SOLN 118 ML BTL PO SCH ×3 (08:28→17:47)
[2017-04-07] MEDS: DIVALPROEX SODIUM E.R. 250 MG TAB PO SCH ×2 (08:28→20:01)
[2017-04-07] MEDS: ACETAMINOPHEN 325 MG TAB PO PRN (12:22)
--- NOTE | 2017-04-07 14:57 | HHI.PYPN ---
Subjective Remarks Patient seen today in coverage for Dr. Silva, patient continues to pace the halls escorted by the one-to-one staff. Appears she's had some leaky soft stool also. Patient showing no change in his behaviors are his cognitive ability. Depakote level drawn this a.m. came back at 104. We'll continue that dose no change recheck value in a few days Review of Systems Except as stated in HPI: all other systems reviewed are Neg Mental Status Examination Appearance: Disheveled Consciousness: Alert Orientation: Person Motor Activity: Normal gait Speech: Hesitant, Other Language: Perseveration Fund of Knowledge: Inadequate Attention and Concentration: Inadequate Memory: Impaired Mood: Other (calm) Affect: Flat Thought Process & Associations: Other (concrete) Thought Content: Other (paucity) Hallucination Type: None Delusion Type: None Suicidal Ideation: No Suicidal Plan: No Suicidal Intention: No Homicidal Ideation: No Homicidal Plan: No Homicidal Intention: No Insight: Poor Judgment: Poor Results Labs Test 04/07/17 10:18 Valproic Acid (Depakene) Level 104 MCG/ML Vitals/IOs Vital Signs Date Time Temp Pulse Resp B/P (MAP) Pulse Ox O2 Delivery O2 Flow Rate FiO2 04/07/17 05:45 97.5 86 18 111/71 (84) 97 Intake and Output 04/07/17 04/07/17 04/08/17 08:00 16:00 00:00 Intake Total 480 ml 360 ml Balance 480 ml 360 ml Assessment & Plan Problem List: (1) Intermittent explosive disorder ICD Codes: F63.81 - Intermittent explosive disorder Assessment & Plan Estimated LOS: days patient continues to wander the halls showing significant cognitive impairment along with an episode of stool incontinence. Depakote level reviewed will monitor Justification for Cont. Inpt. At this time patient decompensated placed in a lower level of care Discharge Planning Patient is quite problematic Brayden Stafford MD Apr 07, 2017 14:57
[2017-04-07 18:00] VITALS: BP 109/62; PULSE 84; RESP 24; TEMP 97.5; O2SAT 99
[2017-04-07] MEDS: clonazePAM 1 MG TAB PO SCH (20:01)
[2017-04-08 06:30] VITALS: BP 135/76; PULSE 77; RESP 16; TEMP 98
[2017-04-08] MEDS: DIVALPROEX SODIUM E.R. 250 MG TAB PO SCH ×2 (08:03→20:41)
[2017-04-08] MEDS: CHOLECALCIFEROL (VIT D3) 1000 UNIT TAB PO SCH (08:03)
[2017-04-08] MEDS: traZODone HCL 100 MG TAB PO SCH ×2 (08:03→20:41)
[2017-04-08] MEDS: DIVALPROEX SODIUM E.R. 500 MG TAB PO SCH ×2 (08:03→20:40)
[2017-04-08] MEDS: ESCITALOPRAM OXALATE 20 MG TAB PO SCH (08:03)
[2017-04-08] MEDS: levOCARNitine 10% ORAL SOLN 118 ML BTL PO SCH ×3 (08:04→17:22)
[2017-04-08] MEDS: AQUAPHOR OINT 50 GM TUBE TOPICAL SCH ×2 (08:06→20:44)
[2017-04-08] MEDS: LORazepam 1 MG TAB PO PRN (13:43)
[2017-04-08] MEDS ORDERED: OLANZapine IM 10 MG VIAL IM ONE ×2 (18:03→18:15)
[2017-04-08 19:30] VITALS: BP 101/54; PULSE 87; RESP 16; TEMP 98; O2SAT 98
[2017-04-08] MEDS: clonazePAM 1 MG TAB PO SCH (20:40)
--- NOTE | 2017-04-09 09:57 | HHI.PYPN ---
Subjective Remarks Psychiatric progress note for March 30, 2017. No change in condition. Patient still impulsive and intrusive. Review of Systems ROS Limitations: Clinical Condition Except as stated in HPI: all other systems reviewed are Neg Mental Status Examination Appearance: Disheveled Consciousness: Alert Orientation: Person Motor Activity: Normal gait Speech: Hesitant, Other Language: Perseveration Fund of Knowledge: Inadequate Attention and Concentration: Inadequate Memory: Impaired Mood: Other (calm) Affect: Flat Thought Process & Associations: Other (concrete) Thought Content: Other (paucity) Hallucination Type: None Delusion Type: None Suicidal Ideation: No Suicidal Plan: No Suicidal Intention: No Homicidal Ideation: No Homicidal Plan: No Homicidal Intention: No Insight: Poor Judgment: Poor Results Vitals/IOs Vital Signs Date Time Temp Pulse Resp B/P (MAP) Pulse Ox O2 Delivery O2 Flow Rate FiO2 04/08/17 19:30 98.0 87 16 101/54 (70) 98 Assessment & Plan Problem List: (1) Intermittent explosive disorder ICD Codes: F63.81 - Intermittent explosive disorder Assessment & Plan Estimated LOS: days continue current medications. Justification for Cont. Inpt. Likely to decompensate at lower level of care. Orville Silva MD Apr 09, 2017 09:57
--- NOTE | 2017-04-09 09:59 | HHI.PYPN ---
Subjective Remarks Psychiatric progress note for March 31, 2017. Patient continues to be impulsive and intrusive. Becomes agitated intermittently and unpredictably. Review of Systems ROS Limitations: Clinical Condition Except as stated in HPI: all other systems reviewed are Neg Mental Status Examination Appearance: Disheveled Consciousness: Alert Orientation: Person Motor Activity: Normal gait Speech: Hesitant, Other Language: Perseveration Fund of Knowledge: Inadequate Attention and Concentration: Inadequate Memory: Impaired Mood: Other (calm) Affect: Flat Thought Process & Associations: Other (concrete) Thought Content: Other (paucity) Hallucination Type: None Delusion Type: None Suicidal Ideation: No Suicidal Plan: No Suicidal Intention: No Homicidal Ideation: No Homicidal Plan: No Homicidal Intention: No Insight: Poor Judgment: Poor Results Vitals/IOs Vital Signs Date Time Temp Pulse Resp B/P (MAP) Pulse Ox O2 Delivery O2 Flow Rate FiO2 04/08/17 19:30 98.0 87 16 101/54 (70) 98 Assessment & Plan Problem List: (1) Intermittent explosive disorder ICD Codes: F63.81 - Intermittent explosive disorder Assessment & Plan Estimated LOS: days. Reviewed lab work. Continue treatment plan. Justification for Cont. Inpt. Likely to decompensate a lower level of care. Orville Silva MD Apr 09, 2017 09:59
--- NOTE | 2017-04-09 10:01 | HHI.PYPN ---
Subjective Remarks Psychiatric progress note for April 01, 2017. No change in clinical condition. Patient remains impulsive and unpredictably agitated. Review of Systems ROS Limitations: Clinical Condition Except as stated in HPI: all other systems reviewed are Neg Mental Status Examination Appearance: Disheveled Consciousness: Alert Orientation: Person Motor Activity: Normal gait Speech: Hesitant, Other Language: Perseveration Fund of Knowledge: Inadequate Attention and Concentration: Inadequate Memory: Impaired Mood: Other (calm) Affect: Flat Thought Process & Associations: Other (concrete) Thought Content: Other (paucity) Hallucination Type: None Delusion Type: None Suicidal Ideation: No Suicidal Plan: No Suicidal Intention: No Homicidal Ideation: No Homicidal Plan: No Homicidal Intention: No Insight: Poor Judgment: Poor Results Vitals/IOs Vital Signs Date Time Temp Pulse Resp B/P (MAP) Pulse Ox O2 Delivery O2 Flow Rate FiO2 04/08/17 19:30 98.0 87 16 101/54 (70) 98 Assessment & Plan Problem List: (1) Intermittent explosive disorder ICD Codes: F63.81 - Intermittent explosive disorder Assessment & Plan Estimated LOS: days continue to monitor for medication efficacy. Justification for Cont. Inpt. Likely to decompensate a lower level of care. Orville Silva MD Apr 09, 2017 10:01
--- NOTE | 2017-04-09 10:02 | HHI.PYPN ---
Subjective Remarks Psychiatric progress note for April 02. Patient remains unpredictably agitated. Review of Systems ROS Limitations: Clinical Condition Except as stated in HPI: all other systems reviewed are Neg Mental Status Examination Appearance: Disheveled Consciousness: Alert Orientation: Person Motor Activity: Normal gait Speech: Hesitant, Other Language: Perseveration Fund of Knowledge: Inadequate Attention and Concentration: Inadequate Memory: Impaired Mood: Other (calm) Affect: Flat Thought Process & Associations: Other (concrete) Thought Content: Other (paucity) Hallucination Type: None Delusion Type: None Suicidal Ideation: No Suicidal Plan: No Suicidal Intention: No Homicidal Ideation: No Homicidal Plan: No Homicidal Intention: No Insight: Poor Judgment: Poor Results Vitals/IOs Vital Signs Date Time Temp Pulse Resp B/P (MAP) Pulse Ox O2 Delivery O2 Flow Rate FiO2 04/08/17 19:30 98.0 87 16 101/54 (70) 98 Assessment & Plan Problem List: (1) Intermittent explosive disorder ICD Codes: F63.81 - Intermittent explosive disorder Assessment & Plan Estimated LOS: days continue medication management. Justification for Cont. Inpt. Placement issue. Orville Silva MD Apr 09, 2017 10:02
--- NOTE | 2017-04-09 10:05 | HHI.PYPN ---
Subjective Remarks Psychiatric progress note for April 06, 2017. No change in clinical condition. Intrusive, impulsive and unpredictably agitated. Review of Systems ROS Limitations: Clinical Condition Except as stated in HPI: all other systems reviewed are Neg Mental Status Examination Appearance: Disheveled Consciousness: Alert Orientation: Person Motor Activity: Normal gait Speech: Hesitant, Other Language: Perseveration Fund of Knowledge: Inadequate Attention and Concentration: Inadequate Memory: Impaired Mood: Other (calm) Affect: Flat Thought Process & Associations: Other (concrete) Thought Content: Other (paucity) Hallucination Type: None Delusion Type: None Suicidal Ideation: No Suicidal Plan: No Suicidal Intention: No Homicidal Ideation: No Homicidal Plan: No Homicidal Intention: No Insight: Poor Judgment: Poor Results Vitals/IOs Vital Signs Date Time Temp Pulse Resp B/P (MAP) Pulse Ox O2 Delivery O2 Flow Rate FiO2 04/08/17 19:30 98.0 87 16 101/54 (70) 98 Assessment & Plan Problem List: (1) Intermittent explosive disorder ICD Codes: F63.81 - Intermittent explosive disorder Assessment & Plan Estimated LOS: days continues to require medication management. Justification for Cont. Inpt. Likely to decompensate a lower level of care. Orville Silva MD Apr 09, 2017 10:05
--- NOTE | 2017-04-09 10:07 | HHI.PYPN ---
Subjective Remarks Psychiatric progress note for April 08, 2017. Patient sleeping at the moment. Continues to be impulsive and unpredictably agitated. Review of Systems ROS Limitations: Clinical Condition Except as stated in HPI: all other systems reviewed are Neg Mental Status Examination Appearance: Disheveled Consciousness: Alert Orientation: Person Motor Activity: Normal gait Speech: Hesitant, Other Language: Perseveration Fund of Knowledge: Inadequate Attention and Concentration: Inadequate Memory: Impaired Mood: Other (calm) Affect: Flat Thought Process & Associations: Other (concrete) Thought Content: Other (paucity) Hallucination Type: None Delusion Type: None Suicidal Ideation: No Suicidal Plan: No Suicidal Intention: No Homicidal Ideation: No Homicidal Plan: No Homicidal Intention: No Insight: Poor Judgment: Poor Results Vitals/IOs Vital Signs Date Time Temp Pulse Resp B/P (MAP) Pulse Ox O2 Delivery O2 Flow Rate FiO2 04/08/17 19:30 98.0 87 16 101/54 (70) 98 Assessment & Plan Problem List: (1) Intermittent explosive disorder ICD Codes: F63.81 - Intermittent explosive disorder Assessment & Plan Estimated LOS: days. Continue current medication treatment plan. Justification for Cont. Inpt. Likely to decompensate at lower level of care. Orville Silva MD Apr 09, 2017 10:07
--- NOTE | 2017-04-09 10:09 | HHI.PYPN ---
Subjective Remarks Psychiatric progress note for today, April 09, 2017. Patient's condition has not changed. Medications have been of minimal efficacy. Patient remains intrusive, impulsive and unpredictably agitated. Review of Systems ROS Limitations: Clinical Condition Except as stated in HPI: all other systems reviewed are Neg Mental Status Examination Appearance: Disheveled Consciousness: Alert Orientation: Person Motor Activity: Normal gait Speech: Hesitant, Other Language: Perseveration Fund of Knowledge: Inadequate Attention and Concentration: Inadequate Memory: Impaired Mood: Other (calm) Affect: Flat Thought Process & Associations: Other (concrete) Thought Content: Other (paucity) Hallucination Type: None Delusion Type: None Suicidal Ideation: No Suicidal Plan: No Suicidal Intention: No Homicidal Ideation: No Homicidal Plan: No Homicidal Intention: No Insight: Poor Judgment: Poor Results Vitals/IOs Vital Signs Date Time Temp Pulse Resp B/P (MAP) Pulse Ox O2 Delivery O2 Flow Rate FiO2 04/08/17 19:30 98.0 87 16 101/54 (70) 98 Assessment & Plan Problem List: (1) Intermittent explosive disorder ICD Codes: F63.81 - Intermittent explosive disorder Assessment & Plan Estimated LOS: days continue medication management. Justification for Cont. Inpt. Likely to decompensate at lower level of care. Orville Silva MD Apr 09, 2017 10:09
[2017-04-09] MEDS: DIVALPROEX SODIUM E.R. 250 MG TAB PO SCH ×3 (10:34→21:00)
[2017-04-09] MEDS: DIVALPROEX SODIUM E.R. 500 MG TAB PO SCH ×3 (10:34→21:00)
[2017-04-09] MEDS: levOCARNitine 10% ORAL SOLN 118 ML BTL PO SCH ×3 (10:34→17:24)
[2017-04-09] MEDS: traZODone HCL 100 MG TAB PO SCH ×2 (10:35→21:46)
[2017-04-09] MEDS: ESCITALOPRAM OXALATE 20 MG TAB PO SCH (10:35)
[2017-04-09] MEDS: AQUAPHOR OINT 50 GM TUBE TOPICAL SCH ×2 (10:35→21:45)
[2017-04-09] MEDS: CHOLECALCIFEROL (VIT D3) 1000 UNIT TAB PO SCH (10:35)
[2017-04-09] MEDS: LORazepam 1 MG TAB PO PRN ×2 (11:00→18:47)
[2017-04-09 21:02] VITALS: BP 101/54; PULSE 87; RESP 16; TEMP 98; O2SAT 98
[2017-04-09] MEDS: ACETAMINOPHEN 325 MG TAB PO PRN (21:44)
[2017-04-09] MEDS: clonazePAM 1 MG TAB PO SCH (21:46)
[2017-04-10 06:24] VITALS: BP 119/69; PULSE 87; RESP 18; TEMP 97.5; O2SAT 97
[2017-04-10] MEDS: levOCARNitine 10% ORAL SOLN 118 ML BTL PO SCH ×3 (09:00→17:42)
[2017-04-10] MEDS: AQUAPHOR OINT 50 GM TUBE TOPICAL SCH ×2 (09:00→20:33)
[2017-04-10] MEDS: DIVALPROEX SODIUM E.R. 250 MG TAB PO SCH ×2 (09:03→21:17)
[2017-04-10] MEDS: traZODone HCL 100 MG TAB PO SCH ×2 (09:04→20:33)
[2017-04-10] MEDS: DIVALPROEX SODIUM E.R. 500 MG TAB PO SCH ×2 (09:04→21:17)
[2017-04-10] MEDS: CHOLECALCIFEROL (VIT D3) 1000 UNIT TAB PO SCH (09:04)
[2017-04-10] MEDS: ESCITALOPRAM OXALATE 20 MG TAB PO SCH (09:05)
[2017-04-10] MEDS: LORazepam 1 MG TAB PO PRN (10:48)
--- NOTE | 2017-04-10 14:28 | HHI.PYPN ---
Subjective Remarks Pt seen and discussed with staff. He remains on 1:1 due to eating non food items. He received ativan 1mg x1 this morning for agitation, but has been calm for the remaining part of the day. He is compliant with medications. Mental Status Examination Appearance: Disheveled Consciousness: Alert Orientation: Person Motor Activity: Normal gait Speech: Hesitant, Other Language: Perseveration Fund of Knowledge: Inadequate Attention and Concentration: Inadequate Memory: Impaired Mood: Other (calm) Affect: Flat Thought Process & Associations: Other (concrete) Thought Content: Other (paucity) Hallucination Type: None Delusion Type: None Suicidal Ideation: No Suicidal Plan: No Suicidal Intention: No Homicidal Ideation: No Homicidal Plan: No Homicidal Intention: No Insight: Poor Judgment: Poor Results Vitals/IOs Vital Signs Date Time Temp Pulse Resp B/P (MAP) Pulse Ox O2 Delivery O2 Flow Rate FiO2 04/10/17 06:24 97.5 87 18 119/69 (86) 97 Intake and Output 04/10/17 04/10/17 04/11/17 08:00 16:00 00:00 Intake Total 360 ml 240 ml Balance 360 ml 240 ml Assessment & Plan Problem List: (1) Intermittent explosive disorder ICD Codes: F63.81 - Intermittent explosive disorder Assessment & Plan Continue current tx plan. Estimated LOS: days Justification for Cont. Inpt. impairments in self care and safety Yeny Rendon MD Apr 10, 2017 14:28
[2017-04-10 18:00] VITALS: BP 116/74; PULSE 101; RESP 20; TEMP 98; O2SAT 97
[2017-04-10] MEDS: clonazePAM 1 MG TAB PO SCH (20:33)
[2017-04-11] MEDS: ESCITALOPRAM OXALATE 20 MG TAB PO SCH (08:08)
[2017-04-11] MEDS: traZODone HCL 100 MG TAB PO SCH ×2 (08:08→20:05)
[2017-04-11] MEDS: DIVALPROEX SODIUM E.R. 250 MG TAB PO SCH ×2 (08:08→20:05)
[2017-04-11] MEDS: CHOLECALCIFEROL (VIT D3) 1000 UNIT TAB PO SCH (08:09)
[2017-04-11] MEDS: DIVALPROEX SODIUM E.R. 500 MG TAB PO SCH ×2 (08:09→20:05)
[2017-04-11] MEDS: AQUAPHOR OINT 50 GM TUBE TOPICAL SCH ×2 (08:09→20:07)
[2017-04-11] MEDS: levOCARNitine 10% ORAL SOLN 118 ML BTL PO SCH ×3 (08:10→18:00)
[2017-04-11] MEDS: LORazepam 2 MG/ML VIAL IM PRN ×2 (11:24→20:59)
--- NOTE | 2017-04-11 11:34 | HHI.PYPN ---
Subjective Remarks Pt seen and discussed with staff. Pt remains on 1:1 due to consumption of non- food substances. Staff state that he was agitated this morning and was given ativan 1mg IM x1 which calmed pt. He is now eating lunch and interacts minimally. Mental Status Examination Appearance: Other (wearing hospital clothes) Consciousness: Alert Orientation: Person Motor Activity: Normal gait Speech: Hesitant Language: Perseveration Fund of Knowledge: Inadequate Attention and Concentration: Inadequate Memory: Impaired Mood: Other (calm) Affect: Flat Thought Process & Associations: Other (concrete) Thought Content: Other (paucity) Hallucination Type: None Delusion Type: None Suicidal Ideation: No Suicidal Plan: No Suicidal Intention: No Homicidal Ideation: No Homicidal Plan: No Homicidal Intention: No Insight: Poor Judgment: Poor Results Vitals/IOs Vital Signs Date Time Temp Pulse Resp B/P (MAP) Pulse Ox O2 Delivery O2 Flow Rate FiO2 04/10/17 18:00 98.0 101 20 116/74 (88) 97 Intake and Output 04/11/17 04/11/17 04/12/17 08:00 16:00 00:00 Intake Total 0 ml Balance 0 ml Assessment & Plan Problem List: (1) Intermittent explosive disorder ICD Codes: F63.81 - Intermittent explosive disorder Assessment & Plan Continue current tx plan. Estimated LOS: days Justification for Cont. Inpt. impairments in safety Yeny Rendon MD Apr 11, 2017 11:34
[2017-04-11 18:00] VITALS: BP 100/64; PULSE 86; RESP 18; TEMP 97.8; O2SAT 96
[2017-04-11] MEDS: clonazePAM 1 MG TAB PO SCH (20:05)
[2017-04-12] MEDS: levOCARNitine 10% ORAL SOLN 118 ML BTL PO SCH ×3 (09:00→18:00)
[2017-04-12] MEDS: CHOLECALCIFEROL (VIT D3) 1000 UNIT TAB PO SCH (09:00)
--- NOTE | 2017-04-12 09:18 | HHI.PYPN ---
Subjective Chief Complaint: behavioral disturbance following traumatic brain injury Remarks I am assuming care of this patient. Patient seen and examined with nurse. Chart reviewed. Case discussed with nursing staff he reports that the patient has had isolated episodes of yelling out and striking at the wall with his fists. He also has been eating his feces, and nurse wonders if Carnitor is contributing to loose stools and if this agent can be discontinued as it may be exacerbating the feces eating behavior. Case discussed with 1:1 ameena, who largely recapitulates data from nurse, except he also notes that patient occasionally strikes jaw. On my exam, patient is disheveled and malodorous. He is fairly sedated presently and unable to participate in interview. Review of Systems ROS Limitations: Poor Historian Except as stated in HPI: all other systems reviewed are Neg Mental Status Examination Appearance: Disheveled, Malodorous Consciousness: Asleep Motor Activity: Other (no motor abnormalities noted) Affect: Flat Mental Status Exam Remarks Limited MSE as patient is presently somewhat sedated. Results Labs Item Value Date Time White Blood Count 7.9 TH/MM3 03/17/17 0706 Hemoglobin 15.5 GM/DL 03/17/17 0706 Platelet Count 221 TH/MM3 03/17/17 0706 Sodium Level 141 MEQ/L 03/17/17 0706 Potassium Level 3.6 MEQ/L 03/17/17 0706 Chloride Level 105 MEQ/L 03/17/17 0706 Carbon Dioxide Level 27.6 MEQ/L 03/17/17 0706 Blood Urea Nitrogen 14 MG/DL 03/17/17 0706 Creatinine 0.88 MG/DL 03/17/17 0706 Estimat Glomerular Filtration Rate 95 ML/MIN 03/17/17 0706 Random Glucose 104 MG/DL 03/17/17 0706 Aspartate Amino Transf (AST/SGOT) 9 U/L L 03/17/17 0706 Alanine Aminotransferase (ALT/SGPT) 19 U/L 03/17/17 0706 Alkaline Phosphatase 71 U/L 03/17/17 0706 Vitamin B12 Level 407 PG/ML 03/17/17 0706 25-Hydroxy Vitamin D Total 16.9 ng/ML L 03/17/17 0706 Thyroid Stimulating Hormone 3rd Gen 2.910 uIU/ML 03/17/17 0706 Valproic Acid (Depakene) Level 104 MCG/ML *H 04/07/17 1018 Depakote level was post-dose and so is likely artificially elevated. EKG sinus rhythm QTc 392ms. Vitals/IOs Vital Signs Date Time Temp Pulse Resp B/P (MAP) Pulse Ox O2 Delivery O2 Flow Rate FiO2 04/11/17 18:00 97.8 86 18 100/64 (76) 96 Assessment & Plan Problem List: (1) Intermittent explosive disorder ICD Codes: F63.81 - Intermittent explosive disorder (2) History of traumatic brain injury ICD Codes: Z87.820 - Personal history of traumatic brain injury Assessment & Plan Patient with ongoing episodic behavioral disturbance per RN and sitter. Presently, patient is sleeping and cannot be awoken for interview. These behaviors reportedly happen primarily in the afternoon/evening. We might consider adding p.r.n. agent for management of these behaviors and then schedule a dose if efficacious. I have left for GA to discuss and will await a call back. Check updated set of basic labs. I will ask hospitalist to eval patient as he has reportedly been striking at jaw and may have some pain there driving this behavior. Continue to monitor on inpatient unit with one-to- one. Continue other medications and care as ordered. Justification for Cont. Inpt. High risk for decompensation in less restrictive environment. Discharge Planning I will discuss discharge planning with counselor. Request HC Surrog/Guard Advoc?: Yes Josue Ibrahim MD Apr 12, 2017 09:18
[2017-04-12] MEDS: traZODone HCL 100 MG TAB PO SCH ×2 (09:20→20:33)
[2017-04-12] MEDS: DIVALPROEX SODIUM E.R. 250 MG TAB PO SCH ×2 (09:20→20:33)
[2017-04-12] MEDS: ESCITALOPRAM OXALATE 20 MG TAB PO SCH (09:20)
[2017-04-12] MEDS: DIVALPROEX SODIUM E.R. 500 MG TAB PO SCH ×2 (09:20→20:33)
[2017-04-12] MEDS: AQUAPHOR OINT 50 GM TUBE TOPICAL SCH ×2 (09:21→20:33)
[2017-04-12 14:36] LABS: AUTOMATED NEUTROPHIL # 5.9 TH/MM3 (1.8-7.7); BASOPHIL # 0.1 TH/MM3 (0-0.2); BASOPHIL % 0.7 % (0.0-2.0); EOSINOPHIL # 0.1 TH/MM3 (0-0.4); EOSINOPHIL % 0.6 % (0.0-4.0); HEMATOCRIT 39.8 % (39.0-51.0); HEMOGLOBIN 14.1 GM/DL (13.0-17.0); LYMPH % 24.2 % (9.0-44.0); LYMPHOCYTE # 2.2 TH/MM3 (1.0-4.8); MEAN CELL VOLUME 93.7 FL (80.0-100.0); MEAN CORPUSCULAR HEMOGLOBIN 33.1 PG (27.0-34.0); MEAN CORPUSCULAR HGB CONC 35.4 % (32.0-36.0); MEAN PLATELET VOLUME 6.6 FL (7.0-11.0); MONO % 8.1 % (0.0-8.0); MONOCYTE # 0.7 TH/MM3 (0-0.9); NEUT % 66.4 % (16.0-70.0); PLATELET COUNT 172 TH/MM3 (150-450); RED BLOOD COUNT 4.25 MIL/MM3 (4.50-5.90); WHITE BLOOD COUNT 8.9 TH/MM3 (4.0-11.0)
[2017-04-12 14:54] LABS: ALBUMIN 3.5 GM/DL (3.4-5.0); AST (GOT) 15 U/L (15-37); BICARBONATE 28.4 MEQ/L (21.0-32.0); BLOOD UREA NITROGEN 12 MG/DL (7-18); CALCIUM 8.7 MG/DL (8.5-10.1); CHLORIDE 105 MEQ/L (98-107); CREATININE 1.04 MG/DL (0.60-1.30); GLOMERULAR FILTRATION RATE 78 ML/MIN (>89); GLUCOSE,RANDOM 138 MG/DL (74-106); SODIUM (NA) 141 MEQ/L (136-145)
[2017-04-12 14:55] LABS: ALT (GPT) 24 U/L (12-78)
[2017-04-12 14:57] LABS: ALKALINE PHOSPHATASE 65 U/L (45-117); TOTAL BILIRUBIN ADULT 0.3 MG/DL (0.2-1.0); TOTAL PROTEIN 6.6 GM/DL (6.4-8.2)
--- NOTE | 2017-04-12 14:59 | HHI.PR ---
Subjective Remarks f/u for possible jaw injury patient is a difficult historian pt apparently had jaw pain but today is denying any jaw pain or difficulty swallowing or with mastication. No note of injury or trauma per RN Objective Vitals Vital Signs Date Time Temp Pulse Resp B/P (MAP) Pulse Ox O2 Delivery O2 Flow Rate FiO2 04/11/17 18:00 97.8 86 18 100/64 (76) 96 I/O 04/11/17 04/11/17 04/11/17 04/12/17 04/12/17 04/12/17 07:00 15:00 23:00 07:00 15:00 23:00 Intake Total 240 ml 600 ml 860 ml 240 ml Balance 240 ml 600 ml 860 ml 240 ml Intake Oral 240 ml 600 ml 860 ml 240 ml # Voids 2 4 Result Diagram: 04/12/17 1423 04/12/17 1423 Objective Remarks GENERAL: This is a well-nourished, not in distress, flat affect. CARDIOVASCULAR: Regular rate and regular rhythm without murmurs, gallops, or rubs. RESPIRATORY: No tachypnea. GASTROINTESTINAL: Obese. Ambulating. Facial exam revealed full range of motion bilateral mandibular joint, no clicking, nontender, no swelling, no erythema, no open wound. A/P Assessment and Plan History of traumatic brain injury with neurocognitive deficit Behavioral disturbance - Management per psychiatric team Prediabetes - Hemoglobin A1c 6.2 03/17/17 - Suspect secondary to Zyprexa use. Off Zyprexa. Fasting glucose 138. Vitamin D deficiency - Vitamin D level 15.8 02/20/17 -Continue vitamin D supplementation - Patient will need to follow-up with PCP as outpatient in 3 months to recheck vitamin D level Jaw pain-presently, patient denies any jaw pain, full range of motion, no note of trauma. Tylenol for pain. DVT prophylaxis - Patient is ambulatory We will sign off. Please call with questions. Shelley Pro MD Apr 12, 2017 14:59
[2017-04-12] MEDS: clonazePAM 1 MG TAB PO SCH (20:33)
[2017-04-13] MEDS: DIVALPROEX SODIUM E.R. 250 MG TAB PO SCH ×2 (08:56→19:55)
[2017-04-13] MEDS: DIVALPROEX SODIUM E.R. 500 MG TAB PO SCH ×2 (08:56→19:55)
[2017-04-13] MEDS: CHOLECALCIFEROL (VIT D3) 1000 UNIT TAB PO SCH (08:57)
[2017-04-13] MEDS: traZODone HCL 100 MG TAB PO SCH ×2 (08:57→19:55)
[2017-04-13] MEDS: ESCITALOPRAM OXALATE 20 MG TAB PO SCH (08:58)
[2017-04-13] MEDS: levOCARNitine 10% ORAL SOLN 118 ML BTL PO SCH ×2 (09:00→18:00)
[2017-04-13 09:01] VITALS: BP 122/72; PULSE 80; RESP 20; TEMP 97.6; O2SAT 96
--- NOTE | 2017-04-13 11:03 | PD.TTN ---
Patient Problems 1. Discharge planning 2. Medication compliance 3. Knowledge deficit 4. Lack of coping skills Progress Toward Goals Provider Present: Dr. Alfonso Ibrahim Provider Input: Dr. Ibrahim's treatment team met to discuss patient's medication, discharge plan and treatment plan. Patient's medication is being adjusted. Patient remains unpredictable. Patient will remain until placement has been found Nurse(s) Input: Patient is labile, medication compliant, redirectable. Patient 's sleep and eating are ok. Patient is very intrusive and impulsive. Psychiatric Counselors Present: JIMENA LugoRolanda Psych Therapist Input: Patient continues to be childlike, and impulsive. Patient remains on a 1 to 1. Patient is medication compliant. Slept ok last night. Patient will remain on unit until appropriate placement can be found. Group Spec/RT/OT/US Present: JENNY Mc Group Spec/RT/OT/US Input: Patient is unable to tolerate a group setting. Patient will attend exercise with the sitter on a 1:1 basis. Mavis Chaparro [facility] Apr 13, 2017 11:03
--- NOTE | 2017-04-13 13:07 | HHI.PYPN ---
Subjective Chief Complaint: behavioral disturbance following traumatic brain injury Remarks Patient seen and examined with nurse. Chart reviewed. Case discussed with nursing staff who reports patient was briefly crying this morning. He also reportedly ate a small amount of feces. Case discussed in treatment team. Counselor is working on possible placement options, including most promisingly a TBI facility in [place] I am told. A State packet has been sent, but patient has not yet been accepted to be placed on counts include 234 beds at the [facility] hospital wait list. On my examination this morning, the patient is initially sleeping soundly. He does awaken briefly for a short interview. He denies complaints of pain. He verbalizes no other complaints. No evident side effects from medications. I did endeavor again to reach out to patient's mother and GA. I left a generic VM requesting a call back. Review of Systems ROS Limitations: Poor Historian Except as stated in HPI: all other systems reviewed are Neg Mental Status Examination Appearance: Disheveled Consciousness: Other (easily awakened) Motor Activity: Other (no abnormal motor movements noted) Speech: Other (monosyllabic speech) Language: Other ( inadequate) Fund of Knowledge: Inadequate Attention and Concentration: Inadequate Memory: Impaired Mood: Other (calm) Affect: Blunt Thought Process & Associations: Other (limited sample) Thought Content: Other (poverty of thought) Hallucination Type: None (none elicited) Delusion Type: None (none elicited) Suicidal Ideation: No (no SI voiced) Homicidal Ideation: No (no HI voiced) Insight: Poor Judgment: Poor Results Labs Test 04/12/17 14:23 White Blood Count 8.9 TH/MM3 Red Blood Count 4.25 MIL/MM3 Hemoglobin 14.1 GM/DL Hematocrit 39.8 % Mean Corpuscular Volume 93.7 FL Mean Corpuscular Hemoglobin 33.1 PG Mean Corpuscular Hemoglobin Concent 35.4 % Red Cell Distribution Width 14.0 % Platelet Count 172 TH/MM3 Mean Platelet Volume 6.6 FL Neutrophils (%) (Auto) 66.4 % Lymphocytes (%) (Auto) 24.2 % Monocytes (%) (Auto) 8.1 % Eosinophils (%) (Auto) 0.6 % Basophils (%) (Auto) 0.7 % Neutrophils # (Auto) 5.9 TH/MM3 Lymphocytes # (Auto) 2.2 TH/MM3 Monocytes # (Auto) 0.7 TH/MM3 Eosinophils # (Auto) 0.1 TH/MM3 Basophils # (Auto) 0.1 TH/MM3 CBC Comment DIFF FINAL Differential Comment Blood Urea Nitrogen 12 MG/DL Creatinine 1.04 MG/DL Random Glucose 138 MG/DL Total Protein 6.6 GM/DL Albumin 3.5 GM/DL Calcium Level 8.7 MG/DL Alkaline Phosphatase 65 U/L Aspartate Amino Transf (AST/SGOT) 15 U/L Alanine Aminotransferase (ALT/SGPT) 24 U/L Total Bilirubin 0.3 MG/DL Sodium Level 141 MEQ/L Potassium Level 4.0 MEQ/L Chloride Level 105 MEQ/L Carbon Dioxide Level 28.4 MEQ/L Anion Gap 8 MEQ/L Estimat Glomerular Filtration Rate 78 ML/MIN Ammonia 61 MCMOL/L Labs reviewed. CBC unremarkable. CMP reveals mildly decreased GFR. Ammonia level remains elevated. Vitals/IOs Vital Signs Date Time Temp Pulse Resp B/P (MAP) Pulse Ox O2 Delivery O2 Flow Rate FiO2 04/13/17 09:01 97.6 80 20 122/72 (89) 96 Assessment & Plan Problem List: (1) Intermittent explosive disorder ICD Codes: F63.81 - Intermittent explosive disorder (2) History of traumatic brain injury ICD Codes: Z87.820 - Personal history of traumatic brain injury Assessment & Plan Titrate Carnitor to 9mL TID to target hyperammonemia with plans to recheck ammonia level at end of week. Might be worth considering whether Depakote, with which hyperammonemia may to some degree be associated, is worth continuing , but I will need to speak with GA to discuss this. Continue other medications as ordered. Encourage fluids and recheck BMP at end of week. Continue to monitor on the inpatient unit. Continue other medications and care as ordered. Justification for Cont. Inpt. High risk for decompensation in less restrictive environment. Discharge Planning As above. Request HC Surrog/Guard Advoc?: Yes Josue Ibrahim MD Apr 13, 2017 13:07
[2017-04-13] MEDS: LORazepam 1 MG TAB PO PRN (15:47)
[2017-04-13] MEDS: clonazePAM 1 MG TAB PO SCH (19:55)
[2017-04-13] MEDS: AQUAPHOR OINT 50 GM TUBE TOPICAL SCH (19:56)
[2017-04-14] MEDS: DIVALPROEX SODIUM E.R. 500 MG TAB PO SCH ×3 (09:00→20:06)
[2017-04-14] MEDS: traZODone HCL 100 MG TAB PO SCH ×3 (09:00→20:06)
[2017-04-14] MEDS: CHOLECALCIFEROL (VIT D3) 1000 UNIT TAB PO SCH ×2 (09:00→09:56)
[2017-04-14] MEDS: DIVALPROEX SODIUM E.R. 250 MG TAB PO SCH ×3 (09:00→20:05)
[2017-04-14] MEDS: ESCITALOPRAM OXALATE 20 MG TAB PO SCH ×2 (09:00→09:56)
[2017-04-14] MEDS: levOCARNitine 10% ORAL SOLN 118 ML BTL PO SCH ×3 (09:00→18:00)
--- NOTE | 2017-04-14 14:30 | HHI.PYPN ---
Subjective Chief Complaint: behavioral disturbance following traumatic brain injury Remarks Patient seen and examined with nurse. Chart reviewed. Case discussed with nursing staff. Patient agitated overnight, and I was contacted as the physician continuous wave operator for ETO, ordered Thorazine IM. On my exam this morning, patient is calm. He is sleeping but awakens readily to voice. He offers no particular complaints. When I discussed agitation overnight, he offers no explanation for this behavior. No side effects from medications. Nurse was worried that the patient might be having some leg pain, but one to one sitter notes that the patient has been ambulating fine without any evidence of distress , and I cannot get the patient to localize any pain. There is no tenderness to palpation in the legs. Negative Homans bilaterally. No palpable cord. Review of Systems ROS Limitations: Poor Historian Except as stated in HPI: all other systems reviewed are Neg Mental Status Examination Appearance: Disheveled Consciousness: Other (sleeping but easily awakened) Motor Activity: Other (no abnormal motor movements noted) Speech: Other (monosyllabic speech) Language: Other ( inadequate) Fund of Knowledge: Inadequate Attention and Concentration: Inadequate Memory: Impaired Mood: Other (remains calm) Affect: Blunt Thought Process & Associations: Other (limited sample) Thought Content: Other (ongoing poverty of thought) Hallucination Type: None (none elicited) Delusion Type: None (none elicited) Suicidal Ideation: No (no SI voiced) Homicidal Ideation: No (no HI voiced) Insight: Poor Judgment: Poor Results Labs Labs reviewed. No new labs. Vitals/IOs Vital Signs Date Time Temp Pulse Resp B/P (MAP) Pulse Ox O2 Delivery O2 Flow Rate FiO2 04/13/17 09:01 97.6 80 20 122/72 (89) 96 Assessment & Plan Problem List: (1) Intermittent explosive disorder ICD Codes: F63.81 - Intermittent explosive disorder (2) History of traumatic brain injury ICD Codes: Z87.820 - Personal history of traumatic brain injury Assessment & Plan I have checked with corporate legal secretary, and patient's mother as guardian advocate is the only one who can provide consent for psychotropics. She is presently out of the [place] and unable to be contacted although she will return on Wednesday I am told. alumnae secretary does note that we could request a different guardian advocate or ancillary guardian advocate, but since the filing date for this week's [place] has passed and the patient's mother is expected to return over the weekend, it does not seem that taking this step would be beneficial in the present case. I will continue current psychotropics as ordered. We might consider medication adjustments once I am able to speak with a guardian advocate. Continue sitter for behavioral redirection. Continue other medications and care as ordered. Justification for Cont. Inpt. Risk for decompensation in less restrictive environment. Discharge Planning Placement versus state hospital referral. Request HC Surrog/Guard Advoc?: Yes Josue Ibrahim MD Apr 14, 2017 14:30
[2017-04-14 18:13] VITALS: BP 104/53; PULSE 84; RESP 18; TEMP 97.8
[2017-04-14] MEDS: clonazePAM 1 MG TAB PO SCH (20:05)
[2017-04-14] MEDS: AQUAPHOR OINT 50 GM TUBE TOPICAL SCH (20:06)
[2017-04-14] MEDS: LORazepam 1 MG TAB PO PRN (23:20)
[2017-04-15] MEDS ORDERED: LORazepam 2 MG/ML VIAL IM ONE (01:15)
[2017-04-15] MEDS ORDERED: HALOPERIDOL LACTATE 5 MG/ML AMP IM ONE (01:15)
[2017-04-15] MEDS: levOCARNitine 10% ORAL SOLN 118 ML BTL PO SCH ×3 (09:00→17:14)
[2017-04-15] MEDS: AQUAPHOR OINT 50 GM TUBE TOPICAL SCH ×2 (09:00→20:00)
[2017-04-15] MEDS: DIVALPROEX SODIUM E.R. 500 MG TAB PO SCH ×2 (09:18→20:00)
[2017-04-15] MEDS: traZODone HCL 100 MG TAB PO SCH ×2 (09:18→20:00)
[2017-04-15] MEDS: DIVALPROEX SODIUM E.R. 250 MG TAB PO SCH ×2 (09:18→20:00)
[2017-04-15] MEDS: CHOLECALCIFEROL (VIT D3) 1000 UNIT TAB PO SCH (09:18)
[2017-04-15] MEDS: ESCITALOPRAM OXALATE 20 MG TAB PO SCH (09:18)
--- NOTE | 2017-04-15 14:29 | HHI.PYPN ---
Subjective Chief Complaint: behavioral disturbance following traumatic brain injury Remarks Patient seen and examined with raymundo Wynn. Chart reviewed. Case discussed with nursing staff. Patient required Haldol/Ativan overnight for agitation. On my examination today, the patient is awake and alert. He remains a poor historian. He denies any auditory hallucinations. He does complain of generalized myalgias, and I do note a resting tremor and some increased tone in the UE. He is presently calm. No other side effects from medications. No other physical complaints. Review of Systems ROS Limitations: Poor Historian Except as stated in HPI: all other systems reviewed are Neg Mental Status Examination Appearance: Disheveled Consciousness: Alert Orientation: Person Motor Activity: Other (motor exam as above. No other motor abnormalities noted.) Speech: Other (monosyllabic speech) Language: Other (remains inadequate) Fund of Knowledge: Inadequate Attention and Concentration: Inadequate Memory: Impaired Mood: Other (remains calm) Affect: Blunt Thought Process & Associations: Other (limited sample) Thought Content: Other (ongoing poverty of thought) Hallucination Type: None Delusion Type: None Suicidal Ideation: No (no SI voiced) Homicidal Ideation: No (no HI voiced) Insight: Poor Judgment: Poor Results Labs Labs reviewed. No new labs. Vitals/IOs Vital Signs Date Time Temp Pulse Resp B/P (MAP) Pulse Ox O2 Delivery O2 Flow Rate FiO2 04/14/17 18:13 97.8 84 18 104/53 (70) 04/13/17 09:01 96 Intake and Output 04/15/17 04/15/17 04/16/17 08:00 16:00 00:00 Intake Total 480 ml Balance 480 ml Assessment & Plan Problem List: (1) Intermittent explosive disorder ICD Codes: F63.81 - Intermittent explosive disorder (2) History of traumatic brain injury ICD Codes: Z87.820 - Personal history of traumatic brain injury Assessment & Plan Add Cogentin 1 mg twice daily for possible EPS and monitor. Continue other medications and care as ordered. Continue to monitor on the inpatient unit. Justification for Cont. Inpt. High risk for decompensation in less restrictive environment. Discharge Planning Pending psychiatric stabilization. Placement versus state psychiatric hospital referral. Request HC Surrog/Guard Advoc?: Yes Josue Ibrahim MD Apr 15, 2017 14:29
[2017-04-15] MEDS: LORazepam 1 MG TAB PO PRN (15:13)
[2017-04-15] MEDS: ACETAMINOPHEN 325 MG TAB PO PRN (18:25)
[2017-04-15 18:39] VITALS: BP 118/75; PULSE 95; RESP 17; TEMP 97.5; O2SAT 95
[2017-04-15] MEDS: clonazePAM 1 MG TAB PO SCH (20:00)
[2017-04-15] MEDS: BENZTROPINE MESYLATE 1 MG TAB PO SCH (20:00)
[2017-04-15] MEDS: LORazepam 2 MG/ML VIAL IM PRN (23:07)
[2017-04-16 06:45] VITALS: BP 113/61; PULSE 80; RESP 18; TEMP 98.5
[2017-04-16] MEDS: CHOLECALCIFEROL (VIT D3) 1000 UNIT TAB PO SCH (09:00)
[2017-04-16] MEDS: BENZTROPINE MESYLATE 1 MG TAB PO SCH ×2 (09:00→20:29)
[2017-04-16] MEDS: levOCARNitine 10% ORAL SOLN 118 ML BTL PO SCH ×3 (09:00→16:20)
[2017-04-16] MEDS: DIVALPROEX SODIUM E.R. 500 MG TAB PO SCH ×2 (09:00→20:29)
[2017-04-16] MEDS: AQUAPHOR OINT 50 GM TUBE TOPICAL SCH ×2 (09:00→20:36)
[2017-04-16] MEDS: DIVALPROEX SODIUM E.R. 250 MG TAB PO SCH ×2 (09:00→20:29)
[2017-04-16] MEDS: traZODone HCL 100 MG TAB PO SCH ×2 (09:00→20:29)
[2017-04-16] MEDS: ESCITALOPRAM OXALATE 20 MG TAB PO SCH (09:00)
[2017-04-16] MEDS: LORazepam 2 MG/ML VIAL IM PRN ×2 (10:30→22:18)
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
[2017-04-16 17:47] LABS: BICARBONATE 30.8 MEQ/L (21.0-32.0); CALCIUM 8.6 MG/DL (8.5-10.1); CREATININE 0.96 MG/DL (0.60-1.30)
[2017-04-16 18:00] VITALS: BP 120/58; PULSE 78; RESP 19; TEMP 98.6; O2SAT 97
[2017-04-16] MEDS: clonazePAM 1 MG TAB PO SCH (20:29)
[2017-04-17] MEDS: ESCITALOPRAM OXALATE 20 MG TAB PO SCH (10:17)
[2017-04-17] MEDS: traZODone HCL 100 MG TAB PO SCH ×2 (10:18→21:00)
[2017-04-17] MEDS: DIVALPROEX SODIUM E.R. 500 MG TAB PO SCH ×2 (10:18→21:00)
[2017-04-17] MEDS: BENZTROPINE MESYLATE 1 MG TAB PO SCH ×2 (10:18→21:00)
[2017-04-17] MEDS: CHOLECALCIFEROL (VIT D3) 1000 UNIT TAB PO SCH (10:18)
[2017-04-17] MEDS: DIVALPROEX SODIUM E.R. 250 MG TAB PO SCH ×2 (10:18→21:00)
[2017-04-17] MEDS: AQUAPHOR OINT 50 GM TUBE TOPICAL SCH ×2 (10:19→21:00)
[2017-04-17] MEDS: levOCARNitine 10% ORAL SOLN 118 ML BTL PO SCH ×3 (10:27→18:52)
[2017-04-17] MEDS: ACETAMINOPHEN 325 MG TAB PO PRN (12:41)
[2017-04-17] MEDS: LORazepam 1 MG TAB PO PRN (13:40)
[2017-04-17 17:00] VITALS: BP 118/60; PULSE 114; RESP 17; TEMP 98.7; O2SAT 96
--- NOTE | 2017-04-17 18:54 | HHI.PYPN ---
Subjective Chief Complaint: behavioral disturbance following traumatic brain injury Remarks Patient was seen and case discussed with nursing. Patient remains intrusive but is compliant with his medications and has not had any outbursts or agitated behavior. Mental Status Examination Appearance: Disheveled Consciousness: Alert Orientation: Person Motor Activity: Other (no motor abnormalities noted. No signs of EPS today.) Speech: Other (limited speech) Language: Other (remains inadequate) Fund of Knowledge: Inadequate Attention and Concentration: Inadequate Memory: Impaired Mood: Other (remains calm) Affect: Blunt Thought Process & Associations: Other (limited sample) Thought Content: Other (ongoing poverty of thought) Hallucination Type: None Delusion Type: None Suicidal Ideation: No (none) Homicidal Ideation: No (none) Insight: Poor Judgment: Poor Results Vitals/IOs Vital Signs Date Time Temp Pulse Resp B/P (MAP) Pulse Ox O2 Delivery O2 Flow Rate FiO2 04/17/17 17:00 98.7 114 17 118/60 (79) 96 Intake and Output 04/17/17 04/17/17 04/18/17 08:00 16:00 00:00 Intake Total 0 ml 360 ml 1680 ml Balance 0 ml 360 ml 1680 ml Assessment & Plan Problem List: (1) Intermittent explosive disorder ICD Codes: F63.81 - Intermittent explosive disorder (2) History of traumatic brain injury ICD Codes: Z87.820 - Personal history of traumatic brain injury Assessment & Plan Continue current treatment plan Justification for Cont. Inpt. Patient would decompensate in a less restrictive setting Request HC Surrog/Guard Advoc?: Yes Logan Yanez DO Apr 17, 2017 18:54
[2017-04-17] MEDS: clonazePAM 1 MG TAB PO SCH (21:00)
[2017-04-18] MEDS: BENZTROPINE MESYLATE 1 MG TAB PO SCH ×2 (08:29→19:43)
[2017-04-18] MEDS: DIVALPROEX SODIUM E.R. 250 MG TAB PO SCH ×2 (08:29→19:43)
[2017-04-18] MEDS: DIVALPROEX SODIUM E.R. 500 MG TAB PO SCH ×2 (08:29→19:42)
[2017-04-18] MEDS: traZODone HCL 100 MG TAB PO SCH ×2 (08:29→19:42)
[2017-04-18] MEDS: ESCITALOPRAM OXALATE 20 MG TAB PO SCH (08:29)
[2017-04-18] MEDS: CHOLECALCIFEROL (VIT D3) 1000 UNIT TAB PO SCH (08:29)
[2017-04-18] MEDS: levOCARNitine 10% ORAL SOLN 118 ML BTL PO SCH ×3 (08:30→17:49)
[2017-04-18] MEDS: AQUAPHOR OINT 50 GM TUBE TOPICAL SCH ×2 (08:30→20:53)
[2017-04-18] MEDS: LORazepam 2 MG/ML VIAL IM PRN (14:37)
--- NOTE | 2017-04-18 16:36 | HHI.PYPN ---
Subjective Chief Complaint: behavioral disturbance following traumatic brain injury Remarks Patient was seen and case discussed with nursing. Patient has not had any outbursts or aggressive behaviors today. He did require one dose of Ativan for a behavioral control. Mental Status Examination Appearance: Disheveled Consciousness: Alert Orientation: Person Motor Activity: Other (no motor abnormalities noted. No signs of EPS today.) Speech: Other (limited speech) Language: Other (remains inadequate) Fund of Knowledge: Inadequate Attention and Concentration: Inadequate Memory: Impaired Mood: Other (remains calm) Affect: Blunt Thought Process & Associations: Other (limited sample) Thought Content: Other (ongoing poverty of thought) Hallucination Type: None Delusion Type: None Suicidal Ideation: No (none) Homicidal Ideation: No (none) Insight: Poor Judgment: Poor Results Vitals/IOs Vital Signs Date Time Temp Pulse Resp B/P (MAP) Pulse Ox O2 Delivery O2 Flow Rate FiO2 04/17/17 17:00 98.7 114 17 118/60 (79) 96 Assessment & Plan Problem List: (1) Intermittent explosive disorder ICD Codes: F63.81 - Intermittent explosive disorder (2) History of traumatic brain injury ICD Codes: Z87.820 - Personal history of traumatic brain injury Assessment & Plan Continue current treatment plan Justification for Cont. Inpt. Patient will decompensate in a less restrictive setting Request HC Surrog/Guard Advoc?: Yes Logan Yanez DO Apr 18, 2017 16:36
[2017-04-18 18:45] VITALS: BP 138/69; PULSE 76; RESP 18; TEMP 98.6; O2SAT 99
[2017-04-18] MEDS: clonazePAM 1 MG TAB PO SCH (19:42)
[2017-04-19] MEDS: DIVALPROEX SODIUM E.R. 250 MG TAB PO SCH ×2 (08:58→19:41)
[2017-04-19] MEDS: BENZTROPINE MESYLATE 1 MG TAB PO SCH ×2 (08:59→19:40)
[2017-04-19] MEDS: AQUAPHOR OINT 50 GM TUBE TOPICAL SCH ×2 (08:59→19:41)
[2017-04-19] MEDS: DIVALPROEX SODIUM E.R. 500 MG TAB PO SCH ×2 (08:59→19:40)
[2017-04-19] MEDS: CHOLECALCIFEROL (VIT D3) 1000 UNIT TAB PO SCH (08:59)
[2017-04-19] MEDS: ESCITALOPRAM OXALATE 20 MG TAB PO SCH (08:59)
[2017-04-19] MEDS: traZODone HCL 100 MG TAB PO SCH ×2 (08:59→19:41)
[2017-04-19] MEDS: levOCARNitine 10% ORAL SOLN 118 ML BTL PO SCH ×3 (09:00→17:58)
--- NOTE | 2017-04-19 12:34 | HHI.PYPN ---
Subjective Chief Complaint: behavioral disturbance following traumatic brain injury Remarks Patient seen and examined with nurse. Chart reviewed. Case discussed with nursing staff. Patient remains on one-to-one. On my exam the patient is calm but once again required to Thorazine ETO overnight. Nurse reports that the patient becomes more difficult to redirect in the late afternoon. For me today , the patient verbalizes no complaints. No mood or psychotic symptoms reported , although our interchange remains fairly limited. No side effects from medications. No physical complaints. Review of Systems ROS Limitations: Poor Historian Except as stated in HPI: all other systems reviewed are Neg Mental Status Examination Appearance: Disheveled Consciousness: Alert Orientation: Person Motor Activity: Other (no abnormal motor movements noted.) Speech: Other (limited speech) Language: Other (inadequate) Fund of Knowledge: Inadequate Attention and Concentration: Inadequate Memory: Impaired Mood: Other (remains calm) Affect: Blunt Thought Process & Associations: Other (limited sample) Thought Content: Other (poverty of thought) Hallucination Type: None Delusion Type: None Suicidal Ideation: No (none) Homicidal Ideation: No (none) Insight: Poor Judgment: Poor Results Labs Labs reviewed. BMP over the weekend reveals improving GFR. Ammonia level decreasing with titration of Carnitor. Vitals/IOs Vital Signs Date Time Temp Pulse Resp B/P (MAP) Pulse Ox O2 Delivery O2 Flow Rate FiO2 04/18/17 18:45 98.6 76 18 138/69 (92) 99 Intake and Output 04/19/17 04/19/17 04/20/17 08:00 16:00 00:00 Intake Total 550 ml 360 ml Balance 550 ml 360 ml Assessment & Plan Problem List: (1) Intermittent explosive disorder ICD Codes: F63.81 - Intermittent explosive disorder (2) History of traumatic brain injury ICD Codes: Z87.820 - Personal history of traumatic brain injury Assessment & Plan Add scheduled late afternoon dose of Thorazine to target ongoing behavioral disturbance around this time. If effective, we might consider titrating this agent while tapering other agents to reduce polypharmacy. Check updated EKG for QTc. Continue one-to-one and continue to monitor on the inpatient unit. Continue other medications and care as ordered. Justification for Cont. Inpt. Med changes. Risk for decompensation in less restrictive environment. Discharge Planning State hospital referral versus placement. Request HC Surrog/Guard Advoc?: Yes Josue Ibrahim MD Apr 19, 2017 12:34
[2017-04-19] MEDS: LORazepam 2 MG/ML VIAL IM PRN (17:59)
[2017-04-19 18:13] VITALS: BP 104/62; PULSE 99; RESP 18; TEMP 98; O2SAT 94
[2017-04-19] MEDS: ACETAMINOPHEN 325 MG TAB PO PRN (19:39)
[2017-04-19] MEDS: clonazePAM 1 MG TAB PO SCH (19:41)
[2017-04-20] MEDS: ESCITALOPRAM OXALATE 20 MG TAB PO SCH (08:53)
[2017-04-20] MEDS: DIVALPROEX SODIUM E.R. 500 MG TAB PO SCH ×2 (08:53→20:17)
[2017-04-20] MEDS: DIVALPROEX SODIUM E.R. 250 MG TAB PO SCH ×2 (08:53→20:17)
[2017-04-20] MEDS: BENZTROPINE MESYLATE 1 MG TAB PO SCH ×2 (08:54→20:18)
[2017-04-20] MEDS: CHOLECALCIFEROL (VIT D3) 1000 UNIT TAB PO SCH (08:54)
[2017-04-20] MEDS: traZODone HCL 100 MG TAB PO SCH ×2 (08:54→20:18)
[2017-04-20] MEDS: levOCARNitine 10% ORAL SOLN 118 ML BTL PO SCH ×3 (08:59→18:00)
[2017-04-20] MEDS: AQUAPHOR OINT 50 GM TUBE TOPICAL SCH ×2 (08:59→20:18)
--- NOTE | 2017-04-20 11:56 | HHI.PYPN ---
Subjective Chief Complaint: behavioral disturbance following traumatic brain injury Remarks Patient seen and examined. Chart reviewed. Patient did not require any ETO's last night after receiving scheduled dose of Thorazine. Case discussed with nurse. Nurse Amanda reports that patient's mother called in and said that her visit with patient last night was one of the best she has had in some time. She reportedly found him quite a bit more interactive than in the past. Case discussed in treatment team. On my examination today, the patient is calm. He is sleeping fairly soundly. No evident side effects from medications. Review of Systems ROS Limitations: Poor Historian Other Limited ROS. Mental Status Examination Appearance: Disheveled Consciousness: Asleep Motor Activity: Other (no motor abnormalities appreciated) Insight: Poor Judgment: Poor Mental Status Exam Remarks Limited MSE today. Patient is sleeping soundly. Results Labs Labs reviewed. Vitals/IOs Vital Signs Date Time Temp Pulse Resp B/P (MAP) Pulse Ox O2 Delivery O2 Flow Rate FiO2 04/19/17 18:13 98.0 99 18 104/62 (76) 94 Intake and Output 04/20/17 04/20/17 04/21/17 08:00 16:00 00:00 Intake Total 480 ml Balance 480 ml Assessment & Plan Problem List: (1) Intermittent explosive disorder ICD Codes: F63.81 - Intermittent explosive disorder (2) History of traumatic brain injury ICD Codes: Z87.820 - Personal history of traumatic brain injury Assessment & Plan Continue Thorazine and other psychotropics as ordered. Continue to monitor on the inpatient unit. Continue other medications and care as ordered. Justification for Cont. Inpt. Risk for decompensation in less restrictive environment. Discharge Planning State hospital referral versus placement. Counselor relates that placement is looking less likely however. Request HC Surrog/Guard Advoc?: Yes Josue Ibrahim MD Apr 20, 2017 11:55
[2017-04-20 14:35] VITALS: BP 106/65; PULSE 87; RESP 18; TEMP 98.1; O2SAT 98
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
--- NOTE | 2017-04-20 16:07 | EKG ---
Date Performed: 04/19/2017 Time Performed: 16:38:11 PTAGE: 42 years EKG: Sinus rhythm NONSPECIFIC T-WAVE ABNORMALITY BORDERLINE ECG Since the prior tracing, there has been no significant change PREVIOUS TRACING : 03/17/2017 07.33 DOCTOR: Compa Mckeon Interpretating Date/Time 04/20/2017 16:06:11
[2017-04-20 18:50] VITALS: BP 141/60; PULSE 87; RESP 18; TEMP 97.8; O2SAT 98
[2017-04-20] MEDS: clonazePAM 1 MG TAB PO SCH (20:18)
[2017-04-21] MEDS: LORazepam 2 MG/ML VIAL IM PRN (01:32)
[2017-04-21 06:20] VITALS: BP 147/60; PULSE 96; RESP 20; TEMP 99.2; O2SAT 97
[2017-04-21] MEDS: traZODone HCL 100 MG TAB PO SCH ×2 (08:58→20:10)
[2017-04-21] MEDS: CHOLECALCIFEROL (VIT D3) 1000 UNIT TAB PO SCH (08:58)
[2017-04-21] MEDS: DIVALPROEX SODIUM E.R. 250 MG TAB PO SCH ×2 (08:58→20:09)
[2017-04-21] MEDS: DIVALPROEX SODIUM E.R. 500 MG TAB PO SCH ×2 (08:59→20:10)
[2017-04-21] MEDS: ESCITALOPRAM OXALATE 20 MG TAB PO SCH (08:59)
[2017-04-21] MEDS: AQUAPHOR OINT 50 GM TUBE TOPICAL SCH ×2 (09:00→21:00)
[2017-04-21] MEDS: levOCARNitine 10% ORAL SOLN 118 ML BTL PO SCH ×3 (09:00→17:30)
[2017-04-21] MEDS: BENZTROPINE MESYLATE 1 MG TAB PO SCH ×2 (09:01→20:09)
--- NOTE | 2017-04-21 10:39 | HHI.PYPN ---
Subjective Chief Complaint: behavioral disturbance following traumatic brain injury Remarks Patient seen and examined. Chart reviewed. Case discussed with nursing staff. Patient remains with one to one sitter for behavioral redirection. He was up playing basketball this morning. On my examination, he is sitting calmly in his room. He has no particular complaints. He is a little more communicative than in previous days. No side effects from medications. No physical complaints. Review of Systems ROS Limitations: Poor Historian Except as stated in HPI: all other systems reviewed are Neg Mental Status Examination Appearance: Disheveled Consciousness: Asleep Orientation: Person Motor Activity: Other (no abnormal motor movements noted) Speech: Other (limited speech) Language: Other (inadequate) Fund of Knowledge: Inadequate Attention and Concentration: Inadequate Memory: Impaired Mood: Good Affect: Blunt (childlike) Thought Process & Associations: Other (slowed) Thought Content: Other (poverty of thought) Hallucination Type: None Delusion Type: None Suicidal Ideation: No Homicidal Ideation: No Insight: Poor Judgment: Poor Results Labs Labs reviewed Vitals/IOs Vital Signs Date Time Temp Pulse Resp B/P (MAP) Pulse Ox O2 Delivery O2 Flow Rate FiO2 04/21/17 06:20 99.2 96 20 147/60 (89) 97 Assessment & Plan Problem List: (1) Intermittent explosive disorder ICD Codes: F63.81 - Intermittent explosive disorder (2) History of traumatic brain injury ICD Codes: Z87.820 - Personal history of traumatic brain injury Assessment & Plan Patient seems to be doing well overall. He did not require extra medication ETO overnight. Given report from patient's mother through the nurse that he is doing better than she has seen in some time, I am loath to make any medication changes unless behavior warrants. Continue current psychotropics as ordered. Continue to monitor on the inpatient unit. Continue other medications and care as ordered. Justification for Cont. Inpt. Risk for decompensation in less restrictive environment Discharge Planning State hospitalization versus placement Request HC Surrog/Guard Advoc?: Yes Josue Ibrahim MD Apr 21, 2017 10:39
[2017-04-21 17:15] VITALS: BP 156/69; PULSE 75; RESP 18; TEMP 98.4; O2SAT 97
[2017-04-21] MEDS: LORazepam 1 MG TAB PO PRN (20:10)
[2017-04-21] MEDS: clonazePAM 1 MG TAB PO SCH (20:11)
[2017-04-22 05:49] VITALS: BP 105/59; PULSE 96; RESP 18; TEMP 98.1; O2SAT 93
[2017-04-22 07:52] VITALS: BP 105/53; PULSE 95; RESP 26; TEMP 100.4; O2SAT 95
[2017-04-22] MEDS: levOCARNitine 10% ORAL SOLN 118 ML BTL PO SCH ×3 (10:09→17:58)
[2017-04-22] MEDS: traZODone HCL 100 MG TAB PO SCH ×2 (10:09→20:12)
[2017-04-22] MEDS: DIVALPROEX SODIUM E.R. 250 MG TAB PO SCH ×2 (10:09→20:11)
[2017-04-22] MEDS: BENZTROPINE MESYLATE 1 MG TAB PO SCH ×2 (10:09→20:12)
[2017-04-22] MEDS: DIVALPROEX SODIUM E.R. 500 MG TAB PO SCH ×2 (10:09→20:12)
[2017-04-22] MEDS: ESCITALOPRAM OXALATE 20 MG TAB PO SCH (10:10)
[2017-04-22] MEDS: AQUAPHOR OINT 50 GM TUBE TOPICAL SCH ×2 (10:10→21:00)
[2017-04-22] MEDS: CHOLECALCIFEROL (VIT D3) 1000 UNIT TAB PO SCH (10:10)
--- NOTE | 2017-04-22 13:47 | HHI.PYPN ---
Subjective Chief Complaint: behavioral disturbance following traumatic brain injury Remarks Patient seen and examined with nurse. Chart reviewed. Case discussed with nursing staff. Patient slept well overnight and showered this morning. He did not require any ETO medications overnight. For me this morning, patient is once again sleeping soundly. He has been up and active earlier today. No evident medication side effects. No evident physical distress Review of Systems ROS Limitations: Poor Historian Other Limited ROS Mental Status Examination Appearance: Disheveled Consciousness: Asleep Motor Activity: Other (no motor abnormalities noted) Insight: Poor Judgment: Poor Mental Status Exam Remarks Limited MSE. Patient sleeping. Results Labs Labs reviewed. Vitals/IOs Vital Signs Date Time Temp Pulse Resp B/P (MAP) Pulse Ox O2 Delivery O2 Flow Rate FiO2 04/22/17 07:52 100.4 95 26 105/53 (70) 95 Intake and Output 04/22/17 04/22/17 04/23/17 08:00 16:00 00:00 Intake Total 240 ml 480 ml Balance 240 ml 480 ml Assessment & Plan Problem List: (1) Intermittent explosive disorder ICD Codes: F63.81 - Intermittent explosive disorder (2) History of traumatic brain injury ICD Codes: Z87.820 - Personal history of traumatic brain injury Assessment & Plan Continue current meds as ordered. Continue to monitor on inpatient unit. Continue other care as ordered. Justification for Cont. Inpt. Risk for decompensation in less restrictive environment. Discharge Planning State hospitalization versus placement Request HC Surrog/Guard Advoc?: Yes Josue Ibrahim MD Apr 22, 2017 13:47
[2017-04-22 17:55] VITALS: BP 154/62; PULSE 87; RESP 18; TEMP 98.4; O2SAT 95
[2017-04-22] MEDS: clonazePAM 1 MG TAB PO SCH (20:12)
[2017-04-22] MEDS: LORazepam 1 MG TAB PO PRN (20:12)
[2017-04-23] MEDS: levOCARNitine 10% ORAL SOLN 118 ML BTL PO SCH ×3 (09:00→17:35)
[2017-04-23] MEDS: AQUAPHOR OINT 50 GM TUBE TOPICAL SCH ×2 (09:00→23:10)
--- NOTE | 2017-04-23 10:11 | HHI.PYPN ---
Subjective Chief Complaint: behavioral disturbance following traumatic brain injury Remarks Patient seen and examined. Chart reviewed. Case discussed with nursing staff. Case discussed with leninter who suggests that patient might benefit from increased stimulation during the day as he seems bored on the unit. Case discussed in treatment team. On my exam today, patient is once again sleeping soundly. He was up for breakfast and again for lunch following my examination. No ETOs required overnight. No evident physical distress. No EPS. Review of Systems Other Limited ROS Mental Status Examination Appearance: Disheveled Consciousness: Asleep Motor Activity: Other (no hand tremor, no cogwheeling, no other motor abnormalities noted) Insight: Poor Judgment: Poor Mental Status Exam Remarks Limited MSE as patient is asleep. Results Labs Labs reviewed. Vitals/IOs Vital Signs Date Time Temp Pulse Resp B/P (MAP) Pulse Ox O2 Delivery O2 Flow Rate FiO2 04/22/17 17:55 98.4 87 18 154/62 (92) 95 Intake and Output 04/23/17 04/23/17 04/24/17 08:00 16:00 00:00 Intake Total 240 ml Balance 240 ml Assessment & Plan Problem List: (1) Intermittent explosive disorder ICD Codes: F63.81 - Intermittent explosive disorder (2) History of traumatic brain injury ICD Codes: Z87.820 - Personal history of traumatic brain injury Assessment & Plan Continue current psychiatric medications as ordered. Continue to monitor on the inpatient unit. We will try to explore ways to provide patient with more activities on the unit. Since family has noted some increased responsiveness with treatment on the unit, I wonder if he still has some rehab potential; I will ask PM&R to evaluate the patient. Continue other medications and care as ordered. Justification for Cont. Inpt. Risk for decompensation in less restrictive environment Discharge Planning State hospitalization versus placement Request HC Surrog/Guard Advoc?: Yes Josue Ibrahim MD Apr 23, 2017 10:11
[2017-04-23] MEDS: traZODone HCL 100 MG TAB PO SCH ×2 (12:13→23:11)
[2017-04-23] MEDS: DIVALPROEX SODIUM E.R. 500 MG TAB PO SCH ×2 (12:15→23:11)
[2017-04-23] MEDS: DIVALPROEX SODIUM E.R. 250 MG TAB PO SCH ×2 (12:16→23:11)
[2017-04-23] MEDS: CHOLECALCIFEROL (VIT D3) 1000 UNIT TAB PO SCH (12:16)
[2017-04-23] MEDS: BENZTROPINE MESYLATE 1 MG TAB PO SCH ×2 (12:16→23:12)
[2017-04-23] MEDS: ESCITALOPRAM OXALATE 20 MG TAB PO SCH (12:16)
[2017-04-23 17:27] VITALS: BP 94/52
[2017-04-23] MEDS: clonazePAM 1 MG TAB PO SCH (23:11)
[2017-04-23 23:15] VITALS: BP 99/61; PULSE 88
[2017-04-24 06:17] VITALS: BP 95/53; PULSE 80; RESP 17; TEMP 98.6; O2SAT 98
[2017-04-24] MEDS: DIVALPROEX SODIUM E.R. 500 MG TAB PO SCH ×2 (08:47→20:23)
[2017-04-24] MEDS: DIVALPROEX SODIUM E.R. 250 MG TAB PO SCH ×2 (08:47→20:23)
[2017-04-24] MEDS: BENZTROPINE MESYLATE 1 MG TAB PO SCH ×2 (08:47→20:22)
[2017-04-24] MEDS: ESCITALOPRAM OXALATE 20 MG TAB PO SCH (08:48)
[2017-04-24] MEDS: AQUAPHOR OINT 50 GM TUBE TOPICAL SCH ×2 (08:48→20:24)
[2017-04-24] MEDS: CHOLECALCIFEROL (VIT D3) 1000 UNIT TAB PO SCH (08:48)
[2017-04-24] MEDS: levOCARNitine 10% ORAL SOLN 118 ML BTL PO SCH ×3 (08:48→18:00)
[2017-04-24] MEDS: traZODone HCL 100 MG TAB PO SCH ×2 (08:48→20:22)
--- NOTE | 2017-04-24 14:54 | HHI.PYPN ---
Subjective Chief Complaint: behavioral disturbance following traumatic brain injury Remarks Pt seen and discussed with staff. He has been out in milieu today and has not been aggressive. He remains on 1:1 for consumption of non food materials and intrusive grabbing behaviors. He tried to stuff tissues in mouth but staff intervened. Mental Status Examination Appearance: Disheveled Consciousness: Asleep Motor Activity: Other (no hand tremor, no cogwheeling, no other motor abnormalities noted) Insight: Poor Judgment: Poor Results Vitals/IOs Vital Signs Date Time Temp Pulse Resp B/P (MAP) Pulse Ox O2 Delivery O2 Flow Rate FiO2 04/24/17 06:17 98.6 80 17 95/53 (67) 98 Intake and Output 04/24/17 04/24/17 04/25/17 08:00 16:00 00:00 Intake Total 120 ml 360 ml Balance 120 ml 360 ml Assessment & Plan Problem List: (1) Intermittent explosive disorder ICD Codes: F63.81 - Intermittent explosive disorder (2) History of traumatic brain injury ICD Codes: Z87.820 - Personal history of traumatic brain injury Assessment & Plan Continue current tx plan. Estimated LOS: days Justification for Cont. Inpt. impairments in self-care, social functioning and risk of decompensation Request HC Surrog/Guard Advoc?: Yes Yeny Rendon MD Apr 24, 2017 14:54
[2017-04-24] MEDS: LORazepam 1 MG TAB PO PRN (15:55)
[2017-04-24 18:24] VITALS: BP 120/71; PULSE 91; RESP 17; TEMP 98.1; O2SAT 97
[2017-04-24] MEDS: clonazePAM 1 MG TAB PO SCH (20:23)
[2017-04-25] MEDS: clonazePAM 1 MG TAB PO SCH
[2017-04-25 06:17] VITALS: BP 134/69; PULSE 78; RESP 18; TEMP 98.3; O2SAT 97
[2017-04-25] MEDS: DIVALPROEX SODIUM E.R. 500 MG TAB PO SCH ×2 (08:57)
[2017-04-25] MEDS: CHOLECALCIFEROL (VIT D3) 1000 UNIT TAB PO SCH (08:57)
[2017-04-25] MEDS: traZODone HCL 100 MG TAB PO SCH ×2 (08:57)
[2017-04-25] MEDS: BENZTROPINE MESYLATE 1 MG TAB PO SCH ×2 (08:57)
[2017-04-25] MEDS: ESCITALOPRAM OXALATE 20 MG TAB PO SCH (08:57)
[2017-04-25] MEDS: DIVALPROEX SODIUM E.R. 250 MG TAB PO SCH ×2 (08:57)
[2017-04-25] MEDS: levOCARNitine 10% ORAL SOLN 118 ML BTL PO SCH ×3 (08:58→17:08)
[2017-04-25] MEDS: AQUAPHOR OINT 50 GM TUBE TOPICAL SCH ×2 (08:58)
[2017-04-25] MEDS: LORazepam 1 MG TAB PO PRN (15:50)
[2017-04-25] MEDS: ACETAMINOPHEN 325 MG TAB PO PRN (15:50)
--- NOTE | 2017-04-25 16:03 | HHI.PYPN ---
Subjective Chief Complaint: behavioral disturbance following traumatic brain injury Remarks Pt seen and discussed with staff. He was agitated this afternoon and given ativan X1 to maintain safety. He calmed and was able to go out to rec area and engaged in activities. Stool studies sent second to recurrence of diarrhea. Mental Status Examination Appearance: Disheveled Consciousness: Alert Orientation: Person Motor Activity: Normal gait, Other (no hand tremor, no cogwheeling, no other motor abnormalities noted) Speech: Other (poverty of speech) Attention and Concentration: Easily Distracted Memory: Impaired Mood: Appropriate Affect: Flat Thought Process & Associations: Disorganized Thought Content: Bizarre thinking Suicidal Ideation: No Homicidal Ideation: No Insight: Poor Judgment: Poor Results Vitals/IOs Vital Signs Date Time Temp Pulse Resp B/P (MAP) Pulse Ox O2 Delivery O2 Flow Rate FiO2 04/25/17 06:17 98.3 78 18 134/69 (90) 97 Intake and Output 04/25/17 04/25/17 04/26/17 08:00 16:00 00:00 Intake Total 0 ml Balance 0 ml Assessment & Plan Problem List: (1) Intermittent explosive disorder ICD Codes: F63.81 - Intermittent explosive disorder (2) History of traumatic brain injury ICD Codes: Z87.820 - Personal history of traumatic brain injury Assessment & Plan Continue current txplan. Estimated LOS: days Justification for Cont. Inpt. impairments in functioning Request HC Surrog/Guard Advoc?: Yes Yeny Rendon MD Apr 25, 2017 16:03
[2017-04-26] MEDS: levOCARNitine 10% ORAL SOLN 118 ML BTL PO SCH ×3 (09:00→17:08)
[2017-04-26] MEDS: traZODone HCL 100 MG TAB PO SCH ×2 (09:00→20:02)
[2017-04-26] MEDS: AQUAPHOR OINT 50 GM TUBE TOPICAL SCH ×2 (09:00→20:09)
[2017-04-26] MEDS: DIVALPROEX SODIUM E.R. 250 MG TAB PO SCH ×2 (09:00→20:03)
[2017-04-26] MEDS: DIVALPROEX SODIUM E.R. 500 MG TAB PO SCH ×2 (09:00→20:04)
[2017-04-26] MEDS: CHOLECALCIFEROL (VIT D3) 1000 UNIT TAB PO SCH (09:00)
[2017-04-26] MEDS: BENZTROPINE MESYLATE 1 MG TAB PO SCH ×2 (09:00→20:02)
[2017-04-26] MEDS: ESCITALOPRAM OXALATE 20 MG TAB PO SCH (09:00)
[2017-04-26] MEDS: LORazepam 1 MG TAB PO PRN ×2 (09:15→17:11)
--- NOTE | 2017-04-26 11:55 | HHI.PYPN ---
Subjective Chief Complaint: behavioral disturbance following traumatic brain injury Remarks Patient seen and examined. Chart reviewed. Case discussed with nurse and with ameena. Nurse notes that patient has ongoing diarrhea and C. difficile PCR was negative; requesting Imodium for patient. Sitter notes that the patient has calmed significantly since Thorazine has been added. On my exam, patient is awake and alert. Remains fairly hypoverbal and calm. Answers questions fairly appropriately with single word answers. No side effects from medications. No physical complaints. Review of Systems ROS Limitations: Poor Historian Except as stated in HPI: all other systems reviewed are Neg Mental Status Examination Appearance: Disheveled Consciousness: Alert Orientation: Person Motor Activity: Other (no motor abnormalities noted) Speech: Other (poverty of speech) Language: Other (single word answers) Fund of Knowledge: Inadequate Attention and Concentration: Easily Distracted Memory: Impaired Mood: Appropriate Affect: Blunt Thought Process & Associations: Disorganized Thought Content: Other (poverty of thought) Hallucination Type: None Delusion Type: None Suicidal Ideation: No Homicidal Ideation: No Insight: Poor Judgment: Poor Results Labs Test 04/25/17 14:50 Stool C. difficile Toxin (PCR) NEGATIVE Stl C. difficile Toxin Epiderm 027 PRESUMPTIVE NEGATIVE Labs reviewed. Vitals/IOs Vital Signs Date Time Temp Pulse Resp B/P (MAP) Pulse Ox O2 Delivery O2 Flow Rate FiO2 04/25/17 06:17 98.3 78 18 134/69 (90) 97 Intake and Output 04/26/17 04/26/17 04/26/17 07:59 15:59 23:59 Intake Total 720 ml 360 ml Balance 720 ml 360 ml Assessment & Plan Problem List: (1) Intermittent explosive disorder ICD Codes: F63.81 - Intermittent explosive disorder (2) History of traumatic brain injury ICD Codes: Z87.820 - Personal history of traumatic brain injury Assessment & Plan Add Imodium as needed for diarrhea. Continue to monitor on the inpatient unit. Continue other medications and care as ordered. Justification for Cont. Inpt. Risk for decompensation in less restrictive environment. Discharge Planning State hospitalization versus placement. Case d/w counselor. Request HC Surrog/Guard Advoc?: Yes Josue Ibrahim MD Apr 26, 2017 11:55
[2017-04-26] MEDS: LOPERAMIDE HCL 2 MG CAP PO PRN (14:52)
[2017-04-26] MEDS: ACETAMINOPHEN 325 MG TAB PO PRN (17:38)
[2017-04-26 18:25] VITALS: BP 107/65; PULSE 83; RESP 20; TEMP 98.5; O2SAT 97
[2017-04-26] MEDS: clonazePAM 1 MG TAB PO SCH (20:04)
[2017-04-27] MEDS: AQUAPHOR OINT 50 GM TUBE TOPICAL SCH ×2 (09:00→21:00)
[2017-04-27] MEDS: LOPERAMIDE HCL 2 MG CAP PO PRN (09:00)
[2017-04-27] MEDS: CHOLECALCIFEROL (VIT D3) 1000 UNIT TAB PO SCH (09:00)
[2017-04-27] MEDS: LORazepam 1 MG TAB PO PRN (09:00)
[2017-04-27] MEDS: BENZTROPINE MESYLATE 1 MG TAB PO SCH ×2 (09:00→20:00)
[2017-04-27] MEDS: DIVALPROEX SODIUM E.R. 250 MG TAB PO SCH ×2 (09:00→20:00)
[2017-04-27] MEDS: DIVALPROEX SODIUM E.R. 500 MG TAB PO SCH ×2 (09:00→20:01)
[2017-04-27] MEDS: levOCARNitine 10% ORAL SOLN 118 ML BTL PO SCH ×3 (09:00→17:12)
[2017-04-27] MEDS: traZODone HCL 100 MG TAB PO SCH ×2 (09:01→20:01)
[2017-04-27] MEDS: ESCITALOPRAM OXALATE 20 MG TAB PO SCH (09:01)
--- NOTE | 2017-04-27 09:02 | HHI.PYPN ---
Subjective Chief Complaint: behavioral disturbance following traumatic brain injury Remarks Patient seen and examined with nurse practitioner. Chart reviewed. Speech therapy input noted. Case discussed with nursing staff reports that Imodium helped with diarrhea. Patient reportedly slept through the night. Case discussed in treatment team. Counselor informs me that the patient's case is # 11 in line to be reviewed for a state psychiatric hospitalization. On my exam today, the patient is calm. He remains with one to one sitter. He continues to answer in monosyllables chiefly. No pain complaints. No side effects from medications. Review of Systems ROS Limitations: Poor Historian Except as stated in HPI: all other systems reviewed are Neg Mental Status Examination Appearance: Disheveled Consciousness: Alert Orientation: Person Motor Activity: Other (no abnormal movements noted) Speech: Other (poverty of speech) Language: Other (monosyllabic) Fund of Knowledge: Inadequate Attention and Concentration: Easily Distracted Memory: Impaired Mood: Appropriate Affect: Blunt Thought Process & Associations: Disorganized Thought Content: Other (poverty of thought) Hallucination Type: None Delusion Type: None Suicidal Ideation: No Homicidal Ideation: No Insight: Poor Judgment: Poor Results Labs Labs reviewed. Vitals/IOs Vital Signs Date Time Temp Pulse Resp B/P (MAP) Pulse Ox O2 Delivery O2 Flow Rate FiO2 04/26/17 18:25 98.5 83 20 107/65 (79) 97 Assessment & Plan Problem List: (1) Intermittent explosive disorder ICD Codes: F63.81 - Intermittent explosive disorder (2) History of traumatic brain injury ICD Codes: Z87.820 - Personal history of traumatic brain injury Assessment & Plan Continue current psychotropics as ordered. I will check an updated set of basic laboratories in the morning including a Depakote and ammonia level. Occupational therapy consultation. Continue other medications and care as ordered. Justification for Cont. Inpt. Risk for decompensation in less restrictive environment Discharge Planning State hospitalization versus placement. Request HC Surrog/Guard Advoc?: Yes Josue Ibrahim MD Apr 27, 2017 09:02
[2017-04-27 10:10] VITALS: BP 106/54; PULSE 81; RESP 14; TEMP 98.6; O2SAT 95
[2017-04-27 17:38] VITALS: BP 116/78; PULSE 20; RESP 20; TEMP 98.8; O2SAT 99
[2017-04-27] MEDS: clonazePAM 1 MG TAB PO SCH (20:01)
[2017-04-28 08:04] LABS: AUTOMATED NEUTROPHIL # 3.9 TH/MM3 (1.8-7.7); BASOPHIL # 0.1 TH/MM3 (0-0.2); BASOPHIL % 0.8 % (0.0-2.0); EOSINOPHIL # 0.1 TH/MM3 (0-0.4); EOSINOPHIL % 1.3 % (0.0-4.0); HEMATOCRIT 40.9 % (39.0-51.0); HEMOGLOBIN 13.8 GM/DL (13.0-17.0); LYMPH % 31.1 % (9.0-44.0); LYMPHOCYTE # 2.1 TH/MM3 (1.0-4.8); MEAN CELL VOLUME 95.3 FL (80.0-100.0); MEAN CORPUSCULAR HEMOGLOBIN 32.2 PG (27.0-34.0); MEAN CORPUSCULAR HGB CONC 33.8 % (32.0-36.0); MEAN PLATELET VOLUME 6.5 FL (7.0-11.0); MONO % 9.8 % (0.0-8.0); MONOCYTE # 0.7 TH/MM3 (0-0.9); PLATELET COUNT 190 TH/MM3 (150-450); RED BLOOD COUNT 4.29 MIL/MM3 (4.50-5.90); RED CELL DISTRIBUTION WIDTH 14.2 % (11.6-17.2); WHITE BLOOD COUNT 6.8 TH/MM3 (4.0-11.0)
[2017-04-28 08:21] LABS: ALBUMIN 3.1 GM/DL (3.4-5.0); ALT (GPT) 36 U/L (12-78); AST (GOT) 15 U/L (15-37); BICARBONATE 26.8 MEQ/L (21.0-32.0); BLOOD UREA NITROGEN 13 MG/DL (7-18); CALCIUM 8.6 MG/DL (8.5-10.1); CHLORIDE 106 MEQ/L (98-107); CREATININE 0.89 MG/DL (0.60-1.30); GLOMERULAR FILTRATION RATE 94 ML/MIN (>89); GLUCOSE,RANDOM 128 MG/DL (74-106); SODIUM (NA) 141 MEQ/L (136-145)
[2017-04-28 08:24] LABS: ALKALINE PHOSPHATASE 56 U/L (45-117); TOTAL BILIRUBIN ADULT 0.2 MG/DL (0.2-1.0); TOTAL PROTEIN 6.7 GM/DL (6.4-8.2)
[2017-04-28] MEDS: DIVALPROEX SODIUM E.R. 500 MG TAB PO SCH ×2 (08:49→20:18)
[2017-04-28] MEDS: DIVALPROEX SODIUM E.R. 250 MG TAB PO SCH ×2 (08:49→20:17)
[2017-04-28] MEDS: BENZTROPINE MESYLATE 1 MG TAB PO SCH ×2 (08:50→20:18)
[2017-04-28] MEDS: CHOLECALCIFEROL (VIT D3) 1000 UNIT TAB PO SCH (08:50)
[2017-04-28] MEDS: ESCITALOPRAM OXALATE 20 MG TAB PO SCH (08:50)
[2017-04-28] MEDS: traZODone HCL 100 MG TAB PO SCH ×2 (08:50→20:17)
[2017-04-28] MEDS: levOCARNitine 10% ORAL SOLN 118 ML BTL PO SCH ×3 (08:51→17:25)
[2017-04-28] MEDS: AQUAPHOR OINT 50 GM TUBE TOPICAL SCH ×2 (08:51→20:18)
--- NOTE | 2017-04-28 11:23 | HHI.PYPN ---
Subjective Chief Complaint: behavioral disturbance following traumatic brain injury Remarks Patient seen and examined with nurse practitioner. Chart reviewed. Case discussed with nursing staff. On my exam, I find the patient up in the day area playing cards with his sitter. He is calm. He continues to answer in monosyllables. Sitter notes patient has seemed a little more anxious today. No side effects from medications. No physical complaints. Review of Systems ROS Limitations: Poor Historian Except as stated in HPI: all other systems reviewed are Neg Mental Status Examination Appearance: Disheveled Consciousness: Alert Orientation: Person Motor Activity: Other (No motor abnormalities noted) Speech: Other (poverty of speech) Language: Other (monosyllables) Fund of Knowledge: Inadequate Attention and Concentration: Easily Distracted Memory: Impaired Mood: Appropriate Affect: Blunt Thought Process & Associations: Disorganized Thought Content: Other (poverty of thought, ongoing) Hallucination Type: None Delusion Type: None Suicidal Ideation: No (No SI voiced) Homicidal Ideation: No (No HI voiced) Insight: Poor Judgment: Poor Results Labs Test 04/28/17 07:24 White Blood Count 6.8 TH/MM3 Red Blood Count 4.29 MIL/MM3 Hemoglobin 13.8 GM/DL Hematocrit 40.9 % Mean Corpuscular Volume 95.3 FL Mean Corpuscular Hemoglobin 32.2 PG Mean Corpuscular Hemoglobin Concent 33.8 % Red Cell Distribution Width 14.2 % Platelet Count 190 TH/MM3 Mean Platelet Volume 6.5 FL Neutrophils (%) (Auto) 57.0 % Lymphocytes (%) (Auto) 31.1 % Monocytes (%) (Auto) 9.8 % Eosinophils (%) (Auto) 1.3 % Basophils (%) (Auto) 0.8 % Neutrophils # (Auto) 3.9 TH/MM3 Lymphocytes # (Auto) 2.1 TH/MM3 Monocytes # (Auto) 0.7 TH/MM3 Eosinophils # (Auto) 0.1 TH/MM3 Basophils # (Auto) 0.1 TH/MM3 CBC Comment DIFF FINAL Differential Comment Blood Urea Nitrogen 13 MG/DL Creatinine 0.89 MG/DL Random Glucose 128 MG/DL Total Protein 6.7 GM/DL Albumin 3.1 GM/DL Calcium Level 8.6 MG/DL Alkaline Phosphatase 56 U/L Aspartate Amino Transf (AST/SGOT) 15 U/L Alanine Aminotransferase (ALT/SGPT) 36 U/L Total Bilirubin 0.2 MG/DL Sodium Level 141 MEQ/L Potassium Level 4.0 MEQ/L Chloride Level 106 MEQ/L Carbon Dioxide Level 26.8 MEQ/L Anion Gap 8 MEQ/L Estimat Glomerular Filtration Rate 94 ML/MIN Ammonia 51 MCMOL/L Valproic Acid (Depakene) Level 101 MCG/ML Labs reviewed. Depakote level is within therapeutic range for psych. Ammonia level remains somewhat elevated, but there is no evidence of encephalopathy, if anything patient's mental status is improved versus earlier in the hospital stay. Vitals/IOs Vital Signs Date Time Temp Pulse Resp B/P (MAP) Pulse Ox O2 Delivery O2 Flow Rate FiO2 04/27/17 17:38 98.8 -2-0-in error real value was 80/min 20 116/78 (91) 99 Intake and Output 04/28/17 04/28/17 04/29/17 08:00 16:00 00:00 Intake Total 360 ml Balance 360 ml Assessment & Plan Problem List: (1) Intermittent explosive disorder ICD Codes: F63.81 - Intermittent explosive disorder (2) History of traumatic brain injury ICD Codes: Z87.820 - Personal history of traumatic brain injury Assessment & Plan Continue current psychiatric medications as ordered. Might consider adding some additional Thorazine if anxiety reported by sitter persists. Continue to monitor on the inpatient unit. Continue other meds and care as ordered. Justification for Cont. Inpt. Risk for decompensation in less restrictive setting. Discharge Planning State hospital versus placement. Request HC Surrog/Guard Advoc?: Yes Josue Ibrahim MD Apr 28, 2017 11:23
[2017-04-28] MEDS: LORazepam 1 MG TAB PO PRN ×2 (12:44→20:20)
[2017-04-28] MEDS: LOPERAMIDE HCL 2 MG CAP PO PRN ×2 (13:25→17:26)
[2017-04-28 18:25] VITALS: BP 122/68; PULSE 77; RESP 16; TEMP 98.1; O2SAT 99
[2017-04-28] MEDS: clonazePAM 1 MG TAB PO SCH (20:18)
[2017-04-29 06:39] VITALS: BP 109/72; PULSE 69; RESP 16; TEMP 98; O2SAT 98
[2017-04-29] MEDS: BENZTROPINE MESYLATE 1 MG TAB PO SCH ×2 (09:00→21:18)
[2017-04-29] MEDS: AQUAPHOR OINT 50 GM TUBE TOPICAL SCH ×2 (09:00→21:00)
[2017-04-29] MEDS: CHOLECALCIFEROL (VIT D3) 1000 UNIT TAB PO SCH (09:00)
[2017-04-29] MEDS: DIVALPROEX SODIUM E.R. 500 MG TAB PO SCH ×2 (09:00→21:18)
[2017-04-29] MEDS: traZODone HCL 100 MG TAB PO SCH ×2 (09:00→21:18)
[2017-04-29] MEDS: ESCITALOPRAM OXALATE 20 MG TAB PO SCH (10:05)
[2017-04-29] MEDS: DIVALPROEX SODIUM E.R. 250 MG TAB PO SCH ×2 (10:05→21:20)
[2017-04-29] MEDS: levOCARNitine 10% ORAL SOLN 118 ML BTL PO SCH ×2 (10:06→12:18)
--- NOTE | 2017-04-29 12:26 | HHI.PYPN ---
Subjective Chief Complaint: behavioral disturbance following traumatic brain injury Remarks Patient seen and examined. Chart reviewed. No further behavioral disturbance overnight. Sitter relates that patient has been calm this morning, masturbating at intervals. He continues to have loose stools. On my exam, patient remains calm and redirectable. No acute physical distress. Review of Systems ROS Limitations: Poor Historian Except as stated in HPI: all other systems reviewed are Neg Mental Status Examination Appearance: Disheveled Consciousness: Alert Orientation: Person Motor Activity: Other (no abnormal motor movements noted) Speech: Other (no speech today) Affect: Blunt Insight: Poor Judgment: Poor Mental Status Exam Remarks Limited MSE as patient does not verbalize today. Results Labs Labs reviewed. Vitals/IOs Vital Signs Date Time Temp Pulse Resp B/P (MAP) Pulse Ox O2 Delivery O2 Flow Rate FiO2 04/29/17 06:39 98.0 69 16 109/72 (84) 98 Assessment & Plan Problem List: (1) Intermittent explosive disorder ICD Codes: F63.81 - Intermittent explosive disorder (2) History of traumatic brain injury ICD Codes: Z87.820 - Personal history of traumatic brain injury Assessment & Plan Continue current psychotropics as ordered. I will ask the hospitalist to follow up for ongoing loose stools. Continue other medications and care as ordered. Justification for Cont. Inpt. Risk for decompensation in less restrictive environment. Discharge Planning State versus placement. Request HC Surrog/Guard Advoc?: Yes Josue Ibrahim MD Apr 29, 2017 12:26
[2017-04-29] MEDS: LORazepam 1 MG TAB PO PRN (12:49)
[2017-04-29] MEDS: clonazePAM 1 MG TAB PO SCH (21:18)
[2017-04-30 06:16] VITALS: BP 121/76; PULSE 71; RESP 18; TEMP 98.6
[2017-04-30] MEDS: AQUAPHOR OINT 50 GM TUBE TOPICAL SCH ×2 (09:00→20:35)
[2017-04-30] MEDS: ESCITALOPRAM OXALATE 20 MG TAB PO SCH (09:13)
[2017-04-30] MEDS: BENZTROPINE MESYLATE 1 MG TAB PO SCH ×2 (09:13→20:35)
[2017-04-30] MEDS: traZODone HCL 100 MG TAB PO SCH ×2 (09:13→20:35)
[2017-04-30] MEDS: DIVALPROEX SODIUM E.R. 500 MG TAB PO SCH ×2 (09:13→20:34)
[2017-04-30] MEDS: CHOLECALCIFEROL (VIT D3) 1000 UNIT TAB PO SCH (09:13)
[2017-04-30] MEDS: DIVALPROEX SODIUM E.R. 250 MG TAB PO SCH ×2 (09:13→20:33)
--- NOTE | 2017-04-30 09:48 | HHI.PYPN ---
Subjective Chief Complaint: behavioral disturbance following traumatic brain injury Remarks Patient seen and case discussed with nursing staff. Case discussed in treatment team. For me today, patient is once again in the day area playing cards with sitter. He is calm and re-directable. He does appear to be focusing on the game fairly well. No evident medication side-effects or signs of physical distress. Review of Systems ROS Limitations: Poor Historian Other Limited ROS Mental Status Examination Appearance: Disheveled Consciousness: Alert Orientation: Person Motor Activity: Other (no motor abnormalities noted) Speech: Other (does not verbalize today) Affect: Blunt Insight: Poor Judgment: Poor Mental Status Exam Remarks Limited MSE as patient does not verbalize today. Results Labs Labs reviewed. Vitals/IOs Vital Signs Date Time Temp Pulse Resp B/P (MAP) Pulse Ox O2 Delivery O2 Flow Rate FiO2 04/30/17 06:16 98.6 71 18 121/76 (91) 04/29/17 06:39 98 Assessment & Plan Problem List: (1) Intermittent explosive disorder ICD Codes: F63.81 - Intermittent explosive disorder (2) History of traumatic brain injury ICD Codes: Z87.820 - Personal history of traumatic brain injury Assessment & Plan Continue current psychiatric medications as ordered. Awaiting hospitalist input regarding loose stools. Continue other medications and care as ordered. Justification for Cont. Inpt. Risk for decompensation in less restrictive environment. Discharge Planning Placement. I received a message from counselor supervisor telephone clerks that the patient has been declined by the [facility]. Request HC Surrog/Guard Advoc?: Yes Josue Ibrahim MD Apr 30, 2017 09:47
[2017-04-30] MEDS: LACTOBACILLUS ACIDOPHILUS TAB PO SCH ×2 (11:15→17:08)
--- NOTE | 2017-04-30 14:15 | HHI.PR ---
Subjective Remarks Reconsult on patient with diarrhea. Patient seen and examined with assistance of RUBBISH COLLECTION SUPERVISOR due to patient being a poor historian due to previous TBI. Also discussed with patient's nurse. Patient with copious amounts of watery nonbloody loose stools for the past 3 days. Denies any nausea or vomiting. Reports an episode of abdominal pain a few days ago but none recently. Denies any fever or chills. Patient with negative C. difficile on 04/25/2017. Objective Vitals Vital Signs Date Time Temp Pulse Resp B/P (MAP) Pulse Ox O2 Delivery O2 Flow Rate FiO2 04/30/17 06:16 98.6 71 18 121/76 (91) I/O 04/29/17 04/29/17 04/29/17 04/30/17 04/30/17 04/30/17 07:00 15:00 23:00 07:00 15:00 23:00 Intake Total 1380 ml 720 ml 1200 ml Output Total 1 ml Balance -1 ml 1380 ml 720 ml 1200 ml Intake Oral 1380 ml 720 ml 1200 ml Stool Total 1 ml # Voids 3 3 Result Diagram: 04/28/1772304/28/17723 Objective Remarks GENERAL: This is a well-nourished, well-developed male patient, in no apparent distress. Awake and alert. Awake and alert. Flat affect. SKIN: Cool and dry. HEAD: Atraumatic. Normocephalic. EYES: Extraocular motions intact. No scleral icterus. No injection or drainage. ENT: Nose without bleeding or purulent drainage. Airway patent. MMM. NECK: Trachea midline. CARDIOVASCULAR: Regular rate and rhythm without murmurs, gallops, or rubs. RESPIRATORY: Clear to auscultation. Breath sounds equal bilaterally. No wheezes , rales, or rhonchi. GASTROINTESTINAL: Abdomen soft, non-tender, nondistended, obese. No hepato- splenomegaly, or palpable masses. No guarding. MUSCULOSKELETAL: Extremities without clubbing, cyanosis, or edema. NEUROLOGICAL: Awake and alert. Able to move all extremities spontaneously. No focal neurologic findings appreciated. Minimal verbalization. Medications and IVs Current Medications Medications (Trade) Dose Ordered Sig/Daniel Route Start Time Stop Time Status Last Admin (Desyrel) 100 mg BID PO 03/13/17 21:00 04/30/17 09:13 (Ativan) 1 mg Q6H PRN PO 03/16/17 11:15 04/29/17 12:49 (Ativan Inj) 1 mg Q6H PRN IM 03/16/17 11:15 04/21/17 01:32 (Tylenol) 650 mg Q4H PRN PO 03/16/17 11:15 04/26/17 17:38 (Milk Of Magnesia Liq) 30 ml DAILY PRN PO 03/16/17 11:15 (Mag-Al Plus Susp Liq) 30 ml Q6H PRN PO 03/16/17 11:15 (KlonoPIN) 1 mg HS PO 03/16/17 21:00 04/29/17 21:18 (Lexapro) 20 mg DAILY PO 03/17/17 09:00 04/30/17 09:13 (D50w (Vial) Inj) 50 ml UNSCH PRN IV PUSH 03/16/17 12:15 (Glucagon Inj) 1 mg UNSCH PRN OTHER 03/16/17 12:15 (Vitamin D3) 1,000 units DAILY PO 03/18/17 09:00 04/30/17 09:13 (Aquaphor Oint) 1 applic Q12HR TOPICAL 03/28/17 21:00 04/30/17 09:00 (Abilify) 20 mg BID PO 04/05/17 21:00 04/30/17 09:13 (Depakote Er) 1,000 mg BID PO 04/05/17 21:00 04/30/17 09:13 (Depakote Er) 250 mg BID PO 04/05/17 21:00 04/30/17 09:13 (Carnitor 10% Liq) 9 ml TID PO 04/13/17 18:00 Future Hold 04/29/17 12:18 (Cogentin) 1 mg Q12HR PO 04/15/17 21:00 04/30/17 09:13 (Thorazine) 50 mg DAILY@1800 PO 04/19/17 18:00 Future hold 04/29/17 17:31 (Imodium) 2 mg Q4H PRN PO 04/26/17 12:45 04/28/17 17:26 (Thorazine) 50 mg DAILY@1200 PO 04/29/17 12:00 04/30/17 11:15 (Lactinex) 1 tab TID PO 04/30/17 13:00 04/30/17 11:15 A/P Assessment and Plan History of traumatic brain injury with neurocognitive deficit Behavioral disturbance - Management per psychiatric team Diarrhea - Patient does not appear toxic. Hydrated. Afebrile. Hemodynamically stable. - C. difficile negative 04/25/2017. Repeat C. difficile. - Stool studies - Begin lactobacillus TID - Hold Imodium for now Prediabetes - Hemoglobin A1c 6.2 03/17/17 - Suspect secondary to Zyprexa use. Off Zyprexa. Fasting glucose 138. Vitamin D deficiency - Vitamin D level 15.8 02/20/17 - Continue vitamin D supplementation - Patient will need to follow-up with PCP as outpatient in 3 months to recheck vitamin D level DVT prophylaxis -Patient is ambulatory Cynthia Griffin Apr 30, 2017 14:15
[2017-04-30] MEDS: LORazepam 1 MG TAB PO PRN (14:19)
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
[2017-04-30 16:21] VITALS: BP 110/60; PULSE 79; RESP 16; TEMP 97.1; O2SAT 94
--- NOTE | 2017-04-30 17:36 | RADRPT ---
EXAM DATE/TIME: 04/30/2017 16:58 [place] COMPARISON: No previous studies available for comparison. INDICATIONS : Diarrhea for 3 days MEDICAL HISTORY : None. SURGICAL HISTORY : None. ENCOUNTER: Initial ACUITY: 3 days PAIN SCORE: Non-responsive. LOCATION: Bilateral abdomen FINDINGS: Supine view of the abdomen was performed. The abdominal bowel gas pattern is normal. No abnormal ma sses, calcifications, or organomegaly is seen. The osseous structures are unremarkable. CONCLUSION: Scattered solid stool negative for an acute process. Jonel Mark MD FACR on April 30, 2017 at 17:34 Board Certified Radiologist. This report was verified electronically.
[2017-04-30] MEDS: clonazePAM 1 MG TAB PO SCH (20:35)
[2017-05-01 04:00] VITALS: BP 96/52; PULSE 74; RESP 20; TEMP 97.7; O2SAT 96
[2017-05-01] MEDS: AQUAPHOR OINT 50 GM TUBE TOPICAL SCH ×2 (09:00→21:00)
[2017-05-01] MEDS: traZODone HCL 100 MG TAB PO SCH ×2 (09:27→20:19)
[2017-05-01] MEDS: DIVALPROEX SODIUM E.R. 500 MG TAB PO SCH ×2 (09:27→20:19)
[2017-05-01] MEDS: LACTOBACILLUS ACIDOPHILUS TAB PO SCH ×3 (09:27→17:28)
[2017-05-01] MEDS: CHOLECALCIFEROL (VIT D3) 1000 UNIT TAB PO SCH (09:27)
[2017-05-01] MEDS: BENZTROPINE MESYLATE 1 MG TAB PO SCH ×2 (09:27→20:17)
[2017-05-01] MEDS: ESCITALOPRAM OXALATE 20 MG TAB PO SCH (09:27)
[2017-05-01] MEDS: DIVALPROEX SODIUM E.R. 250 MG TAB PO SCH ×2 (09:27→20:18)
--- NOTE | 2017-05-01 13:33 | HHI.PR ---
Subjective Remarks Follow-up on reconsult for diarrhea. Patient seen and examined. Given patient' s cognitive impairment, unable to obtain any reliable history from patient directly. He does not appear to have any acute medical complaints. Discussed with GAURAV Morales. No diarrhea for the past 24 hours. Previously, patient had multiple loose watery stools 3 days. Nonbloody. Discussed possibility of Depakote being cause for diarrhea and she will address with psychiatrist if dose can be decreased or changed to a different medication. Patient reportedly complains of abdominal pain from time to time. No nausea or vomiting. No fever or chills. Objective Vitals Vital Signs Date Time Temp Pulse Resp B/P (MAP) Pulse Ox O2 Delivery O2 Flow Rate FiO2 05/01/17 04:00 97.7 74 20 96/52 (67) 96 04/30/17 16:21 97.1 79 16 110/60 (77) 94 I/O 04/30/17 04/30/17 04/30/17 05/01/17 05/01/17 05/01/17 06:59 14:59 22:59 06:59 14:59 22:59 Intake Total 720 ml 1200 ml 1200 ml 720 ml Balance 720 ml 1200 ml 1200 ml 720 ml Intake Oral 720 ml 1200 ml 1200 ml 720 ml # Voids 3 6 Result Diagram: 04/28/17 0724 04/28/17 0724 Imaging Last Impressions Abdomen X-Ray 04/30/17 0000 Signed Impressions: Service Date/Time: Sunday, April 30, 2017 16:58 - CONCLUSION: Scattered solid stool negative for an acute process. Jonel Mark MD FACR Objective Remarks GENERAL: This is a well-nourished, well-developed male patient, in no apparent distress. Awake and alert. Flat affect. Playing ball with the Shipp[employer] in the community room. SKIN: Cool and dry. HEAD: Atraumatic. Normocephalic. EYES: Extraocular motions intact. No scleral icterus. No injection or drainage. ENT: Nose without bleeding or purulent drainage. Airway patent. MMM. NECK: Trachea midline. CARDIOVASCULAR: Regular rate and rhythm without murmurs, gallops, or rubs. RESPIRATORY: Clear to auscultation. Breath sounds equal bilaterally. No wheezes , rales, or rhonchi. GASTROINTESTINAL: Abdomen soft, non-tender, nondistended, obese. MUSCULOSKELETAL: Extremities without clubbing, cyanosis, or edema. NEUROLOGICAL: Awake and alert. Able to move all extremities spontaneously. No focal neurologic findings appreciated. Minimal verbalization. Medications and IVs Current Medications Medications (Trade) Dose Ordered Sig/Daniel Route Start Time Stop Time Status Last Admin (Desyrel) 100 mg BID PO 03/13/17 21:00 05/01/17 09:27 (Ativan) 1 mg Q6H PRN PO 03/16/17 11:15 04/30/17 14:19 (Ativan Inj) 1 mg Q6H PRN IM 03/16/17 11:15 04/21/17 01:32 (Tylenol) 650 mg Q4H PRN PO 03/16/17 11:15 04/26/17 17:38 (Milk Of Magnesia Liq) 30 ml DAILY PRN PO 03/16/17 11:15 (Mag-Al Plus Susp Liq) 30 ml Q6H PRN PO 03/16/17 11:15 (KlonoPIN) 1 mg HS PO 03/16/17 21:00 04/30/17 20:35 (Lexapro) 20 mg DAILY PO 03/17/17 09:00 05/01/17 09:27 (D50w (Vial) Inj) 50 ml UNSCH PRN IV PUSH 03/16/17 12:15 (Glucagon Inj) 1 mg UNSCH PRN OTHER 03/16/17 12:15 (Vitamin D3) 1,000 units DAILY PO 03/18/17 09:00 05/01/17 09:27 (Aquaphor Oint) 1 applic Q12HR TOPICAL 03/28/17 21:00 05/01/17 09:00 (Abilify) 20 mg BID PO 04/05/17 21:00 05/01/17 09:27 (Depakote Er) 1,000 mg BID PO 04/05/17 21:00 Future Hold 05/01/17 09:27 (Depakote Er) 250 mg BID PO 04/05/17 21:00 Future Hold 05/01/17 09:27 (Carnitor 10% Liq) 9 ml TID PO 04/13/17 18:00 Future Hold 04/29/17 12:18 (Cogentin) 1 mg Q12HR PO 04/15/17 21:00 05/01/17 09:27 (Thorazine) 50 mg DAILY@1800 PO 04/19/17 18:00 Future hold 04/30/17 17:08 (Imodium) 2 mg Q4H PRN PO 04/26/17 12:45 Future Hold 04/28/17 17:26 (Thorazine) 50 mg DAILY@1200 PO 04/29/17 12:00 05/01/17 11:33 (Lactinex) 1 tab TID PO 04/30/17 13:00 05/01/17 13:00 A/P Assessment and Plan History of traumatic brain injury with neurocognitive deficit Behavioral disturbance - Management per psychiatric team - Depakote level 101, discussed with psych nurse Carmen NOLASCO who states that level is therapeutic. Diarrhea Hyperammonemia - Patient does not appear toxic. Hydrated. Afebrile. Hemodynamically stable. - ?medication side effect/Depakote. Carnitor held by primary team since . - C. difficile negative 04/25/2017. Repeat C. difficile not done due to resolution of diarrhea. - Continue lactobacillus TID - Hold Imodium for now - Consult GI, appreciate assistance Prediabetes - Hemoglobin A1c 6.2 03/17/17 - Suspect secondary to Zyprexa use. Off Zyprexa. Fasting glucose 138. Vitamin D deficiency - Vitamin D level 15.8 02/20/17 - Continue vitamin D supplementation - Patient will need to follow-up with PCP as outpatient in 3 months to recheck vitamin D level DVT prophylaxis -Patient is ambulatory Cynthia Griffin May 01, 2017 13:33
--- NOTE | 2017-05-01 16:20 | HHI.PYPN ---
Subjective Chief Complaint: behavioral disturbance following traumatic brain injury Remarks Patient was seen and case discussed with nursing. Patient is not cooperative during the interview today. He remains compliant with his medications. Has not had any outbursts. No bouts with diarrhea today. Continues to be followed by the medical team. Nursing notes a concentrated urine suggesting a UA Mental Status Examination Appearance: Disheveled Consciousness: Alert Orientation: Person Motor Activity: Other (no motor abnormalities noted) Speech: Other (does not verbalize today) Affect: Blunt Insight: Poor Judgment: Poor Results Vitals/IOs Vital Signs Date Time Temp Pulse Resp B/P (MAP) Pulse Ox O2 Delivery O2 Flow Rate FiO2 05/01/17 04:00 97.7 74 20 96/52 (67) 96 Intake and Output 05/01/17 05/01/17 05/02/17 08:00 16:00 00:00 Intake Total 720 ml Balance 720 ml Assessment & Plan Problem List: (1) Intermittent explosive disorder ICD Codes: F63.81 - Intermittent explosive disorder (2) History of traumatic brain injury ICD Codes: Z87.820 - Personal history of traumatic brain injury Assessment & Plan Order UA Justification for Cont. Inpt. Patient will decompensate in a less restrictive setting Request HC Surrog/Guard Advoc?: Yes Logan Yanez DO May 01, 2017 16:20
[2017-05-01 17:51] VITALS: BP 109/68; PULSE 92; RESP 20; TEMP 97.8; O2SAT 98
[2017-05-01 18:59] LABS: BACTERIA, URINE MOD /hpf; BILIRUBIN, URINE NEG (NEG); BLOOD, URINE SMALL (NEG); GLUCOSE,URINE NEG (NEG); KETONE, URINE TRACE mg/dL (NEG); MUCUS URINE FEW /lpf (OCC); NITRITE,URINE POS (NEG); URINE COLOR YELLOW (YELLW/STRAW); URINE LEUKOCYTE ESTERASE LARGE (NEG)
[2017-05-01] MEDS: clonazePAM 1 MG TAB PO SCH (20:17)
[2017-05-01] MEDS: LORazepam 1 MG TAB PO PRN (21:21)
[2017-05-01] MEDS: ACETAMINOPHEN 325 MG TAB PO PRN (21:24)
[2017-05-02 06:10] VITALS: BP 100/58; PULSE 70; RESP 16; TEMP 96.7; O2SAT 97
[2017-05-02] MEDS: DIVALPROEX SODIUM E.R. 500 MG TAB PO SCH ×2 (08:43→20:07)
[2017-05-02] MEDS: CHOLECALCIFEROL (VIT D3) 1000 UNIT TAB PO SCH (08:43)
[2017-05-02] MEDS: CIPROFLOXACIN 500 MG TAB PO SCH ×2 (08:43→20:07)
[2017-05-02] MEDS: BENZTROPINE MESYLATE 1 MG TAB PO SCH ×2 (08:43→20:06)
[2017-05-02] MEDS: DIVALPROEX SODIUM E.R. 250 MG TAB PO SCH ×2 (08:43→20:06)
[2017-05-02] MEDS: LACTOBACILLUS ACIDOPHILUS TAB PO SCH ×3 (08:43→17:24)
[2017-05-02] MEDS: traZODone HCL 100 MG TAB PO SCH ×2 (08:44→20:08)
[2017-05-02] MEDS: AQUAPHOR OINT 50 GM TUBE TOPICAL SCH ×2 (08:44→21:00)
[2017-05-02] MEDS: ESCITALOPRAM OXALATE 20 MG TAB PO SCH (08:44)
--- NOTE | 2017-05-02 10:44 | HHI.PYPN ---
Subjective Chief Complaint: behavioral disturbance following traumatic brain injury Remarks Patient was seen and case discussed with nursing. It was found patient has a UTI and is being treated per medicine. He is on good behavior today. No outbursts. Compliant with medications Mental Status Examination Appearance: Disheveled Consciousness: Alert Orientation: Person Motor Activity: Other (no motor abnormalities noted) Speech: Other (does not verbalize today) Affect: Blunt Insight: Poor Judgment: Poor Results Labs Test 05/01/17 18:39 Urine Color YELLOW Urine Turbidity HAZY Urine pH 6.0 Urine Specific [place] 1.027 Urine Protein 30 mg/dL Urine Glucose (UA) NEG mg/dL Urine Ketones TRACE mg/dL Urine Occult Blood SMALL Urine Nitrite POS Urine Bilirubin NEG Urine Urobilinogen 2.0 MG/DL Urine Leukocyte Esterase LARGE Urine RBC 7 /hpf Urine WBC /hpf Urine Bacteria MOD /hpf Urine Mucus FEW /lpf Microscopic Urinalysis Comment CULTURE INDICATED Date/Time Source Procedure Growth Status 05/01/17 18:39 Urine Clean Catch Urine Culture Pending Received Vitals/IOs Vital Signs Date Time Temp Pulse Resp B/P (MAP) Pulse Ox O2 Delivery O2 Flow Rate FiO2 05/02/17 06:10 96.7 70 16 100/58 (72) 97 Intake and Output 05/02/17 05/02/17 05/03/17 08:00 16:00 00:00 Intake Total 0 ml Balance 0 ml Assessment & Plan Problem List: (1) Intermittent explosive disorder ICD Codes: F63.81 - Intermittent explosive disorder (2) History of traumatic brain injury ICD Codes: Z87.820 - Personal history of traumatic brain injury Assessment & Plan Continue current treatment plan Justification for Cont. Inpt. Patient will decompensate in a less restrictive setting Request HC Surrog/Guard Advoc?: Yes Logan Yanez DO May 02, 2017 10:44
--- NOTE | 2017-05-02 11:57 | PD.CONS ---
HPI History of Present Illness This is a 42 year old male with hx TBI who presented from [place] for inappropriate behavior, staff unable to control him. he has been having watery loose stool, up to three times daily. Had episode loose watery stool this morning. Per nursing staff there was a complaint yesterday of abd pain. No n/v. he is eating copious amounts. he is poor historian. hx obtained from EMR and nursing staff. (Krysten Meier) PFSH Past Medical History TBI Past Surgical History unk (Krysten Meier) Coded Allergies: No Known Allergies (Verified Allergy, Unknown, 02/14/17) Family History unk Social History unk (Krysten Meier) Review of Systems noncontributory (Krysten Meier) GI Exam Vitals I&O Vital Signs Date Time Temp Pulse Resp B/P (MAP) Pulse Ox O2 Delivery O2 Flow Rate FiO2 05/02/17 06:10 96.7 70 16 100/58 (72) 97 05/01/17 17:51 97.8 92 20 109/68 (82) 98 I/O 05/01/17 05/01/17 05/01/17 05/02/17 05/02/17 05/02/17 07:00 15:00 23:00 07:00 15:00 23:00 Intake Total 720 ml 2760 ml 0 ml Balance 720 ml 2760 ml 0 ml Intake Oral 720 ml 2760 ml 0 ml # Voids 6 7 4 # Bowel Movements 3 4 Imaging Last Impressions Abdomen X-Ray 04/30/17 0000 Signed Impressions: Service Date/Time: Sunday, April 30, 2017 16:58 - CONCLUSION: Scattered solid stool negative for an acute process. Jonel Mark MD FACR Laboratory Test 05/01/17 18:39 Urine Color YELLOW Urine Turbidity HAZY Urine pH 6.0 Urine Specific [place] 1.027 Urine Protein 30 mg/dL Urine Glucose (UA) NEG mg/dL Urine Ketones TRACE mg/dL Urine Occult Blood SMALL Urine Nitrite POS Urine Bilirubin NEG Urine Urobilinogen 2.0 MG/DL Urine Leukocyte Esterase LARGE Urine RBC 7 /hpf Urine WBC /hpf Urine Bacteria MOD /hpf Urine Mucus FEW /lpf Microscopic Urinalysis Comment CULTURE INDICATED Date/Time Source Procedure Growth Status 05/01/17 18:39 Urine Clean Catch Urine Culture Pending Received Physical Examination HEENT: PERRL; normocephalic; atraumatic; no jaundice. CHEST: CTA CARDIAC: RRR ABDOMEN: Soft, round, nontender; no hepatosplenomegaly; bowel sounds are present in all four quadrants. EXTREMITIES: No clubbing, cyanosis, or edema. SKIN: Normal; no rash; no jaundice. SUPERINTENDENT TRANSPORTATION: alert, not oriented (Krysten Meier) Assessment and Plan Plan ASSESSMENT - diarrhea - multiple loose watery stools daily. unclear etiology, some reports of abd pain but difficult to assess, limited hx. c diff neg 04/25, repeat pending. Do not seen him cooperating with bowel prep but certainly colonoscopy is option. labs unremarkable other than elevated [place], he is not lethargic. will get stool studies, CT if he can cooperate. PLAN - await stool studies - ct abd - consider colonoscopy - EDILMA - further recs to follow pt seen and examined by myself and Dr Schwartz and this note is on her behalf (Krysten Meier) Physician Comments seen, examined agree with above (Huma Schwartz MD) Krysten Meier May 02, 2017 11:57 Huma Schwartz MD May 02, 2017 18:26
--- NOTE | 2017-05-02 12:26 | HHI.PR ---
Subjective Remarks Follow-up on patient reconsult for diarrhea. Patient seen and examined. Patient has a sitter at the bedside. When asked, patient denies any diarrhea however confirmed with GAURAV Morales patient did have another loose stool yesterday. Also UA was sent for foul-smelling urine and he appears to have a UTI. Patient denies any fever or chills. He denies any dysuria. Objective Vitals Vital Signs Date Time Temp Pulse Resp B/P (MAP) Pulse Ox O2 Delivery O2 Flow Rate FiO2 05/02/17 06:10 96.7 70 16 100/58 (72) 97 05/01/17 17:51 97.8 92 20 109/68 (82) 98 I/O 05/01/17 05/01/17 05/01/17 05/02/17 05/02/17 05/02/17 07:00 15:00 23:00 07:00 15:00 23:00 Intake Total 720 ml 2760 ml 0 ml Balance 720 ml 2760 ml 0 ml Intake Oral 720 ml 2760 ml 0 ml # Voids 6 7 4 # Bowel Movements 3 4 Result Diagram: 04/28/17 0724 04/28/17 0724 Imaging Last Impressions Abdomen X-Ray 04/30/17 0000 Signed Impressions: Service Date/Time: Sunday, April 30, 2017 16:58 - CONCLUSION: Scattered solid stool negative for an acute process. Jonel Mark MD FACR Objective Remarks GENERAL: This is a well-nourished, well-developed male patient, in no apparent distress. Awake and alert. Flat affect. Childlike. Lying awake in bed in his room. Sitter at the bedside. SKIN: Cool and dry. HEAD: Atraumatic. Normocephalic. EYES: Extraocular motions intact. No scleral icterus. No injection or drainage. ENT: Nose without bleeding or purulent drainage. Airway patent. MMM. NECK: Trachea midline. CARDIOVASCULAR: Regular rate and rhythm without murmurs, gallops, or rubs. RESPIRATORY: Clear to auscultation. Breath sounds equal bilaterally. No wheezes , rales, or rhonchi. GASTROINTESTINAL: Abdomen soft, non-tender, nondistended, obese. MUSCULOSKELETAL: Extremities without clubbing, cyanosis, or edema. NEUROLOGICAL: Awake and alert. Able to move all extremities spontaneously. No focal neurologic findings appreciated. Minimal verbalization. Medications and IVs Current Medications Medications (Trade) Dose Ordered Sig/Daniel Route Start Time Stop Time Status Last Admin (Desyrel) 100 mg BID PO 03/13/17 21:00 05/02/17 08:44 (Ativan) 1 mg Q6H PRN PO 03/16/17 11:15 05/01/17 21:21 (Ativan Inj) 1 mg Q6H PRN IM 03/16/17 11:15 04/21/17 01:32 (Tylenol) 650 mg Q4H PRN PO 03/16/17 11:15 05/01/17 21:24 (Milk Of Magnesia Liq) 30 ml DAILY PRN PO 03/16/17 11:15 (Mag-Al Plus Susp Liq) 30 ml Q6H PRN PO 03/16/17 11:15 (KlonoPIN) 1 mg HS PO 03/16/17 21:00 05/01/17 20:17 (Lexapro) 20 mg DAILY PO 03/17/17 09:00 05/02/17 08:44 (D50w (Vial) Inj) 50 ml UNSCH PRN IV PUSH 03/16/17 12:15 (Glucagon Inj) 1 mg UNSCH PRN OTHER 03/16/17 12:15 (Vitamin D3) 1,000 units DAILY PO 03/18/17 09:00 05/02/17 08:43 (Aquaphor Oint) 1 applic Q12HR TOPICAL 03/28/17 21:00 05/02/17 08:44 (Abilify) 20 mg BID PO 04/05/17 21:00 05/02/17 08:43 (Depakote Er) 1,000 mg BID PO 04/05/17 21:00 Future hold 05/02/17 08:43 (Depakote Er) 250 mg BID PO 04/05/17 21:00 Future hold 05/02/17 08:43 (Carnitor 10% Liq) 9 ml TID PO 04/13/17 18:00 Future Hold 04/29/17 12:18 (Cogentin) 1 mg Q12HR PO 04/15/17 21:00 05/02/17 08:43 (Thorazine) 50 mg DAILY@1800 PO 04/19/17 18:00 Future hold 05/01/17 17:28 (Imodium) 2 mg Q4H PRN PO 04/26/17 12:45 Future Hold 04/28/17 17:26 (Thorazine) 50 mg DAILY@1200 PO 04/29/17 12:00 05/02/17 11:08 (Lactinex) 1 tab TID PO 04/30/17 13:00 05/02/17 12:01 (Cipro) 500 mg Q12HR PO 05/02/17 09:00 05/02/17 08:43 A/P Assessment and Plan History of traumatic brain injury with neurocognitive deficit Behavioral disturbance - Management per psychiatric team - Depakote level 101, discussed with psych nurse Carmen NOLASCO who states that level is therapeutic. Diarrhea Hyperammonemia - Patient does not appear toxic. Hydrated. Afebrile. Hemodynamically stable. - ?medication side effect/Depakote. Carnitor held by primary team since . - C. difficile negative 04/25/2017. Repeat C. difficile pending. - Continue lactobacillus TID - Hold Imodium for now - GI following, appreciate assistance. CT the abdomen ordered. Considering colonoscopy. Agree with stool studies and repeat C. difficile. UTI -Urinalysis positive for proteinuria, trace ketones, small blood, positive nitrates, large leukocytes and moderate bacteria. -Started on p.o. Cipro -Await final urine culture results Prediabetes - Hemoglobin A1c 6.2 03/17/17 - Suspect secondary to Zyprexa use. Off Zyprexa. Random glucose 128. Vitamin D deficiency - Vitamin D level 15.8 02/20/17 - Continue vitamin D supplementation - Patient will need to follow-up with PCP as outpatient in 3 months to recheck vitamin D level DVT prophylaxis -Patient is ambulatory Cynthia Griffin May 02, 2017 12:26
[2017-05-02 18:28] VITALS: BP 126/76; PULSE 72; RESP 18; TEMP 98.6; O2SAT 98
[2017-05-02] MEDS ORDERED: DIATRIZOATE MEGLUM/DIATRIZOATE SOD 9 ML CUP PO ONE (19:15)
[2017-05-02] MEDS: clonazePAM 1 MG TAB PO SCH (20:08)
[2017-05-02] MEDS: ACETAMINOPHEN 325 MG TAB PO PRN (21:03)
[2017-05-03] MEDS: LORazepam 1 MG TAB PO PRN ×2 (02:51→14:11)
[2017-05-03 06:50] VITALS: BP 144/72; PULSE 72; RESP 18; TEMP 98; O2SAT 97
[2017-05-03] MEDS: AQUAPHOR OINT 50 GM TUBE TOPICAL SCH ×2 (08:53→21:00)
[2017-05-03] MEDS: LACTOBACILLUS ACIDOPHILUS TAB PO SCH ×3 (08:54→17:24)
[2017-05-03] MEDS: BENZTROPINE MESYLATE 1 MG TAB PO SCH ×2 (08:54→21:02)
[2017-05-03] MEDS: CHOLECALCIFEROL (VIT D3) 1000 UNIT TAB PO SCH (08:54)
[2017-05-03] MEDS: CIPROFLOXACIN 500 MG TAB PO SCH ×2 (08:55→21:02)
[2017-05-03] MEDS: DIVALPROEX SODIUM E.R. 500 MG TAB PO SCH ×2 (08:55→21:02)
[2017-05-03] MEDS: DIVALPROEX SODIUM E.R. 250 MG TAB PO SCH ×2 (08:56→21:02)
[2017-05-03] MEDS: traZODone HCL 100 MG TAB PO SCH ×2 (08:57→21:02)
[2017-05-03] MEDS: ESCITALOPRAM OXALATE 20 MG TAB PO SCH (08:57)
[2017-05-03] MEDS ORDERED: DIATRIZOATE MEGLUM/DIATRIZOATE SOD 9 ML CUP PO ONE (11:45)
--- NOTE | 2017-05-03 12:14 | HHI.PYPN ---
Subjective Chief Complaint: behavioral disturbance following traumatic brain injury Remarks Patient seen and examined. Chart reviewed. No ETOs required overnight. Case discussed with nursing staff. Patient is for CT of the abdomen today. Hospitalist and GI notes reviewed. On my examination today, the patient is alert and calm. He remains with one to one sitter. He verbalizes short, chiefly one-word answers today. He denies complaints of pain. No other complaints. Review of Systems ROS Limitations: Poor Historian Other Limited ROS as patient is poor historian Mental Status Examination Appearance: Disheveled Consciousness: Alert Orientation: Person Motor Activity: Other (no abnormal motor movements noted) Speech: Other (chiefly monosyllabic answers) Language: Other (inadequate) Fund of Knowledge: Inadequate Attention and Concentration: Inadequate Memory: Impaired Mood: Other (calm) Affect: Blunt Thought Process & Associations: Other (limited sample) Thought Content: Other (poverty of thought) Hallucination Type: None Delusion Type: None Suicidal Ideation: No (no SI voiced) Homicidal Ideation: No (no HI voiced) Insight: Poor Judgment: Poor Results Labs Labs reviewed. Vitals/IOs Vital Signs Date Time Temp Pulse Resp B/P (MAP) Pulse Ox O2 Delivery O2 Flow Rate FiO2 05/03/17 06:50 98.0 72 18 144/72 (96) 97 Intake and Output 05/03/17 05/03/17 05/04/17 08:00 16:00 00:00 Intake Total 360 ml 360 ml Balance 360 ml 360 ml Assessment & Plan Problem List: (1) Intermittent explosive disorder ICD Codes: F63.81 - Intermittent explosive disorder (2) History of traumatic brain injury ICD Codes: Z87.820 - Personal history of traumatic brain injury Assessment & Plan At ammonia level onto this morning's labs to ensure that the patient is not experiencing marked hyperammonemia now that Carnitor has been held to try to ameliorate loose stools. There is no evidence of worsened mental status to suggest hyperammonemic encephalopathy in this patient at this time. Continue to monitor on an inpatient unit. Follow-up CT of the abdomen. Continue other medications and care as ordered. Justification for Cont. Inpt. Risk for decompensation in less restrictive environment. Discharge Planning Placement. Request HC Surrog/Guard Advoc?: Yes Josue Ibrahim MD May 03, 2017 12:14
--- NOTE | 2017-05-03 13:03 | HHI.GIFU ---
Subjective Remarks Pt in day room, in no apparent distress, no complaints at this time. One BM documented since yesterday, diarrhea seems to be improving. (Linda Lynne) Objective Vitals I&O Vital Signs Date Time Temp Pulse Resp B/P (MAP) Pulse Ox O2 Delivery O2 Flow Rate FiO2 05/03/17 06:50 98.0 72 18 144/72 (96) 97 05/02/17 18:28 98.6 72 18 126/76 (93) 98 I/O 05/02/17 05/02/17 05/02/17 05/03/17 05/03/17 05/03/17 06:59 14:59 22:59 06:59 14:59 22:59 Intake Total 0 ml 360 ml 480 ml 720 ml Balance 0 ml 360 ml 480 ml 720 ml Intake Oral 0 ml 360 ml 480 ml 720 ml # Voids 4 3 3 # Bowel Movements 4 1 Laboratory Date/Time Source Procedure Growth Status 05/01/17 18:39 Urine Clean Catch Urine Culture - Preliminary Gram Negative Bebeto Resulted Imaging Last Impressions Abdomen X-Ray 04/30/17 0000 Signed Impressions: Service Date/Time: Sunday, April 30, 2017 16:58 - CONCLUSION: Scattered solid stool negative for an acute process. Jonel Mark MD FACR Physical Exam HEENT: Normocephalic; atraumatic CHEST: Even/unlabored CARDIAC: RRR ABDOMEN: Distended, soft, nontender, bowel sounds active EXTREMITIES: No clubbing, cyanosis, or edema. SKIN: Normal; no rash; no jaundice. CHEESE MAKER: Awake, minimal verbalization (Linda Lynne) Assessment and Plan Plan ASSESSMENT - diarrhea - multiple loose watery stools daily. unclear etiology, some reports of abd pain but difficult to assess, limited hx. c diff neg 04/25, repeat pending. Do not seen him cooperating with bowel prep but certainly colonoscopy is option. labs unremarkable other than elevated NH, he is not lethargic. will get stool studies, CT if he can cooperate. (05/03) --> C diff negative. Stool culture and ova and parasites pending. Diarrhea seems to be improving, one BM documented in the past 12 hours. Pt with no GI complaints at this time. CT abdomen still pending. PLAN - Stool studies pending - CT abdomen and pelvis - EDILMA - Further recommendations to follow based on clinical course Pt has been seen and examined by myself and Dr. Mane and this note is written on his behalf (Linda Lynne) Physician Comments Seen and examined with GRACE, feeling better. CT abd/pelvis normal. Stool studies -p. (Virgen Burgess MD) Linda Lynne May 03, 2017 13:03 Virgen Burgess MD May 04, 2017 14:43
[2017-05-03 15:22] LABS: BICARBONATE 27.1 MEQ/L (21.0-32.0); CALCIUM 8.3 MG/DL (8.5-10.1); CREATININE 0.93 MG/DL (0.60-1.30)
[2017-05-03] MEDS ORDERED: IOHEXOL 350 MG/ML 10 ML VIAL (for RAD DIAG) IVCONTRAST ONE (16:02)
--- NOTE | 2017-05-03 16:43 | RADRPT ---
EXAM DATE/TIME: 05/03/2017 15:39 [facility] COMPARISON: No previous studies available for comparison. INDICATIONS : Diarrhea. IV CONTRAST: 92 cc Omnipaque 350 (iohexol) IV ORAL CONTRAST: Prescribed oral contrast ingested. RADIATION DOSE: 23.24 CTDIvol (mGy) ; Patient body habitus; Patient motion MEDICAL HISTORY : Stroke. Hernia, hiatal. Congestive heart failure. SURGICAL HISTORY : None. ENCOUNTER: Initial ACUITY: 1 day PAIN SCALE: Non-responsive LOCATION: Bilateral abdomen TECHNIQUE: Volumetric scanning of the abdomen and pelvis was performed. Using automated exposure control and ad justment of the mA and/or kV according to patient size, radiation dose was kept as low as reasonably achievable to obtain optimal diagnostic quality images. DICOM format image data is available electro nically for review and comparison. FINDINGS: Out of field artifact due to patient exceeding the field of view the scan. LOWER LUNGS: The visualized lower lungs are clear. LIVER: Homogeneous density without lesion. There is no dilation of the biliary tree. No calcified gallston es. SPLEEN: Normal size without lesion. PANCREAS: Within normal limits. KIDNEYS: Normal in size and shape. There is no mass, stone or hydronephrosis. ADRENAL GLANDS: Within normal limits. VASCULAR: There is no aortic aneurysm. BOWEL/MESENTERY: No dilated loops of small or large bowel. ABDOMINAL WALL: Within normal limits. RETROPERITONEUM: There is no lymphadenopathy. BLADDER: No wall thickening or mass. REPRODUCTIVE: Within normal limits. INGUINAL: There is no lymphadenopathy or hernia. MUSCULOSKELETAL: Within normal limits for patient age. CONCLUSION: Negative CT abdomen/pelvis with contrast. Rommel Jarrett MD on May 03, 2017 at 16:39 Board Certified Radiologist. This report was verified electronically.
[2017-05-03 18:00] VITALS: BP 130/66; PULSE 65; RESP 18; TEMP 98; O2SAT 97
[2017-05-03] MEDS: clonazePAM 1 MG TAB PO SCH (21:02)
--- NOTE | 2017-05-04 07:55 | HHI.PYPN ---
Subjective Chief Complaint: behavioral disturbance following traumatic brain injury Remarks Patient seen and examined. Chart reviewed. Case discussed with nursing staff and with one to one sitter. Case discussed in treatment team. For me today, patient is calm, presently sleeping. Per sitter, the patient has been no behavioral problem during the. He has been sitting with the patient. No evident medication side effects. No signs of physical distress. Review of Systems ROS Limitations: Poor Historian Other Limited ROS today Mental Status Examination Appearance: Disheveled Consciousness: Asleep Motor Activity: Other (no motoric abnormalities noted) Affect: Blunt Insight: Poor Judgment: Poor Mental Status Exam Remarks Limited MSE as patient is presently asleep Results Labs Labs reviewed. Ammonia level decreased despite being off Carnitor. Depakote level remains within the therapeutic range, although this level was obtained post dose and so is likely artificially elevated. Test 05/03/17 14:27 05/03/17 16:47 Blood Urea Nitrogen 14 MG/DL Creatinine 0.93 MG/DL Random Glucose 139 MG/DL Calcium Level 8.3 MG/DL Sodium Level 138 MEQ/L Potassium Level 4.0 MEQ/L Chloride Level 103 MEQ/L Carbon Dioxide Level 27.1 MEQ/L Anion Gap 8 MEQ/L Estimat Glomerular Filtration Rate 89 ML/MIN Valproic Acid (Depakene) Level 92 MCG/ML Ammonia 49 MCMOL/L Date/Time Source Procedure Growth Status 05/01/17 18:39 Urine Clean Catch Urine Culture - Preliminary Gram Negative Bebeto Resulted Last Impressions Abdomen/Pelvis CT 05/02/17 0000 Signed Impressions: Service Date/Time: Wednesday, May 03, 2017 15:39 - CONCLUSION: Negative CT abdomen/pelvis with contrast. Rommel Jarrett MD Abdomen X-Ray 04/30/17 0000 Signed Impressions: Service Date/Time: Sunday, April 30, 2017 16:58 - CONCLUSION: Scattered solid stool negative for an acute process. Jonel Mark MD FACR Vitals/IOs Vital Signs Date Time Temp Pulse Resp B/P (MAP) Pulse Ox O2 Delivery O2 Flow Rate FiO2 05/03/17 18:00 98.0 65 18 130/66 (87) 97 Assessment & Plan Problem List: (1) Intermittent explosive disorder ICD Codes: F63.81 - Intermittent explosive disorder (2) History of traumatic brain injury ICD Codes: Z87.820 - Personal history of traumatic brain injury Assessment & Plan Continue current psychotropics as ordered. Hospitalist and GI and put noted and appreciated. Continue other medications and care as ordered. Justification for Cont. Inpt. Risk for decompensation in less restrictive environment. Discharge Planning Placement. Case discussed with counselor. Request HC Surrog/Guard Advoc?: Yes Josue Ibrahim MD May 04, 2017 07:55
[2017-05-04] MEDS: CHOLECALCIFEROL (VIT D3) 1000 UNIT TAB PO SCH (09:15)
[2017-05-04] MEDS: DIVALPROEX SODIUM E.R. 250 MG TAB PO SCH ×2 (09:15→21:22)
[2017-05-04] MEDS: LACTOBACILLUS ACIDOPHILUS TAB PO SCH ×3 (09:15→17:27)
[2017-05-04] MEDS: traZODone HCL 100 MG TAB PO SCH ×2 (09:15→21:21)
[2017-05-04] MEDS: CIPROFLOXACIN 500 MG TAB PO SCH ×2 (09:15→21:22)
[2017-05-04] MEDS: ESCITALOPRAM OXALATE 20 MG TAB PO SCH (09:15)
[2017-05-04] MEDS: BENZTROPINE MESYLATE 1 MG TAB PO SCH ×2 (09:15→21:21)
[2017-05-04] MEDS: DIVALPROEX SODIUM E.R. 500 MG TAB PO SCH ×2 (09:16→21:21)
[2017-05-04] MEDS: AQUAPHOR OINT 50 GM TUBE TOPICAL SCH ×2 (09:16→21:23)
--- NOTE | 2017-05-04 13:26 | HHI.PR ---
Subjective Remarks in no acute distress. afebrile. Objective Vitals Vital Signs Date Time Temp Pulse Resp B/P (MAP) Pulse Ox O2 Delivery O2 Flow Rate FiO2 05/03/17 18:00 98.0 65 18 130/66 (87) 97 I/O 05/03/17 05/03/17 05/03/17 05/04/17 05/04/17 05/04/17 07:00 15:00 23:00 07:00 15:00 23:00 Intake Total 1820 ml 2880 ml 600 ml Output Total 2 ml Balance 1820 ml 2878 ml 600 ml Intake Oral 1820 ml 2880 ml 600 ml Output Urine Total 2 ml # Voids 3 5 5 # Bowel Movements 2 Result Diagram: 05/03/17 1427 Imaging Last Impressions Abdomen/Pelvis CT 05/02/17 0000 Signed Impressions: Service Date/Time: Wednesday, May 03, 2017 15:39 - CONCLUSION: Negative CT abdomen/pelvis with contrast. Rommel Jarrett MD Abdomen X-Ray 04/30/17 0000 Signed Impressions: Service Date/Time: Sunday, April 30, 2017 16:58 - CONCLUSION: Scattered solid stool negative for an acute process. Jonel Mark MD FACR Objective Remarks GENERAL: This is a well-nourished, well-developed patient, in no apparent distress. CARDIOVASCULAR: Regular rate and regular rhythm without murmurs, gallops, or rubs. RESPIRATORY: Clear to auscultation. Breath sounds equal bilaterally. No wheezes , rales, or rhonchi. GASTROINTESTINAL: Abdomen soft, non-tender, nondistended. Normal, active bowel sounds MUSCULOSKELETAL: Extremities without clubbing, cyanosis, or edema. NEURO: Alert & Oriented x4 to person, place, time, situation. Moves all ext x4 Medications and IVs Inpatient Medications Acetaminophen (Tylenol) 650 mg Q4H PRN PO Pain 1-10 or Temp >101F Last administered on 05/02/17at 21:03; Start 03/16/17 at 11:15 Al Hydrox/Mg Hydrox/Simethicone (Mag-Al Plus Susp Liq) 30 ml Q6H PRN PO DYSPEPSIA; Start 03/16/17 at 11:15 Aripiprazole (Abilify) 20 mg BID PO Last administered on 2/20/18at 09:15; Start 04/05/17 at 21:00 Benztropine Mesylate (Cogentin) 1 mg Q12HR PO Last administered on 05/04/17at 09 :15; Start 04/15/17 at 21:00 Chlorpromazine (Thorazine) 50 mg DAILY@1200 PO Last administered on 05/04/17at 12:00; Start 04/29/17 at 12:00 Chlorpromazine HCl (Thorazine Inj) 50 mg STAT STAT IM Last administered on at 15:01; Start 04/28/17 at 14:48; Stop 04/28/17 at 14:53; Status DC Cholecalciferol (Vitamin D3) 1,000 units DAILY PO Last administered on 09:15; Start 03/18/17 at 09:00 Ciprofloxacin (Cipro) 500 mg Q12HR PO Last administered on 05/04/17 09:15; Start 05/02/17 at 09:00 Clonazepam (KlonoPIN) 1 mg HS PO Last administered on 05/03/17at 21:02; Start at 21:00 Dextrose (D50w (Vial) Inj) 50 ml UNSCH PRN IV PUSH HYPOGLYCEMIA-SEE COMMENTS; Start 03/16/17 at 12:15 Diatrizoate Meglum/ Diatrizoate Sod ( Gastroview Liq) 18 ml ONCE ONCE PO Last administered on 05/03/17at 12:33; Start 05/03/17 at 11:45; Stop 05/03/17 at 12:35; Status DC Diphenhydramine HCl (Benadryl Inj) 50 mg NOW ONCE IM ; Start 04/06/17 at 10:45 ; Stop 04/06/17 at 10:46; Status DC Divalproex Sodium (Depakote Er) 250 mg BID PO Last administered on 05/04/17 09 :15; Start 04/05/17 at 21:00; Status Future hold Emollient Ointment (Aquaphor Oint) 1 applic Q12HR TOPICAL Last administered on 05/04/17 09:16; Start 03/28/17 at 21:00 Escitalopram Oxalate (Lexapro) 20 mg DAILY PO Last administered on 05/04/17at 09 :15; Start 03/17/17 at 09:00 Glucagon (Glucagon Inj) 1 mg UNSCH PRN OTHER HYPOGLYCEMIA-SEE COMMENTS; Start 03/16/17 at 12:15 Haloperidol Decanoate (Haldol Decanoate Inj) 10 mg NOW IM ; Start 04/03/17 at 16 :30; Stop 04/03/17 at 17:14; Status DC Haloperidol Lactate (Haldol Inj) 5 mg ONCE ONCE IM Last administered on at 01:15; Start 04/15/17 at 01:15; Stop 04/15/17 at 01:16; Status DC Influenza Virus Vaccine (Flu (Quadrivalent) Vaccine Inj) 0.5 ml ONCE ONCE IM Last administered on 04/03/17at 08:54; Start 04/03/17 at 10:00; Stop 04/03/17 at 10:01; Status DC Insulin Aspart (NovoLOG SUPPLEMENTAL SCALE) 1 ACHS SLIDING SCALE SQ ; Start 03/16/17 at 17:00; Stop 03/17/17 at 14:11; Status DC Lactobacillus Acidophilus (Lactinex) 1 tab TID PO Last administered on at 12:16; Start 04/30/17 at 13:00 Levocarnitine (Carnitor 10% Liq) 9 ml TID PO Last administered on 04/29/17at 12: 18; Start 04/13/17 at 18:00; Status Future Hold Loperamide HCl (Imodium) 2 mg Q4H PRN PO DIARRHEA Last administered on at 17:26; Start 04/26/17 at 12:45; Status Future Hold Lorazepam (Ativan Inj) 2 mg ONCE ONCE IM Last administered on 04/15/17at 01:15; Start 04/15/17 at 01:15; Stop 04/15/17 at 01:16; Status DC Lorazepam (Ativan) 1 mg Q6H PRN PO MODERATE TO SEVERE ANXIETY Last administered on 05/03/17at 14:11; Start 03/16/17 at 11:15 Magnesium Hydroxide (Milk Of Magnesia Liq) 30 ml DAILY PRN PO CONSTIPATION; Start 03/16/17 at 11:15 Olanzapine (ZyPREXA INJ) 10 mg ONCE ONCE IM Last administered on 04/08/17at 18: 15; Start 04/08/17 at 18:15; Stop 04/08/17 at 18:16; Status DC Olanzapine (ZyPREXA) 30 mg ONCE ONCE PO Last administered on 03/13/17t 11:23 ; Start 03/13/17 at 09:15; Stop 03/13/17 at 09:16; Status DC Pneumococcal Polyvalent Vaccine (Pneumovax-23 Inj) 25 mcg ONCE ONCE IM Last administered on 04/03/17at 08:52; Start 04/03/17 at 10:00; Stop 04/03/17 at 10:01 ; Status DC Trazodone HCl (Desyrel) 100 mg BID PO Last administered on 05/04/17at 09:15; Start 03/13/17 at 21:00 Ziprasidone (Geodon Inj) 20 mg NOW ONCE IM ; Start 04/06/17 at 10:45; Stop at 10:46; Status DC A/P Assessment and Plan History of traumatic brain injury with neurocognitive deficit Behavioral disturbance - Management per psychiatric team - Diarrhea Hyperammonemia - Patient does not appear toxic. Hydrated. Afebrile. Hemodynamically stable. - ?medication side effect/Depakote. Carnitor held by primary team since . - C. difficile negative 04/25/2017. Repeat C. difficile pending. - Continue lactobacillus TID - GI following, appreciate assistance. -CT of the abdomen with no acute abnormality. UTI -Urinalysis positive for proteinuria, trace ketones, small blood, positive nitrates, large leukocytes and moderate bacteria. -UC with ESBL e-coli. -Started on p.o. Cipro -will repeat UA-might need to change to IV antibiotic if UA still positive for UTI. Prediabetes - Hemoglobin A1c 6.2 03/17/17 - Suspect secondary to Zyprexa use. Off Zyprexa. Random glucose 128. Vitamin D deficiency - Vitamin D level 15.8 02/20/17 - Continue vitamin D supplementation - Patient will need to follow-up with PCP as outpatient in 3 months to recheck vitamin D level DVT prophylaxis -Patient is ambulatory Lena Fonseca MD May 04, 2017 13:26
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
--- NOTE | 2017-05-04 14:13 | HHI.GIFU ---
Subjective Remarks Pt examined in room. No GI complaints at this time. (Linda Lynne) Objective Vitals I&O Vital Signs Date Time Temp Pulse Resp B/P (MAP) Pulse Ox O2 Delivery O2 Flow Rate FiO2 05/03/17 18:00 98.0 65 18 130/66 (87) 97 I/O 05/03/17 05/03/17 05/03/17 05/04/17 05/04/17 05/04/17 07:00 15:00 23:00 07:00 15:00 23:00 Intake Total 1820 ml 2880 ml 600 ml Output Total 2 ml Balance 1820 ml 2878 ml 600 ml Intake Oral 1820 ml 2880 ml 600 ml Output Urine Total 2 ml # Voids 3 5 5 # Bowel Movements 2 Laboratory Laboratory Tests Test 05/03/17 14:27 05/03/17 16:47 Blood Urea Nitrogen 14 Creatinine 0.93 Random Glucose 139 Calcium Level 8.3 Sodium Level 138 Potassium Level 4.0 Chloride Level 103 Carbon Dioxide Level 27.1 Anion Gap 8 Estimat Glomerular Filtration Rate 89 Valproic Acid (Depakene) Level 92 Ammonia 49 Date/Time Source Procedure Growth Status 05/01/17 18:39 Urine Clean Catch Urine Culture - Final Escherichia Coli Esbl Positive Complete Imaging Last Impressions Abdomen/Pelvis CT 05/02/17 0000 Signed Impressions: Service Date/Time: Wednesday, May 03, 2017 15:39 - CONCLUSION: Negative CT abdomen/pelvis with contrast. Rommel Jarrett MD Abdomen X-Ray 04/30/17 0000 Signed Impressions: Service Date/Time: Sunday, April 30, 2017 16:58 - CONCLUSION: Scattered solid stool negative for an acute process. Jonel Mark MD FACR Physical Exam HEENT: Normocephalic; atraumatic CHEST: Even/unlabored ABDOMEN: Soft, nontender, bowel sounds active EXTREMITIES: No clubbing, cyanosis, or edema. SKIN: Normal; no rash; no jaundice. [employer]: Awake, minimal verbalization (Linda Lynne) Assessment and Plan Plan ASSESSMENT - diarrhea - multiple loose watery stools daily. unclear etiology, some reports of abd pain but difficult to assess, limited hx. c diff neg 04/25, repeat pending. Do not seen him cooperating with bowel prep but certainly colonoscopy is option. labs unremarkable other than elevated NH, he is not lethargic. will get stool studies, CT if he can cooperate. (05/03) --> C diff negative. Stool culture and ova and parasites pending. Diarrhea seems to be improving, one BM documented in the past 12 hours. Pt with no GI complaints at this time. CT abdomen still pending. (05/04) C. Diff negative. Pt denies any continued diarrhea. Two BMs documented from yesterday. Abdominal exam benign. CT abdomen and pelvis with no abnormalities. Diarrhea could have been secondary to medication. GI will sign off, please reconsult as needed Have pt follow up with GI after discharge Pt has been seen and examined by myself and Dr. Mane and this note is written on his behalf (Linda Lynen) Physician Comments Seen and examined with GRACE, no abdominal pain, no diarrhea reported. CT -ve. Stool studies-p. GI will sign off, reconsult as needed. Colonoscopy as oupatient. Thank you (Virgen Burgess MD) Linda Lynne May 04, 2017 14:13 Virgen Burgess MD May 04, 2017 15:18
[2017-05-04 15:53] LABS: BACTERIA, URINE OCC /hpf; BILIRUBIN, URINE NEG (NEG); BLOOD, URINE NEG (NEG); GLUCOSE,URINE NEG (NEG); KETONE, URINE TRACE mg/dL (NEG); MUCUS URINE FEW /lpf (OCC); NITRITE,URINE NEG (NEG); PH, URINE 7.5 (5.0-8.5); URINE COLOR YELLOW (YELLW/STRAW); URINE LEUKOCYTE ESTERASE LARGE (NEG)
[2017-05-04 18:00] VITALS: BP 106/57; PULSE 82; RESP 18; TEMP 98.6; O2SAT 95
[2017-05-04] MEDS: clonazePAM 1 MG TAB PO SCH (21:22)
[2017-05-05] MEDS: BENZTROPINE MESYLATE 1 MG TAB PO SCH ×2 (08:08→20:10)
[2017-05-05] MEDS: traZODone HCL 100 MG TAB PO SCH ×2 (08:08→20:11)
[2017-05-05] MEDS: LACTOBACILLUS ACIDOPHILUS TAB PO SCH ×3 (08:08→17:47)
[2017-05-05] MEDS: CIPROFLOXACIN 500 MG TAB PO SCH ×2 (08:08→20:10)
[2017-05-05] MEDS: DIVALPROEX SODIUM E.R. 250 MG TAB PO SCH ×2 (08:08→20:11)
[2017-05-05] MEDS: CHOLECALCIFEROL (VIT D3) 1000 UNIT TAB PO SCH (08:08)
[2017-05-05] MEDS: ESCITALOPRAM OXALATE 20 MG TAB PO SCH (08:08)
[2017-05-05] MEDS: DIVALPROEX SODIUM E.R. 500 MG TAB PO SCH ×2 (08:09→20:11)
[2017-05-05] MEDS: AQUAPHOR OINT 50 GM TUBE TOPICAL SCH ×2 (08:09→21:00)
--- NOTE | 2017-05-05 12:18 | HHI.PYPN ---
Subjective Chief Complaint: behavioral disturbance following traumatic brain injury Remarks Patient seen and examined. Chart reviewed. Case discussed with nursing staff. On my examination today, I find the patient in the atrium area with his sitter. He is playing with a basketball. He is awake and alert. He answers questions in monosyllables. Oriented to person only. Mental status is at recent baseline. No physical complaints. No loose stools per sitter. Review of Systems ROS Limitations: Poor Historian Other Limited ROS Mental Status Examination Appearance: Disheveled Consciousness: Alert Orientation: Person Motor Activity: Normal gait, Other (no abnormal motor movements noted) Speech: Slow Language: Other (monosyllables) Fund of Knowledge: Inadequate Attention and Concentration: Inadequate Memory: Impaired Mood: Other (calm) Affect: Blunt Thought Process & Associations: Disorganized Thought Content: Other (poverty of thought) Hallucination Type: None Delusion Type: None Suicidal Ideation: No (no SI voiced) Homicidal Ideation: No (no HI voiced) Insight: Poor Judgment: Poor Results Labs Test 05/04/17 15:15 Urine Color YELLOW Urine Turbidity HAZY Urine pH 7.5 Urine Specific [place] 1.022 Urine Protein 30 mg/dL Urine Glucose (UA) NEG mg/dL Urine Ketones TRACE mg/dL Urine Occult Blood NEG Urine Nitrite NEG Urine Bilirubin NEG Urine Urobilinogen LESS THAN 2.0 MG/DL Urine Leukocyte Esterase LARGE Urine RBC 5 /hpf Urine WBC 141 /hpf Urine Bacteria OCC /hpf Urine Mucus FEW /lpf Microscopic Urinalysis Comment CULTURE INDICATED Date/Time Source Procedure Growth Status 05/04/17 15:15 Urine Clean Catch Urine Culture Pending Received Labs reviewed. Original urine culture is growing out ESBL positive Escherichia coli resistant to Cipro but repeat urine culture is pending. Defer to hospitalist regarding antibiotic management. Vitals/IOs Vital Signs Date Time Temp Pulse Resp B/P (MAP) Pulse Ox O2 Delivery O2 Flow Rate FiO2 05/04/17 18:00 98.6 82 18 106/57 (73) 95 Intake and Output 05/05/17 05/05/17 05/06/17 08:00 16:00 00:00 Intake Total 0 ml Balance 0 ml Assessment & Plan Problem List: (1) Intermittent explosive disorder ICD Codes: F63.81 - Intermittent explosive disorder (2) History of traumatic brain injury ICD Codes: Z87.820 - Personal history of traumatic brain injury Assessment & Plan Continue current psychotropics as ordered. Continue to monitor on the inpatient unit. Continue one-to-one for behavioral redirection. Hospitalist and GI input noted and appreciated. Continue other medications and care as ordered. Justification for Cont. Inpt. Risk for decompensation in less restrictive environment. Discharge Planning Counselor supervisor powdered sugar informs me that the patient has been accepted by [facility] with an admission date of 05/14/17. Request HC Surrog/Guard Advoc?: Yes Josue Ibrahim MD May 05, 2017 12:18
--- NOTE | 2017-05-05 13:17 | HHI.PR ---
Subjective Remarks in no distress. no fever. clinically the same. d/w the RN and no acute issues over night. Objective Vitals Vital Signs Date Time Temp Pulse Resp B/P (MAP) Pulse Ox O2 Delivery O2 Flow Rate FiO2 05/04/17 18:00 98.6 82 18 106/57 (73) 95 I/O 05/04/17 05/04/17 05/04/17 05/05/17 05/05/17 05/05/17 07:00 15:00 23:00 07:00 15:00 23:00 Intake Total 1620 ml 480 ml 0 ml Balance 1620 ml 480 ml 0 ml Intake Oral 1620 ml 480 ml 0 ml # Voids 6 1 # Bowel Movements 2 Result Diagram: 05/03/17 1427 Imaging Last Impressions Abdomen/Pelvis CT 05/02/17 0000 Signed Impressions: Service Date/Time: Wednesday, May 03, 2017 15:39 - CONCLUSION: Negative CT abdomen/pelvis with contrast. Rommel Jarrett MD Abdomen X-Ray 04/30/17 0000 Signed Impressions: Service Date/Time: Sunday, April 30, 2017 16:58 - CONCLUSION: Scattered solid stool negative for an acute process. Jonel Mark MD FACR Objective Remarks GENERAL: This is a well-nourished, well-developed patient, in no apparent distress. CARDIOVASCULAR: Regular rate and regular rhythm without murmurs, gallops, or rubs. RESPIRATORY: Clear to auscultation. Breath sounds equal bilaterally. No wheezes , rales, or rhonchi. GASTROINTESTINAL: Abdomen soft, non-tender, nondistended. Normal, active bowel sounds MUSCULOSKELETAL: Extremities without clubbing, cyanosis, or edema. NEURO: Alert & Oriented x4 to person, place, time, situation. Moves all ext x4 Medications and IVs Inpatient Medications Acetaminophen (Tylenol) 650 mg Q4H PRN PO Pain 1-10 or Temp >101F Last administered on 05/02/17at 21:03; Start 03/16/17 at 11:15 Al Hydrox/Mg Hydrox/Simethicone (Mag-Al Plus Susp Liq) 30 ml Q6H PRN PO DYSPEPSIA; Start 03/16/17 at 11:15 Aripiprazole (Abilify) 20 mg BID PO Last administered on 05/05/17at 08:10; Start 04/05/17 at 21:00 Benztropine Mesylate (Cogentin) 1 mg Q12HR PO Last administered on 05/05/17at 08 :08; Start 04/15/17 at 21:00 Chlorpromazine (Thorazine) 50 mg DAILY@1200 PO Last administered on 05/05/17at 12:00; Start 04/29/17 at 12:00 Chlorpromazine HCl (Thorazine Inj) 50 mg STAT STAT IM Last administered on at 15:01; Start 04/28/17 at 14:48; Stop 04/28/17 at 14:53; Status DC Cholecalciferol (Vitamin D3) 1,000 units DAILY PO Last administered on 08:08; Start 03/18/17 at 09:00 Ciprofloxacin (Cipro) 500 mg Q12HR PO Last administered on 05/05/17at 08:08; Start 05/02/17 at 09:00 Clonazepam (KlonoPIN) 1 mg HS PO Last administered on 05/04/17at 21:22; Start at 21:00 Dextrose (D50w (Vial) Inj) 50 ml UNSCH PRN IV PUSH HYPOGLYCEMIA-SEE COMMENTS; Start 03/16/17 at 12:15 Diatrizoate Meglum/ Diatrizoate Sod ( Gastroview Liq) 18 ml ONCE ONCE PO Last administered on 05/03/17at 12:33; Start 05/03/17 at 11:45; Stop 05/03/17 at 12:35; Status DC Diphenhydramine HCl (Benadryl Inj) 50 mg NOW ONCE IM ; Start 04/06/17 at 10:45 ; Stop 04/06/17 at 10:46; Status DC Divalproex Sodium (Depakote Er) 250 mg BID PO Last administered on 05/05/17at 08 :08; Start 04/05/17 at 21:00; Status Future hold Emollient Ointment (Aquaphor Oint) 1 applic Q12HR TOPICAL Last administered on 05/05/17 08:09; Start 03/28/17 at 21:00 Escitalopram Oxalate (Lexapro) 20 mg DAILY PO Last administered on 05/05/17at 08 :08; Start 03/17/17 at 09:00 Glucagon (Glucagon Inj) 1 mg UNSCH PRN OTHER HYPOGLYCEMIA-SEE COMMENTS; Start 03/16/17 at 12:15 Haloperidol Decanoate (Haldol Decanoate Inj) 10 mg NOW IM ; Start 04/03/17 at 16 :30; Stop 04/03/17 at 17:14; Status DC Haloperidol Lactate (Haldol Inj) 5 mg ONCE ONCE IM Last administered on at 01:15; Start 04/15/17 at 01:15; Stop 04/15/17 at 01:16; Status DC Influenza Virus Vaccine (Flu (Quadrivalent) Vaccine Inj) 0.5 ml ONCE ONCE IM Last administered on 04/03/17at 08:54; Start 04/03/17 at 10:00; Stop 04/03/17 at 10:01; Status DC Insulin Aspart (NovoLOG SUPPLEMENTAL SCALE) 1 ACHS SLIDING SCALE SQ ; Start 03/16/17 at 17:00; Stop 03/17/17 at 14:11; Status DC Lactobacillus Acidophilus (Lactinex) 1 tab TID PO Last administered on at 12:30; Start 04/30/17 at 13:00 Levocarnitine (Carnitor 10% Liq) 9 ml TID PO Last administered on 04/29/17at 12: 18; Start 04/13/17 at 18:00; Status Future Hold Loperamide HCl (Imodium) 2 mg Q4H PRN PO DIARRHEA Last administered on at 17:26; Start 04/26/17 at 12:45; Status Future Hold Lorazepam (Ativan Inj) 2 mg ONCE ONCE IM Last administered on 04/15/17at 01:15; Start 04/15/17 at 01:15; Stop 04/15/17 at 01:16; Status DC Lorazepam (Ativan) 1 mg Q6H PRN PO MODERATE TO SEVERE ANXIETY Last administered on 05/03/17at 14:11; Start 03/16/17 at 11:15 Magnesium Hydroxide (Milk Of Magnesia Liq) 30 ml DAILY PRN PO CONSTIPATION; Start 03/16/17 at 11:15 Olanzapine (ZyPREXA INJ) 10 mg ONCE ONCE IM Last administered on 04/08/17at 18: 15; Start 04/08/17 at 18:15; Stop 04/08/17 at 18:16; Status DC Olanzapine (ZyPREXA) 30 mg ONCE ONCE PO Last administered on 03/13/17t 11:23 ; Start 03/13/17 at 09:15; Stop 03/13/17 at 09:16; Status DC Pneumococcal Polyvalent Vaccine (Pneumovax-23 Inj) 25 mcg ONCE ONCE IM Last administered on 04/03/17at 08:52; Start 04/03/17 at 10:00; Stop 04/03/17 at 10:01 ; Status DC Trazodone HCl (Desyrel) 100 mg BID PO Last administered on 05/05/17at 08:08; Start 03/13/17 at 21:00 Ziprasidone (Geodon Inj) 20 mg NOW ONCE IM ; Start 04/06/17 at 10:45; Stop at 10:46; Status DC A/P Assessment and Plan History of traumatic brain injury with neurocognitive deficit Behavioral disturbance - Management per psychiatric team - Diarrhea Hyperammonemia - Patient does not appear toxic. Hydrated. Afebrile. Hemodynamically stable. - ?medication side effect/Depakote. Carnitor held by primary team since . - C. difficile negative 04/25/2017. - Continue lactobacillus TID - GI following, appreciate assistance. -CT of the abdomen with no acute abnormality. UTI -Urinalysis positive for proteinuria, trace ketones, small blood, positive nitrates, large leukocytes and moderate bacteria. -UC with ESBL e-coli. -Started on p.o. Cipro -UA repeated- awaiting the UC. Prediabetes - Hemoglobin A1c 6.2 03/17/17 - Suspect secondary to Zyprexa use. Off Zyprexa. Random glucose 128. Vitamin D deficiency - Vitamin D level 15.8 02/20/17 - Continue vitamin D supplementation - Patient will need to follow-up with PCP as outpatient in 3 months to recheck vitamin D level DVT prophylaxis -Patient is ambulatory Lena Fonseca MD May 05, 2017 13:17
[2017-05-05] MEDS: LORazepam 1 MG TAB PO PRN (13:38)
[2017-05-05 19:15] VITALS: BP 113/77; RESP 20; O2SAT 95
[2017-05-05] MEDS: clonazePAM 1 MG TAB PO SCH (20:10)
[2017-05-06 05:26] VITALS: BP 115/56; PULSE 74; RESP 16; TEMP 98.2; O2SAT 98
[2017-05-06] MEDS: AQUAPHOR OINT 50 GM TUBE TOPICAL SCH ×2 (09:00→21:00)
[2017-05-06] MEDS: DIVALPROEX SODIUM E.R. 250 MG TAB PO SCH ×2 (09:22→20:02)
[2017-05-06] MEDS: DIVALPROEX SODIUM E.R. 500 MG TAB PO SCH ×2 (09:23→20:02)
[2017-05-06] MEDS: ESCITALOPRAM OXALATE 20 MG TAB PO SCH (09:23)
[2017-05-06] MEDS: LACTOBACILLUS ACIDOPHILUS TAB PO SCH ×3 (09:23→18:41)
[2017-05-06] MEDS: CHOLECALCIFEROL (VIT D3) 1000 UNIT TAB PO SCH (09:24)
[2017-05-06] MEDS: traZODone HCL 100 MG TAB PO SCH ×2 (09:24→20:03)
[2017-05-06] MEDS: BENZTROPINE MESYLATE 1 MG TAB PO SCH ×2 (09:24→20:03)
[2017-05-06] MEDS: CIPROFLOXACIN 500 MG TAB PO SCH (09:24)
--- NOTE | 2017-05-06 11:21 | HHI.PYPN ---
Subjective Chief Complaint: behavioral disturbance following traumatic brain injury Remarks Patient seen and examined. Chart reviewed. Case discussed with nursing staff. Case discussed with 1:1 sitter. On my exam, patient is at his recent baseline. He complains of pain, but when asked to localize this pain says "my body." He does not appear to be in any physical distress. No other complaints. Review of Systems ROS Limitations: Poor Historian Except as stated in HPI: all other systems reviewed are Neg Mental Status Examination Appearance: Disheveled Consciousness: Alert Orientation: Person Motor Activity: Other (no motor abnormalities noted) Speech: Slow Language: Other (brief answers) Fund of Knowledge: Inadequate Attention and Concentration: Inadequate Memory: Impaired Mood: Other (calm) Affect: Blunt Thought Process & Associations: Disorganized Thought Content: Other (poverty of thought) Hallucination Type: None Delusion Type: None Suicidal Ideation: No (no SI voiced) Homicidal Ideation: No (no HI voiced) Insight: Poor Judgment: Poor Results Labs Date/Time Source Procedure Growth Status 05/04/17 15:15 Urine Clean Catch Urine Culture - Final <10,000 CFU/ML MIXED GRAM POSITIVE FL... Complete Labs reviewed. Repeat urine culture growing out mixed eder. Vitals/IOs Vital Signs Date Time Temp Pulse Resp B/P (MAP) Pulse Ox O2 Delivery O2 Flow Rate FiO2 05/06/17 05:26 98.2 74 16 115/56 (75) 98 Intake and Output 05/06/17 05/06/17 05/07/17 08:00 16:00 00:00 Intake Total 360 ml Balance 360 ml Assessment & Plan Problem List: (1) Intermittent explosive disorder ICD Codes: F63.81 - Intermittent explosive disorder (2) History of traumatic brain injury ICD Codes: Z87.820 - Personal history of traumatic brain injury Assessment & Plan Continue to monitor on the inpatient unit. Hospitalist input noted and appreciated. Continue other medications and care as ordered. Justification for Cont. Inpt. Risk for decompensation in less restrictive environment Discharge Planning State hospital admission date 05/14/2017. Request HC Surrog/Guard Advoc?: Yes Josue Ibrahim MD May 06, 2017 11:21
--- NOTE | 2017-05-06 13:38 | HHI.PR ---
Subjective Remarks in no acute distress. afebrile. d/w the RN and no acute issues over night. Objective Vitals Vital Signs Date Time Temp Pulse Resp B/P (MAP) Pulse Ox O2 Delivery O2 Flow Rate FiO2 05/06/17 05:26 98.2 74 16 115/56 (75) 98 05/05/17 19:15 20 113/77 (89) 95 I/O 05/05/17 05/05/17 05/05/17 05/06/17 05/06/17 05/06/17 07:00 15:00 23:00 07:00 15:00 23:00 Intake Total 0 ml 360 ml Balance 0 ml 360 ml Intake Oral 0 ml 360 ml # Voids 1 Result Diagram: 05/03/17 1427 Imaging Last Impressions Abdomen/Pelvis CT 05/02/17 0000 Signed Impressions: Service Date/Time: Wednesday, May 03, 2017 15:39 - CONCLUSION: Negative CT abdomen/pelvis with contrast. Rommel Jarrett MD Abdomen X-Ray 04/30/17 0000 Signed Impressions: Service Date/Time: Sunday, April 30, 2017 16:58 - CONCLUSION: Scattered solid stool negative for an acute process. Jonel Mark MD FACR Objective Remarks GENERAL: This is a well-nourished, well-developed patient, in no apparent distress. CARDIOVASCULAR: Regular rate and regular rhythm without murmurs, gallops, or rubs. RESPIRATORY: Clear to auscultation. Breath sounds equal bilaterally. No wheezes , rales, or rhonchi. GASTROINTESTINAL: Abdomen soft, non-tender, nondistended. Normal, active bowel sounds MUSCULOSKELETAL: Extremities without clubbing, cyanosis, or edema. NEURO: Alert & Oriented x4 to person, place, time, situation. Moves all ext x4 Medications and IVs Inpatient Medications Acetaminophen (Tylenol) 650 mg Q4H PRN PO Pain 1-10 or Temp >101F Last administered on 05/02/17at 21:03; Start 03/16/17 at 11:15 Al Hydrox/Mg Hydrox/Simethicone (Mag-Al Plus Susp Liq) 30 ml Q6H PRN PO DYSPEPSIA; Start 03/16/17 at 11:15 Aripiprazole (Abilify) 20 mg BID PO Last administered on 05/06/17 09:24; Start 04/05/17 at 21:00 Benztropine Mesylate (Cogentin) 1 mg Q12HR PO Last administered on 05/06/17 09 :24; Start 04/15/17 at 21:00 Chlorpromazine (Thorazine) 50 mg DAILY@1200 PO Last administered on 05/06/17at 12:41; Start 04/29/17 at 12:00 Chlorpromazine HCl (Thorazine Inj) 50 mg STAT STAT IM Last administered on at 15:01; Start 04/28/17 at 14:48; Stop 04/28/17 at 14:53; Status DC Cholecalciferol (Vitamin D3) 1,000 units DAILY PO Last administered on 09:24; Start 03/18/17 at 09:00 Ciprofloxacin (Cipro) 500 mg Q12HR PO Last administered on 05/06/17 09:24; Start 05/02/17 at 09:00 Clonazepam (KlonoPIN) 1 mg HS PO Last administered on 05/05/17at 20:10; Start at 21:00 Dextrose (D50w (Vial) Inj) 50 ml UNSCH PRN IV PUSH HYPOGLYCEMIA-SEE COMMENTS; Start 03/16/17 at 12:15 Diatrizoate Meglum/ Diatrizoate Sod ( Gastroview Liq) 18 ml ONCE ONCE PO Last administered on 05/03/17at 12:33; Start 05/03/17 at 11:45; Stop 05/03/17 at 12:35; Status DC Diphenhydramine HCl (Benadryl Inj) 50 mg NOW ONCE IM ; Start 04/06/17 at 10:45 ; Stop 04/06/17 at 10:46; Status DC Divalproex Sodium (Depakote Er) 250 mg BID PO Last administered on 05/06/17 09 :22; Start 04/05/17 at 21:00; Status Future hold Emollient Ointment (Aquaphor Oint) 1 applic Q12HR TOPICAL Last administered on 05/06/17 09:00; Start 03/28/17 at 21:00 Escitalopram Oxalate (Lexapro) 20 mg DAILY PO Last administered on 05/06/17 09 :23; Start 03/17/17 at 09:00 Glucagon (Glucagon Inj) 1 mg UNSCH PRN OTHER HYPOGLYCEMIA-SEE COMMENTS; Start 03/16/17 at 12:15 Haloperidol Decanoate (Haldol Decanoate Inj) 10 mg NOW IM ; Start 04/03/17 at 16 :30; Stop 04/03/17 at 17:14; Status DC Haloperidol Lactate (Haldol Inj) 5 mg ONCE ONCE IM Last administered on at 01:15; Start 04/15/17 at 01:15; Stop 04/15/17 at 01:16; Status DC Influenza Virus Vaccine (Flu (Quadrivalent) Vaccine Inj) 0.5 ml ONCE ONCE IM Last administered on 04/03/17at 08:54; Start 04/03/17 at 10:00; Stop 04/03/17 at 10:01; Status DC Insulin Aspart (NovoLOG SUPPLEMENTAL SCALE) 1 ACHS SLIDING SCALE SQ ; Start 03/16/17 at 17:00; Stop 03/17/17 at 14:11; Status DC Lactobacillus Acidophilus (Lactinex) 1 tab TID PO Last administered on at 12:41; Start 04/30/17 at 13:00 Levocarnitine (Carnitor 10% Liq) 9 ml TID PO Last administered on 04/29/17at 12: 18; Start 04/13/17 at 18:00; Status Future Hold Loperamide HCl (Imodium) 2 mg Q4H PRN PO DIARRHEA Last administered on at 17:26; Start 04/26/17 at 12:45; Status Future Hold Lorazepam (Ativan Inj) 2 mg ONCE ONCE IM Last administered on 04/15/17at 01:15; Start 04/15/17 at 01:15; Stop 04/15/17 at 01:16; Status DC Lorazepam (Ativan) 1 mg Q6H PRN PO MODERATE TO SEVERE ANXIETY Last administered on 05/05/17at 13:38; Start 03/16/17 at 11:15 Magnesium Hydroxide (Milk Of Magnesia Liq) 30 ml DAILY PRN PO CONSTIPATION; Start 03/16/17 at 11:15 Olanzapine (ZyPREXA INJ) 10 mg ONCE ONCE IM Last administered on 04/08/17at 18: 15; Start 04/08/17 at 18:15; Stop 04/08/17 at 18:16; Status DC Olanzapine (ZyPREXA) 30 mg ONCE ONCE PO Last administered on 03/13/17t 11:23 ; Start 03/13/17 at 09:15; Stop 03/13/17 at 09:16; Status DC Pneumococcal Polyvalent Vaccine (Pneumovax-23 Inj) 25 mcg ONCE ONCE IM Last administered on 04/03/17at 08:52; Start 04/03/17 at 10:00; Stop 04/03/17 at 10:01 ; Status DC Trazodone HCl (Desyrel) 100 mg BID PO Last administered on 05/06/17at 09:24; Start 03/13/17 at 21:00 Ziprasidone (Geodon Inj) 20 mg NOW ONCE IM ; Start 04/06/17 at 10:45; Stop at 10:46; Status DC A/P Assessment and Plan History of traumatic brain injury with neurocognitive deficit Behavioral disturbance - Management per psychiatric team - Diarrhea Hyperammonemia - Patient does not appear toxic. Hydrated. Afebrile. Hemodynamically stable. - ?medication side effect/Depakote. Carnitor held by primary team since . - C. difficile negative 04/25/2017. - Continue lactobacillus TID - GI following, appreciate assistance. -CT of the abdomen with no acute abnormality. UTI -initial UC with ESBL e-coli. -however the repeated UC with mixed gram-positive eder. -the patient is hemodynamically stable; will stop abx. Prediabetes - Hemoglobin A1c 6.2 03/17/17 - Suspect secondary to Zyprexa use. Off Zyprexa. Random glucose 128. Vitamin D deficiency - Vitamin D level 15.8 02/20/17 - Continue vitamin D supplementation - Patient will need to follow-up with PCP as outpatient in 3 months to recheck vitamin D level DVT prophylaxis -Patient is ambulatory Lena Fonseca MD May 06, 2017 13:38
[2017-05-06 17:26] VITALS: BP 105/56; PULSE 62; RESP 18; TEMP 97.9; O2SAT 99
[2017-05-06] MEDS: LORazepam 1 MG TAB PO PRN (20:02)
[2017-05-06] MEDS: clonazePAM 1 MG TAB PO SCH (20:03)
--- NOTE | 2017-05-07 07:14 | HHI.PYPN ---
Subjective Chief Complaint: behavioral disturbance following traumatic brain injury Remarks Patient seen and examined. Chart reviewed. Case discussed with nursing staff. No behavioral issues noted overnight. For me today, patient is calm. He remains with one to one sitter. No evident physical distress. Review of Systems ROS Limitations: Poor Historian Other Limited ROS Mental Status Examination Appearance: Disheveled Consciousness: Asleep Orientation: Person Motor Activity: Other (no abnormal motor movements noted) Affect: Flat Insight: Poor Judgment: Poor Mental Status Exam Remarks Limited MSE as patient sleeping today Results Labs Date/Time Source Procedure Growth Status 05/04/17 15:15 Urine Clean Catch Urine Culture - Final <10,000 CFU/ML MIXED GRAM POSITIVE FL... Complete Labs reviewed. Repeat urine culture reveals only mixed eder. Vitals/IOs Vital Signs Date Time Temp Pulse Resp B/P (MAP) Pulse Ox O2 Delivery O2 Flow Rate FiO2 05/06/17 17:26 97.9 62 18 105/56 (72) 99 Intake and Output 05/07/17 05/07/17 05/08/17 08:00 16:00 00:00 Intake Total 0 ml Balance 0 ml Assessment & Plan Problem List: (1) Intermittent explosive disorder ICD Codes: F63.81 - Intermittent explosive disorder (2) History of traumatic brain injury ICD Codes: Z87.820 - Personal history of traumatic brain injury Assessment & Plan Continue current psychotropics as ordered. Hospitalist input noted and appreciated. I note that the patient Cipro has been discontinued. Continue to monitor on an inpatient unit. Continue other care as ordered. Justification for Cont. Inpt. Risk for decompensation in less restrictive environment Discharge Planning State hospital admission date 05/14/2017. Request HC Surrog/Guard Advoc?: Yes Josue Ibrahim MD May 07, 2017 07:14
[2017-05-07] MEDS: AQUAPHOR OINT 50 GM TUBE TOPICAL SCH ×2 (09:00→20:20)
[2017-05-07] MEDS: traZODone HCL 100 MG TAB PO SCH ×2 (09:18→20:18)
[2017-05-07] MEDS: BENZTROPINE MESYLATE 1 MG TAB PO SCH ×2 (09:19→20:19)
[2017-05-07] MEDS: DIVALPROEX SODIUM E.R. 250 MG TAB PO SCH ×2 (09:19→20:19)
[2017-05-07] MEDS: LACTOBACILLUS ACIDOPHILUS TAB PO SCH ×3 (09:19→18:30)
[2017-05-07] MEDS: DIVALPROEX SODIUM E.R. 500 MG TAB PO SCH ×2 (09:19→20:19)
[2017-05-07] MEDS: CHOLECALCIFEROL (VIT D3) 1000 UNIT TAB PO SCH (09:19)
[2017-05-07] MEDS: ESCITALOPRAM OXALATE 20 MG TAB PO SCH (09:20)
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
[2017-05-07] MEDS: clonazePAM 1 MG TAB PO SCH (20:19)
[2017-05-08] MEDS: BENZTROPINE MESYLATE 1 MG TAB PO SCH ×2 (08:58→21:02)
[2017-05-08] MEDS: DIVALPROEX SODIUM E.R. 500 MG TAB PO SCH ×2 (08:58→21:02)
[2017-05-08] MEDS: ESCITALOPRAM OXALATE 20 MG TAB PO SCH (08:59)
[2017-05-08] MEDS: CHOLECALCIFEROL (VIT D3) 1000 UNIT TAB PO SCH (08:59)
[2017-05-08] MEDS: LACTOBACILLUS ACIDOPHILUS TAB PO SCH ×3 (08:59→17:22)
[2017-05-08] MEDS: traZODone HCL 100 MG TAB PO SCH ×2 (08:59→21:02)
[2017-05-08] MEDS: DIVALPROEX SODIUM E.R. 250 MG TAB PO SCH ×2 (08:59→21:02)
[2017-05-08] MEDS: AQUAPHOR OINT 50 GM TUBE TOPICAL SCH ×2 (09:00→21:00)
--- NOTE | 2017-05-08 11:46 | HHI.PR ---
Subjective Remarks in no acute distress. more alert today. denies pain. no fever. Objective Vitals I/O 05/07/17 05/07/17 05/07/17 05/08/17 05/08/17 05/08/17 07:00 15:00 23:00 07:00 15:00 23:00 Intake Total 0 ml 480 ml 240 ml 240 ml Balance 0 ml 480 ml 240 ml 240 ml Intake Oral 0 ml 480 ml 240 ml 240 ml # Voids 1 2 # Bowel Movements 0 Imaging Last Impressions Abdomen/Pelvis CT 05/02/17 0000 Signed Impressions: Service Date/Time: Wednesday, May 03, 2017 15:39 - CONCLUSION: Negative CT abdomen/pelvis with contrast. Rommel Jarrett MD Abdomen X-Ray 04/30/17 0000 Signed Impressions: Service Date/Time: Sunday, April 30, 2017 16:58 - CONCLUSION: Scattered solid stool negative for an acute process. Jonel Mark MD FACR Objective Remarks GENERAL: This is a well-nourished, well-developed patient, in no apparent distress. CARDIOVASCULAR: Regular rate and regular rhythm without murmurs, gallops, or rubs. RESPIRATORY: Clear to auscultation. Breath sounds equal bilaterally. No wheezes , rales, or rhonchi. GASTROINTESTINAL: Abdomen soft, non-tender, nondistended. Normal, active bowel sounds MUSCULOSKELETAL: Extremities without clubbing, cyanosis, or edema. NEURO: Alert & Oriented x4 to person, place, time, situation. Moves all ext x4 Medications and IVs Inpatient Medications Acetaminophen (Tylenol) 650 mg Q4H PRN PO Pain 1-10 or Temp >101F Last administered on 05/02/17at 21:03; Start 03/16/17 at 11:15 Al Hydrox/Mg Hydrox/Simethicone (Mag-Al Plus Susp Liq) 30 ml Q6H PRN PO DYSPEPSIA; Start 03/16/17 at 11:15 Aripiprazole (Abilify) 20 mg BID PO Last administered on 05/08/17at 08:59; Start 04/05/17 at 21:00 Benztropine Mesylate (Cogentin) 1 mg Q12HR PO Last administered on 05/08/17at 08 :58; Start 04/15/17 at 21:00 Chlorpromazine (Thorazine) 50 mg DAILY@1200 PO Last administered on 05/07/17at 12:00; Start 04/29/17 at 12:00 Chlorpromazine HCl (Thorazine Inj) 50 mg STAT STAT IM Last administered on at 15:01; Start 04/28/17 at 14:48; Stop 04/28/17 at 14:53; Status DC Cholecalciferol (Vitamin D3) 1,000 units DAILY PO Last administered on at 08:59; Start 03/18/17 at 09:00 Ciprofloxacin (Cipro) 500 mg Q12HR PO Last administered on 05/06/17at 09:24; Start 05/02/17 at 09:00; Stop 05/06/17 at 13:40; Status DC Clonazepam (KlonoPIN) 1 mg HS PO Last administered on 05/07/17at 20:19; Start at 21:00 Dextrose (D50w (Vial) Inj) 50 ml UNSCH PRN IV PUSH HYPOGLYCEMIA-SEE COMMENTS; Start 03/16/17 at 12:15 Diatrizoate Meglum/ Diatrizoate Sod ( Gastroview Liq) 18 ml ONCE ONCE PO Last administered on 05/03/17at 12:33; Start 05/03/17 at 11:45; Stop 05/03/17 at 12:35; Status DC Diphenhydramine HCl (Benadryl Inj) 50 mg NOW ONCE IM ; Start 04/06/17 at 10:45 ; Stop 04/06/17 at 10:46; Status DC Divalproex Sodium (Depakote Er) 250 mg BID PO Last administered on 05/08/17at 08 :59; Start 04/05/17 at 21:00; Status Future hold Emollient Ointment (Aquaphor Oint) 1 applic Q12HR TOPICAL Last administered on 05/08/17at 09:00; Start 03/28/17 at 21:00 Escitalopram Oxalate (Lexapro) 20 mg DAILY PO Last administered on 05/08/17 08 :59; Start 03/17/17 at 09:00 Glucagon (Glucagon Inj) 1 mg UNSCH PRN OTHER HYPOGLYCEMIA-SEE COMMENTS; Start 03/16/17 at 12:15 Haloperidol Decanoate (Haldol Decanoate Inj) 10 mg NOW IM ; Start 04/03/17 at 16 :30; Stop 04/03/17 at 17:14; Status DC Haloperidol Lactate (Haldol Inj) 5 mg ONCE ONCE IM Last administered on at 01:15; Start 04/15/17 at 01:15; Stop 04/15/17 at 01:16; Status DC Influenza Virus Vaccine (Flu (Quadrivalent) Vaccine Inj) 0.5 ml ONCE ONCE IM Last administered on 04/03/17at 08:54; Start 04/03/17 at 10:00; Stop 04/03/17 at 10:01; Status DC Insulin Aspart (NovoLOG SUPPLEMENTAL SCALE) 1 ACHS SLIDING SCALE SQ ; Start 03/16/17 at 17:00; Stop 03/17/17 at 14:11; Status DC Lactobacillus Acidophilus (Lactinex) 1 tab TID PO Last administered on at 08:59; Start 04/30/17 at 13:00 Levocarnitine (Carnitor 10% Liq) 9 ml TID PO Last administered on 04/29/17at 12: 18; Start 04/13/17 at 18:00; Status Future Hold Loperamide HCl (Imodium) 2 mg Q4H PRN PO DIARRHEA Last administered on at 17:26; Start 04/26/17 at 12:45; Status Future Hold Lorazepam (Ativan Inj) 2 mg ONCE ONCE IM Last administered on 04/15/17at 01:15; Start 04/15/17 at 01:15; Stop 04/15/17 at 01:16; Status DC Lorazepam (Ativan) 1 mg Q6H PRN PO MODERATE TO SEVERE ANXIETY Last administered on 05/06/17at 20:02; Start 03/16/17 at 11:15 Magnesium Hydroxide (Milk Of Magnesia Liq) 30 ml DAILY PRN PO CONSTIPATION; Start 03/16/17 at 11:15 Olanzapine (ZyPREXA INJ) 10 mg ONCE ONCE IM Last administered on 04/08/17at 18: 15; Start 04/08/17 at 18:15; Stop 04/08/17 at 18:16; Status DC Olanzapine (ZyPREXA) 30 mg ONCE ONCE PO Last administered on 03/13/17t 11:23 ; Start 03/13/17 at 09:15; Stop 03/13/17 at 09:16; Status DC Pneumococcal Polyvalent Vaccine (Pneumovax-23 Inj) 25 mcg ONCE ONCE IM Last administered on 04/03/17at 08:52; Start 04/03/17 at 10:00; Stop 04/03/17 at 10:01 ; Status DC Trazodone HCl (Desyrel) 100 mg BID PO Last administered on 05/08/17at 08:59; Start 03/13/17 at 21:00 Ziprasidone (Geodon Inj) 20 mg NOW ONCE IM ; Start 04/06/17 at 10:45; Stop at 10:46; Status DC A/P Assessment and Plan History of traumatic brain injury with neurocognitive deficit Behavioral disturbance - Management per psychiatric team - Diarrhea-improved. Hyperammonemia - Patient does not appear toxic. Hydrated. Afebrile. Hemodynamically stable. - ?medication side effect/Depakote. Carnitor held by primary team since . - C. difficile negative 04/25/2017. - Continue lactobacillus TID - evaluated by GI. -CT of the abdomen with no acute abnormality. UTI -initial UC with ESBL e-coli. -however the repeated UC with mixed gram-positive eder. -the patient is hemodynamically stable; off antibiotics. Prediabetes - Hemoglobin A1c 6.2 03/17/17 - Suspect secondary to Zyprexa use. Off Zyprexa. Random glucose 128. Vitamin D deficiency - Vitamin D level 15.8 02/20/17 - Continue vitamin D supplementation - Patient will need to follow-up with PCP as outpatient in 3 months to recheck vitamin D level DVT prophylaxis -Patient is ambulatory Lena Fonseca MD May 08, 2017 11:46
--- NOTE | 2017-05-08 15:32 | HHI.PYPN ---
Subjective Chief Complaint: behavioral disturbance following traumatic brain injury Remarks Pt seen and discussed with staff. He has been calm and cooperative with care. Fewer outbursts today. Out in day room with 1:1 staff. No loose stools today. Mental Status Examination Appearance: Disheveled Consciousness: Asleep Orientation: Person Motor Activity: Other (no abnormal motor movements noted) Speech: Other (loud outbursts at times) Fund of Knowledge: Poor Mood: Other (calm) Affect: Flat Thought Process & Associations: Disorganized, Other (impaired) Hallucination Type: Other (does not appears to be internally stimulated) Insight: Poor Judgment: Poor Results Labs Date/Time Source Procedure Growth Status 05/04/17 15:15 Urine Clean Catch Urine Culture - Final <10,000 CFU/ML MIXED GRAM POSITIVE FL... Complete Vitals/IOs Vital Signs Date Time Temp Pulse Resp B/P (MAP) Pulse Ox O2 Delivery O2 Flow Rate FiO2 05/06/17 17:26 97.9 62 18 105/56 (72) 99 Intake and Output 05/08/17 05/08/17 05/09/17 08:00 16:00 00:00 Intake Total 600 ml Balance 600 ml Assessment & Plan Problem List: (1) Intermittent explosive disorder ICD Codes: F63.81 - Intermittent explosive disorder (2) History of traumatic brain injury ICD Codes: Z87.820 - Personal history of traumatic brain injury Assessment & Plan Continue current tx plan. Estimated LOS: days Justification for Cont. Inpt. impairments in safety and self care Request HC Surrog/Guard Advoc?: Yes Yeny Rendon MD May 08, 2017 15:32
[2017-05-08 18:13] VITALS: BP 98/64; PULSE 82; RESP 18; TEMP 98.9; O2SAT 96
[2017-05-08] MEDS: LORazepam 1 MG TAB PO PRN (21:02)
[2017-05-08] MEDS: clonazePAM 1 MG TAB PO SCH (21:02)
[2017-05-09] MEDS: ESCITALOPRAM OXALATE 20 MG TAB PO SCH (08:46)
[2017-05-09] MEDS: DIVALPROEX SODIUM E.R. 500 MG TAB PO SCH ×2 (08:46→20:11)
[2017-05-09] MEDS: LACTOBACILLUS ACIDOPHILUS TAB PO SCH ×3 (08:46→18:31)
[2017-05-09] MEDS: BENZTROPINE MESYLATE 1 MG TAB PO SCH ×2 (08:46→20:10)
[2017-05-09] MEDS: traZODone HCL 100 MG TAB PO SCH ×2 (08:47→20:11)
[2017-05-09] MEDS: CHOLECALCIFEROL (VIT D3) 1000 UNIT TAB PO SCH (08:47)
[2017-05-09] MEDS: DIVALPROEX SODIUM E.R. 250 MG TAB PO SCH ×2 (08:47→20:10)
[2017-05-09] MEDS: AQUAPHOR OINT 50 GM TUBE TOPICAL SCH ×2 (08:48→20:46)
--- NOTE | 2017-05-09 14:52 | HHI.PYPN ---
Subjective Chief Complaint: behavioral disturbance following traumatic brain injury Remarks Pt seen and discussed with staff. He has been under better behavioral control today. No aggression or agitation. Remains on 1:1 due to eating non-food substances. Mental Status Examination Appearance: Disheveled Consciousness: Asleep Orientation: Person Motor Activity: Other (no abnormal motor movements noted) Speech: Other (loud outbursts at times) Fund of Knowledge: Poor Mood: Other (calm) Affect: Flat Thought Process & Associations: Disorganized, Other (impaired) Hallucination Type: Other (does not appears to be internally stimulated) Insight: Poor Judgment: Poor Results Labs Date/Time Source Procedure Growth Status 05/04/17 15:15 Urine Clean Catch Urine Culture - Final <10,000 CFU/ML MIXED GRAM POSITIVE FL... Complete Vitals/IOs Vital Signs Date Time Temp Pulse Resp B/P (MAP) Pulse Ox O2 Delivery O2 Flow Rate FiO2 05/08/17 18:13 98.9 82 18 98/64 (75) 96 Intake and Output 05/09/17 05/09/17 05/10/17 08:00 16:00 00:00 Intake Total 360 ml Balance 360 ml Assessment & Plan Problem List: (1) Intermittent explosive disorder ICD Codes: F63.81 - Intermittent explosive disorder (2) History of traumatic brain injury ICD Codes: Z87.820 - Personal history of traumatic brain injury Assessment & Plan Continue current tx plan. Estimated LOS: days Justification for Cont. Inpt. impairments in self care, social functioning and reality testing Request HC Surrog/Guard Advoc?: Yes Yeny Rendon MD May 09, 2017 14:51
[2017-05-09 18:15] VITALS: BP 93/57; PULSE 75; RESP 18; TEMP 98.1; O2SAT 97
[2017-05-09] MEDS: clonazePAM 1 MG TAB PO SCH (20:10)
[2017-05-10] MEDS: ESCITALOPRAM OXALATE 20 MG TAB PO SCH (09:00)
[2017-05-10] MEDS: AQUAPHOR OINT 50 GM TUBE TOPICAL SCH ×2 (09:00→21:00)
[2017-05-10] MEDS: CHOLECALCIFEROL (VIT D3) 1000 UNIT TAB PO SCH (09:00)
[2017-05-10] MEDS: DIVALPROEX SODIUM E.R. 500 MG TAB PO SCH ×2 (09:00→19:48)
[2017-05-10] MEDS: DIVALPROEX SODIUM E.R. 250 MG TAB PO SCH ×2 (09:00→19:48)
[2017-05-10] MEDS: BENZTROPINE MESYLATE 1 MG TAB PO SCH ×2 (09:00→19:49)
[2017-05-10] MEDS: traZODone HCL 100 MG TAB PO SCH ×2 (09:00→19:49)
[2017-05-10] MEDS: LACTOBACILLUS ACIDOPHILUS TAB PO SCH ×3 (09:00→17:07)
--- NOTE | 2017-05-10 12:29 | HHI.PYPN ---
Subjective Chief Complaint: behavioral disturbance following traumatic brain injury Remarks Patient seen and examined. Chart reviewed. Case discussed with nursing staff. On my exam, patient is sitting in the day area. He is tolerating the milieu well. No agitation or outbursts. Verbalizes a little. No evident side effects from medications. No physical complaints. Review of Systems ROS Limitations: Poor Historian Other Limited ROS Mental Status Examination Appearance: Disheveled Consciousness: Alert Orientation: Person Motor Activity: Other (no motor abnormalities noted) Speech: Other (single word answers) Language: Other Fund of Knowledge: Poor Attention and Concentration: Inadequate Memory: Impaired Mood: Other (calm) Affect: Blunt Thought Process & Associations: Disorganized, Other (impaired) Thought Content: Other (priority of thought) Hallucination Type: None Delusion Type: None Suicidal Ideation: No (none voiced) Homicidal Ideation: No (none voiced) Insight: Poor Judgment: Poor Results Labs Date/Time Source Procedure Growth Status 05/04/17 15:15 Urine Clean Catch Urine Culture - Final <10,000 CFU/ML MIXED GRAM POSITIVE FL... Complete Labs reviewed. Vitals/IOs Vital Signs Date Time Temp Pulse Resp B/P (MAP) Pulse Ox O2 Delivery O2 Flow Rate FiO2 05/09/17 18:15 98.1 75 18 93/57 (69) 97 Intake and Output 05/10/17 05/10/17 05/11/17 08:00 16:00 00:00 Intake Total 0 ml Balance 0 ml Assessment & Plan Problem List: (1) Intermittent explosive disorder ICD Codes: F63.81 - Intermittent explosive disorder (2) History of traumatic brain injury ICD Codes: Z87.820 - Personal history of traumatic brain injury Assessment & Plan Continue current psychotropics as ordered. Continue other medications and care as ordered. Justification for Cont. Inpt. Risk for decompensation in less restrictive environment. Discharge Planning State hospital admission date 05/14/2017. Request HC Surrog/Guard Advoc?: Yes Josue Ibrahim MD May 10, 2017 12:29
--- NOTE | 2017-05-10 15:03 | HHI.PR ---
Subjective Remarks in no acute distress. denies pain. clinically the same. Objective Vitals Vital Signs Date Time Temp Pulse Resp B/P (MAP) Pulse Ox O2 Delivery O2 Flow Rate FiO2 05/09/17 18:15 98.1 75 18 93/57 (69) 97 I/O 05/09/17 05/09/17 05/09/17 05/10/17 05/10/17 05/10/17 07:00 15:00 23:00 07:00 15:00 23:00 Intake Total 360 ml 360 ml 1080 ml 0 ml 240 ml Balance 360 ml 360 ml 1080 ml 0 ml 240 ml Intake Oral 360 ml 360 ml 1080 ml 0 ml 240 ml # Voids 5 3 # Bowel Movements 1 Imaging Last Impressions Abdomen/Pelvis CT 05/02/17 0000 Signed Impressions: Service Date/Time: Wednesday, May 03, 2017 15:39 - CONCLUSION: Negative CT abdomen/pelvis with contrast. Rommel Jarrett MD Abdomen X-Ray 04/30/17 0000 Signed Impressions: Service Date/Time: Sunday, April 30, 2017 16:58 - CONCLUSION: Scattered solid stool negative for an acute process. Jonel Mark MD FACR Objective Remarks GENERAL: This is a well-nourished, well-developed patient, in no apparent distress. CARDIOVASCULAR: Regular rate and regular rhythm without murmurs, gallops, or rubs. RESPIRATORY: Clear to auscultation. Breath sounds equal bilaterally. No wheezes , rales, or rhonchi. GASTROINTESTINAL: Abdomen soft, non-tender, nondistended. Normal, active bowel sounds MUSCULOSKELETAL: Extremities without clubbing, cyanosis, or edema. NEURO: Alert & Oriented x4 to person, place, time, situation. Moves all ext x4 Medications and IVs Inpatient Medications Acetaminophen (Tylenol) 650 mg Q4H PRN PO Pain 1-10 or Temp >101F Last administered on 05/02/17at 21:03; Start 03/16/17 at 11:15 Al Hydrox/Mg Hydrox/Simethicone (Mag-Al Plus Susp Liq) 30 ml Q6H PRN PO DYSPEPSIA; Start 03/16/17 at 11:15 Aripiprazole (Abilify) 20 mg BID PO Last administered on 05/10/17at 09:00; Start 04/05/17 at 21:00 Benztropine Mesylate (Cogentin) 1 mg Q12HR PO Last administered on 05/10/17 09 :00; Start 04/15/17 at 21:00 Chlorpromazine (Thorazine) 50 mg DAILY@1200 PO Last administered on 05/10/17at 11:51; Start 04/29/17 at 12:00 Chlorpromazine HCl (Thorazine Inj) 50 mg STAT STAT IM Last administered on at 15:01; Start 04/28/17 at 14:48; Stop 04/28/17 at 14:53; Status DC Cholecalciferol (Vitamin D3) 1,000 units DAILY PO Last administered on 09:00; Start 03/18/17 at 09:00 Ciprofloxacin (Cipro) 500 mg Q12HR PO Last administered on 05/06/17 09:24; Start 05/02/17 at 09:00; Stop 05/06/17 at 13:40; Status DC Clonazepam (KlonoPIN) 1 mg HS PO Last administered on 05/09/17at 20:10; Start at 21:00 Dextrose (D50w (Vial) Inj) 50 ml UNSCH PRN IV PUSH HYPOGLYCEMIA-SEE COMMENTS; Start 03/16/17 at 12:15 Diatrizoate Meglum/ Diatrizoate Sod ( Gastroview Liq) 18 ml ONCE ONCE PO Last administered on 05/03/17at 12:33; Start 05/03/17 at 11:45; Stop 05/03/17 at 12:35; Status DC Diphenhydramine HCl (Benadryl Inj) 50 mg NOW ONCE IM ; Start 04/06/17 at 10:45 ; Stop 04/06/17 at 10:46; Status DC Divalproex Sodium (Depakote Er) 250 mg BID PO Last administered on 05/10/17 09 :00; Start 04/05/17 at 21:00; Status Future hold Emollient Ointment (Aquaphor Oint) 1 applic Q12HR TOPICAL Last administered on 05/10/17 09:00; Start 03/28/17 at 21:00 Escitalopram Oxalate (Lexapro) 20 mg DAILY PO Last administered on 2/26/18at 09 :00; Start 03/17/17 at 09:00 Glucagon (Glucagon Inj) 1 mg UNSCH PRN OTHER HYPOGLYCEMIA-SEE COMMENTS; Start 03/16/17 at 12:15 Haloperidol Decanoate (Haldol Decanoate Inj) 10 mg NOW IM ; Start 04/03/17 at 16 :30; Stop 04/03/17 at 17:14; Status DC Haloperidol Lactate (Haldol Inj) 5 mg ONCE ONCE IM Last administered on at 01:15; Start 04/15/17 at 01:15; Stop 04/15/17 at 01:16; Status DC Influenza Virus Vaccine (Flu (Quadrivalent) Vaccine Inj) 0.5 ml ONCE ONCE IM Last administered on 04/03/17at 08:54; Start 04/03/17 at 10:00; Stop 04/03/17 at 10:01; Status DC Insulin Aspart (NovoLOG SUPPLEMENTAL SCALE) 1 ACHS SLIDING SCALE SQ ; Start 03/16/17 at 17:00; Stop 03/17/17 at 14:11; Status DC Lactobacillus Acidophilus (Lactinex) 1 tab TID PO Last administered on at 12:13; Start 04/30/17 at 13:00 Levocarnitine (Carnitor 10% Liq) 9 ml TID PO Last administered on 04/29/17at 12: 18; Start 04/13/17 at 18:00; Status Future Hold Loperamide HCl (Imodium) 2 mg Q4H PRN PO DIARRHEA Last administered on at 17:26; Start 04/26/17 at 12:45; Status Future Hold Lorazepam (Ativan Inj) 2 mg ONCE ONCE IM Last administered on 04/15/17at 01:15; Start 04/15/17 at 01:15; Stop 04/15/17 at 01:16; Status DC Lorazepam (Ativan) 1 mg Q6H PRN PO MODERATE TO SEVERE ANXIETY Last administered on 05/08/17at 21:02; Start 03/16/17 at 11:15 Magnesium Hydroxide (Milk Of Magnesia Liq) 30 ml DAILY PRN PO CONSTIPATION; Start 03/16/17 at 11:15 Olanzapine (ZyPREXA INJ) 10 mg ONCE ONCE IM Last administered on 04/08/17at 18: 15; Start 04/08/17 at 18:15; Stop 04/08/17 at 18:16; Status DC Olanzapine (ZyPREXA) 30 mg ONCE ONCE PO Last administered on 03/13/17t 11:23 ; Start 03/13/17 at 09:15; Stop 03/13/17 at 09:16; Status DC Pneumococcal Polyvalent Vaccine (Pneumovax-23 Inj) 25 mcg ONCE ONCE IM Last administered on 04/03/17at 08:52; Start 04/03/17 at 10:00; Stop 04/03/17 at 10:01 ; Status DC Trazodone HCl (Desyrel) 100 mg BID PO Last administered on 05/10/17at 09:00; Start 03/13/17 at 21:00 Ziprasidone (Geodon Inj) 20 mg NOW ONCE IM ; Start 04/06/17 at 10:45; Stop at 10:46; Status DC A/P Assessment and Plan History of traumatic brain injury with neurocognitive deficit Behavioral disturbance - Management per psychiatric team - Diarrhea-improved. Hyperammonemia - Patient does not appear toxic. Afebrile. Hemodynamically stable. -- C. difficile negative 04/25/2017. - Continue lactobacillus TID - evaluated by GI. -CT of the abdomen with no acute abnormality. UTI -initial UC with ESBL e-coli. -however the repeated UC with mixed gram-positive eder. -the patient is hemodynamically stable; off antibiotics. Prediabetes - Hemoglobin A1c 6.2 03/17/17 - Suspect secondary to Zyprexa use. Off Zyprexa. Random glucose 128. Vitamin D deficiency - Vitamin D level 15.8 02/20/17 - Continue vitamin D supplementation - Patient will need to follow-up with PCP as outpatient in 3 months to recheck vitamin D level DVT prophylaxis -Patient is ambulatory Lena Fonseca MD May 10, 2017 15:02
[2017-05-10 18:21] VITALS: BP 103/58; PULSE 79; RESP 18; TEMP 97.6; O2SAT 97
[2017-05-10] MEDS: clonazePAM 1 MG TAB PO SCH (19:49)
[2017-05-10] MEDS: LORazepam 1 MG TAB PO PRN (19:49)
[2017-05-11 07:54] VITALS: BP 118/67; PULSE 77; RESP 18; TEMP 97.8; O2SAT 98
[2017-05-11] MEDS: DIVALPROEX SODIUM E.R. 250 MG TAB PO SCH ×2 (08:19→20:22)
[2017-05-11] MEDS: DIVALPROEX SODIUM E.R. 500 MG TAB PO SCH ×2 (08:19→20:21)
[2017-05-11] MEDS: ESCITALOPRAM OXALATE 20 MG TAB PO SCH (08:19)
[2017-05-11] MEDS: LACTOBACILLUS ACIDOPHILUS TAB PO SCH ×3 (08:19→17:39)
[2017-05-11] MEDS: CHOLECALCIFEROL (VIT D3) 1000 UNIT TAB PO SCH (08:19)
[2017-05-11] MEDS: BENZTROPINE MESYLATE 1 MG TAB PO SCH ×2 (08:19→20:22)
[2017-05-11] MEDS: traZODone HCL 100 MG TAB PO SCH ×2 (08:19→20:21)
[2017-05-11] MEDS: AQUAPHOR OINT 50 GM TUBE TOPICAL SCH ×2 (08:19→21:00)
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
--- NOTE | 2017-05-11 15:51 | HHI.PR ---
Subjective Remarks Patient seen and examined He was having lunch without any complaints of nausea and vomiting Objective Vitals Vital Signs Date Time Temp Pulse Resp B/P (MAP) Pulse Ox O2 Delivery O2 Flow Rate FiO2 05/11/17 07:54 97.8 77 18 118/67 (84) 98 05/10/17 18:21 97.6 79 18 103/58 (73) 97 I/O 05/10/17 05/10/17 05/10/17 05/11/17 05/11/17 05/11/17 07:00 15:00 23:00 07:00 15:00 23:00 Intake Total 0 ml 1260 ml 480 ml 1620 ml Output Total 5 ml Balance 0 ml 1255 ml 480 ml 1620 ml Intake Oral 0 ml 1260 ml 480 ml 1620 ml Output Urine Total 5 ml # Voids 3 3 3 4 # Bowel Movements 0 Imaging Last Impressions Abdomen/Pelvis CT 05/02/17 0000 Signed Impressions: Service Date/Time: Wednesday, May 03, 2017 15:39 - CONCLUSION: Negative CT abdomen/pelvis with contrast. Rommel Jarrett MD Abdomen X-Ray 04/30/17 0000 Signed Impressions: Service Date/Time: Sunday, April 30, 2017 16:58 - CONCLUSION: Scattered solid stool negative for an acute process. Jonel Mark MD FACR Objective Remarks GENERAL: NAD SKIN: Warm and dry. HEAD: Normocephalic. EYES: No scleral icterus. No injection or drainage. NECK: Supple, trachea midline. No JVD or lymphadenopathy. CARDIOVASCULAR: Regular rate and rhythm without murmurs, gallops, or rubs. RESPIRATORY: Breath sounds equal bilaterally. No accessory muscle use. GASTROINTESTINAL: Abdomen soft, non-tender, nondistended. MUSCULOSKELETAL: No cyanosis, or edema. BACK: Nontender without obvious deformity. No CVA tenderness. A/P Assessment and Plan 42-year-old man with History of traumatic brain injury with neurocognitive deficit Behavioral disturbance - Management per psychiatric team Diarrhea-improved. Hyperammonemia - Patient does not appear toxic. Afebrile. Hemodynamically stable. -- C. difficile negative 04/25/2017. - Continue lactobacillus TID - evaluated by GI. -CT of the abdomen with no acute abnormality. UTI -initial UC with ESBL e-coli. -off antibiotics. Prediabetes - Hemoglobin A1c 6.2 03/17/17 - Suspect secondary to Zyprexa use. Off Zyprexa. Vitamin D deficiency - Vitamin D level 15.8 02/20/17 - Continue vitamin D supplementation - Patient will need to follow-up with PCP as outpatient in 3 months to recheck vitamin D level DVT prophylaxis -Patient is ambulatory Vahe Earl MD May 11, 2017 15:51
[2017-05-11 17:40] VITALS: BP 115/76; PULSE 86
[2017-05-11] MEDS: clonazePAM 1 MG TAB PO SCH (20:21)
[2017-05-11] MEDS: LORazepam 1 MG TAB PO PRN (20:22)
[2017-05-12 05:30] VITALS: BP 107/58; PULSE 76; RESP 17; TEMP 97.7; O2SAT 94
[2017-05-12] MEDS: BENZTROPINE MESYLATE 1 MG TAB PO SCH ×2 (08:31→21:08)
[2017-05-12] MEDS: traZODone HCL 100 MG TAB PO SCH ×2 (08:31→21:07)
[2017-05-12] MEDS: LACTOBACILLUS ACIDOPHILUS TAB PO SCH ×3 (08:31→17:52)
[2017-05-12] MEDS: DIVALPROEX SODIUM E.R. 250 MG TAB PO SCH ×2 (08:31→21:07)
[2017-05-12] MEDS: DIVALPROEX SODIUM E.R. 500 MG TAB PO SCH ×2 (08:31→21:07)
[2017-05-12] MEDS: AQUAPHOR OINT 50 GM TUBE TOPICAL SCH ×2 (08:32→21:08)
[2017-05-12] MEDS: ESCITALOPRAM OXALATE 20 MG TAB PO SCH (08:32)
[2017-05-12] MEDS: CHOLECALCIFEROL (VIT D3) 1000 UNIT TAB PO SCH (08:32)
--- NOTE | 2017-05-12 11:05 | HHI.PYPN ---
Subjective Chief Complaint: behavioral disturbance following traumatic brain injury Remarks Patient seen and examined. Chart reviewed. Case discussed with nursing staff. Per nursing staff, patient had an episode a loose stools. He tried to eat some playing cards. Otherwise no real behavioral problem. Patient remains with one to one sitter. He is awake and alert. Continues to verbalize chiefly monosyllables. No physical complaints. In no acute physical distress. Review of Systems ROS Limitations: Poor Historian Other Limited ROS due to poor historian Mental Status Examination Appearance: Disheveled Consciousness: Alert Orientation: Person Motor Activity: Other (no motor abnormalities noted) Speech: Other (monosyllabic answers) Language: Other (limited language skills) Fund of Knowledge: Poor Attention and Concentration: Inadequate Memory: Impaired Mood: Other (calm) Affect: Blunt Thought Process & Associations: Disorganized Thought Content: Other (poverty of thought) Hallucination Type: None (does not appear internally stimulated) Suicidal Ideation: No (no SI voiced) Homicidal Ideation: No (no HI voiced) Insight: Poor Judgment: Poor Results Labs Date/Time Source Procedure Growth Status 05/04/17 15:15 Urine Clean Catch Urine Culture - Final <10,000 CFU/ML MIXED GRAM POSITIVE FL... Complete Labs reviewed Vitals/IOs Vital Signs Date Time Temp Pulse Resp B/P (MAP) Pulse Ox O2 Delivery O2 Flow Rate FiO2 05/12/17 05:30 97.7 76 17 107/58 (74) 94 Intake and Output 05/12/17 05/12/17 05/13/17 08:00 16:00 00:00 Intake Total 360 ml Balance 360 ml Assessment & Plan Problem List: (1) Intermittent explosive disorder ICD Codes: F63.81 - Intermittent explosive disorder (2) History of traumatic brain injury ICD Codes: Z87.820 - Personal history of traumatic brain injury Assessment & Plan Imodium 2 mg once for loose stools, previously worked up. Continue current psychotropics as ordered. Continue other medications and care as ordered. Justification for Cont. Inpt. Risk for decompensation in less restrictive environment. Discharge Planning [facility] hospital admission date 05/14/17. Request HC Surrog/Guard Advoc?: Yes Josue Ibrahim MD May 12, 2017 11:05
[2017-05-12] MEDS ORDERED: LOPERAMIDE HCL 2 MG CAP PO ONE (11:30)
--- NOTE | 2017-05-12 14:50 | HHI.PR ---
Subjective Remarks patient seen and examined +multiple episodes of loose diarrhea Objective Vitals Vital Signs Date Time Temp Pulse Resp B/P (MAP) Pulse Ox O2 Delivery O2 Flow Rate FiO2 05/12/17 05:30 97.7 76 17 107/58 (74) 94 05/11/17 17:40 86 115/76 (89) I/O 05/11/17 05/11/17 05/11/17 05/12/17 05/12/17 05/12/17 07:00 15:00 23:00 07:00 15:00 23:00 Intake Total 1620 ml 360 ml 600 ml Balance 1620 ml 360 ml 600 ml Intake Oral 1620 ml 360 ml 600 ml # Voids 3 4 Objective Remarks GENERAL: NAD SKIN: Warm and dry. HEAD: Normocephalic. EYES: No scleral icterus. No injection or drainage. NECK: Supple, trachea midline. No JVD or lymphadenopathy. CARDIOVASCULAR: Regular rate and rhythm without murmurs, gallops, or rubs. RESPIRATORY: Breath sounds equal bilaterally. No accessory muscle use. GASTROINTESTINAL: Abdomen soft, non-tender, nondistended. MUSCULOSKELETAL: No cyanosis, or edema. BACK: Nontender without obvious deformity. No CVA tenderness. A/P Assessment and Plan 42-year-old man with History of traumatic brain injury with neurocognitive deficit Behavioral disturbance - Management per psychiatric team Diarrhea-start Lomotil PRN today and continue Lactinex Hyperammonemia - Patient does not appear toxic. Afebrile. Hemodynamically stable. -- C. difficile negative 04/25/2017. - Continue lactobacillus TID - evaluated by GI. -CT of the abdomen with no acute abnormality. UTI -initial UC with ESBL e-coli. -off antibiotics. Prediabetes - Hemoglobin A1c 6.2 03/17/17 - Suspect secondary to Zyprexa use. Off Zyprexa. Vitamin D deficiency - Vitamin D level 15.8 02/20/17 - Continue vitamin D supplementation - Patient will need to follow-up with PCP as outpatient in 3 months to recheck vitamin D level DVT prophylaxis -Patient is ambulatory Vahe Earl MD May 12, 2017 14:50
[2017-05-12] MEDS: LORazepam 1 MG TAB PO PRN (21:07)
[2017-05-12] MEDS: clonazePAM 1 MG TAB PO SCH (21:08)
[2017-05-13] MEDS: AQUAPHOR OINT 50 GM TUBE TOPICAL SCH ×2 (09:00→21:00)
[2017-05-13] MEDS: DIVALPROEX SODIUM E.R. 250 MG TAB PO SCH ×2 (09:34→20:03)
[2017-05-13] MEDS: ESCITALOPRAM OXALATE 20 MG TAB PO SCH (09:35)
[2017-05-13] MEDS: traZODone HCL 100 MG TAB PO SCH ×2 (09:35→20:04)
[2017-05-13] MEDS: DIVALPROEX SODIUM E.R. 500 MG TAB PO SCH ×2 (09:35→20:03)
[2017-05-13] MEDS: CHOLECALCIFEROL (VIT D3) 1000 UNIT TAB PO SCH (09:35)
[2017-05-13] MEDS: BENZTROPINE MESYLATE 1 MG TAB PO SCH ×2 (09:35→20:03)
[2017-05-13] MEDS: LACTOBACILLUS ACIDOPHILUS TAB PO SCH ×3 (09:35→18:00)
[2017-05-13] MEDS: DIPHENOXYLATE/ATROPINE 2.5 MG/0.025 MG TAB PO PRN ×2 (10:25→20:03)
[2017-05-13 12:00] VITALS: BP 106/55; PULSE 95; RESP 16; TEMP 98.8
[2017-05-13] MEDS: SODIUM CHLOR 0.9% 1000 ML INJ 1,000 ML IV SCH ×2 (12:45→20:45)
--- NOTE | 2017-05-13 14:45 | RADRPT ---
EXAM DATE/TIME: 05/13/2017 14:29 [place] COMPARISON: CT BRAIN W/O CONTRAST, February 19, 2017, 15:54. INDICATIONS : Altered mental status. RADIATION DOSE: 42.22 CTDIvol (mGy) MEDICAL HISTORY : Traumatic brain injury SURGICAL HISTORY : None. ENCOUNTER: Initial ACUITY: 1 day PAIN SCALE: 0/10 LOCATION: cranial TECHNIQUE: Multiple contiguous axial images were obtained of the head. Using automated exposure control and adj ustment of the mA and/or kV according to patient size, radiation dose was kept as low as reasonably a chievable to obtain optimal diagnostic quality images. DICOM format image data is available electro nically for review and comparison. FINDINGS: CEREBRUM: Cerebral atrophy. The ventricles are again noted to be mildly prominent, but unchanged. No evidence of midline shift, mass lesion, hemorrhage or acute infarction. No extra-axial fluid collections are seen. POSTERIOR FOSSA: The cerebellum and brainstem are intact. The 4th ventricle is midline. The cerebellopontine angle i s unremarkable. EXTRACRANIAL: The visualized portion of the orbits is intact. SKULL: The calvaria is intact. No evidence of skull fracture. CONCLUSION: Ventricles are again noted to be mildly prominent but unchanged. No acute intracranial abnormality. Vahe Raymundo MD on May 13, 2017 at 14:43 Board Certified Radiologist. This report was verified electronically.
[2017-05-13 14:52] LABS: AUTOMATED NEUTROPHIL # 5.6 TH/MM3 (1.8-7.7); BASOPHIL % 0.5 % (0.0-2.0); EOSINOPHIL # 0.1 TH/MM3 (0-0.4); EOSINOPHIL % 0.8 % (0.0-4.0); HEMATOCRIT 36.8 % (39.0-51.0); HEMOGLOBIN 13.1 GM/DL (13.0-17.0); LYMPH % 25.2 % (9.0-44.0); LYMPHOCYTE # 2.2 TH/MM3 (1.0-4.8); MEAN CORPUSCULAR HEMOGLOBIN 33.6 PG (27.0-34.0); MEAN CORPUSCULAR HGB CONC 35.7 % (32.0-36.0); MEAN PLATELET VOLUME 7.3 FL (7.0-11.0); MONO % 7.8 % (0.0-8.0); MONOCYTE # 0.7 TH/MM3 (0-0.9); NEUT % 65.7 % (16.0-70.0); PLATELET COUNT 172 TH/MM3 (150-450); RED BLOOD COUNT 3.91 MIL/MM3 (4.50-5.90); RED CELL DISTRIBUTION WIDTH 13.6 % (11.6-17.2); WHITE BLOOD COUNT 8.5 TH/MM3 (4.0-11.0)
[2017-05-13 15:21] LABS: ALBUMIN 3.3 GM/DL (3.4-5.0); ALT (GPT) 17 U/L (12-78); AST (GOT) 12 U/L (15-37); BICARBONATE 28.7 MEQ/L (21.0-32.0); BLOOD UREA NITROGEN 10 MG/DL (7-18); CALCIUM 8.2 MG/DL (8.5-10.1); CHLORIDE 104 MEQ/L (98-107); CREATININE 0.93 MG/DL (0.60-1.30); GLOMERULAR FILTRATION RATE 89 ML/MIN (>89); GLUCOSE,RANDOM 117 MG/DL (74-106); SODIUM (NA) 139 MEQ/L (136-145)
[2017-05-13 15:23] LABS: ALKALINE PHOSPHATASE 52 U/L (45-117); TOTAL BILIRUBIN ADULT 0.2 MG/DL (0.2-1.0); TOTAL PROTEIN 6.3 GM/DL (6.4-8.2)
[2017-05-13] MEDS ORDERED: chlorproMAZINE PO ×2 (15:47)
[2017-05-13] MEDS ORDERED: LOMO PO (15:47)
[2017-05-13] MEDS ORDERED: DEPA500T3 PO (15:47)
[2017-05-13] MEDS ORDERED: ARIP1TAB14 PO (15:47)
[2017-05-13] MEDS ORDERED: TRAZ50TA12 PO (15:47)
[2017-05-13] MEDS ORDERED: LACT PO (15:47)
[2017-05-13] MEDS ORDERED: Benztropine PO (15:47)
[2017-05-13] MEDS ORDERED: DIVA250ER PO (15:47)
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
[2017-05-13 17:32] VITALS: BP 136/72; PULSE 86; RESP 18; TEMP 98; O2SAT 98
[2017-05-13] MEDS: clonazePAM 1 MG TAB PO SCH (20:03)
--- NOTE | 2017-05-13 20:11 | HHI.PR ---
Addendum to Inpatient Note Addendum Reason: Additional Documentation Additional Information Patient is medically clear for discharge Vahe Earl MD May 13, 2017 20:11
[2017-05-14] MEDS: traZODone HCL 100 MG TAB PO SCH (06:20)
[2017-05-14] MEDS: DIVALPROEX SODIUM E.R. 500 MG TAB PO SCH (06:20)
[2017-05-14] MEDS: LACTOBACILLUS ACIDOPHILUS TAB PO SCH (06:20)
[2017-05-14] MEDS: DIVALPROEX SODIUM E.R. 250 MG TAB PO SCH (06:21)
[2017-05-14] MEDS: BENZTROPINE MESYLATE 1 MG TAB PO SCH (06:21)
[2017-05-14] MEDS: ESCITALOPRAM OXALATE 20 MG TAB PO SCH (06:21)
[2017-05-14] MEDS: CHOLECALCIFEROL (VIT D3) 1000 UNIT TAB PO SCH (06:21)
[2017-05-14 06:30] VITALS: BP 106/64; PULSE 105; RESP 18; TEMP 98; O2SAT 92
[2017-05-14] MEDS: LORazepam 1 MG TAB PO PRN (07:13)
== END 2017-05-14 07:30 | DRG 92 ==
LOC: NEPD 18:56 → UNDOADMIN 03-14 23:59 → NEDA 03-14 23:59 → H270 03-16 16:34 → H250 03-17 11:08
PROVIDERS: ADMIT Psychiatry & Neurology Psychiatry; ATTEND Psychiatry & Neurology Psychiatry
DX: S06.309S Unspecified focal traumatic brain injury with loss of consciousness of unspecified duration, sequela (principal); F02.81 Dementia in other diseases classified elsewhere, unspecified severity, with behavioral disturbance; E72.20 Disorder of urea cycle metabolism, unspecified; R15.9 Full incontinence of feces; N39.0 Urinary tract infection, site not specified; Z87.820 Personal history of traumatic brain injury; E55.9 Vitamin D deficiency, unspecified; R63.2 Polyphagia; R45.87 Impulsiveness; T43.595A Adverse effect of other antipsychotics and neuroleptics, initial encounter; R73.03 Prediabetes; R19.7 Diarrhea, unspecified; F63.81 Intermittent explosive disorder; R41.89 Other symptoms and signs involving cognitive functions and awareness; E86.9 Volume depletion, unspecified; F41.9 Anxiety disorder, unspecified; B96.20 Unspecified Escherichia coli [E. coli] as the cause of diseases classified elsewhere; Z16.12 Extended spectrum beta lactamase (ESBL) resistance; Z91.83 Wandering in diseases classified elsewhere; Z23 Encounter for immunization
CPT/HCPCS: 70450; 74018; 74177; 80048; 80053; 80061; 80164; 81001; 82140; 82306; 82607; 82948; 83036; 84443; 85025; 87077; 87086; 87186; 87493; 90686; 90732; 93005; 96372; 99285; J1200; J1630; J2060; J3230; J3486; J7030; Q2038; Q9963; Q9967